=== PATIENT | female | born 1990 | race Caucasian/White ===

== ENCOUNTER 2016-07-02 21:53 | Outpatient (CLI) | payer MEDICAID ==
[2016-07-02 22:36] LABS: APPEARANCE,URINE SLIGHTLY-CLOUDY; BILIRUBIN,URINE NEGATIVE (NEGATIVE); GLUCOSE, URINE NEGATIVE (NEGATIVE); KETONES,URINE NEGATIVE (NEGATIVE); LEUKOCYTE ESTERASE,URINE LARGE (NEGATIVE); NITRITE,URINE NEGATIVE (NEGATIVE); PROTEIN,URINE NEGATIVE (NEGATIVE); URINE SPECIFIC GRAVITY 1.011; UROBILINOGEN,URINE NEGATIVE mg/dL (<2.0)
[2016-07-02 22:56] LABS: URINE BARBITURATES SCREEN NEGATIVE; URINE METHADONE SCREEN NEGATIVE; URINE PHENCYCLIDINE SCREEN NEGATIVE
--- NOTE | 2016-07-02 23:27 | Non Stress Test Report ---
Non Stress Test Datetime Report Generated by CPN: 07/02/2016 23:27 DEMOGRAPHIC Test Number: 1 EGA NST: 36.5 INDICATION Indication for Study: Ordered by Provider Indication for Study (NST) Other: LC MONITORING Monitor Explained: Monitor Explained; Test Explained; Patient Verbalized Understanding Time on Monitor: 07/02/2016 22:18 Time off Monitor: 07/02/2016 23:01 NST Duration: 43 NST INTERVENTIONS NST Interventions: PO Hydration; Reposition Patient Physician Notified NST: Dr Carroll BABY A: [id number] BABY A Movement : Present Contraction Frequency : None FHR Baseline : 150 Accelerations : 15X15 Decelerations : None Variability : Moderate 6-25bpm NST Review: Meets Criteria for Reactive NST NST Review and Verified By : Pascual Sands RN NST Results: Reactive NST COMMENTS NST Comments: see flowsheet for urine results and VS NST REPORT Report Trigger: Send Report
--- NOTE | 2016-07-03 04:48 | L&D Discharge Summary ---
OB Discharge Summary Datetime Report Generated by CPN: 07/03/2016 04:45 DISCHARGE DIAGNOSIS Diagnosis/Symptoms: Hypertension Evaluation; Chronic Hypertension Treatment/Procedures Other: BP monitoring Gestation: 36.5 Number of Babies in Womb: 1 Parity: 0 DIET/ACTIVITY/RESTRICTIONS Diet: Regular Diet Restrictions: BRAT DIET, ADVANCE TOLERATED Activity: Normal Activity TEACHING/INSTRUCTIONS/REFERRALS Instructions Given To: Pt, support persons Instructions Understood: Patient Verbalized Understanding; Support Person Verbalized Understanding Referrals: None Educational Materials- Other: pre-e care notes DISCHARGE INFORMATION Discharged AMA: No Discharge Date/Time: 07/02/2016 23:16 Discharged To: Home Discharge Provider Name: Dr Carroll Accompanied By: support persons Discharge Method: Ambulatory Condition: Stable FOLLOW UP INFORMATION Follow Up With: [facility] Follow Up On: Tomorrow Follow Up Phone Number: [facility] - Comments: see flowsheet for education.
--- NOTE | 2016-07-03 04:48 | L&D General Admission ---
General Admit Datetime Report Generated by CPN: 07/03/2016 04:45 INFORMATION Para: 0 (07/02/2016 23:16:Magda Victoriano, RN) Baby, Number in Womb: 1 (07/02/2016 23:16:Magda Victoriano, RN) CARE Height (in): 69 (07/02/2016 23:13:QS system process) Height (in): 69 (07/02/2016 22:36:QS system process) ALLERGIES Medication Allergies: amoxicillin (07/02/2016) (07/02/2016 22:35:QS system process) DEMOGRAPHICS Next of Kin (07/02/2016 21:54:QS system process)
--- NOTE | 2016-07-03 04:48 | Antepartum Discharge Summary ---
Antepartum DC Datetime Report Generated by CPN: 07/03/2016 04:45 DIET/ACTIVITY/RESTRICTIONS Diet: Regular (07/02/2016 23:16:Magda Victoriano, RN) Activity: Normal Activity (07/02/2016 23:16:Magda Victoriano, RN) TEACHING/INSTRUCTIONS/REFERRALS Instructions Given To: Pt, support persons (07/02/2016 23:16:Magda Victoriano, RN) Instructions Understood: Patient Verbalized Understanding; Support Person Verbalized Understanding (07/02/2016 23:16:Magda Pastrana RN) Educational Materials- Other: pre-e care notes (07/02/2016 23:16:Magda Pastrana RN) DISCHARGE INFORMATION Discharged AMA: No (07/02/2016 23:16:Magda Pastrana RN) Discharge Date/Time: 07/02/2016 23:16 (07/02/2016 23:16:Magda Pastrana RN) Discharged To: Home (07/02/2016 23:16:Magda Pastrana RN) Discharge Provider Name: Dr Carroll (07/02/2016 23:16:Magda Pastrana RN) Accompanied By: support persons (07/02/2016 23:16:Magda Pastrana RN) Discharge Method: Ambulatory (07/02/2016 23:16:Magda Pastrana RN) Condition: Stable (07/02/2016 23:16:Magda Pastrana RN) FOLLOW UP INFORMATION Follow Up With: [facility] (07/02/2016 23:16:Magda Pastrana RN) Follow Up On: Tomorrow (07/02/2016 23:16:Magda Pastrana RN) Follow Up Phone Number: [facility] - (07/02/2016 23:16:Magda Pastrana RN) Comments: see flowsheet for education. (07/02/2016 23:16:Magda Pastrana RN)
--- NOTE | 2016-07-03 04:48 | L&D Flow Sheet ---
LD Flowsheet Datetime Report Generated by CPN: 07/03/2016 04:45 Datetime: 07/02/2016 23:16 Teaching Comments: pre-e care notes given and explained, instructed to return for strong, regular ctx, heavy vaginal bleeding, decreased movement or suspected ROM as well. All pt and family member questions answered at this time. Pt and family agree to POC. Pt will f/u as scheduled at [facility] (Magda Pastrana RN) Additional Nursing Comments: Pt stable, ambulatory, leaving unit accompanied by family (Magda Pastrana RN) Datetime: 07/02/2016 23:01 Uterine Activity Monitor Mode: External (Magda Victoriano, RN) Frequency (min): None (Magda Victoriano, RN) Quality: Mild (Magda Victoriano, RN) Resting Tone (Palpate): Relaxed (Magda Victoirano, RN) Assessment A Monitor Mode: External US (Magda Victoriano, RN) FHR Baseline Rate : 145 (Magda Victoriano, RN) Variability: Moderate 6-25 bpm (Magda Victoriano, RN) Accelerations: 10X10 (Magda Victoriano, RN) Decelerations: None (Magda Victoriano, RN) Comments: Monitors discontined for d/c (Magda Victoriano, RN) Datetime: 07/02/2016 22:58 NBP Sys/Neelima/Mean (mmHg): 122 (QS system process) : 67 (QS system process) : 88 (QS system process) Pulse: 107 (QS system process) LaborFlag: Antepartum (QS system process) Datetime: 07/02/2016 22:55 Communication Communication: Call/Page Placed to Provider; Report Given to @ Dr Carroll (Magda Pastrana RN) Communication Comments: Call placed to Dr Carroll, report given to include pt presence, hx, medications, complaint of high BP at home, headache, BP readings and urine results. Orders received to d/c pt to home and f/u in office as scheduled tomorrow. (Magda Victoriano, RN) Datetime: 07/02/2016 22:48 NBP Sys/Neelima/Mean (mmHg): 134 (QS system process) : 78 (QS system process) : 101 (QS system process) Pulse: 107 (QS system process) LaborFlag: Antepartum (QS system process) Datetime: 07/02/2016 22:45 Uterine Activity Monitor Mode: External; Palpation (Magdaric Pastrana, RN) Frequency (min): None (Magdaric Pastrana, RN) Quality: Mild (Magda Victoriano, RN) Resting Tone (Palpate): Relaxed (Magda Victoriano, RN) Assessment A Monitor Mode: External US (Magda Victoriano, RN) FHR Baseline Rate : 150 (Magda Victoriano, RN) Variability: Moderate 6-25 bpm (Magda Victoriano, RN) Accelerations: 15X15 (Magda Victoriano, RN) Decelerations: None (Magda Victoriano, RN) Datetime: 07/02/2016 22:38 NBP Sys/Neelima/Mean (mmHg): 135 (QS system process) : 77 (QS system process) : 100 (QS system process) Pulse: 110 (QS system process) LaborFlag: Antepartum (QS system process) Datetime: 07/02/2016 22:25 Contraction Comments: pt denies ctx, abd soft to palpation (Magda Victoriano, RN) Pain Pain Scale: 1 (Annotations: "maybe a 1, I just feel gross") (Magda Victoriano, RN) Pain Presence: Constant (Magda Victoriano, RN) Pain Type: Ache (Magda Victoriano, RN) Pain Location: Abdomen; Head (Magda Victoriano, RN) Pain Goal: 0 (Magda Victoriano, RN) Vaginal Exam Membrane Status: Intact (Magda Victoriano, RN) Vaginal Bleeding: None (Magda Victoriano, RN) Maternal Assessment Level of Consciousness: Fully Conscious (Magda Victoriano, RN) DTR's/Clonus: DTRs 1+; No Clonus (Magda Victoriano, RN) Headache: Denies (Magda Victoriano, RN) Breath Sounds, Left: Clear and Equal (Magda Victoriano, RN) Breath Sounds, Right: Clear and Equal (Magda Victoriano, RN) Nausea/Vomiting: Denies (Magda Victoriano, RN) RUQ Epigastric Pain: Denies (Magda Victoriano, RN) Patient Care Patient Position/Activity: Right Lateral (Magda Victoriano, RN) Comfort Measures: Family Support (Magda Victoriano, RN) Teaching Instructional Method: Verbal; Patient Instructed; Family/Support Person Instructed; Verbalized Understanding (Magda Pastrana RN) Plan of Care: Plan of Care Discussed (Magda Pastrana RN) Unit Routine: [place] to Room; Call [place]; Bed (Magda Pastrana RN) LaborFlag: Antepartum (QS system process) Datetime: 07/02/2016 22:23 NBP Sys/Neelima/Mean (mmHg): 141 (QS system process) : 98 (QS system process) : 112 (QS system process) Pulse: 115 (QS system process) Respirations: 19 (Magda Victoriano, RN) SpO2 (%): 97 (Magda Victoriano, RN) Temperature (F): 97.9 (Magda Victoriano, RN) Temperature (C): 36.6 (QS system process) Temperature Route: Oral (Magda Victoriano, RN) Maternal Assessment Level of Consciousness: Fully Conscious (Magda Victoriano, RN) DTR's/Clonus: DTRs 1+; No Clonus (Magda Victoriano, RN) Headache: Frontal (Magda Victoriano, RN) Breath Sounds, Left: Clear and Equal (Magda Victoriano, RN) Breath Sounds, Right: Clear and Equal (Magda Victoriano, RN) Nausea/Vomiting: Denies (Magda Victoriano, RN) RUQ Epigastric Pain: Denies (Magda Victoriano, RN) LaborFlag: Antepartum (QS system process) Datetime: 07/02/2016 22:16 Vital Signs Stage of : Antepartum (Magda Victoriano, RN)
--- NOTE | 2016-07-03 04:48 | L&D Current Admission ---
Current Admit Datetime Report Generated by CPN: 07/03/2016 04:45 ADMISSION INFORMATION Chief Complaint: elevated BP at home 166/108 at 2115 (07/02/2016 22:25:Magda Pastrana RN)
--- NOTE | 2016-07-03 04:48 | L&D Admission Assessment ---
LD ADM ASMT Datetime Report Generated by CPN: 07/03/2016 04:45 PATIENT ASSESSMENT Assessment Type: Triage (07/02/2016 22:25:Magda Sandersl, RN) WEIGHT Weight (lb): 262 (07/02/2016 23:13:QS system process) Weight (lb): 262 (07/02/2016 22:36:QS system process) Weight (kg): 119.1 (07/02/2016 23:13:QS system process) Weight (kg): 119.1 (07/02/2016 22:36:QS system process) BMI: 38.7 (07/02/2016 23:13:QS system process) BMI: 38.7 (07/02/2016 22:36:QS system process) PAIN Pain Scale: 1 (Annotations: "maybe a 1, I just feel gross") (07/02/2016 22:25:Magda Pastrana RN) Pain Presence: Constant (07/02/2016 22:25:Magda Pastrana RN) Pain Type: Ache (07/02/2016 22:25:Magda Pastrana RN) Pain Location: Abdomen; Head (07/02/2016 22:25:Magda Pastrana RN) Pain Goal: 0 (07/02/2016 22:25:Magda Pastrana RN) Pain Related to Contraction: No (07/02/2016 22:25:Magda Pastrana RN) CONTRACTIONS Frequency (min): None (07/02/2016 23:01:Magda Pastrana RN) Frequency (min): None (07/02/2016 22:45:Magda Pastrana RN) Quality: Mild (07/02/2016 23:01:Magda Pastrana RN) Quality: Mild (07/02/2016 22:45:Magda Pastrana RN) Resting Tone [place]: Relaxed (07/02/2016 23:01:Magda Pastrana RN) Resting Tone [place]: Relaxed (07/02/2016 22:45:Magda Pastrana RN) Contraction Comments: pt denies ctx, abd soft to palpation (07/02/2016 22:25:Magda Pastrana RN) VAGINAL EXAM Membranes Status: Intact (07/02/2016 22:25:Magda Pastrana RN) NEURO Level of Consciousness: Fully Conscious (07/02/2016 22:25:Magda Pastrana RN) Level of Consciousness: Fully Conscious (07/02/2016 22:23:Magda Pastrana RN) DTR's/Clonus: DTRs 1+; No Clonus (07/02/2016 22:25:Magda Pastrana RN) DTR's/Clonus: DTRs 1+; No Clonus (07/02/2016 22:23:Magda Pastrana RN) Headache: Denies (07/02/2016 22:25:Magda Pastrana RN) Headache: Frontal (07/02/2016 22:23:Magda Pastrana RN) Dizziness: No (07/02/2016 22:25:Magda Pastrana RN) Blurred Vision: No (07/02/2016 22:25:Magda Pastrana RN) Extremity Numbness/Tingling : None (07/02/2016 22:25:Magda Pastrana RN) Extremity Movement: Full Range of Motion (07/02/2016 22:25:Magda Pastrana RN) CARDIOVASCULAR Heart Rhythm: Regular (07/02/2016 22:25:Magda Pastrana RN) Nailbeds: [place] (07/02/2016 22:25:Magda Pastrana RN) Capillary Refill: Less than 3 Seconds (07/02/2016 22:25:Magda Pastrana RN) Lower Extremities Edema: None (07/02/2016 22:25:Magda Pastrana RN) Lower Extremities Edema Degree: None (07/02/2016 22:25:Magda Pastrana RN) Upper Extremities Edema: None (07/02/2016 22:25:Magda Pastrana RN) Upper Extremities Edema Degree: None (07/02/2016 22:25:Magda Pastrana RN) Facial Edema: None (07/02/2016 22:25:Magda Pastrana RN) Delphine's Sign Left Leg: Negative (07/02/2016 22:25:Magda Pastrana RN) Delphine's Sign Right Leg: Negative (07/02/2016 22:25:Magda Pastrana RN) DVT RISK ASSESSMENT DVT Risk Age: Age less than 41 years (07/02/2016 22:25:Magda Pastrana RN) DVT Risk BMI: BMI 31 to 40 (07/02/2016 22:25:Magda Pastrana RN) DVT Risk Surgery: None Applicable (07/02/2016 22:25:Magda Pastrana RN) DVT Risk Other: Women Only- or (<1 month) (07/02/2016 22:25:Magda Pastrana RN) DVT Risk Total: 2 (07/02/2016 22:25:QS system process) DVT Risk Text: Moderate Risk (10-20%) - Consider stockings, compresssion device, pharmacological therapy per hospital policy (07/02/2016 22:25:QS system process) RESPIRATORY Respiratory Effort: Unlabored; Regular Rhythm; Equal Expansion (07/02/2016 22:25:Magda Pastrana, JASMINA) Breath Sounds, Left: Clear and Equal (07/02/2016 22:25:Magda Victoriano, RN) Breath Sounds, Left: Clear and Equal (07/02/2016 22:23:Magda Victoriano, RN) Breath Sounds, Right: Clear and Equal (07/02/2016 22:25:Magda Victoriano, RN) Breath Sounds, Right: Clear and Equal (07/02/2016 22:23:Magda Victoriano, RN) Cough Productivity: None (07/02/2016 22:25:Magda Pastrana RN) GASTROINTESTINAL Nausea/Vomiting: Denies (07/02/2016 22:25:Magda Pastrana RN) Nausea/Vomiting: Denies (07/02/2016 22:23:Magda Pastrana RN) Bowel Sounds: Normoactive; All Quadrants (07/02/2016 22:25:Magda Pastrana RN) RUQ Epigastric Pain: Denies (07/02/2016 22:25:Magda Pastrana RN) RUQ Epigastric Pain: Denies (07/02/2016 22:23:Magda Pastrana RN) Bowel Patterns: Loose Stool (07/02/2016 22:25:Magda Pastrana RN) Hemorrhoids: Present (07/02/2016 22:25:Magda Pastrana RN) Diet Type: Regular diet (07/02/2016 22:25:Magda Victoriano RN) GENITOURINARY Bladder: Nondistended (07/02/2016 22:25:Magda Pastrana RN) Frequency of Urination: No (07/02/2016 22:25:Magda Pastrana RN) Urination Burning: No (07/02/2016 22:25:Magda Pastrana RN) CVA Tenderness: No (07/02/2016 22:25:Magda Pastrana RN) Vaginal Bleeding: None (07/02/2016 22:25:Magda Pastrana RN) Vaginal Discharge Amount: Small (Annotations: increase in regular discharge per pt ) (07/02/2016 22:25:Magda Pastrana RN) Vaginal Discharge Color: N/A (07/02/2016 22:25:Magda Victoriano RN) INTEGUMENTARY Skin Color: Normal for Race (07/02/2016 22:25:Magda Pastrana RN) Skin Temperature: Warm (07/02/2016 22:25:Magda Pastrana RN) Skin Moisture: Dry (07/02/2016 22:25:Magda Pastrana RN) NATACHA SKIN ASSESSMENT Natacha Scale Sensory Perception: No Impairment- Responds to verbal commands. Has no sensory deficit which would limit ability to feel or voice pain or discomfort (07/02/2016 22:25:Magda Pastrana RN) Natacha Scale Moisture: Rarely Moist- Skin is usually dry. Linen only requires changing at routine intervals (07/02/2016 22:25:Magda Pastrana RN) Natacha Scale Activity: Walks Frequently- Walks outside the room at least twice a day and inside room at least every 2 hours during the day. (07/02/2016 22:25:Magda Pastrana RN) Natacha Scale Mobility: No Limitations- Makes major and frequent changes in position without assistance (07/02/2016 22:25:Magda Pastrana RN) Natacha Scale Nutrition: Excellent- Eats most of every meal. Never refuses a meal. Usually eats a total of 4 or more servings of meat and dairy products. Occasionally eats between meals. Does not require supplementation (07/02/2016 22:25:Magda Pastrana RN) Natacha Scale Friction and Shear: No Apparent Problem- Moves in bed and in chair independently and has sufficient muscle strength to lift up completely during move. Maintains good position in bed or chair at all times (07/02/2016 22:25:Magda Pastrana RN) Natacha Scale Total: 23 (07/02/2016 22:25:QS system process) Natacha Scale Risk: No Risk of Pressure Ulcer Noted at this Time (07/02/2016 22:25:QS system process) SUPPORT Family Support: Significant Other supportive, at bedside frequently; Family supportive (07/02/2016 22:25:Magda Victoriano, RN) Emotional State: Anxious (07/02/2016 22:25:Magda Victoriano, RN) SAFETY Call [place] Within Reach: Yes (07/02/2016 22:25:Magda Sandersl, RN) Side Rails Up: Yes (07/02/2016 22:25:Magda Victoriano, RN) Bed Wheels Locked: Yes (07/02/2016 22:25:Magda Victoriano, RN) Arm Bands Present: Yes (07/02/2016 22:25:Magda Victoriano, RN) FALL SCREEN Fall Risk History of Falling: (0) No (07/02/2016 22:25:Magda Pastrana RN) Fall Risk Secondary Diagnosis: (0) No (07/02/2016 22:25:Magda Pastrana RN) Fall Risk Ambulatory Aid: (0) None/Bedrest/Wheelchair/Nurse Assist (07/02/2016 22:25:Magda Pastrana RN) Fall Risk IV Therapy: (0) No (07/02/2016 22:25:Magda Pastrana RN) Fall Risk Gait: (0) Normal/Bedrest/Immobile (07/02/2016 22:25:Magda Pastrana RN) Fall Risk Mental Status: (0) Oriented to Own Ability (07/02/2016 22:25:Magda Pastrana RN) Fall Risk Score: 0 (07/02/2016 22:25:QS system process) Fall Risk Score Definition: No Risk: No action required (07/02/2016 22:25:QS system process) RECENT TRAVEL/INFECTIOUS DISEASE Recent Exp Communicable Disease: No (07/02/2016 22:25:Magda Pastrana RN) Cough or Fever: No (07/02/2016 22:25:Magda Pastrana RN) Foreign Travel Past 10 Days: No (07/02/2016 22:25:Magda Pastrana RN) Open Wounds or Sores: No (07/02/2016 22:25:Magda Pastrana RN) Prior Antibiotic Resistance Tx: No (07/02/2016 22:25:Magda Pastrana RN) Cultures Obtained: Not Applicable (07/02/2016 22:25:Magda Pastrana RN) Isolation Initiated: No (07/02/2016 22:25:Magda Pastrana RN) Pt/Family Education: Not Applicable (07/02/2016 22:25:Magda Pastrana RN) BABY A FHR Baseline Rate (bpm) Baby A: 145 (07/02/2016 23:01:Magda Pastrana RN) FHR Baseline Rate (bpm) Baby A: 150 (07/02/2016 22:45:Magda Pastrana RN) Variability Baby A: Moderate 6-25 bpm (07/02/2016 23:01:Magda Pastrana RN) Variability Baby A: Moderate 6-25 bpm (07/02/2016 22:45:Magda Pastrana RN) Accelerations Baby A: 10X10 (07/02/2016 23:01:Magda Pastrana RN) Accelerations Baby A: 15X15 (07/02/2016 22:45:Magda Pastrana RN) Decelerations Baby A: None (07/02/2016 23:01:Magda Pastrana RN) Decelerations Baby A: None (07/02/2016 22:45:Magda Pastrana RN)
== END 2016-07-02 23:16 | disposition home or self-care (01) ==
LOC: LC 21:53
PROVIDERS: ATTEND Specialist
PROC: 4A1HXCZ Monitoring of Products of Conception, Cardiac Rate, External Approach (ICD-10-PCS; principal; 2016-07-02)
DX: O10.913 Unspecified pre-existing hypertension complicating pregnancy, third trimester (principal); Z3A.36 36 weeks gestation of pregnancy
CPT/HCPCS: 59025; 81001; G0479; 80307

== ENCOUNTER 2016-07-07 17:33 | Inpatient (IN) | payer MEDICAID ==
[2016-07-07 18:40] LABS: ABSOLUTE EOSINOPHILS # (AUTO) 0.2 10^3/uL (0.0-0.6); ABSOLUTE LYMPHOCYTES (AUTO) 2.7 10^3/uL (0.5-4.7); ABSOLUTE MONOCYTES (AUTO) 0.7 10^3/uL (0.1-1.4); ABSOLUTE NEUT (AUTO) 9.6 10^3/uL (1.7-8.2); BASOPHILS % (AUTO) 0.3 % (0-2); EOSINOPHILS % (AUTO) 1.6 % (0-6); HEMATOCRIT 39.8 % (36.0-47.0); HGB HCT DIFFERENCE 2.2; LYMPHOCYTES % (AUTO) 20.4 % (13-45); MEAN CORPUSCULAR HEMOGLOBIN 28.7 pg (27.0-33.4); MEAN CORPUSCULAR HGB CONC 35.3 g/dL (32.0-36.0); MEAN CORPUSCULAR VOLUME 82 fl (80-97); MONOCYTES % (AUTO) 5.2 % (3-13); RED BLOOD COUNT 4.88 10^6/uL (3.72-5.28); RED CELL DISTRIBUTION WIDTH 14.3 % (11.5-14.0); SEGMENTED NEUTROPHILS % (AUTO) 72.5 % (42-78); WHITE BLOOD COUNT 13.3 10^3/uL (4.0-10.5)
[2016-07-07] MEDS ORDERED: MISOPROSTOL 0.1 MG TABLET ONE ×2 (18:54→22:55)
[2016-07-07] MEDS ORDERED: RINGERS SOLUTION,LACTATED 300 ML IV ONE (18:54)
[2016-07-07] MEDS ORDERED: OXYTOCIN/NORMAL SALINE 1,000 ML IV PRN (18:54)
[2016-07-07 18:57] LABS: ALANINE AMINOTRANSFERASE 19 U/L (9-52); ALBUMIN 3.8 g/dL (3.5-5.0); ALKALINE PHOSPHATASE 104 U/L (38-126); ANION GAP 14 (5-19); ASPARTATE AMINO TRANSFERASE 17 U/L (14-36); BILIRUBIN,TOTAL 0.9 mg/dL (0.2-1.3); BLOOD UREA NITROGEN 7 mg/dL (7-20); CALCIUM 9.8 mg/dL (8.4-10.2); CARBON DIOXIDE 20 mmol/L (22-30); CHLORIDE 105 mmol/L (98-107); GLUCOSE 72 mg/dL (75-110); LDH 317 U/L (313-618); POTASSIUM 4.2 mmol/L (3.6-5.0); SODIUM 139.1 mmol/L (137-145); TOTAL PROTEIN 6.5 g/dL (6.3-8.2); URIC ACID 4.6 mg/dL (2.5-6.2)
[2016-07-07] MEDS: RINGERS SOLUTION,LACTATED 1,000 ML IV PRN (18:57)
[2016-07-07] MEDS ORDERED: MISOPROSTOL 0.1 MG TABLET PV SCH (19:00)
[2016-07-07 19:18] LABS: APPEARANCE,URINE SLIGHTLY-CLOUDY; BILIRUBIN,URINE NEGATIVE (NEGATIVE); GLUCOSE, URINE NEGATIVE (NEGATIVE); KETONES,URINE NEGATIVE (NEGATIVE); LEUKOCYTE ESTERASE,URINE MODERATE (NEGATIVE); NITRITE,URINE NEGATIVE (NEGATIVE); PROTEIN,URINE NEGATIVE (NEGATIVE); URINE SPECIFIC GRAVITY 1.011; UROBILINOGEN,URINE NEGATIVE mg/dL (<2.0)
--- NOTE | 2016-07-07 20:00 | L&D Flow Sheet ---
LD Flowsheet Datetime Report Generated by CPN: 07/07/2016 20:00 Datetime: 07/07/2016 19:40 NBP Sys/Neelima/Mean (mmHg): 137 (QS system process) : 86 (QS system process) : 107 (QS system process) Pulse: 83 (QS system process) LaborFlag: Antepartum (QS system process) Datetime: 07/07/2016 19:30 Monitor Mode: External; Palpation (Maryse Field, RN) Frequency (min): x2 (Maryse Field, RN) Quality: Mild (Maryse Mittal RN) Duration (sec): 50-60 (Maryse Mittal RN) Resting Tone (Palpate): Relaxed (Maryse Mittal RN) Monitor Mode: External US (Maryse Mittal RN) FHR Baseline Rate : 140 (Maryse Mittal RN) Variability: Moderate 6-25 bpm (Maryse Mittal RN) Accelerations: 15X15 (Maryse Mittal RN) Decelerations: None (Maryse Mittal RN) Datetime: 07/07/2016 19:24 Pain Scale: 0 (Maryse Mittal RN) Pain Presence: None/Denies (Maryse Mittal RN) Pain Type: N/A (Maryse Mittal RN) Vaginal Bleeding: None (Maryse Mittal RN) Level of Consciousness: Fully Conscious (Maryse Mittal RN) DTR's/Clonus: DTRs 2+; No Clonus (Maryse Mittal RN) Headache: Denies (Maryse Mittal RN) Breath Sounds, Left: Clear and Equal (Maryse Mittal RN) Breath Sounds, Right: Clear and Equal (Maryse Mittal RN) Nausea/Vomiting: Denies (Maryse Mittal RN) RUQ Epigastric Pain: Denies (Maryse Mittal RN) Instructional Method: Verbal; Patient Instructed; Family/Support Person Instructed; Verbalized Understanding (Maryse Mittal RN) Plan of Care: Plan of Care Discussed (Maryse Mittal RN) Unit Routine: [place] to Room; Call [place]; Bed; Visiting Policy; Waiting Areas; Infant Security; Phone/Cell Phone Use; Photography; Unit Personnel; Consents Signed; Handwashing; Flu/Illness Precautions; Monitoring; IV Pumps; Safety/Fall Risk Prevention; Diet/Nutrition Services; Bathroom Privileges (Maryse Mittal RN) LaborFlag: Antepartum (QS system process) Datetime: 07/07/2016 19:13 Communication Comments: Report received from JASMINA Boyd (Maryse Mittal RN) Datetime: 07/07/2016 19:10 NBP Sys/Neelima/Mean (mmHg): 143 (QS system process) : 91 (QS system process) : 112 (QS system process) Pulse: 91 (QS system process) LaborFlag: Antepartum (QS system process) Datetime: 07/07/2016 19:00 Monitor Mode: External; Palpation (Margarita Jaramillo RN) Frequency (min): Irreg (Margarita Jaramillo RN) Quality: Mild (Margarita Jaramillo RN) Duration (sec): 40-50 (Margarita Jaramillo RN) Resting Tone (Palpate): Relaxed (Margarita Jaramillo RN) Monitor Mode: External US (Margarita Jaramillo RN) FHR Baseline Rate : 145 (Margarita Jaramillo RN) Variability: Moderate 6-25 bpm (Margarita Jaramillo RN) Accelerations: 15X15 (Margarita Jaramillo RN) Decelerations: None (Margarita Jaramillo RN) Dilatation (cm): 1.0 (Margarita Jaramillo RN) Effacement (%): 50 (Margarita Jaramillo RN) Station: -2 (Margarita Jaramillo RN) Exam by: Stuart Jaramillo RNC (Margarita Jaramillo RN) Vaginal Bleeding: None (Margarita Jaramillo RN) Cervix, Consistency: Soft (Margarita Jaramillo RN) Cervix, Position: Posterior (Margarita Jaramillo RN) Vaginal Exam Comments: Cervix difficult to reach (Margarita Jaramillo RN) Cervical Ripening Agents: Cytotec @ 25mcg Vaginally (Margarita Jaramillo RN) Datetime: 07/07/2016 18:57 IV/Blood Work: IV Started (Margarita Jaramillo RN) Datetime: 07/07/2016 18:39 NBP Sys/Neelima/Mean (mmHg): 134 (QS system process) : 95 (QS system process) : 109 (QS system process) Pulse: 106 (QS system process) Respirations: 16 (Margarita Jaramillo RN) Temperature (F): 98.3 (Margarita Jaramillo RN) Temperature (C): 36.8 (QS system process) Temperature Route: Oral (Margarita Jaramillo RN) LaborFlag: Antepartum (QS system process) Datetime: 07/07/2016 18:37 Stage of : Antepartum (Margarita Jaramillo RN)
[2016-07-08] MEDS: RINGERS SOLUTION,LACTATED 1,000 ML IV PRN (00:16)
[2016-07-08] MEDS ORDERED: ZOLPIDEM TARTRATE 5 MG TABLET ONE (01:18)
[2016-07-08] MEDS ORDERED: ZOLPIDEM TARTRATE 5 MG TABLET PO ONE (01:19)
[2016-07-08] MEDS ORDERED: MISOPROSTOL 0.1 MG TABLET ONE (03:06)
[2016-07-08] MEDS ORDERED: PROMETHAZINE HCL INJ 25 MG/1 ML VIAL IV ONE (04:30)
[2016-07-08] MEDS ORDERED: NALBUPHINE HCL INJ 10 MG/1 ML AMPULE INJ ONE (04:30)
[2016-07-08] MEDS ORDERED: PROMETHAZINE HCL INJ 25 MG/1 ML VIAL ONE (04:32)
[2016-07-08] MEDS ORDERED: NALBUPHINE HCL INJ 10 MG/1 ML AMPULE ONE ×2 (04:33→10:25)
--- NOTE | 2016-07-08 04:45 | L&D Flow Sheet ---
LD Flowsheet Datetime Report Generated by CPN: 07/08/2016 04:45 Datetime: 07/08/2016 04:42 NBP Sys/Neelima/Mean (mmHg): 113 (QS system process) : 59 (QS system process) : 80 (QS system process) Pulse: 64 (QS system process) LaborFlag: Antepartum (QS system process) Datetime: 07/08/2016 04:40 Analgesics/Sedatives: Nubain (mg) @ 10; Phenergan (mg) @ 12.5 (Maryse Field, RN) Datetime: 07/08/2016 04:27 Communication: RN Reviewed Strip; Provider Orders Received; Call/Page Placed to Provider (Maryse Mittal RN) Communication Comments: Informed Dr. Carroll of patient's complaint of pain, vag exam and contractions; orders received for Nubain and Phenergan IV now. (Maryse Mittal RN) Datetime: 07/08/2016 04:10 NBP Sys/Neelima/Mean (mmHg): 137 (QS system process) : 83 (QS system process) : 106 (QS system process) Pulse: 78 (QS system process) LaborFlag: Antepartum (QS system process) Datetime: 07/08/2016 03:40 NBP Sys/Neelima/Mean (mmHg): 142 (QS system process) : 89 (QS system process) : 110 (QS system process) Pulse: 89 (QS system process) LaborFlag: Antepartum (QS system process) Datetime: 07/08/2016 03:25 Cervical Ripening Agents: Cytotec @ 25 mcg PV (Maryse Mittal, JASMINA) Datetime: 07/08/2016 03:10 Dilatation (cm): 2.0 (Maryse Mittal RN) Effacement (%): 60 (Maryse Mittal RN) Station: -1 (Maryse Mittal RN) Exam by: JASMINA Hyde (Maryse Mittal RN) Datetime: 07/08/2016 03:01 I/O Interventions: Up to BR (Maryse Mittal RN) Datetime: 07/08/2016 02:40 NBP Sys/Neelima/Mean (mmHg): 142 (QS system process) : 87 (QS system process) : 106 (QS system process) Pulse: 78 (QS system process) LaborFlag: Antepartum (QS system process) Datetime: 07/08/2016 02:30 Monitor Mode: External; Palpation (Maryse Mittal, RN) Frequency (min): 2-4 (Maryse Mittal RN) Quality: Mild (Maryse Mittal RN) Duration (sec): 50-60 (Maryse Field, RN) Resting Tone (Palpate): Relaxed (Maryse Mittal, RN) Monitor Mode: External US (Maryse Mittal, RN) FHR Baseline Rate : 145 (Maryse Mittal, RN) Variability: Moderate 6-25 bpm (Maryse Mittal, RN) Accelerations: 10X10 (Maryse Mittal, RN) Decelerations: None (Maryse Mittal, RN) I/O Interventions: Up to BR (Maryse Mittal, RN) Datetime: 07/08/2016 02:10 NBP Sys/Neelima/Mean (mmHg): 141 (QS system process) : 81 (QS system process) : 105 (QS system process) Pulse: 93 (QS system process) LaborFlag: Antepartum (QS system process) Datetime: 07/08/2016 02:00 Monitor Mode: External; Palpation (Maryse Mittal, RN) Frequency (min): 3.5-5.5 (Maryse Mittal, RN) Quality: Mild (Maryse Mittal, RN) Duration (sec): 50-70 (Maryse Mittal, RN) Resting Tone (Palpate): Relaxed (Maryse Mittal, RN) Monitor Mode: External US (Maryse Mittal, RN) FHR Baseline Rate : 140 (Maryse Mittal, RN) Variability: Moderate 6-25 bpm (Maryse Field, RN) Accelerations: 10X10 (Maryse Field, RN) Decelerations: None (Maryse Field, RN) Datetime: 07/08/2016 01:40 NBP Sys/Neelima/Mean (mmHg): 134 (QS system process) : 83 (QS system process) : 101 (QS system process) Pulse: 82 (QS system process) LaborFlag: Antepartum (QS system process) Datetime: 07/08/2016 01:30 Monitor Mode: External; Palpation (Maryse Mittal, RN) Frequency (min): 3-3.5 (Maryse Mittal, RN) Quality: Mild (Maryse Mittal, RN) Duration (sec): 60-130 (Maryse Mittal, RN) Resting Tone (Palpate): Relaxed (Maryse Mittal, RN) Monitor Mode: External US (Maryse Field, RN) FHR Baseline Rate : 140 (Maryse Field, RN) Variability: Moderate 6-25 bpm (Maryse Field, RN) Accelerations: 10X10 (Maryse Field, RN) Decelerations: None (Maryse Field, RN) Datetime: 07/08/2016 01:19 Analgesics/Sedatives: Ambien (mg) @ 10 (Maryse Field, RN) Datetime: 07/08/2016 01:09 NBP Sys/Neelima/Mean (mmHg): 132 (QS system process) : 72 (QS system process) : 97 (QS system process) Pulse: 78 (QS system process) LaborFlag: Antepartum (QS system process) Datetime: 07/08/2016 01:00 Monitor Mode: External; Palpation (Maryse Field, RN) Frequency (min): 1.5-2.5 (Maryse Field, RN) Quality: Mild (Maryse Field, RN) Duration (sec): 50-80 (Maryse Field, RN) Resting Tone (Palpate): Relaxed (Maryse Field, RN) Monitor Mode: External US (Maryse Field, RN) FHR Baseline Rate : 135 (Maryse Field, RN) Variability: Moderate 6-25 bpm (Maryse Field, RN) Accelerations: 15X15 (Maryse Field, RN) Decelerations: None (Maryse Field, RN) Datetime: 07/08/2016 00:40 NBP Sys/Neelima/Mean (mmHg): 128 (QS system process) : 79 (QS system process) : 99 (QS system process) Pulse: 72 (QS system process) LaborFlag: Antepartum (QS system process) Datetime: 07/08/2016 00:30 Monitor Mode: External; Palpation (Maryse Field, RN) Frequency (min): 1.5-8 (Maryse Field, RN) Quality: Mild (Maryse Field, RN) Duration (sec): 60-80 (Maryse Field, RN) Resting Tone (Palpate): Relaxed (Maryse Field, RN) Monitor Mode: External US (Maryse Field, RN) FHR Baseline Rate : 135 (Maryse Field, RN) Variability: Moderate 6-25 bpm (Maryse Field, RN) Accelerations: 15X15 (Maryse Field, RN) Decelerations: None (Maryse Field, RN) Datetime: 07/08/2016 00:16 IV/Blood Work: New IV Bag Hung; IV Bag Number @ 2 (Maryse Field, RN) Datetime: 07/08/2016 00:06 I/O Interventions: Up to BR (Maryse Field, RN) Datetime: 07/08/2016 00:00 Monitor Mode: External; Palpation (Maryse Field, RN) Frequency (min): Irregular (Mrayse Field, RN) Quality: Mild (Maryse Field, RN) Resting Tone (Palpate): Relaxed (Maryse Field, RN) Monitor Mode: External US (Maryse Field, RN) FHR Baseline Rate : 135 (Maryse Field, RN) Variability: Moderate 6-25 bpm (Maryse Field, RN) Accelerations: 15X15 (Maryse Field, RN) Decelerations: None (Maryse Field, RN) Datetime: 07/07/2016 23:41 NBP Sys/Neelima/Mean (mmHg): 115 (QS system process) : 62 (QS system process) : 83 (QS system process) Pulse: 73 (QS system process) LaborFlag: Antepartum (QS system process) Datetime: 07/07/2016 23:30 Monitor Mode: External; Palpation (Maryse Field, RN) Frequency (min): Irregular (Maryse Field, RN) Quality: Mild (Maryse Field, RN) Resting Tone (Palpate): Relaxed (Maryse Field, RN) Monitor Mode: External US (Maryse Field, RN) FHR Baseline Rate : 135 (Maryse Field, RN) Variability: Moderate 6-25 bpm (Maryse Field, RN) Accelerations: 15X15 (Maryse Field, RN) Decelerations: None (Maryse Field, RN) Datetime: 07/07/2016 23:10 NBP Sys/Neelima/Mean (mmHg): 112 (QS system process) : 63 (QS system process) : 82 (QS system process) Pulse: 70 (QS system process) LaborFlag: Antepartum (QS system process) Datetime: 07/07/2016 23:01 Cervical Ripening Agents: Cytotec @ 25 mcg PV (Maryse Field, RN) Datetime: 07/07/2016 23:00 Monitor Mode: External; Palpation (Maryse Mittal, RN) Frequency (min): Irregular (Maryse Mittal, RN) Quality: Mild (Maryse Field, RN) Resting Tone (Palpate): Relaxed (Maryse Field, RN) Monitor Mode: External US (Maryse Field, RN) FHR Baseline Rate : 135 (Maryse Field, RN) Variability: Moderate 6-25 bpm (Maryse Field, RN) Accelerations: 15X15 (Maryse Field, RN) Decelerations: None (Maryse Field, RN) Dilatation (cm): 1.0 (Maryse Field, RN) Effacement (%): 60 (Maryse Field, RN) Station: -2 (Maryse Field, RN) Exam by: J.Field RN (Maryse Field, RN) Datetime: 07/07/2016 22:51 I/O Interventions: Up to BR (Maryse Field, RN) Datetime: 07/07/2016 22:40 NBP Sys/Neelima/Mean (mmHg): 135 (QS system process) : 85 (QS system process) : 105 (QS system process) Pulse: 74 (QS system process) LaborFlag: Antepartum (QS system process) Datetime: 07/07/2016 22:30 Monitor Mode: External; Palpation (Maryse Field, RN) Frequency (min): Irregular (Maryse Field, RN) Quality: Mild (Maryse Field, RN) Resting Tone (Palpate): Relaxed (Maryse Field, RN) Monitor Mode: External US (Maryse Field, RN) FHR Baseline Rate : 135 (Maryse Field, RN) Variability: Moderate 6-25 bpm (Maryse Field, RN) Accelerations: 15X15 (Maryse Field, RN) Decelerations: None (Maryse Field, RN) Datetime: 07/07/2016 22:10 NBP Sys/Neelima/Mean (mmHg): 133 (QS system process) : 81 (QS system process) : 102 (QS system process) Pulse: 75 (QS system process) LaborFlag: Antepartum (QS system process) Datetime: 07/07/2016 22:00 Monitor Mode: External; Palpation (Maryse Field, RN) Frequency (min): Irregular (Maryse Field, RN) Quality: Mild (Maryse Field, RN) Resting Tone (Palpate): Relaxed (Maryse Field, RN) Monitor Mode: External US (Maryse Field, RN) FHR Baseline Rate : 135 (Maryse Field, RN) Variability: Moderate 6-25 bpm (Maryse Field, RN) Accelerations: 15X15 (Maryse Field, RN) Decelerations: None (Maryse Field, RN) Datetime: 07/07/2016 21:40 NBP Sys/Neelima/Mean (mmHg): 131 (QS system process) : 80 (QS system process) : 100 (QS system process) Pulse: 79 (QS system process) LaborFlag: Antepartum (QS system process) Datetime: 07/07/2016 21:30 Monitor Mode: External; Palpation (Maryse Field, RN) Frequency (min): x1 (Maryse Field, RN) Quality: Mild (Maryse Field, RN) Duration (sec): 100 (Maryse Field, RN) Resting Tone (Palpate): Relaxed (Maryse Field, RN) Monitor Mode: External US (Maryse Field, RN) FHR Baseline Rate : 135 (Maryse Field, RN) Variability: Moderate 6-25 bpm (Maryse Field, RN) Accelerations: 15X15 (Maryse Field, RN) Decelerations: None (Maryse Field, RN) Datetime: 07/07/2016 21:00 Monitor Mode: External; Palpation (Maryse Field, RN) Frequency (min): Irregular (Maryse Field, RN) Quality: Mild (Maryse Field, RN) Resting Tone (Palpate): Relaxed (Maryse Field, RN) Monitor Mode: External US (Maryse Field, RN) FHR Baseline Rate : 135 (Maryse Field, RN) Variability: Moderate 6-25 bpm (Maryse Field, RN) Accelerations: 15X15 (Maryse Field, RN) Decelerations: None (Maryse Field, RN) Datetime: 07/07/2016 20:40 NBP Sys/Neelima/Mean (mmHg): 137 (QS system process) : 83 (QS system process) : 105 (QS system process) Pulse: 78 (QS system process) LaborFlag: Antepartum (QS system process) Datetime: 07/07/2016 20:31 I/O Interventions: Up to BR (Maryse Field, RN) Datetime: 07/07/2016 20:30 Monitor Mode: External; Palpation (Maryse Field, RN) Frequency (min): Irregular (Maryse Field, RN) Quality: Mild (Maryse Field, RN) Resting Tone (Palpate): Relaxed (Maryse Field, RN) Monitor Mode: External US (Maryse Field, RN) FHR Baseline Rate : 130 (Maryse Field, RN) Variability: Moderate 6-25 bpm (Maryse Field, RN) Accelerations: 15X15 (Maryse Field, RN) Decelerations: None (Maryse Field, RN) Datetime: 07/07/2016 20:10 NBP Sys/Neelima/Mean (mmHg): 136 (QS system process) : 84 (QS system process) : 105 (QS system process) Pulse: 82 (QS system process) LaborFlag: Antepartum (QS system process) Datetime: 07/07/2016 20:00 Monitor Mode: External; Palpation (Maryse Field, RN) Frequency (min): Irregular (Maryse Field, RN) Quality: Mild (Maryse Field, RN) Resting Tone (Palpate): Relaxed (Maryse Field, RN) Monitor Mode: External US (Maryse Field, RN) FHR Baseline Rate : 135 (Maryse Field, RN) Variability: Moderate 6-25 bpm (Maryse Field, RN) Accelerations: 15X15 (Maryse Field, RN) Decelerations: None (Maryse Field, RN) Datetime: 07/07/2016 19:40 NBP Sys/Neelima/Mean (mmHg): 137 (QS system process) : 86 (QS system process) : 107 (QS system process) Pulse: 83 (QS system process) LaborFlag: Antepartum (QS system process) Datetime: 07/07/2016 19:30 Monitor Mode: External; Palpation (Maryse Field, RN) Frequency (min): x2 (Maryse Field, RN) Quality: Mild (Maryse Field, RN) Duration (sec): 50-60 (Maryse Field, RN) Resting Tone (Palpate): Relaxed (Maryse Field, RN) Monitor Mode: External US (Maryse Field, RN) FHR Baseline Rate : 140 (Maryse Field, RN) Variability: Moderate 6-25 bpm (Maryse Field, RN) Accelerations: 15X15 (Maryse Field, RN) Decelerations: None (Maryse Field, RN) Datetime: 07/07/2016 19:24 Pain Scale: 0 (Maryse Field, RN) Pain Presence: None/Denies (Maryse Field, RN) Pain Type: N/A (Maryse Field, RN) Vaginal Bleeding: None (Maryse Field, RN) Level of Consciousness: Fully Conscious (Maryse Field, RN) DTR's/Clonus: DTRs 2+; No Clonus (Maryse Field, RN) Headache: Denies (Maryse Field, RN) Breath Sounds, Left: Clear and Equal (Maryse Field, RN) Breath Sounds, Right: Clear and Equal (Maryse Field, RN) Nausea/Vomiting: Denies (Maryse Mittal RN) RUQ Epigastric Pain: Denies (Maryse Mittal RN) Instructional Method: Verbal; Patient Instructed; Family/Support Person Instructed; Verbalized Understanding (Maryse Mittal RN) Plan of Care: Plan of Care Discussed (Maryse Mittal RN) Unit Routine: [place] to Room; Call [place]; Bed; Visiting Policy; Waiting Areas; Infant Security; Phone/Cell Phone Use; Photography; Unit Personnel; Consents Signed; Handwashing; Flu/Illness Precautions; Monitoring; IV Pumps; Safety/Fall Risk Prevention; Diet/Nutrition Services; Bathroom Privileges (Maryse Mittal RN) LaborFlag: Antepartum (QS system process) Datetime: 07/07/2016 19:13 Communication Comments: Report received from JASMINA Boyd (Maryse Mittal RN) Datetime: 07/07/2016 19:10 NBP Sys/Neelima/Mean (mmHg): 143 (QS system process) : 91 (QS system process) : 112 (QS system process) Pulse: 91 (QS system process) LaborFlag: Antepartum (QS system process) Datetime: 07/07/2016 19:00 Monitor Mode: External; Palpation (Margarita Jaramillo RN) Frequency (min): Irreg (Margarita Jaramillo RN) Quality: Mild (Margarita Jaramillo RN) Duration (sec): 40-50 (Margarita Jaramillo RN) Resting Tone (Palpate): Relaxed (Margarita Jaramillo RN) Monitor Mode: External US (Margarita Jaramillo RN) FHR Baseline Rate : 145 (Margarita Jaramillo RN) Variability: Moderate 6-25 bpm (Margarita Jaramillo RN) Accelerations: 15X15 (Margarita Jaramillo RN) Decelerations: None (Margarita Jaramillo RN) Dilatation (cm): 1.0 (Margarita Jaramillo RN) Effacement (%): 50 (Margarita Jaramillo RN) Station: -2 (Margarita Jaramillo RN) Exam by: Stuart Jaramillo RNC (Margarita Jaramillo RN) Vaginal Bleeding: None (Margarita Jaramillo RN) Cervix, Consistency: Soft (Margarita Jaramillo RN) Cervix, Position: Posterior (Margarita Jaramillo RN) Vaginal Exam Comments: Cervix difficult to reach (Margarita Jaramillo RN) Cervical Ripening Agents: Cytotec @ 25mcg Vaginally (Margarita Jaramillo RN) Datetime: 07/07/2016 18:57 IV/Blood Work: IV Started (Margarita Jaramillo, JASMINA) Datetime: 07/07/2016 18:39 NBP Sys/Neelima/Mean (mmHg): 134 (QS system process) : 95 (QS system process) : 109 (QS system process) Pulse: 106 (QS system process) Respirations: 16 (Margarita Jaramillo RN) Temperature (F): 98.3 (Margarita Jaramillo RN) Temperature (C): 36.8 (QS system process) Temperature Route: Oral (Margarita Jaramillo RN) LaborFlag: Antepartum (QS system process) Datetime: 07/07/2016 18:37 Stage of : Antepartum (Margarita Jaramillo RN)
--- NOTE | 2016-07-08 04:45 | L&D General Admission ---
General Admit Datetime Report Generated by CPN: 07/08/2016 04:45 Height (in): 69 (07/07/2016 18:14:QS system process) Medication Allergies: amoxicillin/rash (07/07/2016) (07/07/2016 18:13:QS system process) Next of Kin (07/07/2016 17:34:QS system process) Marital Status: (07/07/2016 17:34:QS system process) Hemoglobin: 14.0 (07/07/2016 18:18:QS system process) Hematocrit: 39.8 (07/07/2016 18:18:QS system process) MCV: 82 (07/07/2016 18:18:QS system process)
--- NOTE | 2016-07-08 04:45 | L&D Discharge Summary ---
OB Discharge Summary Datetime Report Generated by CPN: 07/08/2016 04:45 DISCHARGE DIAGNOSIS Diagnosis/Symptoms: Hypertension Evaluation; Chronic Hypertension Treatment/Procedures Other: BP monitoring Gestation: 37.3 Number of Babies in Womb: 1 Parity: 0 DIET/ACTIVITY/RESTRICTIONS Diet: Regular Diet Restrictions: BRAT DIET, ADVANCE TOLERATED Activity: Normal Activity TEACHING/INSTRUCTIONS/REFERRALS Instructions Given To: Pt, support persons Instructions Understood: Patient Verbalized Understanding; Support Person Verbalized Understanding Referrals: None Educational Materials- Other: pre-e care notes DISCHARGE INFORMATION Discharged AMA: No Discharge Date/Time: 07/02/2016 23:16 Discharged To: Home Discharge Provider Name: Dr Carroll Accompanied By: support persons Discharge Method: Ambulatory Condition: Stable FOLLOW UP INFORMATION Follow Up With: [facility] Follow Up On: Tomorrow Follow Up Phone Number: [facility] - Comments: see flowsheet for education.
--- NOTE | 2016-07-08 04:45 | L&D Current Admission ---
Current Admit Datetime Report Generated by CPN: 07/08/2016 04:45 Current Admit Date/Time: 07/07/2016 17:57 (07/07/2016 19:05:Margarita Jaramillo RN) Reason for Admission: Induction of Labor (07/07/2016 19:05:Margarita Jaramillo RN) Other Reason for Admission: Chronic HTN (07/07/2016 19:05:Margarita Jaramillo RN) Chief Complaint: Scheduled Induction of Labor (07/07/2016 19:24:Maryse Mittal RN) EGA per Dates: 37.3 (07/07/2016 19:05:QS system process) EGA per US: 88.6 (07/07/2016 19:05:QS system process) Method of Arrival: Ambulatory (07/07/2016 19:05:Margarita Jaramillo RN) Admitted From: Home (07/07/2016 19:05:Margarita Jaramillo RN) Reason for Induction: Chronic Hypertension (07/07/2016 19:05:Margarita Jaramillo RN) Records Available: Yes (07/07/2016 19:05:Margarita Jaramillo RN) General Admission Information: Reviewed; Updated; Confirmed (07/07/2016 19:05:Margarita Jaramillo RN) General Admission Reviewed By: Stuart Jaramillo RNToribio (07/07/2016 19:05:Margarita Jaramillo RN) Valuables/Personal Effects: None (07/07/2016 19:05:Margarita Jaramillo RN) Other Belongings: See belongings consent (07/07/2016 19:05:Margarita Jaramillo RN) Disposition of Belongings: Kept with Patient (07/07/2016 19:05:Margarita Jaramillo RN) Advance Direct for Healthcare: No, and Wants No Information (07/07/2016 19:05:Margarita Jaramillo RN) Durable Power of Undercutter Operator: No (07/07/2016 19:05:Margarita Jaramillo RN) Living Will: No (07/07/2016 19:05:Margarita Jaramillo RN) Organ Donor: No (07/07/2016 19:05:Margarita Jaramillo RN) Pt Rights Information Given: Yes (07/07/2016 19:05:Margarita Jaramillo RN) Pt Understands Pt Rights: Yes (07/07/2016 19:05:Margarita Jaramillo RN) Knowledge Level: Understands L_D Process; Understands Care Activities; Had Pre-Hospital Education; Understands Diagnosis (07/07/2016 19:05:Margarita Jaramillo RN) Barriers to Learning: None (07/07/2016 19:05:Margarita Jaramillo RN) Learning Readiness: Motivated (07/07/2016 19:05:Margarita Jaramillo RN) Learns Best By: 1 to 1 Instruction; Reading; Videos; Demonstration (07/07/2016 19:05:Margarita Jaramillo RN) Learning Needs: Labor and Delivery Process; Pain Management; Symptoms to Report; Treatment Plan; Medication; Diagnosis; Nutrition; Equipment; Infant Care; Community Resources (07/07/2016 19:05:Margarita Jaramillo RN) Dom Viol Threatened/Hurt: No (07/07/2016 19:05:Margarita Jaramillo RN) Hx of Abuse/Neglect past 2yrs: No (07/07/2016 19:05:Margarita Jaramillo RN) Feel Unsafe Going Home: No (07/07/2016 19:05:Margarita Jaramillo RN) Addt'l Observ Indicating Abuse: No (07/07/2016 19:05:Margarita Jaramillo RN) Reason Unable to Complete Screen: N/A, Screen Completed (07/07/2016 19:05:Margarita Jaramillo RN) Considered Personal Harm/Suicide: No (07/07/2016 19:05:Margarita Jaramillo RN) Problem with Appetite >5 Days: No (07/07/2016 19:05:Margarita Jaramillo RN) Chew/Swallow Difficulties: No (07/07/2016 19:05:Margarita Jaramillo RN) Inappropriate Wt Gain/Loss: No (07/07/2016 19:05:Margarita Jaramillo RN) Presence Skin Breakdown/Ulcer: No (07/07/2016 19:05:Margarita Jaramillo RN) Special Diet: No (07/07/2016 19:05:Margarita Jaramillo RN) Pt Requests Messenger Floorperson Visit: No (07/07/2016 19:05:Margarita Jaramillo RN) Hx of Any of the Following?: N/A (07/07/2016 19:05:Margarita Jaramillo RN) New Diagnosis of: N/A (07/07/2016 19:05:Margarita Jaramillo RN) Requires Assist w/Ambulation: No (07/07/2016 19:05:Margarita Jaramillo RN) Uses Assist Device to Ambulate: No (07/07/2016 19:05:Margarita Jaramillo RN) Pt Requires Help w/ADL's: No (07/07/2016 19:05:Margarita Jaramillo RN)
--- NOTE | 2016-07-08 04:45 | L&D Admission Assessment ---
LD ADM ASMT Datetime Report Generated by CPN: 07/08/2016 04:45 Assessment Type: Admission Assessment (07/07/2016 19:24:Maryse Mittal RN) Weight (lb): 262 (07/07/2016 18:14:QS system process) Weight (kg): 119.1 (07/07/2016 18:14:QS system process) Total Wt Gain (lb): 16 (07/07/2016 18:14:QS system process) Wt Gain (kg): 7.2 (07/07/2016 18:14:QS system process) BMI: 38.7 (07/07/2016 18:14:QS system process) Pain Scale: 0 (07/07/2016 19:24:Maryse Mittal RN) Pain Presence: None/Denies (07/07/2016 19:24:Maryse Mittal RN) Pain Type: N/A (07/07/2016 19:24:Maryse Mittal RN) Frequency (min): 2-4 (07/08/2016 02:30:Maryse Mittal RN) Frequency (min): 3.5-5.5 (07/08/2016 02:00:Maryse Mittal RN) Frequency (min): 3-3.5 (07/08/2016 01:30:Maryse Mittal RN) Frequency (min): 1.5-2.5 (07/08/2016 01:00:Maryse Mittal RN) Frequency (min): 1.5-8 (07/08/2016 00:30:Maryse Mittal RN) Frequency (min): Irregular (07/08/2016 00:00:Maryse Field, RN) Frequency (min): Irregular (07/07/2016 23:30:Maryse Field, RN) Frequency (min): Irregular (07/07/2016 23:00:Maryse Field, RN) Frequency (min): Irregular (07/07/2016 22:30:Maryse Field, RN) Frequency (min): Irregular (07/07/2016 22:00:Maryse Field, RN) Frequency (min): x1 (07/07/2016 21:30:Maryse Field, RN) Frequency (min): Irregular (07/07/2016 21:00:Maryse Field, RN) Frequency (min): Irregular (07/07/2016 20:30:Maryse Field, RN) Frequency (min): Irregular (07/07/2016 20:00:Maryse Field, RN) Frequency (min): x2 (07/07/2016 19:30:Maryse Field, RN) Frequency (min): Irreg (07/07/2016 19:00:Margarita Jaramillo RN) Duration (sec): 50-60 (07/08/2016 02:30:Maryse Mittal, RN) Duration (sec): 50-70 (07/08/2016 02:00:Maryse Mittal, RN) Duration (sec): 60-130 (07/08/2016 01:30:Maryse Mittal, RN) Duration (sec): 50-80 (07/08/2016 01:00:Maryse Mittal, RN) Duration (sec): 60-80 (07/08/2016 00:30:Maryse Mittal, RN) Duration (sec): 100 (07/07/2016 21:30:Maryse Mittal, RN) Duration (sec): 50-60 (07/07/2016 19:30:Maryse Mittal, RN) Duration (sec): 40-50 (07/07/2016 19:00:Margarita Jaramillo RN) Quality: Mild (07/08/2016 02:30:Maryse Mittal RN) Quality: Mild (07/08/2016 02:00:Maryse Mittal RN) Quality: Mild (07/08/2016 01:30:Maryse Mittal RN) Quality: Mild (07/08/2016 01:00:Maryse Mittal RN) Quality: Mild (07/08/2016 00:30:Maryse Mittal RN) Quality: Mild (07/08/2016 00:00:Maryse Mittal RN) Quality: Mild (07/07/2016 23:30:Maryse Mittal RN) Quality: Mild (07/07/2016 23:00:Maryse Mittal RN) Quality: Mild (07/07/2016 22:30:Maryse Mittal RN) Quality: Mild (07/07/2016 22:00:Maryse Mittal RN) Quality: Mild (07/07/2016 21:30:Maryse Mittal RN) Quality: Mild (07/07/2016 21:00:Maryse Mittal RN) Quality: Mild (07/07/2016 20:30:Mayrse Mittal RN) Quality: Mild (07/07/2016 20:00:Maryse Mittal RN) Quality: Mild (07/07/2016 19:30:Maryse Mittla RN) Quality: Mild (07/07/2016 19:00:Margarita Jaramillo RN) Resting Tone [place]: Relaxed (07/08/2016 02:30:Maryse Mittal RN) Resting Tone [place]: Relaxed (07/08/2016 02:00:Maryse Mittal RN) Resting Tone [place]: Relaxed (07/08/2016 01:30:Maryse Mittal RN) Resting Tone [place]: Relaxed (07/08/2016 01:00:Maryse Mittal RN) Resting Tone [place]: Relaxed (07/08/2016 00:30:Maryse Mittal RN) Resting Tone [place]: Relaxed (07/08/2016 00:00:Maryse Mittal RN) Resting Tone [place]: Relaxed (07/07/2016 23:30:Maryse Mittal RN) Resting Tone [place]: Relaxed (07/07/2016 23:00:Maryse Mittal RN) Resting Tone [place]: Relaxed (07/07/2016 22:30:Maryse Mittal RN) Resting Tone [place]: Relaxed (07/07/2016 22:00:Maryse Mittal RN) Resting Tone [place]: Relaxed (07/07/2016 21:30:Maryse Mittal RN) Resting Tone [place]: Relaxed (07/07/2016 21:00:Maryse Mittal RN) Resting Tone [place]: Relaxed (07/07/2016 20:30:Maryse Mittal RN) Resting Tone [place]: Relaxed (07/07/2016 20:00:Maryse Mittal RN) Resting Tone [place]: Relaxed (07/07/2016 19:30:Maryse Mittal RN) Resting Tone [place]: Relaxed (07/07/2016 19:00:Margarita Jaramillo RN) Dilatation (cm): 2.0 (07/08/2016 03:10:Maryse Mittal RN) Dilatation (cm): 1.0 (07/07/2016 23:00:Maryse Mittal RN) Dilatation (cm): 1.0 (07/07/2016 19:00:Margarita Jaramillo RN) Effacement (%): 60 (07/08/2016 03:10:Maryse Mittal RN) Effacement (%): 60 (07/07/2016 23:00:Maryse Mittal RN) Effacement (%): 50 (07/07/2016 19:00:Margarita Jaramillo RN) Station: -1 (07/08/2016 03:10:Maryse Mittal RN) Station: -2 (07/07/2016 23:00:Maryse Mittal RN) Station: -2 (07/07/2016 19:00:Margarita Jaramillo RN) Level of Consciousness: Fully Conscious (07/07/2016 19:24:Maryse Mittal RN) DTR's/Clonus: DTRs 2+; No Clonus (07/07/2016 19:24:Maryse Mittal RN) Headache: Denies (07/07/2016 19:24:Maryse Mittal RN) Dizziness: No (07/07/2016 19:24:Maryse Mittal RN) Blurred Vision: No (07/07/2016 19:24:Maryse Mittal RN) Extremity Numbness/Tingling : None (07/07/2016 19:24:Maryse Mittal RN) Extremity Movement: Full Range of Motion (07/07/2016 19:24:Maryse Mittal RN) Heart Rhythm: Regular (07/07/2016 19:24:Maryse Mittal RN) Nailbeds: [place] (07/07/2016 19:24:Maryse Mittal RN) Capillary Refill: Less than 3 Seconds (07/07/2016 19:24:Maryse Mittal RN) Lower Extremities Edema: None (07/07/2016 19:24:Maryse Mittal RN) Lower Extremities Edema Degree: None (07/07/2016 19:24:Maryse Mittal RN) Upper Extremities Edema: None (07/07/2016 19:24:Maryse Mittal RN) Upper Extremities Edema Degree: None (07/07/2016 19:24:Maryse Mittal RN) Facial Edema: None (07/07/2016 19:24:Maryse Mittal RN) Delphine's Sign Left Leg: Negative (07/07/2016 19:24:Maryse Mittal RN) Delphine's Sign Right Leg: Negative (07/07/2016 19:24:Maryse Mittal RN) DVT Risk Age: Age less than 41 years (07/07/2016 19:24:Maryse Mittal RN) DVT Risk BMI: BMI 31 to 40 (07/07/2016 19:24:Maryse Mittal RN) DVT Risk Surgery: None Applicable (07/07/2016 19:24:Maryse Mittal RN) DVT Risk Other: Women Only- or (<1 month) (07/07/2016 19:24:Maryse Mittal RN) DVT Risk Total: 2 (07/07/2016 19:24:QS system process) DVT Risk Text: Moderate Risk (10-20%) - Consider stockings, compresssion device, pharmacological therapy per hospital policy (07/07/2016 19:24:QS system process) Respiratory Effort: Unlabored; Regular Rhythm; Equal Expansion (07/07/2016 19:24:Maryse Mittal RN) Breath Sounds, Left: Clear and Equal (07/07/2016 19:24:Maryse Mittal RN) Breath Sounds, Right: Clear and Equal (07/07/2016 19:24:Maryse Mittal RN) Cough Productivity: None (07/07/2016 19:24:Maryse Mittal RN) Nausea/Vomiting: Denies (07/07/2016 19:24:Maryse Mittal RN) Bowel Sounds: Normoactive (07/07/2016 19:24:Maryse Mittal RN) RUQ Epigastric Pain: Denies (07/07/2016 19:24:Maryse Mittal RN) Bowel Patterns: Constipation (07/07/2016 19:24:Maryse Mittal RN) Hemorrhoids: None (07/07/2016 19:24:Maryse Mittal RN) Diet Type: Regular diet (07/07/2016 19:24:Maryse Mittal RN) Last Meal: 07/07/2016 16:30 (07/07/2016 19:24:Maryse Mittal RN) Bladder: Nondistended (07/07/2016 19:24:Maryse Mittal RN) Frequency of Urination: No (07/07/2016 19:24:Maryse Mittal RN) Urination Burning: No (07/07/2016 19:24:Maryse Mittal RN) CVA Tenderness: No (07/07/2016 19:24:Maryse Mittal RN) Skin Color: Normal for Race (07/07/2016 19:24:Maryes Mittal RN) Skin Temperature: Warm (07/07/2016 19:24:Maryse Mittal RN) Skin Moisture: Dry (07/07/2016 19:24:Maryse Mittal RN) Shin Scale Sensory Perception: No Impairment- Responds to verbal commands. Has no sensory deficit which would limit ability to feel or voice pain or discomfort (07/07/2016 19:24:Maryse Mittal RN) Shin Scale Moisture: Rarely Moist- Skin is usually dry. Linen only requires changing at routine intervals (07/07/2016 19:24:Maryse Mittal RN) Shin Scale Activity: Walks Frequently- Walks outside the room at least twice a day and inside room at least every 2 hours during the day. (07/07/2016 19:24:Maryse Mittal RN) Shin Scale Mobility: No Limitations- Makes major and frequent changes in position without assistance (07/07/2016 19:24:Maryse Mittal RN) Shin Scale Nutrition: Excellent- Eats most of every meal. Never refuses a meal. Usually eats a total of 4 or more servings of meat and dairy products. Occasionally eats between meals. Does not require supplementation (07/07/2016 19:24:Maryse Mittal RN) Shin Scale Friction and Shear: No Apparent Problem- Moves in bed and in chair independently and has sufficient muscle strength to lift up completely during move. Maintains good position in bed or chair at all times (07/07/2016 19:24:Maryse Mittal RN) Shin Scale Total: 23 (07/07/2016 19:24:QS system process) Shin Scale Risk: No Risk of Pressure Ulcer Noted at this Time (07/07/2016 19:24:QS system process) Family Support: Significant Other supportive, at bedside frequently; Family supportive (07/07/2016 19:24:Maryse Mittal RN) Emotional State: Calm/Relaxed (07/07/2016 19:24:Maryse Mittal RN) Call [place] Within Reach: Yes (07/07/2016 19:24:Maryse Mittal RN) Side Rails Up: Yes (07/07/2016 19:24:Maryse Mittal RN) Bed Wheels Locked: Yes (07/07/2016 19:24:Maryse Mittal RN) Arm Bands Present: Yes (07/07/2016 19:24:Maryse Mittal RN) Isolation: [place] (07/07/2016 19:24:Maryse Mittal RN) Fall Risk History of Falling: (0) No (07/07/2016 19:24:Maryse Mittal RN) Fall Risk Secondary Diagnosis: (0) No (07/07/2016 19:24:Maryse Mittal RN) Fall Risk Ambulatory Aid: (0) None/Bedrest/Wheelchair/Nurse Assist (07/07/2016 19:24:Maryse Mittal RN) Fall Risk IV Therapy: (20) Yes (07/07/2016 19:24:Maryse Mittal RN) Fall Risk Gait: (0) Normal/Bedrest/Immobile (07/07/2016 19:24:Maryse Mittal RN) Fall Risk Mental Status: (0) Oriented to Own Ability (07/07/2016 19:24:Maryse Mittal RN) Fall Risk Score: 20 (07/07/2016 19:24:QS system process) Fall Risk Score Definition: No Risk: No action required (07/07/2016 19:24:QS system process) Recent Exp Communicable Disease: No (07/07/2016 19:24:Maryse Mittal RN) Cough or Fever: No (07/07/2016 19:24:Maryse Mittal RN) Foreign Travel Past 10 Days: No (07/07/2016 19:24:Maryse Mittal RN) Open Wounds or Sores: No (07/07/2016 19:24:Maryse Mittal RN) Prior Antibiotic Resistance Tx: No (07/07/2016 19:24:Maryse Mittal RN) Cultures Obtained: Not Applicable (07/07/2016 19:24:Maryse Mittal RN) Isolation Initiated: No (07/07/2016 19:24:Maryse Mittal RN) Pt/Family Education: Not Applicable (07/07/2016 19:24:Maryse Mittal RN) FHR Baseline Rate (bpm) Baby A: 145 (07/08/2016 02:30:Maryse Mittal RN) FHR Baseline Rate (bpm) Baby A: 140 (07/08/2016 02:00:Maryse Mittal RN) FHR Baseline Rate (bpm) Baby A: 140 (07/08/2016 01:30:Maryse Mittal RN) FHR Baseline Rate (bpm) Baby A: 135 (07/08/2016 01:00:Maryse Mittal RN) FHR Baseline Rate (bpm) Baby A: 135 (07/08/2016 00:30:Maryse Mittal RN) FHR Baseline Rate (bpm) Baby A: 135 (07/08/2016 00:00:Maryse Mittal RN) FHR Baseline Rate (bpm) Baby A: 135 (07/07/2016 23:30:Maryse Mittal RN) FHR Baseline Rate (bpm) Baby A: 135 (07/07/2016 23:00:Maryse Mittal RN) FHR Baseline Rate (bpm) Baby A: 135 (07/07/2016 22:30:Maryse Mittal RN) FHR Baseline Rate (bpm) Baby A: 135 (07/07/2016 22:00:Maryse Mittal RN) FHR Baseline Rate (bpm) Baby A: 135 (07/07/2016 21:30:Maryse Mittal RN) FHR Baseline Rate (bpm) Baby A: 135 (07/07/2016 21:00:Maryse Mittal RN) FHR Baseline Rate (bpm) Baby A: 130 (07/07/2016 20:30:Maryse Mittal RN) FHR Baseline Rate (bpm) Baby A: 135 (07/07/2016 20:00:Maryse Mittal RN) FHR Baseline Rate (bpm) Baby A: 140 (07/07/2016 19:30:Maryse Mittal RN) FHR Baseline Rate (bpm) Baby A: 145 (07/07/2016 19:00:Margarita Jaramillo RN) Variability Baby A: Moderate 6-25 bpm (07/08/2016 02:30:Maryse Mittal RN) Variability Baby A: Moderate 6-25 bpm (07/08/2016 02:00:Maryse Mittal RN) Variability Baby A: Moderate 6-25 bpm (07/08/2016 01:30:Maryse Mittal RN) Variability Baby A: Moderate 6-25 bpm (07/08/2016 01:00:Maryse Mittal RN) Variability Baby A: Moderate 6-25 bpm (07/08/2016 00:30:Maryse Mittal RN) Variability Baby A: Moderate 6-25 bpm (07/08/2016 00:00:Maryse Mittal RN) Variability Baby A: Moderate 6-25 bpm (07/07/2016 23:30:Maryse Mittal RN) Variability Baby A: Moderate 6-25 bpm (07/07/2016 23:00:Maryse Mittal RN) Variability Baby A: Moderate 6-25 bpm (07/07/2016 22:30:Maryse Mittal RN) Variability Baby A: Moderate 6-25 bpm (07/07/2016 22:00:Maryse Mittal RN) Variability Baby A: Moderate 6-25 bpm (07/07/2016 21:30:Maryse Mittal RN) Variability Baby A: Moderate 6-25 bpm (07/07/2016 21:00:Maryse Mittal RN) Variability Baby A: Moderate 6-25 bpm (07/07/2016 20:30:Maryse Mittal RN) Variability Baby A: Moderate 6-25 bpm (07/07/2016 20:00:Maryse Mittal RN) Variability Baby A: Moderate 6-25 bpm (07/07/2016 19:30:Maryse Mittal RN) Variability Baby A: Moderate 6-25 bpm (07/07/2016 19:00:Margarita Jaramillo RN) Accelerations Baby A: 10X10 (07/08/2016 02:30:Maryse Mittal RN) Accelerations Baby A: 10X10 (07/08/2016 02:00:Maryse Mittal RN) Accelerations Baby A: 10X10 (07/08/2016 01:30:Maryse Mittal RN) Accelerations Baby A: 15X15 (07/08/2016 01:00:Maryse Mittal RN) Accelerations Baby A: 15X15 (07/08/2016 00:30:Maryse Mittal RN) Accelerations Baby A: 15X15 (07/08/2016 00:00:Maryse Mittal RN) Accelerations Baby A: 15X15 (07/07/2016 23:30:Maryse Mittal RN) Accelerations Baby A: 15X15 (07/07/2016 23:00:Maryse Mittal RN) Accelerations Baby A: 15X15 (07/07/2016 22:30:Maryse Mittal RN) Accelerations Baby A: 15X15 (07/07/2016 22:00:Maryse Mittal RN) Accelerations Baby A: 15X15 (07/07/2016 21:30:Maryse Mittal RN) Accelerations Baby A: 15X15 (07/07/2016 21:00:Maryse Mittal RN) Accelerations Baby A: 15X15 (07/07/2016 20:30:Maryse Mittal RN) Accelerations Baby A: 15X15 (07/07/2016 20:00:Maryse Mittal RN) Accelerations Baby A: 15X15 (07/07/2016 19:30:Maryse Mittal RN) Accelerations Baby A: 15X15 (07/07/2016 19:00:Margarita Jaramillo RN) Decelerations Baby A: None (07/08/2016 02:30:Maryse Mittal RN) Decelerations Baby A: None (07/08/2016 02:00:Maryse Mittal RN) Decelerations Baby A: None (07/08/2016 01:30:Maryse Mittal RN) Decelerations Baby A: None (07/08/2016 01:00:Maryse Mittal RN) Decelerations Baby A: None (07/08/2016 00:30:Maryse Mittal RN) Decelerations Baby A: None (07/08/2016 00:00:Maryse Mittal RN) Decelerations Baby A: None (07/07/2016 23:30:Maryse Mittal RN) Decelerations Baby A: None (07/07/2016 23:00:Maryse Mittal RN) Decelerations Baby A: None (07/07/2016 22:30:Maryse Mittal RN) Decelerations Baby A: None (07/07/2016 22:00:Maryse Mittal RN) Decelerations Baby A: None (07/07/2016 21:30:Maryse Mittal RN) Decelerations Baby A: None (07/07/2016 21:00:Maryse Mittal RN) Decelerations Baby A: None (07/07/2016 20:30:Maryse Mittal RN) Decelerations Baby A: None (07/07/2016 20:00:Maryse Mittal RN) Decelerations Baby A: None (07/07/2016 19:30:Maryse Mittal RN) Decelerations Baby A: None (07/07/2016 19:00:Margarita Jaramillo RN) Assessment Flag: Admission Assessment (07/07/2016 19:24:QS system process)
--- NOTE | 2016-07-08 06:23 | L&D Current Admission ---
Current Admit Datetime Report Generated by CPN: 07/08/2016 06:00 ADMISSION INFORMATION Current Admit Date/Time: 07/07/2016 17:57 (07/07/2016 19:05:Margarita Jaramillo RN) Reason for Admission: Induction of Labor (07/07/2016 19:05:Margarita Jaramillo RN) Other Reason for Admission: Chronic HTN (07/07/2016 19:05:Margarita Jaramillo RN) Chief Complaint: Scheduled Induction of Labor (07/07/2016 19:24:Maryse Mittal RN) EGA per Dates: 37.3 (07/07/2016 19:05:QS system process) EGA per US: 88.6 (07/07/2016 19:05:QS system process) Method of Arrival: Ambulatory (07/07/2016 19:05:Margarita Jaramillo RN) Admitted From: Home (07/07/2016 19:05:Margarita Jaramillo RN) Reason for Induction: Chronic Hypertension (07/07/2016 19:05:Margarita Jaramillo RN) Records Available: Yes (07/07/2016 19:05:Margarita Jaramillo RN) General Admission Information: Reviewed; Updated; Confirmed (07/07/2016 19:05:Margarita Jaramillo RN) General Admission Reviewed By: Stuart Jaramillo [facility] (07/07/2016 19:05:Margarita Jaramillo RN) BELONGINGS/ADVANCED DIRECTIVES Valuables/Personal Effects: None (07/07/2016 19:05:Margarita Jaramillo RN) Other Belongings: See belongings consent (07/07/2016 19:05:Margarita Jaramillo RN) Disposition of Belongings: Kept with Patient (07/07/2016 19:05:Margarita Jaramillo RN) Advance Direct for Healthcare: No, and Wants No Information (07/07/2016 19:05:Margarita Jaramillo RN) Durable Power of Asphalt Mixer: No (07/07/2016 19:05:Margarita Jaramillo RN) Living Will: No (07/07/2016 19:05:Margarita Jaramillo RN) Organ Donor: No (07/07/2016 19:05:Margarita Jaramillo RN) Pt Rights Information Given: Yes (07/07/2016 19:05:Margarita Jaramillo RN) Pt Understands Pt Rights: Yes (07/07/2016 19:05:Margarita Jaramillo RN) LEARNING ASSESSMENT Knowledge Level: Understands L_D Process; Understands Care Activities; Had Pre-Hospital Education; Understands Diagnosis (07/07/2016 19:05:Margarita Jaramillo RN) Barriers to Learning: None (07/07/2016 19:05:Margarita Jaramillo RN) Learning Readiness: Motivated (07/07/2016 19:05:Margarita Jaramillo RN) Learns Best By: 1 to 1 Instruction; Reading; Videos; Demonstration (07/07/2016 19:05:Margarita Jaramillo RN) Learning Needs: Labor and Delivery Process; Pain Management; Symptoms to Report; Treatment Plan; Medication; Diagnosis; Nutrition; Equipment; Care; Community Resources (07/07/2016 19:05:Margarita Jaramillo RN) DOMESTIC VIOLANCE SCREENING Dom Viol Threatened/Hurt: No (07/07/2016 19:05:Margarita Jaramillo RN) Hx of Abuse/Neglect past 2yrs: No (07/07/2016 19:05:Margarita Jaramillo RN) Feel Unsafe Going Home: No (07/07/2016 19:05:Margarita Jaramillo RN) Addt'l Observ Indicating Abuse: No (07/07/2016 19:05:Margarita Jaramillo RN) Reason Unable to Complete Screen: N/A, Screen Completed (07/07/2016 19:05:Margarita Jaramillo RN) Considered Personal Harm/Suicide: No (07/07/2016 19:05:Margarita Jaramillo RN) NUTRITIONAL/FUNCTIONAL SCREENING Problem with Appetite >5 Days: No (07/07/2016 19:05:Margarita Jaramillo RN) Chew/Swallow Difficulties: No (07/07/2016 19:05:Margarita Jaramillo RN) Inappropriate Wt Gain/Loss: No (07/07/2016 19:05:Margarita Jaramillo RN) Presence Skin Breakdown/Ulcer: No (07/07/2016 19:05:Margarita Jaramillo RN) Special Diet: No (07/07/2016 19:05:Margarita Jaramillo RN) Pt Requests Staff Attorney Visit: No (07/07/2016 19:05:Margarita Jaramillo RN) Hx of Any of the Following?: N/A (07/07/2016 19:05:Margarita Jaramillo RN) New Diagnosis of: N/A (07/07/2016 19:05:Margarita Jaramillo RN) Requires Assist w/Ambulation: No (07/07/2016 19:05:Margarita Jaramillo RN) Uses Assist Device to Ambulate: No (07/07/2016 19:05:Margarita Jaramillo RN) Pt Requires Help w/ADL's: No (07/07/2016 19:05:Margarita Jaramillo RN)
--- NOTE | 2016-07-08 06:23 | L&D General Admission ---
General Admit Datetime Report Generated by CPN: 07/08/2016 06:00 INFORMATION Patient Age: 26 (04/16/2016 13:54:QS system process) EDC: 07/25/2016 00:00 (04/16/2016 14:00:Ama Caballero RN) EDC per Ultrasound: 07/31/2015 00:00 (04/16/2016 14:00:Margarita Jaramillo RN) LMP: 10/19/2015 00:00 (04/16/2016 14:00:Margarita Jaramillo RN) : 1 (04/16/2016 14:00:Ama Caballero RN) Para: 0 (07/02/2016 23:16:Magda Pastrana RN) Term: 0 (04/16/2016 14:00:Ama Caballero RN) : 0 (04/16/2016 14:00:Ama Caballero RN) Spontaneous Abortions: 0 (04/16/2016 14:00:Ama Caballero RN) Induced Abortions: 0 (04/16/2016 14:00:Ama Caballero RN) Livin (04/16/2016 14:00:Ama Caballero RN) Cesareans: 0 (04/16/2016 14:00:Ama Caballero RN) VBACs: 0 (04/16/2016 14:00:Ama Caballero RN) Ectopic: 0 (04/16/2016 14:00:Ama Caballero RN) Multiple Births: 0 (04/16/2016 14:00:Ama Caballero RN) Baby, Number in Womb: 1 (07/02/2016 23:16:Magda Pastrana RN) CARE Primary Automatic Log Cut Off Sawyer: [facility] (Annotations: Data stored by Radha on behalf of user) (04/16/2016 14:00:Ama Caballero RN) Month of 1st Visit: 11/2015 (04/16/2016 14:00:Margarita Jaramillo RN) Adequate Care: Yes (04/16/2016 14:00:Ama Caballero RN) Prepregnancy Weight (lb): 246 (04/16/2016 14:00:Margarita Jaramillo RN) Prepregnancy Weight (kg): 111.8 (04/16/2016 14:00:QS system process) Height (in): 69 (07/07/2016 18:14:QS system process) ALLERGIES Medication Allergy: Yes (04/16/2016 14:00:Magda Pastrana RN) Medication Allergies: amoxicillin/rash (07/07/2016) (07/07/2016 18:13:QS system process) Latex Allergy: No Latex Allergies (04/16/2016 14:00:Magda Pastrana RN) Food Allergies: None (04/16/2016 14:00:Margarita Jaramillo RN) Environmental Allergies: None (04/16/2016 14:00:Margarita Jaramillo RN) COMMUNICATION Primary Language: Amharic (04/16/2016 14:00:Ama Caballero RN) Medical Tx Preferred Language: Amharic (04/16/2016 14:00:Ama Caballero RN) Communication Barrier(s): None (04/16/2016 14:00:Ama Caballero RN) DEMOGRAPHICS Address: [place] [address] (04/16/2016 13:54:QS system process) Zipcode: [address] (04/16/2016 13:54:QS system process) Home (04/16/2016 13:54:QS system process) SSN: [id number] (04/16/2016 13:54:QS system process) Next of Kin Name: TODD ARGUETA (04/16/2016 13:54:QS system process) Next of Kin (07/07/2016 17:34:QS system process) Next of Kin Relationship: SPO (04/16/2016 13:54:QS system process) Date of : 1990 (04/16/2016 13:54:QS system process) Marital Status: (07/07/2016 17:34:QS system process) Sex: Female (04/16/2016 13:54:QS system process) Occupation: None (04/16/2016 14:00:Ama Caballero RN) Race: (04/16/2016 13:54:QS system process) Ethnicity: Non- or (04/16/2016 13:54:QS system process) Quaker: None (04/16/2016 17:56:Margarita Jaramillo RN) Education: 14 (04/16/2016 14:00:Ama Caballero RN) FOB Involved: Yes (04/16/2016 14:00:Ama Caballero RN) Father of Baby Name: Todd Argueta (04/16/2016 14:00:Ama Caballero RN) DRUG AND ALCOHOL USE Alcohol: No (04/16/2016 14:00:Magda Victoriano, RN) Cigarettes: Never Smoker. [id number] (04/16/2016 14:00:Magda Pastrana, RN) Marijuana: No (04/16/2016 14:00:Magda Victoriano, RN) Cocaine: No (04/16/2016 14:00:Magdaric Pastrana, RN) Other Illicit Drugs: No (04/16/2016 14:00:Magda Victoriano, RN) VACCINE HISTORY Influenza Vaccine: Yes (04/16/2016 14:00:Magda Pastrana, RN) Pneumococcal Vaccine: No (04/16/2016 14:00:Magda Pastrana RN) Tetanus Vaccine: Yes (04/16/2016 14:00:Magdaric Pastrana, RN) Tdap Vaccine: Yes (04/16/2016 14:00:Magda Pastrana, RN) Hepatitis B Vaccine: Yes (04/16/2016 14:00:Magdaric Pastrana, RN) Sleep Medicine Physician: [facility] (04/16/2016 14:00:Margarita Jaramillo RN) Feeding Preference: Breast (04/16/2016 14:00:Margarita Jaramillo RN) Benefit of Breast Feed Discussed: Yes (04/16/2016 14:00:Margarita Jaramillo RN) Circumcision: No (04/16/2016 14:00:Margarita Jaramillo RN) Classes Attended: Yes (04/16/2016 14:00:Margarita Jaramillo RN) Tubal Ligation: No (04/16/2016 14:00:Margarita Jaramillo RN) Tubal Authorization Signed: N/A (04/16/2016 14:00:Margarita Jaramillo RN) Consent: N/A (04/16/2016 14:00:Margarita Jaramillo RN) Consent Signed: N/A (04/16/2016 14:00:Margarita Jaramillo RN) Pain Management Plans: None (04/16/2016 14:00:Margarita Jaramillo RN) Other Pain Management Plans: Open to options (04/16/2016 14:00:Margarita Jaramillo RN) Plans for Labor and Delivery: None (04/16/2016 14:00:Margarita Jaramillo RN) Support Person: Todd Argueta (04/16/2016 14:00:Margarita Jaramillo RN) Support Person Relationship: (04/16/2016 14:00:Margarita Jaramillo RN) Cultural/Spritual Practice: No (04/16/2016 14:00:Margarita Jaramillo RN) Spir/Cult Dietary Needs: No (04/16/2016 14:00:Margarita Jaramillo RN) LIVING SITUATION/DISCHARGE PLAN Living Arrangements: House (04/16/2016 14:00:Margarita Jaramillo RN) Adequate Access to:: Electric; Heat; Refrigeration; Plumbing/Running water; Phone; Transportation (04/16/2016 14:00:Margarita Jaramillo RN) WIC Program: Yes (04/16/2016 14:00:Margarita Jaramillo RN) Discharge Foam Gun Operator Person: Todd Argueta (04/16/2016 14:00:Margarita Jaramillo RN) Person to Help after Discharge: Todd Argueta (04/16/2016 14:00:Margarita Jaramillo RN) Currently Using Commun Resources: No (04/16/2016 14:00:Margarita Jaramillo RN) Outside Agency/[employer]: No (04/16/2016 14:00:Margarita Jaramillo RN) Car Seat for Discharge: Yes (04/16/2016 14:00:Margarita Jaramillo RN) Adoption Requested: No (04/16/2016 14:00:Margarita Jaramillo RN) Pt Contact w/infant Post : N/A (04/16/2016 14:00:Margarita Jaramillo RN) LABS Blood Type: O Positive (04/16/2016 14:00:Leticia Sands RN) Antibody Screen: Negative (04/16/2016 14:00:Leticia Sands RN) Rho(G) this : Not Applicable (04/16/2016 14:00:Leticia Sands RN) Hemoglobin: 14.0 (07/07/2016 18:18:QS system process) Hematocrit: 39.8 (07/07/2016 18:18:QS system process) MCV: 82 (07/07/2016 18:18:QS system process) Group Beta Strep: Negative (04/16/2016 14:00:Leticia Sands RN) Gonorrhea: Negative (04/16/2016 14:00:Leticia Sands RN) Chlamydia: Negative (04/16/2016 14:00:Leticia Sands RN) RPR/VDRL: Nonreactive (04/16/2016 14:00:Leticia Sands RN) HIV Results: Negative (04/16/2016 14:00:Leticia Sands RN) Hepatitis B: Negative (04/16/2016 14:00:Leticia Sands RN) Rubella: Immune (04/16/2016 14:00:Leticia Sands RN) OB/PREVIOUS HISTORY Age of Menses Onset: 9 (04/16/2016 14:00:Ama Caballero RN) Menses Amount: Moderate (04/16/2016 14:00:Ama Caballero RN) LMP Regular: Yes (04/16/2016 14:00:Ama Caballero RN) Date Pos Preg Test: 11/28/2015 00:00 (04/16/2016 14:00:Ama Caballero RN) LMP: 10/19/2015 00:00 (04/16/2016 14:00:Margarita Jaramillo RN) Current Procedures: Ultrasound (04/16/2016 14:00:Ama Caballero RN) History of Previous : No (04/16/2016 14:00:Ama Caballero RN) History of Gestational Diabetes: No (04/16/2016 14:00:Ama Caballero RN) History of PIH: No (04/16/2016 14:00:Ama Caballero RN) History of Incompetent Cervix: No (04/16/2016 14:00:Ama Caballero RN) History of Placenta Previa/Abrup: No (04/16/2016 14:00:Ama Caballero RN) History of Macrosomia: No (04/16/2016 14:00:Ama Caballero RN) History of IUGR: No (04/16/2016 14:00:Ama Caballero RN) History of Hemorrhage: No (04/16/2016 14:00:Ama Caballero RN) History of Loss/Stillborn: No (04/16/2016 14:00:Ama Caballero RN) History of : No (04/16/2016 14:00:Ama Caballero RN) History of D (Rh) Sensitization: No (04/16/2016 14:00:Ama Caballero RN) History Recurrent Loss/Stillborn: No (04/16/2016 14:00:Ama Caballero RN) History Depression/PP Depression: No (04/16/2016 14:00:Ama Caballero RN) History of Uterine Anomaly/MARISSA: No (04/16/2016 14:00:Ama Caballero RN) History of Infertility: No (04/16/2016 14:00:Ama Caballero RN) History of ART Treatment: No (04/16/2016 14:00:Ama Caballero RN) History of MARISSA: No (04/16/2016 14:00:Ama Caballero RN) Comments Obstetrical History: G1 - Current - Chronic HTN (04/16/2016 14:00:Margarita Jaramillo RN) MEDICAL HISTORY Med Hx Diabetes: No (04/16/2016 14:00:Ama Caballero RN) Med Hx Hypertension: Yes (04/16/2016 14:00:Margarita Jaramillo RN) Med Hx Heart Disease: No (04/16/2016 14:00:Ama Caballero RN) Med Hx Autoimmune Disorder: No (04/16/2016 14:00:Ama Caballero RN) Med Hx Kidney Disease/UTI: No (04/16/2016 14:00:Ama Caballero RN) Med Hx Neurologic/Epilepsy: No (04/16/2016 14:00:Ama Caballero RN) Med Hx Psychiatric Disorders: No (04/16/2016 14:00:Ama Caballero RN) Med Hx Hepatitis/Liver Disease: No (04/16/2016 14:00:Ama Caballero RN) Med Hx Varicosities/Phlebitis: No (04/16/2016 14:00:Ama Caballero RN) Med Hx Thyroid Dysfunction: No (04/16/2016 14:00:Ama Caballero RN) Med Hx Trauma/Violence: No (04/16/2016 14:00:Ama Caballero RN) Med Hx Blood Transfusion: No (04/16/2016 14:00:Ama Caballero RN) Med Hx Pulmonary (Asthma,TB): No (04/16/2016 14:00:Ama Caballero RN) Med Hx Breast: No (04/16/2016 14:00:Ama Caballero RN) Med Hx MATERIAL CONTROLLER Surgery: No (04/16/2016 14:00:Ama Caballero RN) Med Hx Hospitalization/Surgery: No (04/16/2016 14:00:Ama Caballero RN) Med Hx Anesthetic Complications: No (04/16/2016 14:00:Ama Caballero RN) Med Hx Abnormal Pap Smear: Yes (04/16/2016 14:00:Ama Caballero RN) Other Medical Diseases: No (04/16/2016 14:00:Ama Caballero RN) Med Hx Significant Family Hx: Yes (04/16/2016 14:00:Ama Caballero RN) Details of Med/Surg Hx: Abnormal Pap in 2010, colpo Father has history of strokes and mother has hypertension (04/16/2016 14:00:Ama Caballero RN) INFECTIOUS HISTORY Inf Hx Gonorrhea: No (04/16/2016 14:00:Ama Caballero RN) Inf Hx Chlamydia: Yes (04/16/2016 14:00:Ama Caballero RN) Inf Hx Syphilis: No (04/16/2016 14:00:Ama Caballero RN) Inf Hx HIV/AIDS: No (04/16/2016 14:00:Ama Caballero RN) Inf Hx Human Papilloma Virus: Yes (04/16/2016 14:00:Ama Caballero RN) Inf Hx Pt/Partner Genital Herpes: No (04/16/2016 14:00:Ama Caballero RN) Inf Hx Tuberculosis/Exposure: No (04/16/2016 14:00:Ama Caballero RN) Inf Hx Hepatitis B,C: No (04/16/2016 14:00:Ama Caballero RN) Inf Hx Rash or Viral Illness: No (04/16/2016 14:00:Ama Caballero RN) Details of Infectious Hx: Chlamydia in 2008, underwent treatment HPV (04/16/2016 14:00:Ama Caballero RN) GENETIC HISTORY Gen Hx Age >=35 at GISELLE: No (04/16/2016 14:00:Ama Caballero RN) Gen Hx Thalassemia: No (04/16/2016 14:00:Ama Caballero RN) Gen Hx Congenital Heart Defect: No (04/16/2016 14:00:Ama Caballero RN) Gen Hx Neural Tube Defect: No (04/16/2016 14:00:Ama Caballero RN) Gen Hx Down's Syndrome: No (04/16/2016 14:00:Ama Caballero RN) Gen Hx Evans-Sachs: No (04/16/2016 14:00:Ama Caballero RN) Gen Hx Christian: No (04/16/2016 14:00:Ama Caballero RN) Gen Hx Familial Dysautonomia: No (04/16/2016 14:00:Ama Caballero RN) Gen Hx Sickle Cell Disease/Trait: No (04/16/2016 14:00:Ama Caballero RN) Gen Hx Hemophilia/Blood Disorder: No (04/16/2016 14:00:Ama Caballero RN) Gen Hx Muscular Dystrophy: No (04/16/2016 14:00:Ama Caballero RN) Gen Hx Cystic Fibrosis: No (04/16/2016 14:00:Ama Caballero RN) Gen Hx Huntingtons Chorea: No (04/16/2016 14:00:Ama Caballero RN) Gen Hx Mental Retardation/Autism: No (04/16/2016 14:00:Ama Caballero RN) Gen Hx Tested for Fragile X: No (04/16/2016 14:00:Ama Caballero RN) Gen Hx Other Inher/Chromosomal: No (04/16/2016 14:00:Ama Caballero RN) Gen Hx Maternal Metabolic DO: No (04/16/2016 14:00:Ama Caballero RN) Gen Hx Pt Father or FOB Defect: No (04/16/2016 14:00:Ama Caballero RN) Gen Hx Other Genetic History: No (04/16/2016 14:00:Ama Caballero RN) Gen Hx Drugs/Meds since LMP: Yes (04/16/2016 14:00:Margarita Jaramillo RN) Gen Hx Medications: PNV, Procardia, Zantac (04/16/2016 14:00:Margarita Jaramillo RN)
--- NOTE | 2016-07-08 08:00 | L&D Flow Sheet ---
LD Flowsheet Datetime Report Generated by CPN: 07/08/2016 08:00 Datetime: 07/08/2016 07:23 Stage of : Labor (Ama Caballero RN) Respirations: 18 (Ama Caballero RN) Monitor Mode: External (Ama Caballero RN) Monitor Interventions for UA: [place] Adjusted (Ama Caballero RN) Frequency (min): IRREG (Ama Caballero RN) Quality: Mild/Moderate (Ama Caballero RN) Duration (sec): 55-70 (Ama Caballero RN) Resting Tone (Palpate): Relaxed (Ama Caballero RN) Monitor Mode: External US (Ama Caballero RN) Monitor Interventions for FHR: Ultrasound Adjusted (Ama Caballero RN) FHR Baseline Rate : 135 (Ama Caballero RN) FHR Baseline Changes: No Baseline Change (Ama Caballero RN) Variability: Minimal - Undetectable to <=5 bpm (Ama Caballero RN) Accelerations: None (Ama Caballero, JASMINA) Decelerations: None (Ama Caballero RN) Pain Scale: 2 (Ama Caballero RN) Pain Presence: Intermittent (Ama Caballero RN) Pain Type: Contraction (Ama Caballero, JASMINA) Pain Location: Abdomen; Back (Ama Caballero, JASMINA) Pain Relief Measures: Comfort Measures (Ama Caballero RN) Pain Coping: Talking Through Contractions (Ama Caballero, JASMINA) IV/Blood Work: IV Saline Locked (Ama Caballero, RN) Patient Position/Activity: Right Lateral (Ama Caballero, JASMINA) Comfort Measures: Family Support (Ama Caballero, JASMINA) Instructional Method: Verbal; Patient Instructed; Family/Support Person Instructed; Verbalized Understanding (Ama Caballero, JASMINA) Plan of Care: Plan of Care Discussed; Induction (Ama Caballero RN) Labor/Induction: Induction (Ama Caballero RN) Pain Management: Comfort Measures (Ama Caballero, JASMINA) Medications: Cervical Ripening; Pitocin (mAa Caballero, JASMINA) Communication: RN at Bedside; RN Reviewed Strip (Ama Caballero RN) LaborFlag: Labor (QS system process) Datetime: 07/08/2016 07:15 Communication: Report Given to Yoel Andersen RN; care relinquished at this time. (Maryse Mittal RN) Datetime: 07/08/2016 07:11 NBP Sys/Neelima/Mean (mmHg): 154 (QS system process) : 95 (QS system process) : 119 (QS system process) Pulse: 73 (QS system process) LaborFlag: Antepartum (QS system process) Datetime: 07/08/2016 07:00 Monitor Mode: External; Palpation (Maryse Field, RN) Frequency (min): 1-2 (Maryse , RN) Quality: Mild/Moderate (Maryse Field, RN) Duration (sec): 50-110 (Maryse Field, RN) Resting Tone (Palpate): Relaxed (Maryse Field, RN) Monitor Mode: External US (Maryse Field, RN) FHR Baseline Rate : 130 (Maryse Field, RN) Variability: Moderate 6-25 bpm (Maryse Field, RN) Accelerations: None (Maryse Field, RN) Decelerations: None (Maryse Field, RN) Datetime: 07/08/2016 06:40 NBP Sys/Neelima/Mean (mmHg): 134 (QS system process) : 78 (QS system process) : 101 (QS system process) Pulse: 61 (QS system process) LaborFlag: Antepartum (QS system process) Datetime: 07/08/2016 06:30 Monitor Mode: External; Palpation (Amryse Field, RN) Frequency (min): 1-4 (Maryse Field, RN) Quality: Mild/Moderate (Maryse Field, RN) Duration (sec): 50-80 (Maryse Field, RN) Resting Tone (Palpate): Relaxed (Maryse Field, RN) Monitor Mode: External US (Maryse Field, RN) FHR Baseline Rate : 130 (Maryse Field, RN) Variability: Moderate 6-25 bpm (Maryse Field, RN) Accelerations: None (Maryse Field, RN) Decelerations: None (Maryse Field, RN) Datetime: 07/08/2016 06:10 NBP Sys/Neelima/Mean (mmHg): 136 (QS system process) : 85 (QS system process) : 106 (QS system process) Pulse: 84 (QS system process) LaborFlag: Antepartum (QS system process) Datetime: 07/08/2016 06:01 I/O Interventions: Up to BR (Maryse Mittal RN) Datetime: 07/08/2016 06:00 Monitor Mode: External; Palpation (Maryse Mittal RN) Frequency (min): 1.5-4.5 (Maryse Mittal RN) Quality: Mild/Moderate (Maryse Mittal RN) Duration (sec): 50-80 (Maryse Mittal RN) Resting Tone (Palpate): Relaxed (Maryse Mittal, RN) Monitor Mode: External US (Maryse Mittal, RN) FHR Baseline Rate : 135 (Maryse Mittal, RN) Variability: Moderate 6-25 bpm (Maryse Mittal, RN) Accelerations: None (Maryse Mittal, RN) Datetime: 07/08/2016 05:41 NBP Sys/Neelima/Mean (mmHg): 121 (QS system process) : 66 (QS system process) : 87 (QS system process) Pulse: 67 (QS system process) LaborFlag: Antepartum (QS system process) Datetime: 07/08/2016 05:29 Monitor Mode: External; Palpation (Maryse Mittal, RN) Frequency (min): 1.5-5 (Maryse Mittal, RN) Quality: Mild/Moderate (Maryse Mittal, RN) Duration (sec): 50-70 (Maryse Mittal, RN) Resting Tone (Palpate): Relaxed (Maryse Mittal, RN) Monitor Mode: External US (Maryse Mittal, RN) FHR Baseline Rate : 135 (Maryse Mittal, RN) Variability: Moderate 6-25 bpm (Maryse , RN) Accelerations: None (Maryse , RN) Decelerations: None (Maryse , RN) Datetime: 07/08/2016 05:10 NBP Sys/Neelima/Mean (mmHg): 110 (QS system process) : 57 (QS system process) : 77 (QS system process) Pulse: 63 (QS system process) LaborFlag: Antepartum (QS system process) Datetime: 07/08/2016 05:00 Monitor Mode: External; Palpation (Maryse Mittal, RN) Frequency (min): 1-2 (Maryse Mittal, RN) Quality: Mild/Moderate (Maryse Mittal, RN) Duration (sec): 50-70 (Maryse Mittal, RN) Resting Tone (Palpate): Relaxed (Maryse Mittal, RN) Monitor Mode: External US (Maryse Mittal, RN) FHR Baseline Rate : 145 (Maryse , RN) Variability: Moderate 6-25 bpm (Maryse Field, RN) Accelerations: None (Maryse Field, RN) Decelerations: None (Maryse Field, RN) Datetime: 07/08/2016 04:42 NBP Sys/Neelima/Mean (mmHg): 113 (QS system process) : 59 (QS system process) : 80 (QS system process) Pulse: 64 (QS system process) LaborFlag: Antepartum (QS system process) Datetime: 07/08/2016 04:40 Analgesics/Sedatives: Nubain (mg) @ 10; Phenergan (mg) @ 12.5 (Maryse Field, RN) Datetime: 07/08/2016 04:31 I/O Interventions: Up to BR (Maryse Mittal, RN) Datetime: 07/08/2016 04:30 Monitor Mode: External; Palpation (Maryse Mittal, RN) Frequency (min): 2-7 (Maryse Mittal, RN) Quality: Mild/Moderate (Maryse Mittal, RN) Duration (sec): 50-80 (Maryse Mittal RN) Resting Tone (Palpate): Relaxed (Maryse Mittal, RN) Monitor Mode: External US (Maryse Mittal, RN) FHR Baseline Rate : 145 (Maryse Mittal, RN) Variability: Moderate 6-25 bpm (Maryse Mittal, RN) Accelerations: 15X15 (Maryse Mittal, RN) Decelerations: Variable (Maryse Mittal, RN) Datetime: 07/08/2016 04:27 Communication: RN Reviewed Strip; Provider Orders Received; Call/Page Placed to Provider (Maryse Mittal RN) Communication Comments: Informed Dr. Carroll of patient's complaint of pain, vag exam and contractions; orders received for Nubain and Phenergan IV now. (Maryse Mittal RN) Datetime: 07/08/2016 04:10 NBP Sys/Neelima/Mean (mmHg): 137 (QS system process) : 83 (QS system process) : 106 (QS system process) Pulse: 78 (QS system process) LaborFlag: Antepartum (QS system process) Datetime: 07/08/2016 04:00 Monitor Mode: External; Palpation (Maryse Mittal RN) Frequency (min): 2-4 (Maryse Mittal RN) Quality: Mild (Maryse Mittal RN) Duration (sec): 50-70 (Maryse Mittal RN) Resting Tone (Palpate): Relaxed (Maryse Mittal RN) Monitor Mode: External US (Maryse Mittal RN) FHR Baseline Rate : 145 (Maryse Mittal RN) Variability: Moderate 6-25 bpm (Maryse Mittal RN) Accelerations: 15X15 (Maryse Mittal RN) Decelerations: Variable (Maryse Field, RN) Datetime: 07/08/2016 03:40 NBP Sys/Neelima/Mean (mmHg): 142 (QS system process) : 89 (QS system process) : 110 (QS system process) Pulse: 89 (QS system process) LaborFlag: Antepartum (QS system process) Datetime: 07/08/2016 03:30 Monitor Mode: External; Palpation (Maryse Mittal, RN) Frequency (min): 2-4 (Maryse Mittal, RN) Quality: Mild (Maryse Mittal, RN) Duration (sec): 50-70 (Maryse Mittal, RN) Resting Tone (Palpate): Relaxed (Maryse Mittal, RN) Monitor Mode: External US (Maryse Mittal, RN) FHR Baseline Rate : 150 (Maryse , RN) Variability: Moderate 6-25 bpm (Maryse Field, RN) Accelerations: 10X10 (Maryse Field, RN) Decelerations: None (Maryse Field, RN) Datetime: 07/08/2016 03:25 Cervical Ripening Agents: Cytotec @ 25 mcg [facility] Datetime: 07/08/2016 03:10 Dilatation (cm): 2.0 [facility] Effacement (%): 60 ([facility] Station: -1 [facility] Exam by: J.Field RN ([facility], ) Datetime: 07/08/2016 03:01 I/O Interventions: Up to BR [facility] Datetime: 07/08/2016 03:00 Monitor Mode: External; Palpation (Maryse Field, RN) Frequency (min): 4-5.5 (Maryse Field, RN) Quality: Mild (Maryse Field, RN) Duration (sec): 60-90 (Maryse Field, RN) Resting Tone (Palpate): Relaxed (Maryse Field, RN) Monitor Mode: External US (Maryse Field, RN) FHR Baseline Rate : 145 (Maryse Field, RN) Variability: Moderate 6-25 bpm (Maryse Field, RN) Accelerations: 15X15 (Maryse Field, RN) Decelerations: None (Maryse Field, RN) Datetime: 07/08/2016 02:40 NBP Sys/Neelima/Mean (mmHg): 142 (QS system process) : 87 (QS system process) : 106 (QS system process) Pulse: 78 (QS system process) LaborFlag: Antepartum (QS system process) Datetime: 07/08/2016 02:30 Monitor Mode: External; Palpation (Maryse Field, RN) Frequency (min): 2-4 (Maryse Field, RN) Quality: Mild (Maryse Field, RN) Duration (sec): 50-60 (Maryse Field, RN) Resting Tone (Palpate): Relaxed (Maryse Field, RN) Monitor Mode: External US (Maryse Field, RN) FHR Baseline Rate : 145 (Maryse Field, RN) Variability: Moderate 6-25 bpm (Maryse Field, RN) Accelerations: 10X10 (Maryse Field, RN) Decelerations: None (Maryse Field, RN) I/O Interventions: Up to BR (Maryse Field, RN) Datetime: 07/08/2016 02:10 NBP Sys/Neelima/Mean (mmHg): 141 (QS system process) : 81 (QS system process) : 105 (QS system process) Pulse: 93 (QS system process) LaborFlag: Antepartum (QS system process) Datetime: 07/08/2016 02:00 Monitor Mode: External; Palpation (Maryse Field, RN) Frequency (min): 3.5-5.5 (Maryse Field, RN) Quality: Mild (Maryse Field, RN) Duration (sec): 50-70 (Maryse Field, RN) Resting Tone (Palpate): Relaxed (Maryse Field, RN) Monitor Mode: External US (Maryse Field, RN) FHR Baseline Rate : 140 (Maryse Field, RN) Variability: Moderate 6-25 bpm (Maryse Field, RN) Accelerations: 10X10 (Maryse Field, RN) Decelerations: None (Maryse Field, RN) Datetime: 07/08/2016 01:40 NBP Sys/Neelima/Mean (mmHg): 134 (QS system process) : 83 (QS system process) : 101 (QS system process) Pulse: 82 (QS system process) LaborFlag: Antepartum (QS system process) Datetime: 07/08/2016 01:30 Monitor Mode: External; Palpation (Maryse Field, RN) Frequency (min): 3-3.5 (Maryse Field, RN) Quality: Mild (Maryse Field, RN) Duration (sec): 60-130 (Maryse Field, RN) Resting Tone (Palpate): Relaxed (Maryse Field, RN) Monitor Mode: External US (Maryse Field, RN) FHR Baseline Rate : 140 (Maryse Field, RN) Variability: Moderate 6-25 bpm (Maryse Field, RN) Accelerations: 10X10 (Maryse Field, RN) Decelerations: None (Maryse Field, RN) Datetime: 07/08/2016 01:19 Analgesics/Sedatives: Ambien (mg) @ 10 (Maryse Field, RN) Datetime: 07/08/2016 01:09 NBP Sys/Neelima/Mean (mmHg): 132 (QS system process) : 72 (QS system process) : 97 (QS system process) Pulse: 78 (QS system process) LaborFlag: Antepartum (QS system process) Datetime: 07/08/2016 01:00 Monitor Mode: External; Palpation (Maryse Field, RN) Frequency (min): 1.5-2.5 (Maryse Field, RN) Quality: Mild (Maryse Field, RN) Duration (sec): 50-80 (Maryse Field, RN) Resting Tone (Palpate): Relaxed (Maryse Field, RN) Monitor Mode: External US (Maryse Field, RN) FHR Baseline Rate : 135 (Maryse Field, RN) Variability: Moderate 6-25 bpm (Maryse Field, RN) Accelerations: 15X15 (Maryse Field, RN) Decelerations: None (Maryse Field, RN) Datetime: 07/08/2016 00:40 NBP Sys/Neelima/Mean (mmHg): 128 (QS system process) : 79 (QS system process) : 99 (QS system process) Pulse: 72 (QS system process) LaborFlag: Antepartum (QS system process) Datetime: 07/08/2016 00:30 Monitor Mode: External; Palpation (Maryse Field, RN) Frequency (min): 1.5-8 (Maryse Field, RN) Quality: Mild (Maryse Field, RN) Duration (sec): 60-80 (Maryse Field, RN) Resting Tone (Palpate): Relaxed (Maryse Field, RN) Monitor Mode: External US (Maryse Field, RN) FHR Baseline Rate : 135 (Maryse Field, RN) Variability: Moderate 6-25 bpm (Maryse Field, RN) Accelerations: 15X15 (Maryse Field, RN) Decelerations: None (Maryse Field, RN) Datetime: 07/08/2016 00:16 IV/Blood Work: New IV Bag Hung; IV Bag Number @ 2 (Maryse Field, RN) Datetime: 07/08/2016 00:06 I/O Interventions: Up to BR (Maryse Field, RN) Datetime: 07/08/2016 00:00 Monitor Mode: External; Palpation (Maryse Field, RN) Frequency (min): Irregular (Maryse Field, RN) Quality: Mild (Maryse Field, RN) Resting Tone (Palpate): Relaxed (Maryse Field, RN) Monitor Mode: External US [facility] FHR Baseline Rate : 135 [facility] Variability: Moderate 6-25 bpm (Maryse Field, RN) Accelerations: 15X15 (Maryse Field, RN) Decelerations: None (Maryse Field, RN) Datetime: 07/07/2016 23:41 NBP Sys/Neelima/Mean (mmHg): 115 (QS system process) : 62 (QS system process) : 83 (QS system process) Pulse: 73 (QS system process) LaborFlag: Antepartum (QS system process) Datetime: 07/07/2016 23:30 Monitor Mode: External; Palpation (Maryse Field, RN) Frequency (min): Irregular (Maryse Field, RN) Quality: Mild (Maryse Field, RN) Resting Tone (Palpate): Relaxed (Maryse Field, RN) Monitor Mode: External US (Maryse Field, RN) FHR Baseline Rate : 135 (Maryse Field, RN) Variability: Moderate 6-25 bpm (Maryse Field, RN) Accelerations: 15X15 (Maryse Field, RN) Decelerations: None (Maryse Field, RN) Datetime: 07/07/2016 23:10 NBP Sys/Neelima/Mean (mmHg): 112 (QS system process) : 63 (QS system process) : 82 (QS system process) Pulse: 70 (QS system process) LaborFlag: Antepartum (QS system process) Datetime: 07/07/2016 23:01 Cervical Ripening Agents: Cytotec @ 25 mcg PV (Maryse Mittal RN) Datetime: 07/07/2016 23:00 Monitor Mode: External; Palpation (Maryse Mittal, RN) Frequency (min): Irregular (Maryse Mittal, RN) Quality: Mild (Maryse Mittal, RN) Resting Tone (Palpate): Relaxed (Maryse Mittal RN) Monitor Mode: External US (Maryse Mittal RN) FHR Baseline Rate : 135 (Maryse Mittal, RN) Variability: Moderate 6-25 bpm (Maryse Mittal, RN) Accelerations: 15X15 (Maryse Mittal RN) Decelerations: None (Maryse Mittal RN) Dilatation (cm): 1.0 (Maryse Field, RN) Effacement (%): 60 (Maryse Mittal, RN) Station: -2 (Maryse , RN) Exam by: JASMINA Hyde (Maryse Mittal, RN) Datetime: 07/07/2016 22:51 I/O Interventions: Up to BR (Maryse Mittal, RN) Datetime: 07/07/2016 22:40 NBP Sys/Neelima/Mean (mmHg): 135 (QS system process) : 85 (QS system process) : 105 (QS system process) Pulse: 74 (QS system process) LaborFlag: Antepartum (QS system process) Datetime: 07/07/2016 22:30 Monitor Mode: External; Palpation (Maryse Field, RN) Frequency (min): Irregular (Maryse Field, RN) Quality: Mild (Maryse Field, RN) Resting Tone (Palpate): Relaxed (Maryse Field, RN) Monitor Mode: External US (Maryse Field, RN) FHR Baseline Rate : 135 (Maryse Field, RN) Variability: Moderate 6-25 bpm (Maryse Field, RN) Accelerations: 15X15 (Maryse Field, RN) Decelerations: None (Maryse Field, RN) Datetime: 07/07/2016 22:10 NBP Sys/Neelima/Mean (mmHg): 133 (QS system process) : 81 (QS system process) : 102 (QS system process) Pulse: 75 (QS system process) LaborFlag: Antepartum (QS system process) Datetime: 07/07/2016 22:00 Monitor Mode: External; Palpation (Maryse Field, RN) Frequency (min): Irregular (Maryse Field, RN) Quality: Mild (Maryse Field, RN) Resting Tone (Palpate): Relaxed (Maryse Field, RN) Monitor Mode: External US (Maryse Field, RN) FHR Baseline Rate : 135 (Maryse Field, RN) Variability: Moderate 6-25 bpm (Maryse Field, RN) Accelerations: 15X15 (Maryse Field, RN) Decelerations: None (Maryse Field, RN) Datetime: 07/07/2016 21:40 NBP Sys/Neelima/Mean (mmHg): 131 (QS system process) : 80 (QS system process) : 100 (QS system process) Pulse: 79 (QS system process) LaborFlag: Antepartum (QS system process) Datetime: 07/07/2016 21:30 Monitor Mode: External; Palpation (Maryse Field, RN) Frequency (min): x1 (Maryse Field, RN) Quality: Mild (Maryse Field, RN) Duration (sec): 100 (Maryse Field, RN) Resting Tone (Palpate): Relaxed (Maryse Field, RN) Monitor Mode: External US (Maryse Field, RN) FHR Baseline Rate : 135 (Maryse Field, RN) Variability: Moderate 6-25 bpm (Maryse Field, RN) Accelerations: 15X15 (Maryse Field, RN) Decelerations: None (Maryse Field, RN) Datetime: 07/07/2016 21:00 Monitor Mode: External; Palpation (Maryse Field, RN) Frequency (min): Irregular (Maryse Field, RN) Quality: Mild (Maryse Field, RN) Resting Tone (Palpate): Relaxed (Maryse Field, RN) Monitor Mode: External US (Maryse Field, RN) FHR Baseline Rate : 135 (Maryse Field, RN) Variability: Moderate 6-25 bpm (Maryse Field, RN) Accelerations: 15X15 (Maryse Field, RN) Decelerations: None (Maryse Field, RN) Datetime: 07/07/2016 20:40 NBP Sys/Neelima/Mean (mmHg): 137 (QS system process) : 83 (QS system process) : 105 (QS system process) Pulse: 78 (QS system process) LaborFlag: Antepartum (QS system process) Datetime: 07/07/2016 20:31 I/O Interventions: Up to BR (Maryse Field, RN) Datetime: 07/07/2016 20:30 Monitor Mode: External; Palpation (Maryse Mittal, RN) Frequency (min): Irregular (Maryse Mittal, RN) Quality: Mild (Maryse Mittal, RN) Resting Tone (Palpate): Relaxed (Maryse Mittal, RN) Monitor Mode: External US (Maryse Mittal, RN) FHR Baseline Rate : 130 (Maryse Mittal, RN) Variability: Moderate 6-25 bpm (Maryse Field, RN) Accelerations: 15X15 (Maryse Field, RN) Decelerations: None (Maryse Field, RN) Datetime: 07/07/2016 20:10 NBP Sys/Neelima/Mean (mmHg): 136 (QS system process) : 84 (QS system process) : 105 (QS system process) Pulse: 82 (QS system process) LaborFlag: Antepartum (QS system process) Datetime: 07/07/2016 20:00 Monitor Mode: External; Palpation (Maryse Mittal RN) Frequency (min): Irregular (Maryse Mittal RN) Quality: Mild (Maryse Mittal RN) Resting Tone (Palpate): Relaxed (Maryse Mittal RN) Monitor Mode: External US (Maryse Mittal RN) FHR Baseline Rate : 135 (Maryse Mittal RN) Variability: Moderate 6-25 bpm (Maryse Mittal RN) Accelerations: 15X15 (Maryse Mittal RN) Decelerations: None (Maryse Mittal RN)
[2016-07-08] MEDS ORDERED: OXYTOCIN/NORMAL SALINE 20 UNIT/1,000 ML RTUINJ ONE (08:35)
--- NOTE | 2016-07-08 09:00 | L&D Progress Notes ---
PROGRESS NOTES Datetime Report Generated by CPN: 07/08/2016 09:00 PROGRESS NOTE Impression: Reassuring Heart Rate; Gest. HTN/PreEclampsia/Eclampsia Procedures: Artificial ROM; Scalp Electrode Plan: Continue Present Management; Induction; Anticipate Vaginal Delivery Vital Signs : Reviewed; Within Normal Limits Comment: Resting in bed, family at , Strip minimal variability secondary to Nubain osmelg uc's, [id number] to -1 light mec desires epidural MEMBRANES Membranes: Ruptured Membranes: Intact Amniotic Fluid Color: Meconium, Light FETUS A FHR - Baseline: 150 Monitoring: Internal Scalp Electrode Variability: Minimal - Undetectable to <=5bpm Decelerations: None SIGNATURE SIGNATURE: [id number] SIGNATURE: [id number] Assignment: Char Velazquez MD Signature: with User ID: Nichole : with User ID: Nichole
--- NOTE | 2016-07-08 09:35 | L&D Progress Notes ---
PROGRESS NOTES Datetime Report Generated by CPN: 07/08/2016 09:35 PROGRESS NOTE Comment: Unable to grape picker UC's on monitor VE 490/vtx/0 IUPC placed without difficulty FETUS C SIGNATURE: [id number] Assignment: Char Velazquez MD Signature: with User ID: [email or web address] : with User ID: [email or web address]
[2016-07-08] MEDS ORDERED: FENTANYL CITRATE INJ/PF 100 MCG/2 ML AMPUL ONE (09:42)
[2016-07-08] MEDS ORDERED: EPHEDRINE SULFATE INJ 50 MG/1 ML AMPULE ONE (09:42)
[2016-07-08] MEDS ORDERED: MISOPROSTOL 0.2 MG TABLET ONE ×2 (09:42→14:38)
[2016-07-08] MEDS ORDERED: PHENYLEPHRINE HCL INJ/PF 10 MG/1 ML SDV ONE (09:43)
[2016-07-08] MEDS ORDERED: LIDOCAINE 1% INJ-PF (10 MG/ML) 30 ML SDV ONE ×2 (09:43→11:38)
[2016-07-08] MEDS ORDERED: BUPIVACAINE HCL 0.25 % INJ/PF (2.5 MG/1 ML) 30 ML VIAL ONE (09:43)
[2016-07-08] MEDS ORDERED: FENTANYL/BUPIVACAINE/NS/PF 0 MCG/0 ML RTUINJ EPI ONE (09:43)
[2016-07-08] MEDS ORDERED: NALBUPHINE HCL INJ 10 MG/1 ML AMPULE IV ONE (10:23)
[2016-07-08] MEDS ORDERED: PROMETHAZINE HCL 25 MG SUPP.RECT PR PRN (12:00)
[2016-07-08] MEDS ORDERED: NA PHOS,M-B/NA PHOS,DI-BA (ADULT) 133 ML ENEMA PR PRN (12:00)
[2016-07-08] MEDS ORDERED: PROMETHAZINE HCL INJ 25 MG/1 ML VIAL IV PRN (12:00)
[2016-07-08] MEDS ORDERED: DIPH/PERTUSS(ACELL)/TETANUS VAC/PF 0.5 ML SYR (>=10YO) IM PRN (12:00)
[2016-07-08] MEDS ORDERED: DIBUCAINE 1% OINTMENT 28 GM TP PRN (12:00)
[2016-07-08] MEDS ORDERED: MAGNESIUM HYDROXIDE SUSP 30 ML UDCUP PO PRN (12:00)
[2016-07-08] MEDS ORDERED: PSEUDOEPHEDRINE HCL 30 MG TABLET PO PRN (12:00)
[2016-07-08] MEDS ORDERED: GLYCERIN/WITCH HAZEL LEAF 1 EACH MED..PAD TP PRN (12:00)
[2016-07-08] MEDS ORDERED: MISOPROSTOL 0.2 MG TABLET PR ONE (12:00)
[2016-07-08] MEDS ORDERED: PROMETHAZINE HCL 25 MG TABLET PO PRN (12:00)
[2016-07-08] MEDS ORDERED: DIPHENHYDRAMINE HCL 25 MG CAPSULE PO PRN (12:00)
[2016-07-08] MEDS ORDERED: MEASLES,MUMPS&RUBELLA VACC/PF 0.5 ML VIAL SUBCUT PRN (12:00)
[2016-07-08] MEDS ORDERED: ACETAMINOPHEN 650 MG SUPP.RECT PR PRN (12:00)
[2016-07-08] MEDS ORDERED: ACETAMINOPHEN WITH CODEINE #3 TABLET PO PRN ×2 (12:00)
[2016-07-08] MEDS ORDERED: OXYTOCIN/NORMAL SALINE 1,000 ML IV PRN (12:00)
[2016-07-08] MEDS ORDERED: BENZOCAINE/MENTHOL AEROSOL SPRAY 56 ML TOP PRN (12:00)
[2016-07-08] MEDS ORDERED: ZOLPIDEM TARTRATE 5 MG TABLET PO PRN (12:00)
--- NOTE | 2016-07-08 12:00 | L&D Flow Sheet ---
LD Flowsheet Datetime Report Generated by CPN: 07/08/2016 12:00 Datetime: 07/08/2016 11:53 NBP Sys/Neelima/Mean (mmHg): 174 (QS system process) : 73 (QS system process) : 105 (QS system process) Pulse: 94 (QS system process) Datetime: 07/08/2016 11:37 Stage of : Recovery (Ama Caballero, RN) NBP Sys/Neelima/Mean (mmHg): 110 (QS system process) : 67 (QS system process) : 82 (QS system process) Pulse: 81 (QS system process) Respirations: 18 (Ama Caballero RN) Pain Scale: 0 (Ama Caballero RN) Pain Presence: None/Denies (Ama Caballero RN) Pain Type: N/A (Ama Caballero RN) Pain Goal: 1 (Ama Caballero RN) Pain Relief Measures: Comfort Measures (Ama Caballero RN) Pain Assessment Comments: (Ama Caballero RN) Datetime: 07/08/2016 11:18 Stage of : Recovery (Ama Caballero RN) Provider Reviewed Strip: Yes (Ama Caballero RN) Pushing: Urge to Push (Ama Caballero RN) Pushing Position: Pushing with Contractions; Pushing Lithotomy (Ama Caballero RN) Pushing Progress: Descent with Pushing; Pushing Effectively with Contractions (Ama Caballero RN) Communication: RN at Bedside; RN Reviewed Strip; Provider at Bedside (Ama Cabalelro RN) Communication Comments: cnm remains @ bs (Ama Caballero RN) Datetime: 07/08/2016 11:10 Stage of : Labor (Ama Caballero RN) Effacement (%): 100 (Ama Caballero RN) Station: 1 (Ama Caballero RN) Exam by: JESSICA CABALLERO RN (Ama Caballero RN) Vaginal Bleeding: Normal Show (Ama Caballero RN) Vaginal Exam Comments: ANT LIP (Ama Caballero, JASMINA) Procedures: Sterile Vag Exam (Ama Caballero RN) Provider Reviewed Strip: Yes (Ama Caballero RN) Communication: RN at Bedside; RN Reviewed Strip (Ama Caballero RN) Datetime: 07/08/2016 11:03 NBP Sys/Neelima/Mean (mmHg): 152 (QS system process) : 76 (QS system process) : 109 (QS system process) Pulse: 55 (QS system process) LaborFlag: Labor (QS system process) Datetime: 07/08/2016 10:45 Stage of : Labor (Ama Caballero RN) Respirations: 18 (Ama Caballero RN) Monitor Mode: Internal (Ama Caballero RN) Frequency (min): 1.5-3 (Ama Caballero RN) Quality: Moderate (Ama Caballero RN) Duration (sec): 60-120 (Ama Caballero RN) Resting Tone (Palpate): Relaxed (Ama Caballero RN) Resting Tone IUP (mmHg): 22-27 (Ama Caballero RN) Intensity IUP (mmHg): 25-55 (Ama Caballero RN) Monitor Mode: Internal Scalp Electrode (Ama Caballero RN) FHR Baseline Rate : 130 (Ama Caballero RN) FHR Baseline Changes: No Baseline Change (Ama Caballero RN) Variability: Moderate 6-25 bpm (Ama Caballero RN) Accelerations: None (Ama Caballero RN) Decelerations: None (Ama Caballero RN) Pain Relief Measures: Comfort Measures (Ama Caballero RN) Pain Coping: Breathing Through Contractions (Ama Caballero RN) IV/Blood Work: IV Infusing per Order (Ama Caballero RN) Patient Position/Activity: Left Lateral; Low Fowlers (Ama Caballero RN) Comfort Measures: Breathing/Relaxation; Coaching; Family Support (Ama Caballero RN) Communication: RN at Bedside; RN Reviewed Strip (Ama Caballero RN) LaborFlag: Labor (QS system process) Datetime: 07/08/2016 10:41 Anesthesia Comments: DR ARENAS @ FOR CONSULT FOR EPIDURAL (Ama Caballero RN) Datetime: 07/08/2016 10:32 NBP Sys/Neelima/Mean (mmHg): 154 (QS system process) : 72 (QS system process) : 104 (QS system process) Pulse: 53 (QS system process) LaborFlag: Labor (QS system process) Datetime: 07/08/2016 10:30 Stage of : Labor (Ama Caballero RN) Respirations: 22 (Ama Caballero RN) Monitor Mode: Internal (Ama Caballero RN) Frequency (min): 1.5-2 (Ama Caballero RN) Quality: Moderate (Ama Caballero RN) Duration (sec): 60-70 (Ama Caballero RN) Pattern: Tachysystole: > 5 Contractions in 10 Minutes (Ama Caballero RN) Resting Tone (Palpate): Relaxed (Ama Caballero RN) Resting Tone IUP (mmHg): 32-40 (Ama Caballero RN) Intensity IUP (mmHg): 40-50 (Ama Caballero RN) Monitor Mode: Internal Scalp Electrode (Ama Caballero RN) FHR Baseline Rate : 135 (Ama Caballero RN) FHR Baseline Changes: No Baseline Change (Ama Caballero RN) Variability: Moderate 6-25 bpm (Ama Caballero RN) Accelerations: 15X15 (Aam Caballero RN) Decelerations: None (Ama Caballero RN) Pain Scale: 5 (Ama Caballero RN) Pain Presence: Intermittent (Ama Caballero RN) Pain Type: Contraction (Ama Caballero RN) Pain Location: Abdomen; Back (Ama Caballero RN) Pain Relief Measures: Pain Medication Given; Comfort Measures (Ama Caballero RN) Pain Coping: Breathing Through Contractions (Ama Caballero RN) Patient Position/Activity: Left Lateral; Low Fowlers (Ama Caballero, JASMINA) Comfort Measures: Breathing/Relaxation; Coaching; Family Support (Ama Caballero RN) Instructional Method: Verbal; Patient Instructed; Family/Support Person Instructed; Verbalized Understanding (Ama Caballero RN) Plan of Care: Plan of Care Discussed (Ama Caballero RN) Pain Management: IV Narcotics; Pain Scale/Goals; Comfort Measures (Ama Caballero RN) Medications: IV Narcotics (Ama Caballero, JASMINA) Communication: RN at Bedside; RN Reviewed Strip (Ama Caballero RN) LaborFlag: Labor (QS system process) Datetime: 07/08/2016 10:15 Stage of : Labor (Ama Caballero RN) Respirations: 20 (Ama Caballero RN) Monitor Mode: Internal (Ama Caballero RN) Frequency (min): 1.5-2 (Ama Caballero RN) Quality: Moderate (Ama Caballero RN) Duration (sec): 60-70 (Ama Caballero RN) Pattern: Tachysystole: > 5 Contractions in 10 Minutes (Ama Caballero RN) Resting Tone (Palpate): Relaxed (Ama Caballero RN) Resting Tone IUP (mmHg): 35-40 (Ama Caballero RN) Intensity IUP (mmHg): 35-70 (Ama Caballero RN) Monitor Mode: Internal Scalp Electrode (Ama Caballero RN) FHR Baseline Rate : 145 (Ama Caballero RN) FHR Baseline Changes: No Baseline Change (Ama Caballero RN) Variability: Moderate 6-25 bpm (Ama Caballero, JASMINA) Accelerations: 15X15 (Ama Caballero RN) Decelerations: None (Ama Caballero RN) Pain Scale: 5 (Ama Caballero RN) Pain Presence: Intermittent (Ama Caballero RN) Pain Type: Contraction (Ama Caballero RN) Pain Location: Abdomen; Back (Ama Caballero RN) Pain Relief Measures: Comfort Measures (Ama Caballero RN) Pain Coping: Breathing Through Contractions; Requesting Pain Medication or Epidural (Ama Caballero RN) IV/Blood Work: IV Infusing per Order (Ama Caballero RN) Patient Position/Activity: Left Lateral; Low Fowlers (Ama Caballero RN) Comfort Measures: Breathing/Relaxation; Coaching; Family Support (Ama Caballero RN) LaborFlag: Labor (QS system process) Datetime: 07/08/2016 10:02 Stage of : Labor (Ama Caballero RN) NBP Sys/Neelima/Mean (mmHg): 155 (QS system process) : 74 (QS system process) : 106 (QS system process) Pulse: 75 (QS system process) Respirations: 18 (Ama Caballero RN) Monitor Mode: Internal (Ama Caballero RN) Frequency (min): 1.5-2 (Ama Caballero RN) Quality: Moderate (Ama Caballero RN) Duration (sec): 60-70 (Ama Caballero RN) Resting Tone (Palpate): Relaxed (Ama Caballero RN) Resting Tone IUP (mmHg): 32-40 (Ama Caballero RN) Intensity IUP (mmHg): 45-60 (Ama Caballero RN) Monitor Mode: Internal Scalp Electrode (Ama Caballero RN) FHR Baseline Rate : 145 (Ama Caballero RN) Variability: Moderate 6-25 bpm (Ama Caballero RN) Accelerations: 15X15 (Ama Caballero RN) Decelerations: None (Ama Caballero RN) Pain Scale: 4 (Ama Caballero RN) Pain Presence: Intermittent (Ama Caballero RN) Pain Type: Contraction (Ama Caballero RN) Pain Location: Abdomen; Back (Ama Caballero RN) Pain Relief Measures: Comfort Measures (Ama Caballero RN) Pain Coping: Talking Through Contractions (Ama Caballero RN) Patient Position/Activity: Right Tilt; Semi-Fowlers (Ama Caballero RN) Comfort Measures: Breathing/Relaxation; Coaching; Family Support (Ama Caballero RN) Communication: RN at Bedside; RN Reviewed Strip (Ama Caballero RN) LaborFlag: Labor (QS system process) Datetime: 07/08/2016 09:51 Stage of : Labor (Ama Caballero RN) Pitocin (milliunit): Pitocin Discontinued (Ama Caballero RN) Communication: RN at Bedside; RN Reviewed Strip (Ama Caballero RN) Datetime: 07/08/2016 09:45 Stage of : Labor (Ama Caballero RN) Respirations: 20 (Ama Caballero RN) Monitor Mode: Internal (Ama Caballero RN) Frequency (min): 1.5 (Ama Caballero RN) Quality: Moderate (Ama Caballero RN) Duration (sec): 60-70 (Ama Caballero RN) Pattern: Tachysystole: > 5 Contractions in 10 Minutes (Ama Caballero RN) Resting Tone (Palpate): Relaxed (Ama Caballero RN) Resting Tone IUP (mmHg): 32-35 (Ama Caballero RN) Intensity IUP (mmHg): 40-50 (Ama Caballero RN) Monitor Mode: Internal Scalp Electrode (Ama Caballero RN) FHR Baseline Rate : 145 (Ama Caballero RN) FHR Baseline Changes: No Baseline Change (Ama Caballero RN) Variability: Minimal - Undetectable to <=5 bpm (Ama Caballero RN) Accelerations: 10X10 (Ama Caballero RN) Decelerations: None (Ama Caballero RN) Pain Relief Measures: Comfort Measures (Ama Caballero RN) Pain Coping: Talking Through Contractions (Ama Caballero RN) Pitocin (milliunit): Pitocin Remains (milliunits) @ 4 (Ama Caballero, JASMINA) Patient Position/Activity: Left Tilt; Semi-Fowlers (Ama Caballero, JASMINA) Comfort Measures: Breathing/Relaxation; Coaching; Family Support (Ama Caballero RN) Communication: RN at Bedside; RN Reviewed Strip (Ama Caballero RN) LaborFlag: Labor (QS system process) Datetime: 07/08/2016 09:30 Stage of : Labor (Ama Caballero RN) Respirations: 20 (Ama Caballero RN) Monitor Mode: External (Ama Caballero RN) Monitor Interventions for UA: IUPC Inserted (Ama Caballero RN) Quality: Moderate (Ama Caballero RN) Resting Tone (Palpate): Relaxed (Ama Caballero RN) Contraction Comments: UTD PATTERN- IUPC INSERTED (Ama Caballero RN) Monitor Mode: Internal Scalp Electrode (Ama Caballero RN) FHR Baseline Rate : 140 (Ama Caballero RN) FHR Baseline Changes: No Baseline Change (Ama Caballero RN) Variability: Minimal - Undetectable to <=5 bpm (Ama Caballero RN) Accelerations: None (Ama Caballero RN) Decelerations: None (Ama Caballero RN) Pain Scale: 3 (Ama Caballero RN) Pain Presence: Intermittent (Ama Caballero RN) Pain Type: Contraction (Ama Caballero RN) Pain Location: Abdomen; Back (Ama Caballero RN) Pain Relief Measures: Comfort Measures (Ama Caballero RN) Pain Coping: Breathing Through Contractions (Ama Caballero RN) Pitocin (milliunit): Pitocin Increased to (milliunits) @ 4 (Ama Caballero RN) Procedures: Sterile Vag Exam (Ama Caballero RN) Patient Position/Activity: Left Lateral; Low Fowlers (Ama Caballero RN) Comfort Measures: Breathing/Relaxation; Coaching; Family Support (Ama Caballero RN) Hygiene: Underpad Changed (Ama Caballero RN) I/O Interventions: Up to BR (Ama Caballero RN) Communication: RN at Bedside; RN Reviewed Strip; Provider at Bedside (Ama Caballero RN) LaborFlag: Labor (QS system process) Datetime: 07/08/2016 09:15 Stage of : Labor (Ama Caballero RN) Respirations: 18 (Ama Caballero RN) Monitor Mode: External (Ama Caballero RN) Monitor Interventions for UA: [place] Adjusted (Ama Caballero RN) Frequency (min): 2-3 (Ama Caballero RN) Quality: Mild/Moderate (Ama Caballero RN) Duration (sec): 50-60 (Ama Caballero, JASMINA) Resting Tone (Palpate): Relaxed (Ama Caballero RN) Monitor Mode: Internal Scalp Electrode (Ama Caballero RN) FHR Baseline Rate : 140 (Ama Caballero RN) FHR Baseline Changes: No Baseline Change (Ama Caballero RN) Variability: Minimal - Undetectable to <=5 bpm (Ama Caballero RN) Accelerations: 10X10 (Ama Caballero RN) Decelerations: None (Ama Caballero RN) Pain Relief Measures: Comfort Measures (Ama Caballero RN) Pain Coping: Breathing Through Contractions (Ama Caballero RN) Pitocin (milliunit): Pitocin Started (milliunits) @ 2 (Ama Caballero, JASMINA) IV/Blood Work: New IV Bag Hung (Ama Caballero, JASMINA) Patient Position/Activity: Left Tilt; Semi-Fowlers (Ama Caballero, RN) Comfort Measures: Breathing/Relaxation; Coaching; Family Support (Ama Caballero, JASMINA) Communication: RN at Bedside; RN Reviewed Strip (Ama Caballero RN) LaborFlag: Labor (QS system process) Datetime: 07/08/2016 09:03 NBP Sys/Neelima/Mean (mmHg): 157 (QS system process) : 85 (QS system process) : 111 (QS system process) Pulse: 89 (QS system process) LaborFlag: Labor (QS system process) Datetime: 07/08/2016 08:49 Stage of : Labor (Ama Caballero RN) Respirations: 18 (Ama Caballero RN) Monitor Mode: External (Ama Caballero RN) Monitor Interventions for UA: [place] Adjusted (Ama Cbaallero RN) Resting Tone (Palpate): Relaxed (Ama Caballero RN) Monitor Mode: External US (Ama Caballero RN) Monitor Interventions for FHR: Ultrasound Adjusted (Ama Caballero RN) FHR Baseline Rate : 145 (Ama Caballero RN) Pain Scale: 2 (Ama Caballero RN) Pain Presence: Intermittent (Ama Caballero RN) Pain Type: Contraction (Ama Caballero RN) Pain Location: Abdomen; Back (Ama Caballero RN) Pain Relief Measures: Comfort Measures (Ama Caballero RN) Pain Coping: Breathing Through Contractions (Ama Caballero RN) Dilatation (cm): 2.5 (Ama Caballero RN) Effacement (%): 80 (Ama Caballero RN) Station: -1 (Ama Caballero RN) Exam by: JESSICA CABALLERO RN (Ama Caballero RN) Membrane Status: Ruptured (Ama Caballero RN) Membranes Rupture Method: Artificial (Ama Caballero RN) Amniotic Fluid Color: Light Meconium (Ama Caballero RN) Amniotic Fluid Amount: Small (Ama Caballero RN) Amniotic Fluid Odor: None (Ama Caballero RN) Vaginal Bleeding: Normal Show (Ama Caballero RN) Cervix, Consistency: Soft (Ama Caballero RN) Cervix, Position: Anterior (Ama Caballero, JASMINA) Procedures: Sterile Vag Exam (Ama Caballeor, JASMINA) Patient Position/Activity: Low Fowlers (Ama Caballero, JASMINA) Comfort Measures: Breathing/Relaxation; Coaching; Family Support (Ama Caballero RN) Hygiene: Underpad Changed (Ama Caballero RN) I/O Interventions: Up to BR (Ama Caballero RN) Instructional Method: Verbal; Patient Instructed; Family/Support Person Instructed; Verbalized Understanding (Ama Caballero, JASMINA) Plan of Care: Plan of Care Discussed; Induction (Ama Caballero, JASMINA) Pain Management: Epidural; Comfort Measures (Ama Caballero, JASMINA) Medications: Pitocin (Ama Caballero, JASMINA) Communication: RN at Bedside; RN Reviewed Strip; Provider at Bedside (Ama Caballero, JASMINA) Communication Comments: Abdirahman BAY CNM @ BS (Ama Caballero, JASMINA) LaborFlag: Labor (QS system process)
--- NOTE | 2016-07-08 12:18 | Delivery Summary ---
Del Sum A-C Datetime Report Generated by CPN: 07/08/2016 12:18 ADMISSION DATA Chief Complaint: Signs/Symptoms Gestational HTN; Scheduled Induction of Labor Indication for Induction: Gest. HTN/PreEclampsia/Eclampsia Admission Impression: Term, Intrauterine ; No Active Labor; Induction of Labor Admit Provider Comments: Term w cHTN and superimposed mild preeclampsia. cytotec induction tonight and pitocin in am. GBS neg DELIVERY PERSONNEL Delivery Doctor:: Cristina Reyes CNM Labor and Delivery Nurse:: Ama Pauline Roulund, shipping assistant Nurse:: EVA Chowdhury Corporate Real Estate Manager/UMBRELLA FRAME MAKER: Kellee Iraheta CNA II Corporate Real Estate Manager/UMBRELLA FRAME MAKER: Kailee Edouard, STONEWORKER MATERNAL INFORMATION Delivery Anesthesia: Local Medications After Delivery: Pitocin Bolus-Please Comment; Pitocin Drip 20 Units/1000ml NSS; Cytotec 600mcg Per Rectum/Vagina Estimated Blood Loss (ml): 300 Maternal Complications: None Provider Comments: Went to complete quickly, started pushing, viable male over intact perineum, right periurethral tear, nuchal cord x 1, loose, reduced after delivery Baby placed on mothers abdomen and cord clamped and cut by father after 2 minutes, spont delivery of grossly normal intact placenta, 3 VC, EBL 300cc, cytotec 600 mcg in rectum and IV Pitocin, Laceration repaired withour difficulty, good hemostasis Baby and mom remain in recovery in stable condition LABOR SUMMARY EDC: 07/25/2016 00:00 No. Babies in Womb: 1 Attempted: No Labor Anesthesia: IV Sedation LABOR INFORMATION Reason for Induction: Chronic Hypertension Onset of Labor: 07/08/2016 08:49 Complete Dilatation: 07/08/2016 11:10 Cervical Ripening Agents: Cytotec @ Oxytocin: Augmentation Group B Beta Strep: Negative Antibiotics # of Doses: 0 Steroids Given: None Reason Steroids Not Administered: Not Applicable MEMBRANES Membranes Rupture Method: Artificial Rupture of Membranes: 07/08/2016 08:49 Length of Rupture (hr): 2.65 Amniotic Fluid Color: Light Meconium Amniotic Fluid Amount: Small Amniotic Fluid Odor: None STAGES OF LABOR Stage 1 hr: 2 Stage 1 min: 21 Stage 2 hr: 0 Stage 2 min: 18 Stage 3 hr: 0 Stage 3 min: 6 Total Time in Labor hr: 2 Total Time in Labor min: 45 VAGINAL DELIVERY Episiotomy: None Laceration Extension: First Degree Laceration Type: Periurethral Other Laceration: RT LABIAL Laceration Repair: Yes Laceration Repair Note: 2-0 vicryl, using 1% Xylocaine, without difficulty Sponge Count Correct: N/A Sharps Count Correct: N/A BABY A INFORMATION Infant Delivery Date/Time: 07/08/2016 11:28 Method of Delivery: Vaginal Born in Route : No : N/A Forceps: N/A Vacuum Extraction: N/A Shoulder Dystocia : No PRESENTATION/POSITION BABY A Presentation: Cephalic Cephalic Presentation: Vertex Vertex Position: Right Occipital Transverse Breech Presentation: N/A PLACENTA INFORMATION BABY A Placenta Delivery Time : 07/08/2016 11:34 Placenta Method of Delivery: Spontaneous Placenta Status: Delivered SCORES BABY A Heart Rate 1 min: >100 bpm Resp Effort 1 min: Good Cry Reflex Irritability 1 min: Cough or Sneeze or Pulls Away Muscle Tone 1 min: Active Motion Color 1 min: Body [place], Extremities Blue Resuscitation Effort 1 min: Tactile Stimulation SCORE 1 MIN: 9 Heart Rate 5 min: >100 bpm Resp Effort 5 min: Good Cry Reflex Irritability 5 min: Cough or Sneeze or Pulls Away Muscle Tone 5 min: Active Motion Color 5 min: Body [place], Extremities Blue Resuscitation Effort 5 min: Tactile Stimulation SCORE 5 MIN: 9 INFORMATION BABY A Gestational Age at Delivery: 37.4 Gestational Status: Early Term- 37- 38.6 Weeks Outcome : Liveborn Condition : Stable Sex: Male IDENTIFICATION BABY A Verification Date/Time: 07/08/2016 12:05 ID Band Number: [id number] Mother's Name Verified: Yes RN Verifying : D Bellavance RNC Additional Verifying Personnel: [facility] RN WEIGHT/LENGTH BABY A Birthweight (gm): 3210 Weight (lb): 7 Infant Weight (oz): 1 Infant Length (in): 21.25 Length (cm): 53.98 CORD INFORMATION BABY A No. Cord Vessels: 3 Nuchal Cord : Around Neck x1, Loose Cord Blood Taken: Yes-For Eval (Mom's Blood Type - or O+) Infant Suction: None ASSESSMENT BABY A Complications: Other Infant Complications- Other: NUIN [facility] Physical Findings at Delivery: Within Normal Limits Infant Respirations: Appears Normal; Intercostal Retractions; Nasal Flaring; Sternal Retractions; Tachypnea Skin to Skin: Yes Skin to Skin Time (min): 10 Cement Conveyor Operator/ALS Called : Yes Infant Care By: [place] RNC Transferred To: NICU BABY B INFORMATION : N/A
[2016-07-08 12:20] LABS: ARTERIAL BLOOD O2 SATURATION 52.1 % (94-98)
--- NOTE | 2016-07-08 14:22 | Admission Physical ---
Datetime Report Generated by CPN: 07/08/2016 14:22 CURRENT ADMISSION Hx Assessment: The History has been Reviewed and is Current Chief Complaint: Signs/Symptoms Gestational HTN; Scheduled Induction of Labor Indication for Induction: Gest. HTN/PreEclampsia/Eclampsia Admit Plan: Admit to Unit; Initiate Labor Induction Protocol Admit Plan- Other: cHTN w superimposed preeclampsia ALLERGIES Medication Allergies: Yes Medication Allergies: amoxicillin/rash (07/07/2016) Latex: No Latex Allergies Food Allergies: None Environmental Allergies: None OBSTETRICAL HISTORY EDC: 07/25/2016 00:00 : 1 Para: 0 Term: 0 : 0 SAB: 0 IAB: 0 Ectopic: 0 Livin Cesareans: 0 VBACs: 0 Multiple Births: 0 Gestational Diabetes: No Rh Sensitization: No Incompetent Cervix: No MARISSA: No Infertility: No ART Treatment: No Uterine Anomaly: No IUGR: No Hx Previous C/S: No Macrosomia: No Hx Loss/Stillborn: No PIH: No Hx : No Placenta Previa/Abruption: No Depression/PP Depression: No PTL/PROM: No Post Hemorrhage: No Current Procedures: Ultrasound Obstetrical History Comments: G1 - Current - Chronic HTN SEE RECORDS Alcohol: No Marijuana : No Cocaine: No Other Illicit Drugs: No Cigarettes: Never Smoker. 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 Surgery: No Heart Disease: No Hosp/Surgery: No Autoimmune Disorder: No Anesthetic Complications: No Kidney Disease: No Abnormal Pap Smear: Yes Neuro/Epilepsy: No Psychiatric Disorders: No Other Medical Diseases: No Hepatitis/Liver Disease: No Significant Family History: Yes Varicosities/Phlebitis: No Trauma/Violence : No Thyroid Dysfunction: No Medical History Comments: Abnormal Pap in 2010, colpo Father has history of strokes and mother has hypertension INFECTIOUS HISTORY Gonorrhea: No Genital Herpes: No Chlamydia: Yes Tuberculosis: No Syphilis: No Hepatitis: No HIV/AIDS Exposure: No Rash or Viral Illness: No HPV: Yes Infectious History Comments: Chlamydia in 2008, underwent treatment HPV PHYSICAL EXAM General: Normal HEENT: Deferred Neurologic: Deferred Thyroid: Deferred Heart: Normal Lungs: Normal Breast: Deferred Back: Deferred Abdomen: Normal Genitourinary Exam: Normal Extremities: Normal DTRs: Normal Pelvic Type: Adequate Vital Signs: Reviewed; Within Normal Limits MEMBRANES Membranes: Ruptured Amniotic Fluid Color: Meconium, Light FETUS A EGA: 37.3 FHR- Baseline: 140 Variability: Moderate 6-25bpm Accelerations: 15X15 Decelerations: None FHR Category: Category I Admit Comment: Term w cHTN and superimposed mild preeclampsia. cytotec induction tonight and pitocin in am. GBS neg PLANS FOR LABOR AND DELIVERY Labor and Delivery: None Pain Management: None Other Pain Management Plans: Open to options Feeding Preference: Breast Benefit of Breast Feed Discussed: Yes Circumcision: No INFORMED CONSENT Signature: with User ID: [email or web address]
[2016-07-08] MEDS: IBUPROFEN 800 MG TABLET PO SCH ×2 (14:38→21:16)
[2016-07-08] MEDS: DOCUSATE SODIUM 100 MG CAPSULE PO SCH (18:38)
[2016-07-08] MEDS: FERROUS SULFATE 325 MG TABLET PO SCH (18:38)
--- NOTE | 2016-07-08 19:00 | L&D Flow Sheet ---
LD Flowsheet Datetime Report Generated by CPN: 07/08/2016 19:00 Datetime: 07/08/2016 13:50 Stage of : Recovery (Ama Caballero RN) NBP Sys/Neelima/Mean (mmHg): 136 (QS system process) : 70 (QS system process) : 95 (QS system process) Pulse: 86 (QS system process) Respirations: 16 (Ama Caballero RN) Pain Scale: 0 (Ama Caballero RN) Pain Presence: None/Denies (Ama Caballero RN) Pain Type: N/A (Ama Caballero RN) Pain Relief Measures: Comfort Measures (Ama Caballero RN) Datetime: 07/08/2016 13:35 NBP Sys/Neelima/Mean (mmHg): 146 (QS system process) : 77 (QS system process) : 106 (QS system process) Pulse: 88 (QS system process) Datetime: 07/08/2016 13:20 NBP Sys/Neelima/Mean (mmHg): 147 (QS system process) : 80 (QS system process) : 107 (QS system process) Pulse: 94 (QS system process) Datetime: 07/08/2016 13:05 Stage of : Recovery (Ama Caballero RN) NBP Sys/Neelima/Mean (mmHg): 140 (QS system process) : 74 (QS system process) : 100 (QS system process) Pulse: 85 (QS system process) Respirations: 16 (Ama Caballero RN) Pain Scale: 0 (Ama Caballero RN) Pain Presence: None/Denies (Ama Caballero RN) Pain Type: N/A (Ama Caballero RN) Pain Relief Measures: Comfort Measures (Ama Caballero RN) Datetime: 07/08/2016 12:50 NBP Sys/Neelima/Mean (mmHg): 132 (QS system process) : 71 (QS system process) : 94 (QS system process) Pulse: 93 (QS system process) Datetime: 07/08/2016 12:35 Stage of : Recovery (Ama Caballero RN) NBP Sys/Neelima/Mean (mmHg): 139 (QS system process) : 71 (QS system process) : 99 (QS system process) Pulse: 66 (QS system process) Respirations: 18 (Ama Caballero RN) Pain Scale: 0 (Ama Caballero RN) Pain Presence: None/Denies (Ama Caballero RN) Pain Type: N/A (Ama Caballero RN) Pain Relief Measures: Comfort Measures (Ama Caballero RN) Datetime: 07/08/2016 12:20 Stage of : Recovery (Ama Caballero RN) NBP Sys/Neelima/Mean (mmHg): 145 (QS system process) : 83 (QS system process) : 107 (QS system process) Pulse: 88 (QS system process) Respirations: 18 (Ama Caballero RN) Pain Scale: 0 (Ama Caballero RN) Pain Presence: None/Denies (Ama Caballero RN) Pain Type: N/A (Ama Caballero RN) Pain Relief Measures: Comfort Measures (Ama Caballero RN) Datetime: 07/08/2016 12:05 Stage of : Recovery (Ama Caballero RN) NBP Sys/Neelima/Mean (mmHg): 138 (QS system process) : 61 (QS system process) : 88 (QS system process) Pulse: 80 (QS system process) Respirations: 18 (Ama Caballero RN) Pain Scale: 0 (Ama Caballero RN) Pain Presence: None/Denies (Ama Caballero RN) Pain Type: N/A (Ama Caballero RN) Pain Relief Measures: Comfort Measures (Ama Caballero RN) Datetime: 07/08/2016 11:53 Stage of : Recovery (Ama Caballero RN) NBP Sys/Neelima/Mean (mmHg): 174 (QS system process) : 73 (QS system process) : 105 (QS system process) Pulse: 94 (QS system process) Respirations: 18 (Ama Caballero RN) Pain Scale: 0 (Ama Caballero RN) Pain Presence: None/Denies (Ama Caballero RN) Pain Type: N/A (Ama Caballero RN) Pain Assessment Comments: 3 (mAa Caballero RN) Datetime: 07/08/2016 11:37 Stage of : Recovery (Ama Caballero RN) NBP Sys/Neelima/Mean (mmHg): 110 (QS system process) : 67 (QS system process) : 82 (QS system process) Pulse: 81 (QS system process) Respirations: 18 (Ama Caballero RN) Pain Scale: 0 (Ama Caballero RN) Pain Presence: None/Denies (Ama Caballero RN) Pain Type: N/A (Ama Caballero RN) Pain Goal: 1 (Ama Caballero RN) Pain Relief Measures: Comfort Measures (Ama Caballero RN) Pain Assessment Comments: (Ama Caballero RN) Datetime: 07/08/2016 11:28 Stage of : Labor (Ama Caballero RN) Respirations: 22 (Ama Caballero RN) Monitor Mode: Internal (Ama Caballero RN) Frequency (min): 2-2.5 (Ama Caballero RN) Quality: Moderate to Strong (Ama Caballero RN) Resting Tone (Palpate): Relaxed (Ama Caballero RN) Monitor Mode: Internal Scalp Electrode (Ama Caballero RN) FHR Baseline Rate : 135 (Ama Caballero RN) FHR Baseline Changes: No Baseline Change (Ama Caballero RN) Variability: Moderate 6-25 bpm (Ama Caballero RN) Accelerations: None (Ama Caballero RN) Decelerations: Variable (Ama Caballero RN) Pain Presence: Intermittent (Ama Caballero RN) Pain Type: Pressure (Ama Caballero RN) Pain Location: Abdomen; Perineum (Ama Caballero, RN) IV/Blood Work: IV Infusing per Order (Ama Caballero, JASMINA) Comfort Measures: Coaching; Family Support (Ama Caballero, RN) Provider Reviewed Strip: Yes (Ama Caballero RN) Pushing: Urge to Push (Ama Caballero, JASMINA) Pushing Position: Pushing with Contractions; Pushing Lithotomy (Ama Caballero, JASMINA) Pushing Progress: Descent with Pushing; Perineal Bulging; Rectal Bulging; with Pushing; Pushing Effectively with Contractions (Ama Caballero, JASMINA) Stage 2 Comments: OF VIABLE MALE @ 1128, APGARS-9/9. SEE DELIVERY SUMMARY. (Ama Caballero, JASMINA) Communication: RN at Bedside; RN Reviewed Strip; Provider at Bedside (Ama Caballero RN) Communication Comments: CNM REMAINS @ BS (Ama Caballero, JASMINA) LaborFlag: Labor (QS system process) Datetime: 07/08/2016 11:18 Stage of : Recovery (Ama Caballero RN) Provider Reviewed Strip: Yes (Ama Caballero RN) Instructional Method: Verbal; Patient Instructed; Family/Support Person Instructed; Verbalized Understanding (Ama Caballero RN) Labor/Induction: Pushing Methods (Ama Caballero RN) Pushing: Urge to Push (Ama Caballero RN) Pushing Position: Pushing with Contractions; Pushing Lithotomy (Ama Caballero RN) Pushing Progress: Descent with Pushing; Pushing Effectively with Contractions (Ama Caballero RN) Communication: RN at Bedside; RN Reviewed Strip; Provider at Bedside (Ama Caballero RN) Communication Comments: cnm remains @ bs (Ama Caballero RN) Datetime: 07/08/2016 11:15 Stage of : Labor (Ama Caballero RN) Respirations: 22 (Ama Caballero RN) Monitor Mode: External (Ama Caballero RN) Frequency (min): 1.5-3 (Ama Caballero RN) Quality: Moderate (Ama Caballero RN) Duration (sec): 60 (Ama Caballero RN) Resting Tone (Palpate): Relaxed (Ama Caballero RN) Monitor Mode: External US (Ama Caballero RN) Monitor Interventions for FHR: FSE Applied (Ama Caballero RN) FHR Baseline Rate : 135 (Ama Caballero RN) FHR Baseline Changes: No Baseline Change (Ama Caballero RN) Variability: Minimal - Undetectable to <=5 bpm (Ama Caballero RN) Accelerations: None (Ama Caballero RN) Decelerations: Variable (Ama Caballero RN) Pain Scale: 5 (Ama Caballero, JASMINA) Pain Presence: Intermittent (Ama Caballero, RN) Pain Type: Pressure (Ama Caballero RN) Pain Location: Perineum (Ama Caballero, RN) Pain Relief Measures: Comfort Measures (Ama Caballero, JASMINA) Pain Coping: Breathing Through Contractions (Ama Caballero, RN) Pain Assessment Comments: REPORTS URGE TO PUSH (Ama Caballero, RN) IV/Blood Work: IV Infusing per Order (Ama Caballero, RN) Patient Position/Activity: Low Fowlers (Ama Caballero, RN) Comfort Measures: Breathing/Relaxation; Coaching; Family Support (Ama Caballero, JASMINA) Communication: RN at Bedside; RN Reviewed Strip; Report Given to @ Abdirahman BAY CNM (Ama Caballero RN) Notification Reason: Status Update (Ama Caballero RN) LaborFlag: Labor (QS system process) Datetime: 07/08/2016 11:10 Stage of : Labor (Ama Caballero RN) Effacement (%): 100 (Ama Caballero, JASMINA) Station: 1 (Ama Caballero, JASMINA) Exam by: JESSICA CABALLERO RN (Ama Caballero, RN) Vaginal Bleeding: Normal Show (Ama Caballero, JASMINA) Vaginal Exam Comments: ANT LIP (Ama Caballero, JASMINA) Procedures: Sterile Vag Exam (Ama Caballero, RN) Provider Reviewed Strip: Yes (Ama Caballero RN) Communication: RN at Bedside; RN Reviewed Strip (Ama Caballero RN) Datetime: 07/08/2016 11:03 NBP Sys/Neelima/Mean (mmHg): 152 (QS system process) : 76 (QS system process) : 109 (QS system process) Pulse: 55 (QS system process) LaborFlag: Labor (QS system process) Datetime: 07/08/2016 11:00 Stage of : Labor (Ama Caballero RN) Respirations: 20 (Ama Caballero RN) Monitor Mode: Internal (Ama Caballero RN) Frequency (min): 2-4 (Ama Caballero RN) Quality: Moderate (Ama Caballero RN) Duration (sec): 60-70 (Ama Caballero RN) Resting Tone (Palpate): Relaxed (Ama Caballero RN) Monitor Mode: External US (Ama Caballero RN) FHR Baseline Rate : 135 (Ama Caballero RN) FHR Baseline Changes: No Baseline Change (Ama Caballero RN) Variability: Moderate 6-25 bpm (Ama Caballero RN) Accelerations: None (Ama Caballero RN) Decelerations: None (Ama Caballero RN) Pain Scale: 4 (Ama Caballero RN) Pain Presence: Intermittent (Ama Caballero RN) Pain Type: Contraction (Ama Caballero RN) Pain Location: Abdomen; Back (Ama Caballero RN) Pain Relief Measures: Comfort Measures (Ama Caballero RN) Pain Coping: Breathing Through Contractions (Ama Caballero RN) Patient Position/Activity: Left Lateral; Low Fowlers (Ama Caballero RN) Comfort Measures: Breathing/Relaxation; Coaching; Family Support (Ama Caballero RN) Communication: RN at Bedside; RN Reviewed Strip (Ama Caballero RN) LaborFlag: Labor (QS system process) Datetime: 07/08/2016 10:45 Stage of : Labor (Ama Caballero RN) Respirations: 18 (Ama Caballero RN) Monitor Mode: Internal (Ama Caballero RN) Frequency (min): 1.5-3 (Ama Caballero RN) Quality: Moderate (Ama Caballero RN) Duration (sec): 60-120 (Ama Caballero RN) Resting Tone (Palpate): Relaxed (Ama Caballero RN) Resting Tone IUP (mmHg): 22-27 (Ama Caballero RN) Intensity IUP (mmHg): 25-55 (Ama Caballero, JASMINA) Monitor Mode: Internal Scalp Electrode (Ama Caballero RN) FHR Baseline Rate : 130 (Ama Caballero RN) FHR Baseline Changes: No Baseline Change (Ama Caballero RN) Variability: Moderate 6-25 bpm (Ama Caballero RN) Accelerations: None (Ama Caballero RN) Decelerations: None (Ama Caballero, JASMINA) Pain Relief Measures: Comfort Measures (Ama Caballero RN) Pain Coping: Breathing Through Contractions (Ama Caballero RN) IV/Blood Work: IV Infusing per Order (Ama Caballero, JASMINA) Patient Position/Activity: Left Lateral; Low Fowlers (Ama Caballero, JASMINA) Comfort Measures: Breathing/Relaxation; Coaching; Family Support (Ama Caballero, JASMINA) Communication: RN at Bedside; RN Reviewed Strip (Ama Caballero, JASMINA) LaborFlag: Labor (QS system process) Datetime: 07/08/2016 10:41 Anesthesia Comments: DR ARENAS @ FOR CONSULT FOR EPIDURAL (Ama Caballero, JASMINA) Datetime: 07/08/2016 10:32 NBP Sys/Neelima/Mean (mmHg): 154 (QS system process) : 72 (QS system process) : 104 (QS system process) Pulse: 53 (QS system process) LaborFlag: Labor (QS system process) Datetime: 07/08/2016 10:30 Stage of : Labor (Ama Caballero RN) Respirations: 22 (Ama Caballero RN) Monitor Mode: Internal (Ama Caballero RN) Frequency (min): 1.5-2 (Ama Caballero RN) Quality: Moderate (Ama Caballero RN) Duration (sec): 60-70 (Ama Caballero RN) Pattern: Tachysystole: > 5 Contractions in 10 Minutes (Ama Caballero RN) Resting Tone (Palpate): Relaxed (Ama Caballero RN) Resting Tone IUP (mmHg): 32-40 (Ama Caballero RN) Intensity IUP (mmHg): 40-50 (Ama Caballero RN) Monitor Mode: Internal Scalp Electrode (Ama Caballero RN) FHR Baseline Rate : 135 (Ama Caballero RN) FHR Baseline Changes: No Baseline Change (Ama Caballero RN) Variability: Moderate 6-25 bpm (Ama Caballero RN) Accelerations: 15X15 (Ama Caballero RN) Decelerations: None (Ama Caballero RN) Pain Scale: 5 (Ama Caballero RN) Pain Presence: Intermittent (Ama Caballero RN) Pain Type: Contraction (Ama Caballero RN) Pain Location: Abdomen; Back (Ama Caballero RN) Pain Relief Measures: Pain Medication Given; Comfort Measures (Ama Caballero RN) Pain Coping: Breathing Through Contractions (Ama Caballero RN) Patient Position/Activity: Left Lateral; Low Fowlers (Ama Caballero, JASMINA) Comfort Measures: Breathing/Relaxation; Coaching; Family Support (Ama Caballero RN) Instructional Method: Verbal; Patient Instructed; Family/Support Person Instructed; Verbalized Understanding (Ama Caballero RN) Plan of Care: Plan of Care Discussed (Ama Caballero RN) Pain Management: IV Narcotics; Pain Scale/Goals; Comfort Measures (Ama Caballero, JASMINA) Medications: IV Narcotics (Ama Caballero, JASMINA) Communication: RN at Bedside; RN Reviewed Strip (Ama Caballero RN) LaborFlag: Labor (QS system process) Datetime: 07/08/2016 10:15 Stage of : Labor (Ama Caballero RN) Respirations: 20 (Ama Caballero RN) Monitor Mode: Internal (Ama Caballero RN) Frequency (min): 1.5-2 (Ama Caballero RN) Quality: Moderate (Ama Caballero RN) Duration (sec): 60-70 (Ama Caballero RN) Pattern: Tachysystole: > 5 Contractions in 10 Minutes (Ama Caballero RN) Resting Tone (Palpate): Relaxed (Ama Caballero RN) Resting Tone IUP (mmHg): 35-40 (Ama Caballero RN) Intensity IUP (mmHg): 35-70 (Ama Caballero RN) Monitor Mode: Internal Scalp Electrode (Ama Caballero RN) FHR Baseline Rate : 145 (Ama Caballero RN) FHR Baseline Changes: No Baseline Change (Ama Caballero RN) Variability: Moderate 6-25 bpm (Ama Caballero RN) Accelerations: 15X15 (Ama Caballero RN) Decelerations: None (Ama Caballero RN) Pain Scale: 5 (Ama Caballero RN) Pain Presence: Intermittent (Ama Caballero RN) Pain Type: Contraction (Ama Caballeor RN) Pain Location: Abdomen; Back (Ama Caballero RN) Pain Relief Measures: Comfort Measures (Ama Caballero RN) Pain Coping: Breathing Through Contractions; Requesting Pain Medication or Epidural (Ama Caballero RN) IV/Blood Work: IV Infusing per Order (Ama Caballero RN) Patient Position/Activity: Left Lateral; Low Fowlers (Ama Caballero RN) Comfort Measures: Breathing/Relaxation; Coaching; Family Support (Ama Caballero RN) LaborFlag: Labor (QS system process) Datetime: 07/08/2016 10:02 Stage of : Labor (Ama Caballero RN) NBP Sys/Neelima/Mean (mmHg): 155 (QS system process) : 74 (QS system process) : 106 (QS system process) Pulse: 75 (QS system process) Respirations: 18 (Ama Caballero RN) Monitor Mode: Internal (Ama Caballero RN) Frequency (min): 1.5-2 (Ama Caballero RN) Quality: Moderate (Ama Caballero RN) Duration (sec): 60-70 (Ama Caballero RN) Resting Tone (Palpate): Relaxed (Ama Caballero RN) Resting Tone IUP (mmHg): 32-40 (Ama Caballero RN) Intensity IUP (mmHg): 45-60 (Ama Caballero RN) Monitor Mode: Internal Scalp Electrode (Ama Caballero RN) FHR Baseline Rate : 145 (Ama Caballero RN) Variability: Moderate 6-25 bpm (Ama Caballero RN) Accelerations: 15X15 (Ama Caballero RN) Decelerations: None (Ama Caballero RN) Pain Scale: 4 (Ama Caballero RN) Pain Presence: Intermittent (Ama Caballero RN) Pain Type: Contraction (Ama Caballero RN) Pain Location: Abdomen; Back (Ama Caballero RN) Pain Relief Measures: Comfort Measures (Ama Caballero RN) Pain Coping: Talking Through Contractions (Ama Caballero RN) Patient Position/Activity: Right Tilt; Semi-Fowlers (Ama Caballero RN) Comfort Measures: Breathing/Relaxation; Coaching; Family Support (Aam Caballero RN) Communication: RN at Bedside; RN Reviewed Strip (Ama Caballero RN) LaborFlag: Labor (QS system process) Datetime: 07/08/2016 09:51 Stage of : Labor (Ama Caballero RN) Pitocin (milliunit): Pitocin Discontinued (Ama Caballero RN) Communication: RN at Bedside; RN Reviewed Strip (Ama Caballero RN) Datetime: 07/08/2016 09:45 Stage of : Labor (Ama Caballero RN) Respirations: 20 (Ama Caballero RN) Monitor Mode: Internal (Ama Caballero RN) Frequency (min): 1.5 (Ama Caballero RN) Quality: Moderate (Ama Caballero RN) Duration (sec): 60-70 (Ama Caballero RN) Pattern: Tachysystole: > 5 Contractions in 10 Minutes (Aam Caballero RN) Resting Tone (Palpate): Relaxed (Ama Caballero RN) Resting Tone IUP (mmHg): 32-35 (Ama Caballero RN) Intensity IUP (mmHg): 40-50 (Ama Caballero RN) Monitor Mode: Internal Scalp Electrode (Ama Caballero RN) FHR Baseline Rate : 145 (Ama Caballero RN) FHR Baseline Changes: No Baseline Change (Ama Caballero RN) Variability: Minimal - Undetectable to <=5 bpm (Ama Caballero RN) Accelerations: 10X10 (Ama Caballero, JASMINA) Decelerations: None (Ama Caballero RN) Pain Relief Measures: Comfort Measures (Ama Caballero RN) Pain Coping: Talking Through Contractions (Ama Caballero RN) Pitocin (milliunit): Pitocin Remains (milliunits) @ 4 (Ama Caballero, JASMINA) Patient Position/Activity: Left Tilt; Semi-Fowlers (Ama Caballero, JASMINA) Comfort Measures: Breathing/Relaxation; Coaching; Family Support (Ama Caballero, JASMINA) Communication: RN at Bedside; RN Reviewed Strip (Ama Caballero RN) LaborFlag: Labor (QS system process) Datetime: 07/08/2016 09:30 Stage of : Labor (Ama Caballero RN) Respirations: 20 (Ama Caballero RN) Monitor Mode: External (Ama Caballero RN) Monitor Interventions for UA: IUPC Inserted (Ama Caballero, JASMINA) Quality: Moderate (Ama Caballero, RN) Resting Tone (Palpate): Relaxed (Ama Caballero, RN) Contraction Comments: UTD PATTERN- IUPC INSERTED (Ama Caballero, JASMINA) Monitor Mode: Internal Scalp Electrode (Ama Caballero RN) FHR Baseline Rate : 140 (Ama Caballero RN) FHR Baseline Changes: No Baseline Change (Ama Caballero, JASMINA) Variability: Minimal - Undetectable to <=5 bpm (Ama Caballero, RN) Accelerations: None (Ama Caballero, RN) Decelerations: None (Ama Caballero, JASMINA) Pain Scale: 3 (Ama Caballero, JASMINA) Pain Presence: Intermittent (Ama Caballero, JASMINA) Pain Type: Contraction (Ama Caballero, RN) Pain Location: Abdomen; Back (Ama Caballero, RN) Pain Relief Measures: Comfort Measures (Ama Caballero, JASMINA) Pain Coping: Breathing Through Contractions (Ama Caballero, RN) Pitocin (milliunit): Pitocin Increased to (milliunits) @ 4 (Ama Caballero, RN) Procedures: Sterile Vag Exam (Ama Caballero, RN) Patient Position/Activity: Left Lateral; Low Fowlers (Ama Caballero, RN) Comfort Measures: Breathing/Relaxation; Coaching; Family Support (Ama Caballero, RN) Hygiene: Underpad Changed (Ama Caballero, RN) I/O Interventions: Up to BR (Ama Caballero, RN) Communication: RN at Bedside; RN Reviewed Strip; Provider at Bedside (Ama Caballero, JASMINA) LaborFlag: Labor (QS system process) Datetime: 07/08/2016 09:15 Stage of : Labor (Ama Caballero RN) Respirations: 18 (Ama Caballero RN) Monitor Mode: External (Ama Caballero RN) Monitor Interventions for UA: [place] Adjusted (Ama Caballero RN) Frequency (min): 2-3 (Ama Caballero RN) Quality: Mild/Moderate (Ama Caballero RN) Duration (sec): 50-60 (Ama Caballero, JASMINA) Resting Tone (Palpate): Relaxed (Ama Caballero RN) Monitor Mode: Internal Scalp Electrode (Ama Caballero RN) FHR Baseline Rate : 140 (Ama Caballero RN) FHR Baseline Changes: No Baseline Change (Ama Caballero RN) Variability: Minimal - Undetectable to <=5 bpm (Ama Caballero, JASMINA) Accelerations: 10X10 (Ama Caballero RN) Decelerations: None (Ama Caballero, JASMINA) Pain Relief Measures: Comfort Measures (Ama Caballero RN) Pain Coping: Breathing Through Contractions (Ama Caballero RN) Pitocin (milliunit): Pitocin Started (milliunits) @ 2 (Ama Caballero, JASMINA) IV/Blood Work: New IV Bag Hung (Ama Caballero, RN) Patient Position/Activity: Left Tilt; Semi-Fowlers (Ama Caballero, JASMINA) Comfort Measures: Breathing/Relaxation; Coaching; Family Support (Ama Caballero, JASMINA) Communication: RN at Bedside; RN Reviewed Strip (Ama Caballero RN) LaborFlag: Labor (QS system process) Datetime: 07/08/2016 09:03 NBP Sys/Neelima/Mean (mmHg): 157 (QS system process) : 85 (QS system process) : 111 (QS system process) Pulse: 89 (QS system process) LaborFlag: Labor (QS system process) Datetime: 07/08/2016 08:49 Stage of : Labor (Ama Caballero RN) Respirations: 18 (Ama Caballero RN) Monitor Mode: External (Ama Caballero RN) Monitor Interventions for UA: [place] Adjusted (Ama Caballero RN) Resting Tone (Palpate): Relaxed (Ama Caballero RN) Monitor Mode: External US (Ama Caballero RN) Monitor Interventions for FHR: Ultrasound Adjusted (Ama Caballero RN) FHR Baseline Rate : 145 (Ama Caballero RN) Pain Scale: 2 (Ama Caballero RN) Pain Presence: Intermittent (Ama Caballero RN) Pain Type: Contraction (Ama Caballero RN) Pain Location: Abdomen; Back (Ama Caballero RN) Pain Relief Measures: Comfort Measures (Ama Caballero RN) Pain Coping: Breathing Through Contractions (Ama Caballero, JASMINA) Dilatation (cm): 2.5 (Ama Caballero RN) Effacement (%): 80 (Ama Caballero RN) Station: -1 (Ama Caballero RN) Exam by: JESSICA CABALLERO RN (Ama Caballero, JASMINA) Membrane Status: Ruptured (Ama Caballero RN) Membranes Rupture Method: Artificial (Ama Caballero RN) Amniotic Fluid Color: Light Meconium (Ama Caballero, JASMINA) Amniotic Fluid Amount: Small (Ama Caballero RN) Amniotic Fluid Odor: None (Ama Caballero RN) Vaginal Bleeding: Normal Show (Ama Caballero RN) Cervix, Consistency: Soft (Ama Caballero RN) Cervix, Position: Anterior (Ama Caballero RN) Procedures: Sterile Vag Exam (Ama Caballero RN) Patient Position/Activity: Low Fowlers (Ama Caballero, JASMINA) Comfort Measures: Breathing/Relaxation; Coaching; Family Support (Ama Caballero, JASMINA) Hygiene: Oral Care; [place] Care; Shower; Underpad Changed; Gown Changed (Ama Caballero, JASMINA) I/O Interventions: Up to BR (Ama Caballero, JASMINA) Instructional Method: Verbal; Patient Instructed; Family/Support Person Instructed; Verbalized Understanding (Ama Caballero, JASMINA) Plan of Care: Plan of Care Discussed; Induction (Ama Caballero, JASMINA) Pain Management: Epidural; Comfort Measures (Ama Caballero, JASMINA) Medications: Pitocin (Ama Caballero, JASMINA) Communication: RN at Bedside; RN Reviewed Strip; Provider at Bedside (Ama Caballero, JASMINA) Communication Comments: Abdirahman BAY CNM @ BS (Ama Caballero, JASMINA) LaborFlag: Labor (QS system process) Datetime: 07/08/2016 07:23 Stage of : Labor (Ama Caballero RN) Respirations: 18 (Ama Caballero, RN) Monitor Mode: External (Ama Caballero RN) Monitor Interventions for UA: [place] Adjusted (Ama Caballero RN) Frequency (min): IRREG (Ama Caballero, JASMINA) Quality: Mild/Moderate (Ama Caballero, JASMINA) Duration (sec): 55-70 (Ama Caballero, JASMINA) Resting Tone (Palpate): Relaxed (Ama Caballero, JASMINA) Monitor Mode: External US (Ama Caballero, JASMINA) Monitor Interventions for FHR: Ultrasound Adjusted (Ama Caballero RN) FHR Baseline Rate : 135 (Ama Caballero RN) FHR Baseline Changes: No Baseline Change (Ama Caballero RN) Variability: Minimal - Undetectable to <=5 bpm (Ama Caballero, JASMINA) Accelerations: None (Ama Caballero RN) Decelerations: None (Ama Caballero, JASMINA) Pain Scale: 2 (Ama Caballero RN) Pain Presence: Intermittent (Ama Caballero RN) Pain Type: Contraction (Ama Caballero RN) Pain Location: Abdomen; Back (Ama Caballero, JASMINA) Pain Relief Measures: Comfort Measures (Ama Caballero RN) Pain Coping: Talking Through Contractions (Ama Caballero RN) IV/Blood Work: IV Saline Locked (Ama Caballero RN) Patient Position/Activity: Right Lateral (Ama Caballero, JASMINA) Comfort Measures: Family Support (Ama Caballero, RN) Instructional Method: Verbal; Patient Instructed; Family/Support Person Instructed; Verbalized Understanding (Ama Caballero, JASMINA) Plan of Care: Plan of Care Discussed; Induction (Ama Caballero, RN) Labor/Induction: Induction (Ama Caballero, RN) Pain Management: Comfort Measures (Ama Caballero, JASMINA) Medications: Cervical Ripening; Pitocin (Ama Caballero, RN) Communication: RN at Bedside; RN Reviewed Strip (Ama Caballero, RN) Communication Comments: PT UP TO SHOWER. (Ama Caballero, JASMINA) LaborFlag: Labor (QS system process) Datetime: 07/08/2016 07:15 Communication: Report Given to @ JASMINA Andersen; care relinquished at this time. (Maryse Mittal RN) Datetime: 07/08/2016 07:11 NBP Sys/Neelima/Mean (mmHg): 154 (QS system process) : 95 (QS system process) : 119 (QS system process) Pulse: 73 (QS system process) LaborFlag: Antepartum (QS system process) Datetime: 07/08/2016 07:00 Monitor Mode: External; Palpation (Maryse Mittal RN) Frequency (min): 1-2 (Maryse Mittal RN) Quality: Mild/Moderate (Maryse Mittal RN) Duration (sec): 50-110 (Maryse Mittal RN) Resting Tone (Palpate): Relaxed (Maryse Mittal RN) Monitor Mode: External US (Maryse Mittal RN) FHR Baseline Rate : 130 (Maryse Mittal RN) Variability: Moderate 6-25 bpm (Maryse Mittal RN) Accelerations: None (Maryse Mittal RN) Decelerations: None (Maryse Mittal RN)
[2016-07-08] MEDS: FAMOTIDINE 20 MG TABLET PO SCH (21:17)
[2016-07-09] MEDS: IBUPROFEN 800 MG TABLET PO SCH ×3 (05:55→21:19)
--- NOTE | 2016-07-09 06:05 | L&D Current Admission ---
Current Admit Datetime Report Generated by CPN: 07/09/2016 06:00 ADMISSION INFORMATION Current Admit Date/Time: 07/07/2016 17:57 (07/07/2016 19:05:Margarita Jaramillo RN) Reason for Admission: Induction of Labor (07/07/2016 19:05:Margarita Jaramillo RN) Other Reason for Admission: Chronic HTN (07/07/2016 19:05:Margarita Jaramillo RN) Chief Complaint: Scheduled Induction of Labor (07/07/2016 19:24:Maryse Mittal RN) EGA per Dates: 37.3 (07/07/2016 19:05:QS system process) EGA per US: 88.6 (07/07/2016 19:05:QS system process) Method of Arrival: Ambulatory (07/07/2016 19:05:Margarita Jaramillo RN) Admitted From: Home (07/07/2016 19:05:Margarita Jaramillo RN) Reason for Induction: Chronic Hypertension (07/07/2016 19:05:Margarita Jaramillo RN) Records Available: Yes (07/07/2016 19:05:Margarita Jaramillo RN) General Admission Information: Reviewed; Updated; Confirmed (07/07/2016 19:05:Margarita Jaramillo RN) General Admission Reviewed By: Stuart Jaramillo [facility] (07/07/2016 19:05:Margarita Jaramillo RN) BELONGINGS/ADVANCED DIRECTIVES Valuables/Personal Effects: None (07/07/2016 19:05:Margarita Jaramillo RN) Other Belongings: See belongings consent (07/07/2016 19:05:Margarita Jaramillo RN) Disposition of Belongings: Kept with Patient (07/07/2016 19:05:Margarita Jaramillo RN) Advance Direct for Healthcare: No, and Wants No Information (07/07/2016 19:05:Margarita Jaramillo RN) Durable Power of Hydrate Thickener Operator: No (07/07/2016 19:05:Margarita Jaramillo RN) Living Will: No (07/07/2016 19:05:Margarita Jaramillo RN) Organ Donor: No (07/07/2016 19:05:Margarita Jaramillo RN) Pt Rights Information Given: Yes (07/07/2016 19:05:Margarita Jaramillo RN) Pt Understands Pt Rights: Yes (07/07/2016 19:05:Margarita Jaramillo RN) LEARNING ASSESSMENT Knowledge Level: Understands L_D Process; Understands Care Activities; Had Pre-Hospital Education; Understands Diagnosis (07/07/2016 19:05:Margarita Jaramillo RN) Barriers to Learning: None (07/07/2016 19:05:Margarita Jaramillo RN) Learning Readiness: Motivated (07/07/2016 19:05:Margarita Jaramillo RN) Learns Best By: 1 to 1 Instruction; Reading; Videos; Demonstration (07/07/2016 19:05:Margarita Jaramillo RN) Learning Needs: Labor and Delivery Process; Pain Management; Symptoms to Report; Treatment Plan; Medication; Diagnosis; Nutrition; Equipment; Care; Community Resources (07/07/2016 19:05:Margarita Jaramillo RN) DOMESTIC VIOLANCE SCREENING Dom Viol Threatened/Hurt: No (07/07/2016 19:05:Margarita Jaramillo RN) Hx of Abuse/Neglect past 2yrs: No (07/07/2016 19:05:Margarita Jaramillo RN) Feel Unsafe Going Home: No (07/07/2016 19:05:Margarita Jaramillo RN) Addt'l Observ Indicating Abuse: No (07/07/2016 19:05:Margarita Jaramillo RN) Reason Unable to Complete Screen: N/A, Screen Completed (07/07/2016 19:05:Margarita Jaramillo RN) Considered Personal Harm/Suicide: No (07/07/2016 19:05:Margarita Jaramillo RN) NUTRITIONAL/FUNCTIONAL SCREENING Problem with Appetite >5 Days: No (07/07/2016 19:05:Margarita Jaramillo RN) Chew/Swallow Difficulties: No (07/07/2016 19:05:Margarita Jaramillo RN) Inappropriate Wt Gain/Loss: No (07/07/2016 19:05:Margarita Jaramillo RN) Presence Skin Breakdown/Ulcer: No (07/07/2016 19:05:Margarita Jaramillo RN) Special Diet: No (07/07/2016 19:05:Margarita Jaramillo RN) Pt Requests Weaver Apprentice Visit: No (07/07/2016 19:05:Margarita Jaramillo RN) Hx of Any of the Following?: N/A (07/07/2016 19:05:Margarita Jaramillo RN) New Diagnosis of: N/A (07/07/2016 19:05:Margarita Jaramillo RN) Requires Assist w/Ambulation: No (07/07/2016 19:05:Margarita Jaramillo RN) Uses Assist Device to Ambulate: No (07/07/2016 19:05:Margarita Jaramillo RN) Pt Requires Help w/ADL's: No (07/07/2016 19:05:Margarita Jaramillo RN)
--- NOTE | 2016-07-09 06:05 | L&D General Admission ---
General Admit Datetime Report Generated by CPN: 07/09/2016 06:00 INFORMATION Patient Age: 26 (04/16/2016 13:54:QS system process) EDC: 07/25/2016 00:00 (04/16/2016 14:00:Ama Caballero RN) EDC per Ultrasound: 07/31/2015 00:00 (04/16/2016 14:00:Margarita Jaramillo RN) LMP: 10/19/2015 00:00 (04/16/2016 14:00:Margarita Jaramillo RN) : 1 (04/16/2016 14:00:Ama Caballero RN) Para: 0 (07/02/2016 23:16:Magda Pastrana RN) Term: 0 (04/16/2016 14:00:Ama Caballero RN) : 0 (04/16/2016 14:00:Ama Caballero RN) Spontaneous Abortions: 0 (04/16/2016 14:00:Ama Caballero RN) Induced Abortions: 0 (04/16/2016 14:00:Ama Caballero RN) Livin (04/16/2016 14:00:Ama Caballero RN) Cesareans: 0 (04/16/2016 14:00:Ama Caballero RN) VBACs: 0 (04/16/2016 14:00:Ama Caballero RN) Ectopic: 0 (04/16/2016 14:00:Ama Caballero RN) Multiple Births: 0 (04/16/2016 14:00:Ama Caballero RN) Baby, Number in Womb: 1 (07/02/2016 23:16:Magda Pastrana RN) CARE Primary Production Supervisor: [facility] (Annotations: Data stored by Radha on behalf of user) (04/16/2016 14:00:Ama Caballero RN) Month of 1st Visit: 11/2015 (04/16/2016 14:00:Margarita Jaramillo RN) Adequate Care: Yes (04/16/2016 14:00:Ama Caballero RN) Prepregnancy Weight (lb): 246 (04/16/2016 14:00:Margarita Jaramillo RN) Prepregnancy Weight (kg): 111.8 (04/16/2016 14:00:QS system process) Height (in): 69 (07/08/2016 14:21:QS system process) ALLERGIES Medication Allergy: Yes (04/16/2016 14:00:Magda Pastrana RN) Medication Allergies: amoxicillin/rash (07/07/2016) (07/07/2016 18:13:QS system process) Latex Allergy: No Latex Allergies (04/16/2016 14:00:Magda Pastrana RN) Food Allergies: None (04/16/2016 14:00:Margarita Jaramillo RN) Environmental Allergies: None (04/16/2016 14:00:Margarita Jaramillo RN) COMMUNICATION Primary Language: Khmer (04/16/2016 14:00:Ama Caballero RN) Medical Tx Preferred Language: Khmer (04/16/2016 14:00:Ama Caballero RN) Communication Barrier(s): None (04/16/2016 14:00:Ama Caballero RN) DEMOGRAPHICS Address: [place] [address] (04/16/2016 13:54:QS system process) Zipcode: [address] (04/16/2016 13:54:QS system process) Home (04/16/2016 13:54:QS system process) SSN: [id number] (04/16/2016 13:54:QS system process) Next of Kin Name: TODD ARGUETA (04/16/2016 13:54:QS system process) Next of Kin (07/07/2016 17:34:QS system process) Next of Kin Relationship: SPO (04/16/2016 13:54:QS system process) Date of : 1990 (04/16/2016 13:54:QS system process) Marital Status: (07/07/2016 17:34:QS system process) Sex: Female (04/16/2016 13:54:QS system process) Occupation: None (04/16/2016 14:00:Ama Caballero RN) Race: (04/16/2016 13:54:QS system process) Ethnicity: Non- or (04/16/2016 13:54:QS system process) Jew: Other (07/08/2016 14:08:QS system process) Education: 14 (04/16/2016 14:00:Ama Caballero RN) FOB Involved: Yes (04/16/2016 14:00:Ama Caballero RN) Father of Baby Name: Todd Argueta (04/16/2016 14:00:Ama Caballero RN) DRUG AND ALCOHOL USE Alcohol: No (04/16/2016 14:00:Magda Victoriano, RN) Cigarettes: Never Smoker. [id number] (04/16/2016 14:00:Magda Victoriano, RN) Marijuana: No (04/16/2016 14:00:Magda Victoriano, RN) Cocaine: No (04/16/2016 14:00:Magda Victoriano, RN) Other Illicit Drugs: No (04/16/2016 14:00:Magda Victoriano, RN) VACCINE HISTORY Influenza Vaccine: Yes (04/16/2016 14:00:Magda Pastrana, RN) Pneumococcal Vaccine: No (04/16/2016 14:00:Magda Pastrana, RN) Tetanus Vaccine: Yes (04/16/2016 14:00:Magdaric Pastrana, RN) Tdap Vaccine: Yes (04/16/2016 14:00:Magdaric Pastrana, RN) Hepatitis B Vaccine: Yes (04/16/2016 14:00:Magda Victoriano, RN) Visual Education Teacher: [facility] [employer] (04/16/2016 14:00:Margarita Jaramillo RN) Feeding Preference: Breast (04/16/2016 14:00:Margarita Jaramillo RN) Benefit of Breast Feed Discussed: Yes (04/16/2016 14:00:Margarita Jaramillo RN) Circumcision: No (04/16/2016 14:00:Margarita Jaramillo RN) Classes Attended: Yes (04/16/2016 14:00:Margarita Jaramillo RN) Tubal Ligation: No (04/16/2016 14:00:Margarita Jaramillo RN) Tubal Authorization Signed: N/A (04/16/2016 14:00:Margarita Jaramillo RN) Consent: N/A (04/16/2016 14:00:Margarita Jaramillo RN) Consent Signed: N/A (04/16/2016 14:00:Margarita Jaramillo RN) Pain Management Plans: None (04/16/2016 14:00:Margarita Jaramillo RN) Other Pain Management Plans: Open to options (04/16/2016 14:00:Margarita Jaramillo RN) Plans for Labor and Delivery: None (04/16/2016 14:00:Margarita Jaramillo RN) Support Person: Todd Argueta (04/16/2016 14:00:Margarita Jaramillo RN) Support Person Relationship: (04/16/2016 14:00:Margarita Jaramillo RN) Cultural/Spritual Practice: No (04/16/2016 14:00:Margarita Jaramillo RN) Spir/Cult Dietary Needs: No (04/16/2016 14:00:Margarita Jaramillo RN) LIVING SITUATION/DISCHARGE PLAN Living Arrangements: House (04/16/2016 14:00:Margarita Jaramillo RN) Adequate Access to:: Electric; Heat; Refrigeration; Plumbing/Running water; Phone; Transportation (04/16/2016 14:00:Margarita Jaramillo RN) WIC Program: Yes (04/16/2016 14:00:Margarita Jaramillo RN) Discharge Airplane Charter Clerk Person: Todd Argueta (04/16/2016 14:00:Margarita Jaramillo RN) Person to Help after Discharge: Todd Argueta (04/16/2016 14:00:Margarita Jaramillo RN) Currently Using Commun Resources: No (04/16/2016 14:00:Margarita Jaramillo RN) Outside Agency/Bonus Clerk: No (04/16/2016 14:00:Margarita Jaramillo RN) Car Seat for Discharge: Yes (04/16/2016 14:00:Margarita Jaramillo RN) Adoption Requested: No (04/16/2016 14:00:Margarita Jaramillo RN) Pt Contact w/infant Post : N/A (04/16/2016 14:00:Margarita Jaramillo RN) LABS Blood Type: O Positive (04/16/2016 14:00:Leticia Sands RN) Antibody Screen: Negative (04/16/2016 14:00:Leticia Sands RN) Rho(G) this : Not Applicable (04/16/2016 14:00:Leticia Sands RN) Hemoglobin: 14.0 (07/07/2016 18:18:QS system process) Hematocrit: 39.8 (07/07/2016 18:18:QS system process) MCV: 82 (07/07/2016 18:18:QS system process) Group Beta Strep: Negative (04/16/2016 14:00:Leticia Sands RN) Gonorrhea: Negative (04/16/2016 14:00:Leticia Sands RN) Chlamydia: Negative (04/16/2016 14:00:Leticia Sands RN) RPR/VDRL: Nonreactive (04/16/2016 14:00:Leticia Sands RN) HIV Results: Negative (04/16/2016 14:00:Leticia Sands RN) Hepatitis B: Negative (04/16/2016 14:00:Leticia Sands RN) Rubella: Immune (04/16/2016 14:00:Leticia Sands RN) OB/PREVIOUS HISTORY Age of Menses Onset: 9 (04/16/2016 14:00:Ama Caballero RN) Menses Amount: Moderate (04/16/2016 14:00:Ama Caballero RN) LMP Regular: Yes (04/16/2016 14:00:Ama Caballero RN) Date Pos Preg Test: 11/28/2015 00:00 (04/16/2016 14:00:Ama Caballero RN) LMP: 10/19/2015 00:00 (04/16/2016 14:00:Margarita Jaramillo RN) Current Procedures: Ultrasound (04/16/2016 14:00:Ama Caballero RN) History of Previous : No (04/16/2016 14:00:Ama Caballero RN) History of Gestational Diabetes: No (04/16/2016 14:00:Ama Caballero RN) History of PIH: No (04/16/2016 14:00:Ama Caballero RN) History of Incompetent Cervix: No (04/16/2016 14:00:Ama Caballero RN) History of Placenta Previa/Abrup: No (04/16/2016 14:00:Ama Caballero RN) History of Macrosomia: No (04/16/2016 14:00:Ama Caballero RN) History of IUGR: No (04/16/2016 14:00:Ama Caballero RN) History of Hemorrhage: No (04/16/2016 14:00:Ama Caballero RN) History of Loss/Stillborn: No (04/16/2016 14:00:Ama Caballero RN) History of : No (04/16/2016 14:00:Ama Caballero RN) History of D (Rh) Sensitization: No (04/16/2016 14:00:Ama Caballero RN) History Recurrent Loss/Stillborn: No (04/16/2016 14:00:Ama Caballero RN) History Depression/PP Depression: No (04/16/2016 14:00:Ama Caballero RN) History of Uterine Anomaly/MARISSA: No (04/16/2016 14:00:Ama Caballero RN) History of Infertility: No (04/16/2016 14:00:Ama Caballero RN) History of ART Treatment: No (04/16/2016 14:00:Ama Caballero RN) History of MARISSA: No (04/16/2016 14:00:Ama Caballero RN) Comments Obstetrical History: G1 - Current - Chronic HTN (04/16/2016 14:00:Margarita Jaramillo RN) MEDICAL HISTORY Med Hx Diabetes: No (04/16/2016 14:00:Ama Caballero RN) Med Hx Hypertension: Yes (04/16/2016 14:00:Margarita Jaramillo RN) Med Hx Heart Disease: No (04/16/2016 14:00:Ama Caballero RN) Med Hx Autoimmune Disorder: No (04/16/2016 14:00:Ama Caballero RN) Med Hx Kidney Disease/UTI: No (04/16/2016 14:00:Ama Caballeor RN) Med Hx Neurologic/Epilepsy: No (04/16/2016 14:00:Ama Caballero RN) Med Hx Psychiatric Disorders: No (04/16/2016 14:00:Ama Caballero RN) Med Hx Hepatitis/Liver Disease: No (04/16/2016 14:00:Ama Caballero RN) Med Hx Varicosities/Phlebitis: No (04/16/2016 14:00:Ama Caballero RN) Med Hx Thyroid Dysfunction: No (04/16/2016 14:00:Ama Caballero RN) Med Hx Trauma/Violence: No (04/16/2016 14:00:Ama Caballero RN) Med Hx Blood Transfusion: No (04/16/2016 14:00:Ama Caballero RN) Med Hx Pulmonary (Asthma,TB): No (04/16/2016 14:00:Ama Caballero RN) Med Hx Breast: No (04/16/2016 14:00:Ama Caballero RN) Med Hx RIBBON HANKING 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 Surgery: No (04/16/2016 14:00:Ama Caballero RN) Med Hx Hospitalization/Surgery: No (04/16/2016 14:00:Ama Caballero RN) Med Hx Anesthetic Complications: No (04/16/2016 14:00:Ama Caballero RN) Med Hx Abnormal Pap Smear: Yes (04/16/2016 14:00:Ama Caballero RN) Other Medical Diseases: No (04/16/2016 14:00:Ama Caballero RN) Med Hx Significant Family Hx: Yes (04/16/2016 14:00:Ama Caballero RN) Details of Med/Surg Hx: Abnormal Pap in 2010, colpo Father has history of strokes and mother has hypertension (04/16/2016 14:00:Ama Caballero RN) INFECTIOUS HISTORY Inf Hx Gonorrhea: No (04/16/2016 14:00:Ama Caballero RN) Inf Hx Chlamydia: Yes (04/16/2016 14:00:Ama Caballero RN) Inf Hx Syphilis: No (04/16/2016 14:00:Ama Caballero RN) Inf Hx HIV/AIDS: No (04/16/2016 14:00:Ama Caballero RN) Inf Hx Human Papilloma Virus: Yes (04/16/2016 14:00:Ama Caballero RN) Inf Hx Pt/Partner Genital Herpes: No (04/16/2016 14:00:Ama Caballero RN) Inf Hx Tuberculosis/Exposure: No (04/16/2016 14:00:Ama Caballero RN) Inf Hx Hepatitis B,C: No (04/16/2016 14:00:Ama Caballero RN) Inf Hx Rash or Viral Illness: No (04/16/2016 14:00:Ama Caballero RN) Details of Infectious Hx: Chlamydia in 2008, underwent treatment HPV (04/16/2016 14:00:Ama Caballero RN) GENETIC HISTORY Gen Hx Age >=35 at GISELLE: No (04/16/2016 14:00:Ama Caballero RN) Gen Hx Thalassemia: No (04/16/2016 14:00:Ama Caballero RN) Gen Hx Congenital Heart Defect: No (04/16/2016 14:00:Ama Caballero RN) Gen Hx Neural Tube Defect: No (04/16/2016 14:00:Ama Caballero RN) Gen Hx Down's Syndrome: No (04/16/2016 14:00:Ama Caballero RN) Gen Hx Evans-Sachs: No (04/16/2016 14:00:Ama Caballero RN) Gen Hx Christian: No (04/16/2016 14:00:Ama Caballero RN) Gen Hx Familial Dysautonomia: No (04/16/2016 14:00:Ama Caballero RN) Gen Hx Sickle Cell Disease/Trait: No (04/16/2016 14:00:Ama Caballero RN) Gen Hx Hemophilia/Blood Disorder: No (04/16/2016 14:00:Ama Caballero RN) Gen Hx Muscular Dystrophy: No (04/16/2016 14:00:Ama Caballero RN) Gen Hx Cystic Fibrosis: No (04/16/2016 14:00:Ama Caballero RN) Gen Hx Huntingtons Chorea: No (04/16/2016 14:00:Ama Caballero RN) Gen Hx Mental Retardation/Autism: No (04/16/2016 14:00:Ama Caballero RN) Gen Hx Tested for Fragile X: No (04/16/2016 14:00:Ama Caballero RN) Gen Hx Other Inher/Chromosomal: No (04/16/2016 14:00:Ama Caballero RN) Gen Hx Maternal Metabolic DO: No (04/16/2016 14:00:Ama Caballero RN) Gen Hx Pt Father or FOB Defect: No (04/16/2016 14:00:Ama Caballero RN) Gen Hx Other Genetic History: No (04/16/2016 14:00:Ama Caballero RN) Gen Hx Drugs/Meds since LMP: Yes (04/16/2016 14:00:Margarita Jaramillo RN) Gen Hx Medications: PNV, Procardia, Zantac (04/16/2016 14:00:Margarita Jaramillo RN)
--- NOTE | 2016-07-09 06:24 | L&D Care Plan ---
LD CARE PLANS Datetime Report Generated by CPN: 07/09/2016 06:15 Datetime: 07/07/2016 16:35 State: Risk For (Margarita Jaramillo RN) Related To: Labor and Delivery Process; Treatment and Procedures (Margarita Jaramillo RN) Goal(s): Patients Pain will be Assessed and Managed; Patient will Verbalize Adequate Relief of Pain or the Ability to [place] with Current Pain (Margarita Jaramillo RN) Interventions: Assess Pain Severity on Scale of 0 (None) to 5 (Severe); Assess Type, Location and Intensity of Pain Each Time Client Reports Discomfort and Notify Provider if Unusal Pain Develops; Encourage Proper Breathing and Relaxation Techniques; Offer Alternatives Such as Repositioning, Calm Environment, Massages, Diversional Activities, Ice Pack, Splinting, and Ambulation; Administer Analgesics as Ordered; Assist with Epidural Placement as Appropriate; Evaluate Therapeutic Effectiveness of Medication and Treatments (Margarita Jaramillo RN) Outcome: Patient will Report Absence or Relief of Pain Consistent with Established Pain Goal (Margarita Jaramillo RN) Status: Ongoing (Margarita Jaramillo RN) Outcome: Patient will have a Decrease in Signs and Symptoms of Discomfort (Margarita Jaramillo RN) Status: Ongoing (Margarita Jaramillo RN) Outcome: Pain will be Controlled During Procedures (Margarita Jaramillo RN) Status: Ongoing (Margarita Jaramillo RN) State: Actual (Margarita Jaramillo RN) Related To: Labor and Delivery Process; Medical Interventions (Margarita Jaramillo RN) Goal(s): Patient will have Decreased Anxiety and be able to Function at Acceptable Levels (Margarita Jaramillo RN) Interventions: Assess Verbal and Nonverbal Behavioral Indicators of Anxiety; Assist Patient to Identify and Verbalize Symptoms of Anxiety; Identify and Demonstrate Techniques to Control Anxiety; Assist Patient with Coping Mechanisms to Manage Anxiety; Provide Theraputic Touch for the Patient; Explain to Patient, Using a Calm Reassuring Approach and Nonmedical Terms, All Activities, Procedures, and Concerns; Instruct Patient and Family about Post Discharge Care, Limitations, Symptoms to Report and Resources Available (Margarita Jaramillo RN) Outcome: Patient will Identify, Verbalize and Demonstrate Techniques to Control Anxiety (Margarita Jaramillo RN) Status: Ongoing (Margarita Jaramillo RN) Outcome: Patient's Posture, Facial Expressions, Gestures and Activity Level will Reflect Decreased Anxiety (Margarita Jaramillo RN) Status: Ongoing (Margarita Jaramillo RN) Outcome: Patient will Verbalize a Sense of Control and/or Acceptance of the Situation (Margarita Jaramillo RN) Status: Ongoing (Margarita Jaramillo RN) Outcome: Patient will Identify and Utilize Support Person (Margarita Jaramillo RN) Status: Ongoing (Margarita Jaramillo RN) State: Actual (Margarita Jaramillo RN) Related To: Labor and Delivery Process; Treatment and Procedures (Margarita Jaramillo RN) Goal(s): Patient will Accurately Verbalize Understanding of Plan of Care and Treatment; Patient and Family will Accurately Verbalize Understanding of the Disease Process (Margarita Jaramillo RN) Interventions: Assess Motivation and Willingness of Patient/Family to Learn; Assess Preferred Learning Mode: One to One Instruction, Reading, Videos, Group Discussion or Demonstration; Assess Barriers to Learning: Pain, Emotional State, Language Barrier, Cognitive Impairment, Visual or Hearing Deficits; Assess Patient and Family Knowledge of Disease Process, Medications and Treatment; Discuss Therapy and/or Treatment Options, Describe Rationale Behind Management, Therapy and Treatment Recommendations; Instruct Patient and Family on Signs and Symptoms to Report; Instruct Patient and Family on Medication Effects and Side Effects; Provide Appropriate and Timely Education Using Multiple Techniques; Provide Patient and Family with Support Group Information and Resources; Give Clear and Thorough Explanations and Demonstrations (Margarita Jaramillo RN) Outcome: Patient and Family will Verbalize Understanding of Condition, Treatment and Signs and Symptoms to Report (Margarita Jaramillo RN) Status: Ongoing (Margarita Jaramillo RN) Outcome: Patient will Identify Perceived Learning Needs and Express Motivation to Learn (Margarita Jaramillo RN) Status: Ongoing (Margarita Jaramillo RN) Outcome: Patient will Verbalize Understanding of Desired Content, and/or Performs Desired Skill Prior to Discharge (Margarita Jaramillo RN) Status: Ongoing (Margarita Jaramillo RN) State: Risk For (Margarita Jaramillo RN) Related To: Prolonged Labor or Induction (Margarita Jaramillo RN) Goal(s): The Patient will be Free of Infection, Vital Signs Stable and Lab Work within Normal Parameters (Margarita Jaramillo RN) Interventions: Instruct and Reinforce Proper Handwashing, Hygiene, and Care Techniques to Patient and Family; Monitor Vital Signs; Monitor Patient for the Following Signs of Infection: Fever, Abdominal Tenderness, Unusual Discharge; Monitor Aminiotic Fluid, Urine and Lochia for Color and Odor; Observe Wounds, Incisions and Invasive Line Sites for Redness, Drainage and Edema; Assess IV Sites per Hospital Policy; Monitor Lab and Test Results and Notify Provider of Abnormal Findings; Assess Nutritional Status and Promote Good Nutrition (Margarita Jaramillo RN) Outcome: Patient will Remain Free of Infection (Margarita Jaramillo RN) Status: Ongoing (Margarita Jaramillo RN) Outcome: Infection will be Recognized Early to Allow for Prompt Treatment (Margarita Jaramillo RN) Status: Ongoing (Margarita Jaramillo RN) Outcome: Patient will have Vital Signs Within Expected Range (Margarita Jaramillo RN) Status: Ongoing (Margarita Jaramillo RN) State: Risk For (Margarita Jaramillo RN) Related To: Gestational Hypertension; Prolonged Labor or Induction (Margarita Jaramillo RN) Goal(s): Patient will Achieve and Maintain a Balanced Fluid Volume Status; Hemodynamically Stable (Margarita Jaramillo RN) Interventions: Monitor Vital Signs; Auscultate Breath Sounds; Monitor Patient for Skin Turgor, Mucous Membranes, Dry Skin, Weakness, Headaches and Confusion; Provide Oral Fluids as Ordered; Initiate and Maintain Intravenous Fluids as Ordered; Monitor Intake and Output as Indicated Per Patient Status; Accurately Measure Blood Loss; Monitor Lab and Test Results as Obtained and Notify Provider of Abnormal Findings; Monitor Patient's Weight (Margarita Jaramillo RN) Outcome: Patient will have Clear Lung Sounds (Margarita Jaramillo RN) Status: Ongoing (Margarita Jaramillo RN) Outcome: Patient will have Vital Signs within Expected Range (Margarita Jaramillo RN) Status: Ongoing (Margarita Jaramillo RN) Outcome: Urine Output will be within Expected Range (Margarita Jaramillo RN) Status: Ongoing (Margarita Jaramillo RN) Outcome: Patient will have Minimal Generalized or Upper Extremity Edema (Margarita Jaramillo RN) Status: Ongoing (Margarita Jaramillo RN) State: Risk For (Margarita Jaramillo RN) Related To: Labor and Delivery Process; Gestational Hypertension or Eclampsia (Margarita Jaramillo RN) Goal(s): Patient will Remain Free from Injury (Margarita Jaramillo RN) Interventions: Monitoring as per Hospital Protocol; Assess Neurological Status; Perform Risk Assessment of Patients with Induction and ; Perform Fall Risk Assessment and Prevention per Hospital Protocol; Perform DVT Risk Assessment and Prophylaxis per Hospital Protocol; Ensure that Oxygen, Suction, and Resuscitation Medications and Equipment are Readily Available; Confirm Patient ID Prior to Procedure(s) and Medication Administration per Hospital Policy (Margarita Jaramillo RN) Outcome: Successful Fall Risk Prevention (Margarita Jaramillo RN) Status: Ongoing (Margarita Jaramillo RN) Outcome: Patient will Deliver Infant without Adverse [place] (Margarita Jaramillo RN) Status: Ongoing (Margarita Jaramillo RN) Outcome: Patient's Neurological Status will Remain Stable (Margarita Jaramillo RN) Status: Ongoing (Margarita Jaramillo RN) State: Not Applicable (Margarita Jaramillo RN) State: Not Applicable (Margarita Jaramillo RN) State: Not Applicable (Margarita Jaramillo RN) State: Not Applicable (Margarita Jaramillo RN) State: Not Applicable (Margarita Jaramillo RN)
[2016-07-09 07:13] LABS: HEMATOCRIT 38.1 % (36.0-47.0); HEMOGLOBIN 13.2 g/dL (12.0-15.5); HGB HCT DIFFERENCE 1.5; MEAN CORPUSCULAR HEMOGLOBIN 28.7 pg (27.0-33.4); MEAN CORPUSCULAR HGB CONC 34.7 g/dL (32.0-36.0); MEAN CORPUSCULAR VOLUME 83 fl (80-97); RED CELL DISTRIBUTION WIDTH 14.7 % (11.5-14.0); WHITE BLOOD COUNT 17.8 10^3/uL (4.0-10.5)
[2016-07-09] MEDS: DOCUSATE SODIUM 100 MG CAPSULE PO SCH ×2 (09:51→17:15)
[2016-07-09] MEDS: FERROUS SULFATE 325 MG TABLET PO SCH ×2 (09:51→17:15)
[2016-07-09] MEDS: FAMOTIDINE 20 MG TABLET PO SCH ×2 (09:51→21:19)
[2016-07-09] MEDS: SENNOSIDES/DOCUSATE 8.6-50 MG 1 EACH TABLET PO SCH (09:52)
[2016-07-09] MEDS: PRENATAL VITAMIN W-O CA NO5/FE FUMARATE/FA CAPSULE PO SCH (09:52)
--- NOTE | 2016-07-09 10:20 | PDOC PROGRESS REPORT ---
Addendum entered and electronically signed by CARLO MARSH CNM 07/09/16 10:20: Provider Note Provider Note: ok for pt to take procardia with nurse at bedside reviewed with pt and Rn Original Note: Subjective-OB Subjective: Post Delivery Day: 26 year old. Denies any needs at this time pt ambulating without difficulty offers no complaints no visual disturbances continue procardia vss Physical Exam (OB) Vital Signs: Temp Pulse Resp BP Pulse Ox 97.9 F 78 18 140/72 H 100 07/09/16 08:00 07/09/16 08:00 07/09/16 08:00 07/09/16 08:00 07/09/16 08:00 Intake & Output 07/08/16 07/09/16 07/10/16 06:59 06:59 06:59 Weight 118.95 kg - PIH/Pre-Eclampsia DTR's: 1 + Clonus: Negative Headache: Absent Epigastric Pain: No Visual Changes: No - Lochia Lochia Amount: Scant < 10 ml Lochia Color: Rubra/Red - Abdomen Description: Soft, Round Hernia Present: No Fundal Description: Firm, Midline Fundal Height: u/u - u/2 Objective-Diagnostic Laboratory: 07/09/16 06:54 07/07/16 18:18 07/08/16 07/09/16 11:28 06:54 WBC 17.8 H RBC 4.60 Hgb 13.2 Hct 38.1 MCV 83 MCH 28.7 MCHC 34.7 RDW 14.7 H Plt Count 273 Carbonic Acid 1.16 HCO3/H2CO3 Ratio 18:1 ABG pH 7.35 ABG pCO2 38.6 ABG pO2 28.9 L* ABG HCO3 21.0 ABG O2 Saturation 52.1 L ABG Base Excess -4.0 FiO2 CORD BLOOD
[2016-07-09] MEDS ORDERED: NIFEDIPINE 30 MG TAB.ER.24 PO ONE (13:00)
[2016-07-09] MEDS ORDERED: NIFEDIPINE 10 MG CAPSULE PO ONE (13:00)
[2016-07-09 16:30] LABS: URINE BARBITURATES SCREEN NEGATIVE; URINE METHADONE SCREEN NEGATIVE
[2016-07-09 16:42] LABS: URINE PHENCYCLIDINE SCREEN NEGATIVE
[2016-07-10] MEDS: IBUPROFEN 800 MG TABLET PO SCH ×2 (05:48→13:45)
--- NOTE | 2016-07-10 06:09 | L&D Current Admission ---
Current Admit Datetime Report Generated by CPN: 07/10/2016 06:00 ADMISSION INFORMATION Current Admit Date/Time: 07/07/2016 17:57 (07/07/2016 19:05:Margarita Jaramillo RN) Reason for Admission: Induction of Labor (07/07/2016 19:05:Margarita Jaramillo RN) Other Reason for Admission: Chronic HTN (07/07/2016 19:05:Margarita Jaramillo RN) Chief Complaint: Scheduled Induction of Labor (07/07/2016 19:24:Maryse Mittal RN) EGA per Dates: 37.3 (07/07/2016 19:05:QS system process) EGA per US: 88.6 (07/07/2016 19:05:QS system process) Method of Arrival: Ambulatory (07/07/2016 19:05:Margarita Jaramillo RN) Admitted From: Home (07/07/2016 19:05:Margarita Jaramillo RN) Reason for Induction: Chronic Hypertension (07/07/2016 19:05:Margarita Jaramillo RN) Records Available: Yes (07/07/2016 19:05:Margarita Jaramillo RN) General Admission Information: Reviewed; Updated; Confirmed (07/07/2016 19:05:Margarita Jaramillo RN) General Admission Reviewed By: Stuart Jaramillo [facility] (07/07/2016 19:05:Margarita Jaramillo RN) BELONGINGS/ADVANCED DIRECTIVES Valuables/Personal Effects: None (07/07/2016 19:05:Margarita Jaramillo RN) Other Belongings: See belongings consent (07/07/2016 19:05:Margarita Jaramillo RN) Disposition of Belongings: Kept with Patient (07/07/2016 19:05:Margarita Jaramillo RN) Advance Direct for Healthcare: No, and Wants No Information (07/07/2016 19:05:Margarita Jaramillo RN) Durable Power of Glass Blowing Lathe Operator: No (07/07/2016 19:05:Margarita Jaramillo RN) Living Will: No (07/07/2016 19:05:Margarita Jaramillo RN) Organ Donor: No (07/07/2016 19:05:Margarita Jaramillo RN) Pt Rights Information Given: Yes (07/07/2016 19:05:Margarita Jaramillo RN) Pt Understands Pt Rights: Yes (07/07/2016 19:05:Margarita Jaramillo RN) LEARNING ASSESSMENT Knowledge Level: Understands L_D Process; Understands Care Activities; Had Pre-Hospital Education; Understands Diagnosis (07/07/2016 19:05:Margarita Jaramillo RN) Barriers to Learning: None (07/07/2016 19:05:Margarita Jaramillo RN) Learning Readiness: Motivated (07/07/2016 19:05:Margarita Jaramillo RN) Learns Best By: 1 to 1 Instruction; Reading; Videos; Demonstration (07/07/2016 19:05:Margarita Jaramillo RN) Learning Needs: Labor and Delivery Process; Pain Management; Symptoms to Report; Treatment Plan; Medication; Diagnosis; Nutrition; Equipment; Care; Community Resources (07/07/2016 19:05:Margarita Jaramillo RN) DOMESTIC VIOLANCE SCREENING Dom Viol Threatened/Hurt: No (07/07/2016 19:05:Margarita Jaramillo RN) Hx of Abuse/Neglect past 2yrs: No (07/07/2016 19:05:Margarita Jaramillo RN) Feel Unsafe Going Home: No (07/07/2016 19:05:Margarita Jaramillo RN) Addt'l Observ Indicating Abuse: No (07/07/2016 19:05:Margarita Jaramillo RN) Reason Unable to Complete Screen: N/A, Screen Completed (07/07/2016 19:05:Margarita Jaramillo RN) Considered Personal Harm/Suicide: No (07/07/2016 19:05:Margarita Jaramillo RN) NUTRITIONAL/FUNCTIONAL SCREENING Problem with Appetite >5 Days: No (07/07/2016 19:05:Margarita Jaramillo RN) Chew/Swallow Difficulties: No (07/07/2016 19:05:Margarita Jaramillo RN) Inappropriate Wt Gain/Loss: No (07/07/2016 19:05:Margarita Jaramillo RN) Presence Skin Breakdown/Ulcer: No (07/07/2016 19:05:Margarita Jaramillo RN) Special Diet: No (07/07/2016 19:05:Margarita Jaramillo RN) Pt Requests Train Control Electronic Technician Visit: No (07/07/2016 19:05:Margarita Jaramillo RN) Hx of Any of the Following?: N/A (07/07/2016 19:05:Margarita Jaramillo RN) New Diagnosis of: N/A (07/07/2016 19:05:Margarita Jaramillo RN) Requires Assist w/Ambulation: No (07/07/2016 19:05:Margarita Jaramillo RN) Uses Assist Device to Ambulate: No (07/07/2016 19:05:Margarita Jaramillo RN) Pt Requires Help w/ADL's: No (07/07/2016 19:05:Margarita Jaramillo RN)
--- NOTE | 2016-07-10 06:09 | L&D General Admission ---
General Admit Datetime Report Generated by CPN: 07/10/2016 06:00 INFORMATION Patient Age: 26 (04/16/2016 13:54:QS system process) EDC: 07/25/2016 00:00 (04/16/2016 14:00:Ama Caballero RN) EDC per Ultrasound: 07/31/2015 00:00 (04/16/2016 14:00:Margarita Jaramillo RN) LMP: 10/19/2015 00:00 (04/16/2016 14:00:Margarita Jaramillo RN) : 1 (04/16/2016 14:00:Ama Caballero RN) Para: 0 (07/02/2016 23:16:Magda Pastrana RN) Term: 0 (04/16/2016 14:00:Ama Caballero RN) : 0 (04/16/2016 14:00:Ama Caballero RN) Spontaneous Abortions: 0 (04/16/2016 14:00:Ama Caballero RN) Induced Abortions: 0 (04/16/2016 14:00:Ama Caballero RN) Livin (04/16/2016 14:00:Ama Caballero RN) Cesareans: 0 (04/16/2016 14:00:Ama Caballero RN) VBACs: 0 (04/16/2016 14:00:Ama Caballero RN) Ectopic: 0 (04/16/2016 14:00:Ama Caballero RN) Multiple Births: 0 (04/16/2016 14:00:Ama Caballero RN) Baby, Number in Womb: 1 (07/02/2016 23:16:Magda Pastrana RN) CARE Primary Design Verification Engineer: [facility] (Annotations: Data stored by Radha on behalf of user) (04/16/2016 14:00:Ama Caballero RN) Month of 1st Visit: 11/2015 (04/16/2016 14:00:Margarita Jaramillo RN) Adequate Care: Yes (04/16/2016 14:00:Ama Caballero RN) Prepregnancy Weight (lb): 246 (04/16/2016 14:00:Margarita Jaramillo RN) Prepregnancy Weight (kg): 111.8 (04/16/2016 14:00:QS system process) Height (in): 69 (07/08/2016 14:21:QS system process) ALLERGIES Medication Allergy: Yes (04/16/2016 14:00:Magda Pastrana RN) Medication Allergies: amoxicillin/rash (07/07/2016) (07/07/2016 18:13:QS system process) Latex Allergy: No Latex Allergies (04/16/2016 14:00:Magda Pastrana RN) Food Allergies: None (04/16/2016 14:00:Margarita Jaramillo RN) Environmental Allergies: None (04/16/2016 14:00:Margarita Jaramillo RN) COMMUNICATION Primary Language: Albanian (04/16/2016 14:00:Ama Caballero RN) Medical Tx Preferred Language: Albanian (04/16/2016 14:00:Ama Caballero RN) Communication Barrier(s): None (04/16/2016 14:00:Ama Caballero RN) DEMOGRAPHICS Address: [place] [address] (04/16/2016 13:54:QS system process) Zipcode: [address] (04/16/2016 13:54:QS system process) Home (04/16/2016 13:54:QS system process) SSN: [id number] (04/16/2016 13:54:QS system process) Next of Kin Name: TODD ARGUETA (04/16/2016 13:54:QS system process) Next of Kin (07/07/2016 17:34:QS system process) Next of Kin Relationship: SPO (04/16/2016 13:54:QS system process) Date of : 1990 (04/16/2016 13:54:QS system process) Marital Status: (07/07/2016 17:34:QS system process) Sex: Female (04/16/2016 13:54:QS system process) Occupation: None (04/16/2016 14:00:Ama Caballero RN) Race: (04/16/2016 13:54:QS system process) Ethnicity: Non- or (04/16/2016 13:54:QS system process) Jain: Other (07/08/2016 14:08:QS system process) Education: 14 (04/16/2016 14:00:Ama Caballero RN) FOB Involved: Yes (04/16/2016 14:00:Ama Caballero RN) Father of Baby Name: Todd Argueta (04/16/2016 14:00:Ama Caballero RN) DRUG AND ALCOHOL USE Alcohol: No (04/16/2016 14:00:Magda Victoriano, RN) Cigarettes: Never Smoker. [id number] (04/16/2016 14:00:Magda Victoriano, RN) Marijuana: No (04/16/2016 14:00:Magda Victoriano, RN) Cocaine: No (04/16/2016 14:00:Magda Victoriano, RN) Other Illicit Drugs: No (04/16/2016 14:00:Magda Victoriano, RN) VACCINE HISTORY Influenza Vaccine: Yes (04/16/2016 14:00:Magda Pastrana, RN) Pneumococcal Vaccine: No (04/16/2016 14:00:Magda Pastrana, RN) Tetanus Vaccine: Yes (04/16/2016 14:00:Magdaric Pastrana, RN) Tdap Vaccine: Yes (04/16/2016 14:00:Magdaric Pastrana, RN) Hepatitis B Vaccine: Yes (04/16/2016 14:00:Magda Victoriano, RN) Apprentice Lineman Third Step: [facility] (04/16/2016 14:00:Margarita Jaramillo RN) Feeding Preference: Breast (04/16/2016 14:00:Margarita Jaramillo RN) Benefit of Breast Feed Discussed: Yes (04/16/2016 14:00:Margarita Jaramillo RN) Circumcision: No (04/16/2016 14:00:Margarita Jaramillo RN) Classes Attended: Yes (04/16/2016 14:00:Margarita Jaramillo RN) Tubal Ligation: No (04/16/2016 14:00:Margarita Jaramillo RN) Tubal Authorization Signed: N/A (04/16/2016 14:00:Margarita Jaramillo RN) Consent: N/A (04/16/2016 14:00:Margarita Jaramillo RN) Consent Signed: N/A (04/16/2016 14:00:Margarita Jaramillo RN) Pain Management Plans: None (04/16/2016 14:00:Margarita Jaramillo RN) Other Pain Management Plans: Open to options (04/16/2016 14:00:Margarita Jaramillo RN) Plans for Labor and Delivery: None (04/16/2016 14:00:Margarita Jaramillo RN) Support Person: Todd Argueta (04/16/2016 14:00:Margarita Jaramillo RN) Support Person Relationship: (04/16/2016 14:00:Margarita Jaramillo RN) Cultural/Spritual Practice: No (04/16/2016 14:00:Margarita Jaramillo RN) Spir/Cult Dietary Needs: No (04/16/2016 14:00:Margarita Jaramillo RN) LIVING SITUATION/DISCHARGE PLAN Living Arrangements: House (04/16/2016 14:00:Margarita Jaramillo RN) Adequate Access to:: Electric; Heat; Refrigeration; Plumbing/Running water; Phone; Transportation (04/16/2016 14:00:Margarita Jaramillo RN) WIC Program: Yes (04/16/2016 14:00:Margarita Jaramillo RN) Discharge Retirement Village Manager Person: Todd Argueta (04/16/2016 14:00:Margarita Jaramillo RN) Person to Help after Discharge: Todd Argueta (04/16/2016 14:00:Margarita Jaramillo RN) Currently Using Commun Resources: No (04/16/2016 14:00:Margarita Jaramillo RN) Outside Agency/Plant Physiology Teacher: No (04/16/2016 14:00:Margarita Jaramillo RN) Car Seat for Discharge: Yes (04/16/2016 14:00:Margarita Jaramillo RN) Adoption Requested: No (04/16/2016 14:00:Margarita Jaramillo RN) Pt Contact w/infant Post : N/A (04/16/2016 14:00:Margarita Jaramillo RN) LABS Blood Type: O Positive (04/16/2016 14:00:Lteicia Sands RN) Antibody Screen: Negative (04/16/2016 14:00:Leticia Sands RN) Rho(G) this : Not Applicable (04/16/2016 14:00:Leticia Sands RN) Hemoglobin: 13.2 (07/09/2016 06:54:QS system process) Hematocrit: 38.1 (07/09/2016 06:54:QS system process) MCV: 83 (07/09/2016 06:54:JACOB system process) Group Beta Strep: Negative (04/16/2016 14:00:Leticia Sands RN) Gonorrhea: Negative (04/16/2016 14:00:Leticia Sands RN) Chlamydia: Negative (04/16/2016 14:00:Leticia Sands RN) RPR/VDRL: Nonreactive (04/16/2016 14:00:Leticia Sands RN) HIV Results: Negative (04/16/2016 14:00:Leticia Sands RN) Hepatitis B: Negative (04/16/2016 14:00:Leticia Sands RN) Rubella: Immune (04/16/2016 14:00:Leticia Sands RN) OB/PREVIOUS HISTORY Age of Menses Onset: 9 (04/16/2016 14:00:Ama Caballero RN) Menses Amount: Moderate (04/16/2016 14:00:Ama Caballero RN) LMP Regular: Yes (04/16/2016 14:00:Ama Caballero RN) Date Pos Preg Test: 11/28/2015 00:00 (04/16/2016 14:00:Ama Caballero RN) LMP: 10/19/2015 00:00 (04/16/2016 14:00:Margarita Jaramillo RN) Current Procedures: Ultrasound (04/16/2016 14:00:Ama Caballero RN) History of Previous : No (04/16/2016 14:00:Ama Caballero RN) History of Gestational Diabetes: No (04/16/2016 14:00:Ama Caballero RN) History of PIH: No (04/16/2016 14:00:Ama Caballero RN) History of Incompetent Cervix: No (04/16/2016 14:00:Ama Caballero RN) History of Placenta Previa/Abrup: No (04/16/2016 14:00:Ama Caballero RN) History of Macrosomia: No (04/16/2016 14:00:Ama Caballero RN) History of IUGR: No (04/16/2016 14:00:Ama Caballero RN) History of Hemorrhage: No (04/16/2016 14:00:Ama Caballero RN) History of Loss/Stillborn: No (04/16/2016 14:00:Ama Caballero RN) History of : No (04/16/2016 14:00:Ama Caballero RN) History of D (Rh) Sensitization: No (04/16/2016 14:00:Ama Caballero RN) History Recurrent Loss/Stillborn: No (04/16/2016 14:00:Ama Caballero RN) History Depression/PP Depression: No (04/16/2016 14:00:Ama Caballero RN) History of Uterine Anomaly/MARISSA: No (04/16/2016 14:00:Ama Caballero RN) History of Infertility: No (04/16/2016 14:00:Ama Caballero RN) History of ART Treatment: No (04/16/2016 14:00:Ama Caballero RN) History of MARISSA: No (04/16/2016 14:00:Ama Caballero RN) Comments Obstetrical History: G1 - Current - Chronic HTN (04/16/2016 14:00:Margarita Jaramillo RN) MEDICAL HISTORY Med Hx Diabetes: No (04/16/2016 14:00:Ama Caballero RN) Med Hx Hypertension: Yes (04/16/2016 14:00:Margarita Jaramillo RN) Med Hx Heart Disease: No (04/16/2016 14:00:Ama Caballero RN) Med Hx Autoimmune Disorder: No (04/16/2016 14:00:Ama Caballero RN) Med Hx Kidney Disease/UTI: No (04/16/2016 14:00:Ama Caballero RN) Med Hx Neurologic/Epilepsy: No (04/16/2016 14:00:Ama Caballero RN) Med Hx Psychiatric Disorders: No (04/16/2016 14:00:Ama Caballero RN) Med Hx Hepatitis/Liver Disease: No (04/16/2016 14:00:Ama Caballero RN) Med Hx Varicosities/Phlebitis: No (04/16/2016 14:00:Ama Caballero RN) Med Hx Thyroid Dysfunction: No (04/16/2016 14:00:Ama Caballero RN) Med Hx Trauma/Violence: No (04/16/2016 14:00:Ama Caballero RN) Med Hx Blood Transfusion: No (04/16/2016 14:00:Ama Caballero RN) Med Hx Pulmonary (Asthma,TB): No (04/16/2016 14:00:Ama Caballero RN) Med Hx Breast: No (04/16/2016 14:00:Ama Caballero RN) Med Hx ACUTE CARE NURSE Surgery: No (04/16/2016 14:00:Ama Caballero RN) Med Hx Hospitalization/Surgery: No (04/16/2016 14:00:Ama Caballero RN) Med Hx Anesthetic Complications: No (04/16/2016 14:00:Ama Caballero RN) Med Hx Abnormal Pap Smear: Yes (04/16/2016 14:00:Ama Caballero RN) Other Medical Diseases: No (04/16/2016 14:00:Ama Caballero RN) Med Hx Significant Family Hx: Yes (04/16/2016 14:00:Ama Caballero RN) Details of Med/Surg Hx: Abnormal Pap in 2010, colpo Father has history of strokes and mother has hypertension (04/16/2016 14:00:Ama Caballero RN) INFECTIOUS HISTORY Inf Hx Gonorrhea: No (04/16/2016 14:00:Ama Caballero RN) Inf Hx Chlamydia: Yes (04/16/2016 14:00:Ama Caballero RN) Inf Hx Syphilis: No (04/16/2016 14:00:Ama Caballero RN) Inf Hx HIV/AIDS: No (04/16/2016 14:00:Ama Caballero RN) Inf Hx Human Papilloma Virus: Yes (04/16/2016 14:00:Ama Caballero RN) Inf Hx Pt/Partner Genital Herpes: No (04/16/2016 14:00:Ama Caballero RN) Inf Hx Tuberculosis/Exposure: No (04/16/2016 14:00:Ama Caballero RN) Inf Hx Hepatitis B,C: No (04/16/2016 14:00:Ama Caballero RN) Inf Hx Rash or Viral Illness: No (04/16/2016 14:00:Ama Caballero RN) Details of Infectious Hx: Chlamydia in 2008, underwent treatment HPV (04/16/2016 14:00:Ama Caballero RN) GENETIC HISTORY Gen Hx Age >=35 at GISELLE: No (04/16/2016 14:00:Ama Caballero RN) Gen Hx Thalassemia: No (04/16/2016 14:00:Ama Caballero RN) Gen Hx Congenital Heart Defect: No (04/16/2016 14:00:Ama Caballero RN) Gen Hx Neural Tube Defect: No (04/16/2016 14:00:Ama Caballero RN) Gen Hx Down's Syndrome: No (04/16/2016 14:00:Ama Caballero RN) Gen Hx Evans-Sachs: No (04/16/2016 14:00:Ama Caballero RN) Gen Hx Christian: No (04/16/2016 14:00:Ama Caballero RN) Gen Hx Familial Dysautonomia: No (04/16/2016 14:00:Ama Caballero RN) Gen Hx Sickle Cell Disease/Trait: No (04/16/2016 14:00:Ama Caballero RN) Gen Hx Hemophilia/Blood Disorder: No (04/16/2016 14:00:Ama Caballero RN) Gen Hx Muscular Dystrophy: No (04/16/2016 14:00:Ama Caballero RN) Gen Hx Cystic Fibrosis: No (04/16/2016 14:00:Ama Caballero RN) Gen Hx Huntingtons Chorea: No (04/16/2016 14:00:Ama Caballero RN) Gen Hx Mental Retardation/Autism: No (04/16/2016 14:00:Ama Caballero RN) Gen Hx Tested for Fragile X: No (04/16/2016 14:00:Ama Caballero RN) Gen Hx Other Inher/Chromosomal: No (04/16/2016 14:00:Ama Caballero RN) Gen Hx Maternal Metabolic DO: No (04/16/2016 14:00:Ama Caballero RN) Gen Hx Pt Father or FOB Defect: No (04/16/2016 14:00:Ama Caballero RN) Gen Hx Other Genetic History: No (04/16/2016 14:00:Ama Caballero RN) Gen Hx Drugs/Meds since LMP: Yes (04/16/2016 14:00:Margarita Jaramillo RN) Gen Hx Medications: PNV, Procardia, Zantac (04/16/2016 14:00:Margarita Jaramillo RN)
[2016-07-10 08:38] VITALS: BP 131/83
[2016-07-10] MEDS: FAMOTIDINE 20 MG TABLET PO SCH (09:46)
[2016-07-10] MEDS: DOCUSATE SODIUM 100 MG CAPSULE PO SCH ×2 (09:46→17:27)
[2016-07-10] MEDS: FERROUS SULFATE 325 MG TABLET PO SCH ×2 (09:46→17:27)
[2016-07-10] MEDS: SENNOSIDES/DOCUSATE 8.6-50 MG 1 EACH TABLET PO SCH (09:48)
[2016-07-10] MEDS: PRENATAL VITAMIN W-O CA NO5/FE FUMARATE/FA CAPSULE PO SCH (09:48)
[2016-07-10] MEDS ORDERED: NIFEDIPINE 30 MG TAB.ER.24 PO SCH (10:00)
[2016-07-10] MEDS ORDERED: NIFEDIPINE 10 MG CAPSULE PO SCH (10:00)
--- NOTE | 2016-07-10 10:29 | PDOC DISCHARGE SUMMARY ---
Discharge Summary-OB Discharge Date: 07/10/16 - Final Diagnosis (1) Pre-eclampsia superimposed on chronic hypertension Is this a current diagnosis for this admission?: Yes (2) Chronic hypertension Is this a current diagnosis for this admission?: Yes (3) Obesity complicating Is this a current diagnosis for this admission?: Yes (4) Vaginal delivery Is this a current diagnosis for this admission?: Yes - Discharge Medication Home Medications: Vit/Iron Fumarate/FA [ Tablet] 1 each PO DAILY 12/06/15 Calcium Carbonate [Tums] 1 tab.chew PO DAILY 04/16/16 Nifedipine [Procardia XL 30 mg Tablet] 30 mg PO DAILY 07/02/16 Ranitidine HCl [Zantac 150 mg Tablet] 150 mg PO DAILY 07/02/16 Reason(s) for Admission: Induction of Labor Procedures: NST Intrapartum Procedure(s): Spontaneous Vaginal Delivery Complication(s): Laceration-Periurethral Laceration-Degree: 1st - Diagnosis Test Laboratory: Temp Pulse Resp BP Pulse Ox 97.9 F 93 17 131/83 H 98 07/10/16 08:19 07/10/16 08:19 07/10/16 08:19 07/10/16 08:19 07/10/16 08:19 07/07/16 07/07/16 07/09/16 18:18 18:49 06:54 RBC 4.88 4.60 Hgb 14.0 13.2 Hct 39.8 38.1 Urine Opiates Screen NEGATIVE - Discharge information/Instructions Discharge Activity: Activity As Tolerated, Balance Activity w/Rest, No Lifting Over 10 Pounds, No Lifting/Push/Pulling, Pelvic Rest, Slowly Increase Activity, No tub bath, Walk Frequently, Weigh Daily Discharge Diet: Regular Disposition: HOME, SELF-CARE Follow up with: [facility] in: 1, Weeks
--- NOTE | 2016-07-11 06:06 | L&D Current Admission ---
Current Admit Datetime Report Generated by CPN: 07/11/2016 06:00 ADMISSION INFORMATION Current Admit Date/Time: 07/07/2016 17:57 (07/07/2016 19:05:Margarita Jaramillo RN) Reason for Admission: Induction of Labor (07/07/2016 19:05:Margarita Jaramillo RN) Other Reason for Admission: Chronic HTN (07/07/2016 19:05:Margarita Jaramillo RN) Chief Complaint: Scheduled Induction of Labor (07/07/2016 19:24:Maryse Mittal RN) EGA per Dates: 37.3 (07/07/2016 19:05:QS system process) EGA per US: 88.6 (07/07/2016 19:05:QS system process) Method of Arrival: Ambulatory (07/07/2016 19:05:Margarita Jaramillo RN) Admitted From: Home (07/07/2016 19:05:Margarita Jaramillo RN) Reason for Induction: Chronic Hypertension (07/07/2016 19:05:Margarita Jaramillo RN) Records Available: Yes (07/07/2016 19:05:Margarita Jaramillo RN) General Admission Information: Reviewed; Updated; Confirmed (07/07/2016 19:05:Margarita Jaramillo RN) General Admission Reviewed By: Stuart Jaramillo [facility] [address] (07/07/2016 19:05:Margarita Jaramillo RN) BELONGINGS/ADVANCED DIRECTIVES Valuables/Personal Effects: None (07/07/2016 19:05:Margarita Jaramillo RN) Other Belongings: See belongings consent (07/07/2016 19:05:Margarita Jaramillo RN) Disposition of Belongings: Kept with Patient (07/07/2016 19:05:Margarita Jaramillo RN) Advance Direct for Healthcare: No, and Wants No Information (07/07/2016 19:05:Margarita Jaramillo RN) Durable Power of Property Analyst: No (07/07/2016 19:05:Margarita Jaramillo RN) Living Will: No (07/07/2016 19:05:Margarita Jaramillo RN) Organ Donor: No (07/07/2016 19:05:Margarita Jaramillo RN) Pt Rights Information Given: Yes (07/07/2016 19:05:Margarita Jaramillo RN) Pt Understands Pt Rights: Yes (07/07/2016 19:05:Margarita Jaramillo RN) LEARNING ASSESSMENT Knowledge Level: Understands L_D Process; Understands Care Activities; Had Pre-Hospital Education; Understands Diagnosis (07/07/2016 19:05:Margarita Jaramillo RN) Barriers to Learning: None (07/07/2016 19:05:Margarita Jaramillo RN) Learning Readiness: Motivated (07/07/2016 19:05:Margarita Jaramillo RN) Learns Best By: 1 to 1 Instruction; Reading; Videos; Demonstration (07/07/2016 19:05:Margarita Jaramillo RN) Learning Needs: Labor and Delivery Process; Pain Management; Symptoms to Report; Treatment Plan; Medication; Diagnosis; Nutrition; Equipment; Care; Community Resources (07/07/2016 19:05:Margarita Jaramillo RN) DOMESTIC VIOLANCE SCREENING Dom Viol Threatened/Hurt: No (07/07/2016 19:05:Margarita Jaramillo RN) Hx of Abuse/Neglect past 2yrs: No (07/07/2016 19:05:Margarita Jaramillo RN) Feel Unsafe Going Home: No (07/07/2016 19:05:Margarita Jaramillo RN) Addt'l Observ Indicating Abuse: No (07/07/2016 19:05:Margarita Jaramillo RN) Reason Unable to Complete Screen: N/A, Screen Completed (07/07/2016 19:05:Margarita Jaramillo RN) Considered Personal Harm/Suicide: No (07/07/2016 19:05:Margarita Jaramillo RN) NUTRITIONAL/FUNCTIONAL SCREENING Problem with Appetite >5 Days: No (07/07/2016 19:05:Margarita Jaramillo RN) Chew/Swallow Difficulties: No (07/07/2016 19:05:Margarita Jaramillo RN) Inappropriate Wt Gain/Loss: No (07/07/2016 19:05:Margarita Jaramillo RN) Presence Skin Breakdown/Ulcer: No (07/07/2016 19:05:Margarita Jaramillo RN) Special Diet: No (07/07/2016 19:05:Margarita Jaramillo RN) Pt Requests Oracle Engineer Visit: No (07/07/2016 19:05:Margarita Jaramillo RN) Hx of Any of the Following?: N/A (07/07/2016 19:05:Margarita Jaramillo RN) New Diagnosis of: N/A (07/07/2016 19:05:Margarita Jaramillo RN) Requires Assist w/Ambulation: No (07/07/2016 19:05:Margarita Jaramillo RN) Uses Assist Device to Ambulate: No (07/07/2016 19:05:Margarita Jaramillo RN) Pt Requires Help w/ADL's: No (07/07/2016 19:05:Margarita Jaramillo RN)
--- NOTE | 2016-07-11 06:06 | L&D General Admission ---
General Admit Datetime Report Generated by CPN: 07/11/2016 06:00 INFORMATION Patient Age: 26 (04/16/2016 13:54:QS system process) EDC: 07/25/2016 00:00 (04/16/2016 14:00:Ama Caballero RN) EDC per Ultrasound: 07/31/2015 00:00 (04/16/2016 14:00:Margarita aJramillo RN) LMP: 10/19/2015 00:00 (04/16/2016 14:00:Margarita Jaramillo RN) : 1 (04/16/2016 14:00:Ama Caballero RN) Para: 0 (07/02/2016 23:16:Magda Pastrana RN) Term: 0 (04/16/2016 14:00:Ama Caballero RN) : 0 (04/16/2016 14:00:Ama Caballero RN) Spontaneous Abortions: 0 (04/16/2016 14:00:Ama Caballero RN) Induced Abortions: 0 (04/16/2016 14:00:Ama Caballero RN) Livin (04/16/2016 14:00:Ama Caballero RN) Cesareans: 0 (04/16/2016 14:00:Ama Caballero RN) VBACs: 0 (04/16/2016 14:00:Ama Caballero RN) Ectopic: 0 (04/16/2016 14:00:Ama Caballero RN) Multiple Births: 0 (04/16/2016 14:00:Ama Caballero RN) Baby, Number in Womb: 1 (07/02/2016 23:16:Magda Pastrana RN) CARE Primary Tax Representative: [facility] (Annotations: Data stored by Radha on behalf of user) (04/16/2016 14:00:Ama Caballero RN) Month of 1st Visit: 11/2015 (04/16/2016 14:00:Margarita Jaramillo RN) Adequate Care: Yes (04/16/2016 14:00:Ama Caballero RN) Prepregnancy Weight (lb): 246 (04/16/2016 14:00:Margarita Jaramillo RN) Prepregnancy Weight (kg): 111.8 (04/16/2016 14:00:QS system process) Height (in): 69 (07/10/2016 10:29:QS system process) ALLERGIES Medication Allergy: Yes (04/16/2016 14:00:Magda Pastrana RN) Medication Allergies: amoxicillin/rash (07/07/2016) (07/07/2016 18:13:QS system process) Latex Allergy: No Latex Allergies (04/16/2016 14:00:Magda Pastrana RN) Food Allergies: None (04/16/2016 14:00:Margarita Jaramillo RN) Environmental Allergies: None (04/16/2016 14:00:Margarita Jaramillo RN) COMMUNICATION Primary Language: Belarusian (04/16/2016 14:00:Ama Caballero RN) Medical Tx Preferred Language: Belarusian (04/16/2016 14:00:Ama Caballero RN) Communication Barrier(s): None (04/16/2016 14:00:Ama Caballero RN) DEMOGRAPHICS Address: [place] [address] (04/16/2016 13:54:QS system process) Zipcode: [address] (04/16/2016 13:54:QS system process) Home (04/16/2016 13:54:QS system process) SSN: [id number] (04/16/2016 13:54:QS system process) Next of Kin Name: TODD ARGUETA (04/16/2016 13:54:QS system process) Next of Kin (07/07/2016 17:34:QS system process) Next of Kin Relationship: SPO (04/16/2016 13:54:QS system process) Date of : 1990 (04/16/2016 13:54:QS system process) Marital Status: (07/07/2016 17:34:QS system process) Sex: Female (04/16/2016 13:54:QS system process) Occupation: None (04/16/2016 14:00:Ama Caballero RN) Race: (04/16/2016 13:54:QS system process) Ethnicity: Non- or (04/16/2016 13:54:QS system process) Presybeterian: Other (07/08/2016 14:08:QS system process) Education: 14 (04/16/2016 14:00:Ama Caballero RN) FOB Involved: Yes (04/16/2016 14:00:Ama Caballero RN) Father of Baby Name: Todd Argueta (04/16/2016 14:00:Ama Caballero RN) DRUG AND ALCOHOL USE Alcohol: No (04/16/2016 14:00:Magda Victoriano, RN) Cigarettes: Never Smoker. [id number] (04/16/2016 14:00:Magda Victoriano, RN) Marijuana: No (04/16/2016 14:00:Magda Victoriano, RN) Cocaine: No (04/16/2016 14:00:Magda Victoriano, RN) Other Illicit Drugs: No (04/16/2016 14:00:Magda Victoriano, RN) VACCINE HISTORY Influenza Vaccine: Yes (04/16/2016 14:00:Magda Pastrana, RN) Pneumococcal Vaccine: No (04/16/2016 14:00:Magda Pastrana, RN) Tetanus Vaccine: Yes (04/16/2016 14:00:Magdaric Pastrana, RN) Tdap Vaccine: Yes (04/16/2016 14:00:Magdaric Pastrana, RN) Hepatitis B Vaccine: Yes (04/16/2016 14:00:Magda Victoriano, RN) Human Capital Manager: [facility] (04/16/2016 14:00:Margarita Jaramillo RN) Feeding Preference: Breast (04/16/2016 14:00:Margarita Jaramillo RN) Benefit of Breast Feed Discussed: Yes (04/16/2016 14:00:Margarita Jaramillo RN) Circumcision: No (04/16/2016 14:00:Margarita Jaramillo RN) Classes Attended: Yes (04/16/2016 14:00:Margarita Jaramillo RN) Tubal Ligation: No (04/16/2016 14:00:Margarita Jaramillo RN) Tubal Authorization Signed: N/A (04/16/2016 14:00:Margarita Jaramillo RN) Consent: N/A (04/16/2016 14:00:Margarita Jaramillo RN) Consent Signed: N/A (04/16/2016 14:00:Margarita Jaramillo RN) Pain Management Plans: None (04/16/2016 14:00:Margarita Jaramillo RN) Other Pain Management Plans: Open to options (04/16/2016 14:00:Margarita Jaramillo RN) Plans for Labor and Delivery: None (04/16/2016 14:00:Margarita Jaramillo RN) Support Person: Todd Argueta (04/16/2016 14:00:Margarita Jaramillo RN) Support Person Relationship: (04/16/2016 14:00:Margarita Jaramillo RN) Cultural/Spritual Practice: No (04/16/2016 14:00:Margarita Jaramillo RN) Spir/Cult Dietary Needs: No (04/16/2016 14:00:Margarita Jaramillo RN) LIVING SITUATION/DISCHARGE PLAN Living Arrangements: House (04/16/2016 14:00:Margarita Jaramillo RN) Adequate Access to:: Electric; Heat; Refrigeration; Plumbing/Running water; Phone; Transportation (04/16/2016 14:00:Margarita Jaramillo RN) WIC Program: Yes (04/16/2016 14:00:Margarita Jaramillo RN) Discharge Corporate Vp Advertising & Online Person: Todd Argueta (04/16/2016 14:00:Margarita Jaramillo RN) Person to Help after Discharge: Todd Argueta (04/16/2016 14:00:Margarita Jaramillo RN) Currently Using Commun Resources: No (04/16/2016 14:00:Margarita Jaramillo RN) Outside Agency/Dedicated Truck Driver: No (04/16/2016 14:00:Margarita Jaramillo RN) Car Seat for Discharge: Yes (04/16/2016 14:00:Margarita Jaramillo RN) Adoption Requested: No (04/16/2016 14:00:Margarita Jaramillo RN) Pt Contact w/infant Post : N/A (04/16/2016 14:00:Margarita Jaramillo RN) LABS Blood Type: O Positive (04/16/2016 14:00:Leticia Sands RN) Antibody Screen: Negative (04/16/2016 14:00:Leticia Sands RN) Rho(G) this : Not Applicable (04/16/2016 14:00:Leticia Sands RN) Hemoglobin: 13.2 (07/09/2016 06:54:QS system process) Hematocrit: 38.1 (07/09/2016 06:54:QS system process) MCV: 83 (07/09/2016 06:54:JACOB system process) Group Beta Strep: Negative (04/16/2016 14:00:Leticia Sands RN) Gonorrhea: Negative (04/16/2016 14:00:Leticia Sands RN) Chlamydia: Negative (04/16/2016 14:00:Leticia Sands RN) RPR/VDRL: Nonreactive (04/16/2016 14:00:Leticia Sands RN) HIV Results: Negative (04/16/2016 14:00:Leticia Sands RN) Hepatitis B: Negative (04/16/2016 14:00:Leticia Sands RN) Rubella: Immune (04/16/2016 14:00:Leticia Sands RN) OB/PREVIOUS HISTORY Age of Menses Onset: 9 (04/16/2016 14:00:Ama Caballero RN) Menses Amount: Moderate (04/16/2016 14:00:Ama Caballero RN) LMP Regular: Yes (04/16/2016 14:00:Ama Caballero RN) Date Pos Preg Test: 11/28/2015 00:00 (04/16/2016 14:00:Ama Caballero RN) LMP: 10/19/2015 00:00 (04/16/2016 14:00:Margarita Jaramillo RN) Current Procedures: Ultrasound (04/16/2016 14:00:Ama Caballero RN) History of Previous : No (04/16/2016 14:00:Ama Caballero RN) History of Gestational Diabetes: No (04/16/2016 14:00:Ama Caballero RN) History of PIH: No (04/16/2016 14:00:Ama Caballero RN) History of Incompetent Cervix: No (04/16/2016 14:00:Ama Caballero RN) History of Placenta Previa/Abrup: No (04/16/2016 14:00:Ama Caballero RN) History of Macrosomia: No (04/16/2016 14:00:Ama Caballero RN) History of IUGR: No (04/16/2016 14:00:Ama Caballero RN) History of Hemorrhage: No (04/16/2016 14:00:Ama Caballero RN) History of Loss/Stillborn: No (04/16/2016 14:00:Ama Caballero RN) History of : No (04/16/2016 14:00:Ama Caballero RN) History of D (Rh) Sensitization: No (04/16/2016 14:00:Ama Caballero RN) History Recurrent Loss/Stillborn: No (04/16/2016 14:00:Ama Caballero RN) History Depression/PP Depression: No (04/16/2016 14:00:Ama Caballero RN) History of Uterine Anomaly/MARISSA: No (04/16/2016 14:00:Ama Caballero RN) History of Infertility: No (04/16/2016 14:00:Ama Caballero RN) History of ART Treatment: No (04/16/2016 14:00:Ama Caballero RN) History of MARISSA: No (04/16/2016 14:00:Ama Caballero RN) Comments Obstetrical History: G1 - Current - Chronic HTN (04/16/2016 14:00:Margarita Jaramillo RN) MEDICAL HISTORY Med Hx Diabetes: No (04/16/2016 14:00:Ama Caballero RN) Med Hx Hypertension: Yes (04/16/2016 14:00:Margarita Jaramillo RN) Med Hx Heart Disease: No (04/16/2016 14:00:Ama Caballero RN) Med Hx Autoimmune Disorder: No (04/16/2016 14:00:Ama Caballero RN) Med Hx Kidney Disease/UTI: No (04/16/2016 14:00:Ama Caballero RN) Med Hx Neurologic/Epilepsy: No (04/16/2016 14:00:Ama Caballero RN) Med Hx Psychiatric Disorders: No (04/16/2016 14:00:Ama Caballero RN) Med Hx Hepatitis/Liver Disease: No (04/16/2016 14:00:Ama Caballero RN) Med Hx Varicosities/Phlebitis: No (04/16/2016 14:00:Ama Caballero RN) Med Hx Thyroid Dysfunction: No (04/16/2016 14:00:Ama Caballero RN) Med Hx Trauma/Violence: No (04/16/2016 14:00:Ama Caballero RN) Med Hx Blood Transfusion: No (04/16/2016 14:00:Ama Caballero RN) Med Hx Pulmonary (Asthma,TB): No (04/16/2016 14:00:Ama Caballero RN) Med Hx Breast: No (04/16/2016 14:00:Ama Caballero RN) Med Hx SENIOR ADVOCATE Surgery: No (04/16/2016 14:00:Ama Caballero RN) Med Hx Hospitalization/Surgery: No (04/16/2016 14:00:Ama Caballero RN) Med Hx Anesthetic Complications: No (04/16/2016 14:00:Ama Caballero RN) Med Hx Abnormal Pap Smear: Yes (04/16/2016 14:00:Ama Caballero RN) Other Medical Diseases: No (04/16/2016 14:00:Ama Caballero RN) Med Hx Significant Family Hx: Yes (04/16/2016 14:00:Ama Caballero RN) Details of Med/Surg Hx: Abnormal Pap in 2010, colpo Father has history of strokes and mother has hypertension (04/16/2016 14:00:Ama Caballero RN) INFECTIOUS HISTORY Inf Hx Gonorrhea: No (04/16/2016 14:00:Ama Caballero RN) Inf Hx Chlamydia: Yes (04/16/2016 14:00:Ama Caballero RN) Inf Hx Syphilis: No (04/16/2016 14:00:Ama Caballero RN) Inf Hx HIV/AIDS: No (04/16/2016 14:00:Ama Caballero RN) Inf Hx Human Papilloma Virus: Yes (04/16/2016 14:00:Ama Caballero RN) Inf Hx Pt/Partner Genital Herpes: No (04/16/2016 14:00:Ama Caballero RN) Inf Hx Tuberculosis/Exposure: No (04/16/2016 14:00:Ama Caballero RN) Inf Hx Hepatitis B,C: No (04/16/2016 14:00:Ama Caballero RN) Inf Hx Rash or Viral Illness: No (04/16/2016 14:00:Ama Caballero RN) Details of Infectious Hx: Chlamydia in 2008, underwent treatment HPV (04/16/2016 14:00:Ama Caballero RN) GENETIC HISTORY Gen Hx Age >=35 at GISELLE: No (04/16/2016 14:00:Ama Caballero RN) Gen Hx Thalassemia: No (04/16/2016 14:00:Ama Caballero RN) Gen Hx Congenital Heart Defect: No (04/16/2016 14:00:Ama Caballero RN) Gen Hx Neural Tube Defect: No (04/16/2016 14:00:Ama Caballero RN) Gen Hx Down's Syndrome: No (04/16/2016 14:00:Ama Caballero RN) Gen Hx Evans-Sachs: No (04/16/2016 14:00:Ama Caballero RN) Gen Hx Christian: No (04/16/2016 14:00:Ama Caballero RN) Gen Hx Familial Dysautonomia: No (04/16/2016 14:00:Ama Caballero RN) Gen Hx Sickle Cell Disease/Trait: No (04/16/2016 14:00:Ama Cablalero RN) Gen Hx Hemophilia/Blood Disorder: No (04/16/2016 14:00:Ama Caballero RN) Gen Hx Muscular Dystrophy: No (04/16/2016 14:00:Ama Caballero RN) Gen Hx Cystic Fibrosis: No (04/16/2016 14:00:Ama Caballero RN) Gen Hx Huntingtons Chorea: No (04/16/2016 14:00:Ama Caballero RN) Gen Hx Mental Retardation/Autism: No (04/16/2016 14:00:Ama Caballero RN) Gen Hx Tested for Fragile X: No (04/16/2016 14:00:Ama Caballero RN) Gen Hx Other Inher/Chromosomal: No (04/16/2016 14:00:Ama Caballero RN) Gen Hx Maternal Metabolic DO: No (04/16/2016 14:00:Ama Caballero RN) Gen Hx Pt Father or FOB Defect: No (04/16/2016 14:00:Ama Caballero RN) Gen Hx Other Genetic History: No (04/16/2016 14:00:Ama Caballero RN) Gen Hx Drugs/Meds since LMP: Yes (04/16/2016 14:00:Margarita Jaramillo RN) Gen Hx Medications: PNV, Procardia, Zantac (04/16/2016 14:00:Margarita Jaramillo RN)
--- NOTE | 2016-07-12 06:06 | L&D Current Admission ---
Current Admit Datetime Report Generated by CPN: 07/12/2016 06:00 ADMISSION INFORMATION Current Admit Date/Time: 07/07/2016 17:57 (07/07/2016 19:05:Margarita Jaramillo RN) Reason for Admission: Induction of Labor (07/07/2016 19:05:Margarita Jaramillo RN) Other Reason for Admission: Chronic HTN (07/07/2016 19:05:Margarita Jaramillo RN) Chief Complaint: Scheduled Induction of Labor (07/07/2016 19:24:Maryse Mittal RN) EGA per Dates: 37.3 (07/07/2016 19:05:QS system process) EGA per US: 88.6 (07/07/2016 19:05:QS system process) Method of Arrival: Ambulatory (07/07/2016 19:05:Margarita Jaramillo RN) Admitted From: Home (07/07/2016 19:05:Margarita Jaramillo RN) Reason for Induction: Chronic Hypertension (07/07/2016 19:05:Margarita Jaramillo RN) Records Available: Yes (07/07/2016 19:05:Margarita Jaramillo RN) General Admission Information: Reviewed; Updated; Confirmed (07/07/2016 19:05:Margarita Jaramillo RN) General Admission Reviewed By: Stuart Jaramillo [facility] (07/07/2016 19:05:Margarita Jaramillo RN) BELONGINGS/ADVANCED DIRECTIVES Valuables/Personal Effects: None (07/07/2016 19:05:Margarita Jaramillo RN) Other Belongings: See belongings consent (07/07/2016 19:05:Margarita Jaramillo RN) Disposition of Belongings: Kept with Patient (07/07/2016 19:05:Margarita Jaramillo RN) Advance Direct for Healthcare: No, and Wants No Information (07/07/2016 19:05:Margarita Jaramillo RN) Durable Power of Rail Specialist: No (07/07/2016 19:05:Margarita Jaramillo RN) Living Will: No (07/07/2016 19:05:Margarita Jaramillo RN) Organ Donor: No (07/07/2016 19:05:Margarita Jaramillo RN) Pt Rights Information Given: Yes (07/07/2016 19:05:Margarita Jaramillo RN) Pt Understands Pt Rights: Yes (07/07/2016 19:05:Margarita Jaramillo RN) LEARNING ASSESSMENT Knowledge Level: Understands L_D Process; Understands Care Activities; Had Pre-Hospital Education; Understands Diagnosis (07/07/2016 19:05:Margarita Jaramillo RN) Barriers to Learning: None (07/07/2016 19:05:Margarita Jaramillo RN) Learning Readiness: Motivated (07/07/2016 19:05:Margarita Jaramillo RN) Learns Best By: 1 to 1 Instruction; Reading; Videos; Demonstration (07/07/2016 19:05:Margarita Jaramillo RN) Learning Needs: Labor and Delivery Process; Pain Management; Symptoms to Report; Treatment Plan; Medication; Diagnosis; Nutrition; Equipment; Care; Community Resources (07/07/2016 19:05:Margarita Jaramillo RN) DOMESTIC VIOLANCE SCREENING Dom Viol Threatened/Hurt: No (07/07/2016 19:05:Margarita Jaramillo RN) Hx of Abuse/Neglect past 2yrs: No (07/07/2016 19:05:Margarita Jaramillo RN) Feel Unsafe Going Home: No (07/07/2016 19:05:Margarita Jaramillo RN) Addt'l Observ Indicating Abuse: No (07/07/2016 19:05:Margarita Jaramillo RN) Reason Unable to Complete Screen: N/A, Screen Completed (07/07/2016 19:05:Margarita Jaramillo RN) Considered Personal Harm/Suicide: No (07/07/2016 19:05:Margarita Jaramillo RN) NUTRITIONAL/FUNCTIONAL SCREENING Problem with Appetite >5 Days: No (07/07/2016 19:05:Margarita Jaramillo RN) Chew/Swallow Difficulties: No (07/07/2016 19:05:Margarita Jaramillo RN) Inappropriate Wt Gain/Loss: No (07/07/2016 19:05:Margarita Jaramillo RN) Presence Skin Breakdown/Ulcer: No (07/07/2016 19:05:Margarita Jaramillo RN) Special Diet: No (07/07/2016 19:05:Margarita Jaramillo RN) Pt Requests Special Inspector Visit: No (07/07/2016 19:05:Margarita Jaramillo RN) Hx of Any of the Following?: N/A (07/07/2016 19:05:Margarita Jaramillo RN) New Diagnosis of: N/A (07/07/2016 19:05:Margarita Jaramillo RN) Requires Assist w/Ambulation: No (07/07/2016 19:05:Margarita Jaramillo RN) Uses Assist Device to Ambulate: No (07/07/2016 19:05:Margarita Jaramillo RN) Pt Requires Help w/ADL's: No (07/07/2016 19:05:Margarita Jaramillo RN)
--- NOTE | 2016-07-12 06:06 | L&D General Admission ---
General Admit Datetime Report Generated by CPN: 07/12/2016 06:00 INFORMATION Patient Age: 26 (04/16/2016 13:54:QS system process) EDC: 07/25/2016 00:00 (04/16/2016 14:00:Ama Caballero RN) EDC per Ultrasound: 07/31/2015 00:00 (04/16/2016 14:00:Margarita Jaramillo RN) LMP: 10/19/2015 00:00 (04/16/2016 14:00:Margarita Jaramillo RN) : 1 (04/16/2016 14:00:Ama Caballero RN) Para: 0 (07/02/2016 23:16:Magda Pastrana RN) Term: 0 (04/16/2016 14:00:Ama Caballero RN) : 0 (04/16/2016 14:00:Ama Caballero RN) Spontaneous Abortions: 0 (04/16/2016 14:00:Ama Caballero RN) Induced Abortions: 0 (04/16/2016 14:00:Ama Caballero RN) Livin (04/16/2016 14:00:Ama Caballero RN) Cesareans: 0 (04/16/2016 14:00:Ama Caballero RN) VBACs: 0 (04/16/2016 14:00:Ama Caballero RN) Ectopic: 0 (04/16/2016 14:00:Ama Caballero RN) Multiple Births: 0 (04/16/2016 14:00:Ama Caballero RN) Baby, Number in Womb: 1 (07/02/2016 23:16:Magda Pasrtana RN) CARE Primary [employer] Team Member: [facility] (Annotations: Data stored by Radha on behalf of user) (04/16/2016 14:00:Ama Caballero RN) Month of 1st Visit: 11/2015 (04/16/2016 14:00:Margarita Jaramillo RN) Adequate Care: Yes (04/16/2016 14:00:Ama Caballero RN) Prepregnancy Weight (lb): 246 (04/16/2016 14:00:Margarita Jaramillo RN) Prepregnancy Weight (kg): 111.8 (04/16/2016 14:00:QS system process) Height (in): 69 (07/10/2016 10:29:QS system process) ALLERGIES Medication Allergy: Yes (04/16/2016 14:00:Mgada Pastrana RN) Medication Allergies: amoxicillin/rash (07/07/2016) (07/07/2016 18:13:QS system process) Latex Allergy: No Latex Allergies (04/16/2016 14:00:Magda Pastrana RN) Food Allergies: None (04/16/2016 14:00:Margarita Jaramillo RN) Environmental Allergies: None (04/16/2016 14:00:Margarita Jaramillo RN) COMMUNICATION Primary Language: Luxembourgish (04/16/2016 14:00:Ama Caballero RN) Medical Tx Preferred Language: Luxembourgish (04/16/2016 14:00:Ama Caballero RN) Communication Barrier(s): None (04/16/2016 14:00:Ama Caballero RN) DEMOGRAPHICS Address: [place] [address] (04/16/2016 13:54:QS system process) Zipcode: [address] (04/16/2016 13:54:QS system process) Home (04/16/2016 13:54:QS system process) SSN: [id number] (04/16/2016 13:54:QS system process) Next of Kin Name: TODD ARGUETA (04/16/2016 13:54:QS system process) Next of Kin (07/07/2016 17:34:QS system process) Next of Kin Relationship: SPO (04/16/2016 13:54:QS system process) Date of : 1990 (04/16/2016 13:54:QS system process) Marital Status: (07/07/2016 17:34:QS system process) Sex: Female (04/16/2016 13:54:QS system process) Occupation: None (04/16/2016 14:00:Ama Caballero RN) Race: (04/16/2016 13:54:QS system process) Ethnicity: Non- or (04/16/2016 13:54:QS system process) Yazdanism: Other (07/08/2016 14:08:QS system process) Education: 14 (04/16/2016 14:00:Ama Caballero RN) FOB Involved: Yes (04/16/2016 14:00:Ama Caballero RN) Father of Baby Name: Todd Argueta (04/16/2016 14:00:Ama aCballero RN) DRUG AND ALCOHOL USE Alcohol: No (04/16/2016 14:00:Magda Victoriano, RN) Cigarettes: Never Smoker. [id number] (04/16/2016 14:00:Magda Victoriano, RN) Marijuana: No (04/16/2016 14:00:Magda Victoriano, RN) Cocaine: No (04/16/2016 14:00:Magda Victoriano, RN) Other Illicit Drugs: No (04/16/2016 14:00:Magda Victoriano, RN) VACCINE HISTORY Influenza Vaccine: Yes (04/16/2016 14:00:Magda Pastrana, RN) Pneumococcal Vaccine: No (04/16/2016 14:00:Magda Pastrana, RN) Tetanus Vaccine: Yes (04/16/2016 14:00:Magdaric Pastrana, RN) Tdap Vaccine: Yes (04/16/2016 14:00:Magdaric Pastrana, RN) Hepatitis B Vaccine: Yes (04/16/2016 14:00:Magda Victoriano, RN) Group Exercise Class Instructor: [facility] (04/16/2016 14:00:Margarita Jaramillo RN) Feeding Preference: Breast (04/16/2016 14:00:Margarita Jaramillo RN) Benefit of Breast Feed Discussed: Yes (04/16/2016 14:00:Margarita Jaramillo RN) Circumcision: No (04/16/2016 14:00:Margarita Jaramillo RN) Classes Attended: Yes (04/16/2016 14:00:Margarita Jaramillo RN) Tubal Ligation: No (04/16/2016 14:00:Margarita Jaramillo RN) Tubal Authorization Signed: N/A (04/16/2016 14:00:Margarita Jaramillo RN) Consent: N/A (04/16/2016 14:00:Margarita Jaramillo RN) Consent Signed: N/A (04/16/2016 14:00:Margarita Jaramillo RN) Pain Management Plans: None (04/16/2016 14:00:Margarita Jaramillo RN) Other Pain Management Plans: Open to options (04/16/2016 14:00:Margarita Jaramillo RN) Plans for Labor and Delivery: None (04/16/2016 14:00:Margarita Jaramillo RN) Support Person: Todd Argueta (04/16/2016 14:00:Margarita Jaramillo RN) Support Person Relationship: (04/16/2016 14:00:Margarita Jaramillo RN) Cultural/Spritual Practice: No (04/16/2016 14:00:Margarita Jaramillo RN) Spir/Cult Dietary Needs: No (04/16/2016 14:00:Margarita Jaramillo RN) LIVING SITUATION/DISCHARGE PLAN Living Arrangements: House (04/16/2016 14:00:Margarita Jaramillo RN) Adequate Access to:: Electric; Heat; Refrigeration; Plumbing/Running water; Phone; Transportation (04/16/2016 14:00:Margarita Jaramillo RN) WIC Program: Yes (04/16/2016 14:00:Margarita Jaramillo RN) Discharge Twister Frame Tender Person: Todd Argueta (04/16/2016 14:00:Margarita Jaramillo RN) Person to Help after Discharge: Todd Argueta (04/16/2016 14:00:Margarita Jaramillo RN) Currently Using Commun Resources: No (04/16/2016 14:00:Margarita Jaramillo RN) Outside Agency/Senior Staff Psychologist: No (04/16/2016 14:00:Margarita Jaramillo RN) Car Seat for Discharge: Yes (04/16/2016 14:00:Margarita Jaramillo RN) Adoption Requested: No (04/16/2016 14:00:Margarita Jaramillo RN) Pt Contact w/infant Post : N/A (04/16/2016 14:00:Margarita Jaramillo RN) LABS Blood Type: O Positive (04/16/2016 14:00:Leticia Sands RN) Antibody Screen: Negative (04/16/2016 14:00:Leticia Sands RN) Rho(G) this : Not Applicable (04/16/2016 14:00:Leticia Sands RN) Hemoglobin: 13.2 (07/09/2016 06:54:QS system process) Hematocrit: 38.1 (07/09/2016 06:54:QS system process) MCV: 83 (07/09/2016 06:54:JACOB system process) Group Beta Strep: Negative (04/16/2016 14:00:Leticia Sands RN) Gonorrhea: Negative (04/16/2016 14:00:Leticia Sands RN) Chlamydia: Negative (04/16/2016 14:00:Leticia Sands RN) RPR/VDRL: Nonreactive (04/16/2016 14:00:Leticia Sands RN) HIV Results: Negative (04/16/2016 14:00:Leticia Sands RN) Hepatitis B: Negative (04/16/2016 14:00:Leticia Sands RN) Rubella: Immune (04/16/2016 14:00:Leticia Sands RN) OB/PREVIOUS HISTORY Age of Menses Onset: 9 (04/16/2016 14:00:Ama Caballero RN) Menses Amount: Moderate (04/16/2016 14:00:Ama Caballero RN) LMP Regular: Yes (04/16/2016 14:00:Ama Caballero RN) Date Pos Preg Test: 11/28/2015 00:00 (04/16/2016 14:00:Ama Caballero RN) LMP: 10/19/2015 00:00 (04/16/2016 14:00:Margarita Jaramillo RN) Current Procedures: Ultrasound (04/16/2016 14:00:Ama Caballero RN) History of Previous : No (04/16/2016 14:00:Ama Caballero RN) History of Gestational Diabetes: No (04/16/2016 14:00:Ama Cablalero RN) History of PIH: No (04/16/2016 14:00:Ama Caballero RN) History of Incompetent Cervix: No (04/16/2016 14:00:Ama Caballero RN) History of Placenta Previa/Abrup: No (04/16/2016 14:00:Ama Caballero RN) History of Macrosomia: No (04/16/2016 14:00:Ama Caballero RN) History of IUGR: No (04/16/2016 14:00:Ama Caballero RN) History of Hemorrhage: No (04/16/2016 14:00:Ama Caballero RN) History of Loss/Stillborn: No (04/16/2016 14:00:Ama Caballero RN) History of : No (04/16/2016 14:00:Ama Caballero RN) History of D (Rh) Sensitization: No (04/16/2016 14:00:Ama Caballero RN) History Recurrent Loss/Stillborn: No (04/16/2016 14:00:Ama Caballero RN) History Depression/PP Depression: No (04/16/2016 14:00:Ama Caballero RN) History of Uterine Anomaly/MARISSA: No (04/16/2016 14:00:Ama Caballero RN) History of Infertility: No (04/16/2016 14:00:Ama Caballero RN) History of ART Treatment: No (04/16/2016 14:00:Ama Caballero RN) History of MARISSA: No (04/16/2016 14:00:Ama Caballero RN) Comments Obstetrical History: G1 - Current - Chronic HTN (04/16/2016 14:00:Margarita Jaramillo RN) MEDICAL HISTORY Med Hx Diabetes: No (04/16/2016 14:00:Ama Caballero RN) Med Hx Hypertension: Yes (04/16/2016 14:00:Margarita Jaramillo RN) Med Hx Heart Disease: No (04/16/2016 14:00:Ama Caballero RN) Med Hx Autoimmune Disorder: No (04/16/2016 14:00:Ama Caballero RN) Med Hx Kidney Disease/UTI: No (04/16/2016 14:00:Ama Caballero RN) Med Hx Neurologic/Epilepsy: No (04/16/2016 14:00:Ama Caballero RN) Med Hx Psychiatric Disorders: No (04/16/2016 14:00:Ama Caballero RN) Med Hx Hepatitis/Liver Disease: No (04/16/2016 14:00:Ama Caballero RN) Med Hx Varicosities/Phlebitis: No (04/16/2016 14:00:Ama Caballero RN) Med Hx Thyroid Dysfunction: No (04/16/2016 14:00:mAa Caballero RN) Med Hx Trauma/Violence: No (04/16/2016 14:00:Ama Caballero RN) Med Hx Blood Transfusion: No (04/16/2016 14:00:Ama Caballero RN) Med Hx Pulmonary (Asthma,TB): No (04/16/2016 14:00:Ama Caballero RN) Med Hx Breast: No (04/16/2016 14:00:Ama Caballero RN) Med Hx MANDOLIN REPAIRER Surgery: No (04/16/2016 14:00:Ama Caballero RN) Med Hx Hospitalization/Surgery: No (04/16/2016 14:00:Ama Caballero RN) Med Hx Anesthetic Complications: No (04/16/2016 14:00:Ama Caballero RN) Med Hx Abnormal Pap Smear: Yes (04/16/2016 14:00:Ama Caballero RN) Other Medical Diseases: No (04/16/2016 14:00:Ama Caballero RN) Med Hx Significant Family Hx: Yes (04/16/2016 14:00:Ama Caballero RN) Details of Med/Surg Hx: Abnormal Pap in 2010, colpo Father has history of strokes and mother has hypertension (04/16/2016 14:00:Ama Caballero RN) INFECTIOUS HISTORY Inf Hx Gonorrhea: No (04/16/2016 14:00:Ama Caballero RN) Inf Hx Chlamydia: Yes (04/16/2016 14:00:Ama Caballero RN) Inf Hx Syphilis: No (04/16/2016 14:00:Ama Caballero RN) Inf Hx HIV/AIDS: No (04/16/2016 14:00:Ama Caballero RN) Inf Hx Human Papilloma Virus: Yes (04/16/2016 14:00:Ama Caballero RN) Inf Hx Pt/Partner Genital Herpes: No (04/16/2016 14:00:Ama Caballero RN) Inf Hx Tuberculosis/Exposure: No (04/16/2016 14:00:Ama Caballero RN) Inf Hx Hepatitis B,C: No (04/16/2016 14:00:Ama Caballero RN) Inf Hx Rash or Viral Illness: No (04/16/2016 14:00:Ama Caballero RN) Details of Infectious Hx: Chlamydia in 2008, underwent treatment HPV (04/16/2016 14:00:Ama Caballero RN) GENETIC HISTORY Gen Hx Age >=35 at GISELLE: No (04/16/2016 14:00:Ama Caballero RN) Gen Hx Thalassemia: No (04/16/2016 14:00:Ama Caballero RN) Gen Hx Congenital Heart Defect: No (04/16/2016 14:00:Ama Caballero RN) Gen Hx Neural Tube Defect: No (04/16/2016 14:00:Ama Caballero RN) Gen Hx Down's Syndrome: No (04/16/2016 14:00:Ama Caballero RN) Gen Hx Evans-Sachs: No (04/16/2016 14:00:Ama Caballero RN) Gen Hx Christian: No (04/16/2016 14:00:Ama Caballero RN) Gen Hx Familial Dysautonomia: No (04/16/2016 14:00:Ama Caballero RN) Gen Hx Sickle Cell Disease/Trait: No (04/16/2016 14:00:Ama Caballero RN) Gen Hx Hemophilia/Blood Disorder: No (04/16/2016 14:00:Ama Caballero RN) Gen Hx Muscular Dystrophy: No (04/16/2016 14:00:Ama Caballero RN) Gen Hx Cystic Fibrosis: No (04/16/2016 14:00:Ama Caballero RN) Gen Hx Huntingtons Chorea: No (04/16/2016 14:00:Ama Caballero RN) Gen Hx Mental Retardation/Autism: No (04/16/2016 14:00:Ama Caballero RN) Gen Hx Tested for Fragile X: No (04/16/2016 14:00:Ama Caballero RN) Gen Hx Other Inher/Chromosomal: No (04/16/2016 14:00:Ama Caballero RN) Gen Hx Maternal Metabolic DO: No (04/16/2016 14:00:Ama Caballero RN) Gen Hx Pt Father or FOB Defect: No (04/16/2016 14:00:Ama Caballero RN) Gen Hx Other Genetic History: No (04/16/2016 14:00:Ama Caballero RN) Gen Hx Drugs/Meds since LMP: Yes (04/16/2016 14:00:Margarita Jaramillo RN) Gen Hx Medications: PNV, Procardia, Zantac (04/16/2016 14:00:Margarita Jaramillo RN)
--- NOTE | 2016-07-13 06:08 | L&D General Admission ---
General Admit Datetime Report Generated by CPN: 07/13/2016 06:00 INFORMATION Patient Age: 26 (04/16/2016 13:54:QS system process) EDC: 07/25/2016 00:00 (04/16/2016 14:00:Ama Caballero RN) EDC per Ultrasound: 07/31/2015 00:00 (04/16/2016 14:00:Margarita Jaramillo RN) LMP: 10/19/2015 00:00 (04/16/2016 14:00:Margarita Jaramillo RN) : 1 (04/16/2016 14:00:Ama Caballero RN) Para: 0 (07/02/2016 23:16:Magda Pastrana RN) Term: 0 (04/16/2016 14:00:Ama Caballero RN) : 0 (04/16/2016 14:00:Ama Caballero RN) Spontaneous Abortions: 0 (04/16/2016 14:00:Ama Caballero RN) Induced Abortions: 0 (04/16/2016 14:00:Ama Caballero RN) Livin (04/16/2016 14:00:Ama Caballero RN) Cesareans: 0 (04/16/2016 14:00:Ama Caballero RN) VBACs: 0 (04/16/2016 14:00:Ama Caballero RN) Ectopic: 0 (04/16/2016 14:00:Ama Caballero RN) Multiple Births: 0 (04/16/2016 14:00:Ama Caballero RN) Baby, Number in Womb: 1 (07/02/2016 23:16:Magda Pastrana RN) CARE Primary [employer] Commander: [facility] (Annotations: Data stored by Radha on behalf of user) (04/16/2016 14:00:Ama Caballero RN) Month of 1st Visit: 11/2015 (04/16/2016 14:00:Margarita Jaramillo RN) Adequate Care: Yes (04/16/2016 14:00:Ama Caballero RN) Prepregnancy Weight (lb): 246 (04/16/2016 14:00:Margarita Jaramillo RN) Prepregnancy Weight (kg): 111.8 (04/16/2016 14:00:QS system process) Height (in): 69 (07/10/2016 10:29:QS system process) ALLERGIES Medication Allergy: Yes (04/16/2016 14:00:Magda Pastrana RN) Medication Allergies: amoxicillin/rash (07/07/2016) (07/07/2016 18:13:QS system process) Latex Allergy: No Latex Allergies (04/16/2016 14:00:Magda Pastrana RN) Food Allergies: None (04/16/2016 14:00:Margarita Jaramillo RN) Environmental Allergies: None (04/16/2016 14:00:Margarita Jaramillo RN) COMMUNICATION Primary Language: Tamazight (04/16/2016 14:00:Ama Caballero RN) Medical Tx Preferred Language: Tamazight (04/16/2016 14:00:Ama Caballero RN) Communication Barrier(s): None (04/16/2016 14:00:Ama Caballero RN) DEMOGRAPHICS Address: [place] [address] (04/16/2016 13:54:QS system process) Zipcode: [address] (04/16/2016 13:54:QS system process) Home (04/16/2016 13:54:QS system process) SSN: [id number] (04/16/2016 13:54:QS system process) Next of Kin Name: TODD ARGUETA (04/16/2016 13:54:QS system process) Next of Kin (07/07/2016 17:34:QS system process) Next of Kin Relationship: SPO (04/16/2016 13:54:QS system process) Date of : 1990 (04/16/2016 13:54:QS system process) Marital Status: (07/07/2016 17:34:QS system process) Sex: Female (04/16/2016 13:54:QS system process) Occupation: None (04/16/2016 14:00:Ama Caballero RN) Race: (04/16/2016 13:54:QS system process) Ethnicity: Non- or (04/16/2016 13:54:QS system process) Faith: Other (07/08/2016 14:08:QS system process) Education: 14 (04/16/2016 14:00:Ama Caballero RN) FOB Involved: Yes (04/16/2016 14:00:Ama Caballero RN) Father of Baby Name: Todd Argueta (04/16/2016 14:00:Ama Caballero RN) DRUG AND ALCOHOL USE Alcohol: No (04/16/2016 14:00:Magda Victoriano, RN) Cigarettes: Never Smoker. [id number] (04/16/2016 14:00:Magda Victoriano, RN) Marijuana: No (04/16/2016 14:00:Magda Victoriano, RN) Cocaine: No (04/16/2016 14:00:Magda Victoriano, RN) Other Illicit Drugs: No (04/16/2016 14:00:Magda Victoriano, RN) VACCINE HISTORY Influenza Vaccine: Yes (04/16/2016 14:00:Magda Pastrana, RN) Pneumococcal Vaccine: No (04/16/2016 14:00:Magda Pastrana, RN) Tetanus Vaccine: Yes (04/16/2016 14:00:Magdaric Pastrana, RN) Tdap Vaccine: Yes (04/16/2016 14:00:Magdaric Pastrana, RN) Hepatitis B Vaccine: Yes (04/16/2016 14:00:Magda Victoriano, RN) Manager Digital: [facility] (04/16/2016 14:00:Margarita Jaramillo RN) Feeding Preference: Breast (04/16/2016 14:00:Margarita Jaramillo RN) Benefit of Breast Feed Discussed: Yes (04/16/2016 14:00:Margarita Jaramillo RN) Circumcision: No (04/16/2016 14:00:Margarita Jaramillo RN) Classes Attended: Yes (04/16/2016 14:00:Margarita Jaramillo RN) Tubal Ligation: No (04/16/2016 14:00:Margarita Jaramillo RN) Tubal Authorization Signed: N/A (04/16/2016 14:00:Margarita Jaramillo RN) Consent: N/A (04/16/2016 14:00:Margarita Jaramillo RN) Consent Signed: N/A (04/16/2016 14:00:Margarita Jaramillo RN) Pain Management Plans: None (04/16/2016 14:00:Margarita Jaramillo RN) Other Pain Management Plans: Open to options (04/16/2016 14:00:Margarita Jaramillo RN) Plans for Labor and Delivery: None (04/16/2016 14:00:Margarita Jaramillo RN) Support Person: Todd Argueta (04/16/2016 14:00:Margarita Jaramillo RN) Support Person Relationship: (04/16/2016 14:00:Margarita Jaramillo RN) Cultural/Spritual Practice: No (04/16/2016 14:00:Margarita Jaramillo RN) Spir/Cult Dietary Needs: No (04/16/2016 14:00:Margarita Jaramillo RN) LIVING SITUATION/DISCHARGE PLAN Living Arrangements: House (04/16/2016 14:00:Margarita Jaramillo RN) Adequate Access to:: Electric; Heat; Refrigeration; Plumbing/Running water; Phone; Transportation (04/16/2016 14:00:Margarita Jaramillo RN) WIC Program: Yes (04/16/2016 14:00:Margarita Jaramillo RN) Discharge Director Of Academic Person: Todd Argueta (04/16/2016 14:00:Margarita Jaramillo RN) Person to Help after Discharge: Todd Argueta (04/16/2016 14:00:Margarita Jaramillo RN) Currently Using Commun Resources: No (04/16/2016 14:00:Margarita Jaramillo RN) Outside Agency/Manager Talent: No (04/16/2016 14:00:Margarita Jaramillo RN) Car Seat for Discharge: Yes (04/16/2016 14:00:Margarita Jaramillo RN) Adoption Requested: No (04/16/2016 14:00:Margarita Jaramillo RN) Pt Contact w/infant Post : N/A (04/16/2016 14:00:Margarita Jaramillo RN) LABS Blood Type: O Positive (04/16/2016 14:00:Leticia Sands RN) Antibody Screen: Negative (04/16/2016 14:00:Leticia Sands RN) Rho(G) this : Not Applicable (04/16/2016 14:00:Leticia Sands RN) Hemoglobin: 13.2 (07/09/2016 06:54:QS system process) Hematocrit: 38.1 (07/09/2016 06:54:QS system process) MCV: 83 (07/09/2016 06:54:JACOB system process) Group Beta Strep: Negative (04/16/2016 14:00:Leticia Sands RN) Gonorrhea: Negative (04/16/2016 14:00:Leticia Sands RN) Chlamydia: Negative (04/16/2016 14:00:Leticia Sands RN) RPR/VDRL: Nonreactive (04/16/2016 14:00:Leticia Sands RN) HIV Results: Negative (04/16/2016 14:00:Leticia Sands RN) Hepatitis B: Negative (04/16/2016 14:00:Leticia Sands RN) Rubella: Immune (04/16/2016 14:00:Leticia Sands RN) OB/PREVIOUS HISTORY Age of Menses Onset: 9 (04/16/2016 14:00:Ama Caballero RN) Menses Amount: Moderate (04/16/2016 14:00:Ama Caballero RN) LMP Regular: Yes (04/16/2016 14:00:Ama Caballero RN) Date Pos Preg Test: 11/28/2015 00:00 (04/16/2016 14:00:Ama Caballero RN) LMP: 10/19/2015 00:00 (04/16/2016 14:00:Margarita Jaramillo RN) Current Procedures: Ultrasound (04/16/2016 14:00:Ama Caballero RN) History of Previous : No (04/16/2016 14:00:Ama Caballero RN) History of Gestational Diabetes: No (04/16/2016 14:00:Ama Caballero RN) History of PIH: No (04/16/2016 14:00:Ama Caballero RN) History of Incompetent Cervix: No (04/16/2016 14:00:Ama Caballero RN) History of Placenta Previa/Abrup: No (04/16/2016 14:00:Ama Caballero RN) History of Macrosomia: No (04/16/2016 14:00:Ama Caballero RN) History of IUGR: No (04/16/2016 14:00:Ama Caballero RN) History of Hemorrhage: No (04/16/2016 14:00:Ama Cbaallero RN) History of Loss/Stillborn: No (04/16/2016 14:00:Ama Caballero RN) History of : No (04/16/2016 14:00:Ama Caballero RN) History of D (Rh) Sensitization: No (04/16/2016 14:00:Ama Caballero RN) History Recurrent Loss/Stillborn: No (04/16/2016 14:00:Ama Caballero RN) History Depression/PP Depression: No (04/16/2016 14:00:Ama Caballero RN) History of Uterine Anomaly/MARISSA: No (04/16/2016 14:00:Ama Caballero RN) History of Infertility: No (04/16/2016 14:00:Ama Caballero RN) History of ART Treatment: No (04/16/2016 14:00:Ama Caballero RN) History of MARISSA: No (04/16/2016 14:00:Ama Caballero RN) Comments Obstetrical History: G1 - Current - Chronic HTN (04/16/2016 14:00:Margarita Jaramillo RN) MEDICAL HISTORY Med Hx Diabetes: No (04/16/2016 14:00:Ama Caballero RN) Med Hx Hypertension: Yes (04/16/2016 14:00:Margarita Jaramillo RN) Med Hx Heart Disease: No (04/16/2016 14:00:Ama Caballero RN) Med Hx Autoimmune Disorder: No (04/16/2016 14:00:Aam Caballero RN) Med Hx Kidney Disease/UTI: No (04/16/2016 14:00:Ama Caballero RN) Med Hx Neurologic/Epilepsy: No (04/16/2016 14:00:Ama Caballero RN) Med Hx Psychiatric Disorders: No (04/16/2016 14:00:Ama Caballero RN) Med Hx Hepatitis/Liver Disease: No (04/16/2016 14:00:Ama Caballero RN) Med Hx Varicosities/Phlebitis: No (04/16/2016 14:00:Ama Caballero RN) Med Hx Thyroid Dysfunction: No (04/16/2016 14:00:Ama Caballero RN) Med Hx Trauma/Violence: No (04/16/2016 14:00:Ama Caballero RN) Med Hx Blood Transfusion: No (04/16/2016 14:00:Ama Caballero RN) Med Hx Pulmonary (Asthma,TB): No (04/16/2016 14:00:Ama Caballero RN) Med Hx Breast: No (04/16/2016 14:00:Ama Caballero RN) Med Hx NEON SIGN SERVICER Surgery: No (04/16/2016 14:00:Ama Caballero RN) Med Hx Hospitalization/Surgery: No (04/16/2016 14:00:Ama Caballero RN) Med Hx Anesthetic Complications: No (04/16/2016 14:00:Ama Caballero RN) Med Hx Abnormal Pap Smear: Yes (04/16/2016 14:00:Ama Caballero RN) Other Medical Diseases: No (04/16/2016 14:00:Ama Caballero RN) Med Hx Significant Family Hx: Yes (04/16/2016 14:00:Ama Caballero RN) Details of Med/Surg Hx: Abnormal Pap in 2010, colpo Father has history of strokes and mother has hypertension (04/16/2016 14:00:Ama Caballero RN) INFECTIOUS HISTORY Inf Hx Gonorrhea: No (04/16/2016 14:00:Ama Caballero RN) Inf Hx Chlamydia: Yes (04/16/2016 14:00:Ama Caballero RN) Inf Hx Syphilis: No (04/16/2016 14:00:Ama Caballero RN) Inf Hx HIV/AIDS: No (04/16/2016 14:00:Ama Caballero RN) Inf Hx Human Papilloma Virus: Yes (04/16/2016 14:00:Ama Caballero RN) Inf Hx Pt/Partner Genital Herpes: No (04/16/2016 14:00:Ama Caballero RN) Inf Hx Tuberculosis/Exposure: No (04/16/2016 14:00:Ama Caballero RN) Inf Hx Hepatitis B,C: No (04/16/2016 14:00:Ama Caballero RN) Inf Hx Rash or Viral Illness: No (04/16/2016 14:00:Ama Caballero RN) Details of Infectious Hx: Chlamydia in 2008, underwent treatment HPV (04/16/2016 14:00:Ama Caballero RN) GENETIC HISTORY Gen Hx Age >=35 at [facility]: No (04/16/2016 14:00:Ama Caballero RN) Gen Hx Thalassemia: No (04/16/2016 14:00:Ama Caballero RN) Gen Hx Congenital Heart Defect: No (04/16/2016 14:00:Ama Caballero RN) Gen Hx Neural Tube Defect: No (04/16/2016 14:00:Ama Caballero RN) Gen Hx Down's Syndrome: No (04/16/2016 14:00:Ama Caballero RN) Gen Hx Evans-Sachs: No (04/16/2016 14:00:Ama Caballero RN) Gen Hx Christian: No (04/16/2016 14:00:Ama Caballero RN) Gen Hx Familial Dysautonomia: No (04/16/2016 14:00:Ama Caballero RN) Gen Hx Sickle Cell Disease/Trait: No (04/16/2016 14:00:Ama Caballero RN) Gen Hx Hemophilia/Blood Disorder: No (04/16/2016 14:00:Ama Caballero RN) Gen Hx Muscular Dystrophy: No (04/16/2016 14:00:Ama Caballero RN) Gen Hx Cystic Fibrosis: No (04/16/2016 14:00:Ama Caballero RN) Gen Hx Huntingtons Chorea: No (04/16/2016 14:00:Ama Caballero RN) Gen Hx Mental Retardation/Autism: No (04/16/2016 14:00:Ama Caballero RN) Gen Hx Tested for Fragile X: No (04/16/2016 14:00:Ama Caballero RN) Gen Hx Other Inher/Chromosomal: No (04/16/2016 14:00:Ama Caballero RN) Gen Hx Maternal Metabolic DO: No (04/16/2016 14:00:Ama Caballero RN) Gen Hx Pt Father or FOB Defect: No (04/16/2016 14:00:Ama Caballero RN) Gen Hx Other Genetic History: No (04/16/2016 14:00:Ama Caballero RN) Gen Hx Drugs/Meds since LMP: Yes (04/16/2016 14:00:Margarita Jaramillo RN) Gen Hx Medications: PNV, Procardia, Zantac (04/16/2016 14:00:Margarita Jaramillo RN)
--- NOTE | 2016-07-13 06:08 | L&D Current Admission ---
Current Admit Datetime Report Generated by CPN: 07/13/2016 06:00 ADMISSION INFORMATION Current Admit Date/Time: 07/07/2016 17:57 (07/07/2016 19:05:Margarita Jaramillo RN) Reason for Admission: Induction of Labor (07/07/2016 19:05:Margarita Jaramillo RN) Other Reason for Admission: Chronic HTN (07/07/2016 19:05:Margarita Jaramillo RN) Chief Complaint: Scheduled Induction of Labor (07/07/2016 19:24:Maryse Mittal RN) EGA per Dates: 37.3 (07/07/2016 19:05:QS system process) EGA per US: 88.6 (07/07/2016 19:05:QS system process) Method of Arrival: Ambulatory (07/07/2016 19:05:Margarita Jaramillo RN) Admitted From: Home (07/07/2016 19:05:Margarita Jaramillo RN) Reason for Induction: Chronic Hypertension (07/07/2016 19:05:Margarita Jaramillo RN) Records Available: Yes (07/07/2016 19:05:Margarita Jaramillo RN) General Admission Information: Reviewed; Updated; Confirmed (07/07/2016 19:05:Margarita Jaramillo RN) General Admission Reviewed By: Stuart Jaramillo [facility] (07/07/2016 19:05:Margarita Jaramillo RN) BELONGINGS/ADVANCED DIRECTIVES Valuables/Personal Effects: None (07/07/2016 19:05:Margarita Jaramillo RN) Other Belongings: See belongings consent (07/07/2016 19:05:Margarita Jaramillo RN) Disposition of Belongings: Kept with Patient (07/07/2016 19:05:Margarita Jaramillo RN) Advance Direct for Healthcare: No, and Wants No Information (07/07/2016 19:05:Margarita Jaramillo RN) Durable Power of Fitting Room Attendant: No (07/07/2016 19:05:Margarita Jaramillo RN) Living Will: No (07/07/2016 19:05:Margarita Jaramillo RN) Organ Donor: No (07/07/2016 19:05:Margarita Jaramillo RN) Pt Rights Information Given: Yes (07/07/2016 19:05:Margarita Jaramillo RN) Pt Understands Pt Rights: Yes (07/07/2016 19:05:Margarita Jaramillo RN) LEARNING ASSESSMENT Knowledge Level: Understands L_D Process; Understands Care Activities; Had Pre-Hospital Education; Understands Diagnosis (07/07/2016 19:05:Margarita Jaramillo RN) Barriers to Learning: None (07/07/2016 19:05:Margarita Jaramillo RN) Learning Readiness: Motivated (07/07/2016 19:05:Margarita Jaramillo RN) Learns Best By: 1 to 1 Instruction; Reading; Videos; Demonstration (07/07/2016 19:05:Margarita Jaramillo RN) Learning Needs: Labor and Delivery Process; Pain Management; Symptoms to Report; Treatment Plan; Medication; Diagnosis; Nutrition; Equipment; Care; Community Resources (07/07/2016 19:05:Margarita Jaramillo RN) DOMESTIC VIOLANCE SCREENING Dom Viol Threatened/Hurt: No (07/07/2016 19:05:Margarita Jaramillo RN) Hx of Abuse/Neglect past 2yrs: No (07/07/2016 19:05:Margarita Jaramillo RN) Feel Unsafe Going Home: No (07/07/2016 19:05:Margarita Jaramillo RN) Addt'l Observ Indicating Abuse: No (07/07/2016 19:05:Margarita Jaramillo RN) Reason Unable to Complete Screen: N/A, Screen Completed (07/07/2016 19:05:Margarita Jaramillo RN) Considered Personal Harm/Suicide: No (07/07/2016 19:05:Margarita Jaramillo RN) NUTRITIONAL/FUNCTIONAL SCREENING Problem with Appetite >5 Days: No (07/07/2016 19:05:Margarita Jaramillo RN) Chew/Swallow Difficulties: No (07/07/2016 19:05:Margarita Jaramillo RN) Inappropriate Wt Gain/Loss: No (07/07/2016 19:05:Margarita Jaramillo RN) Presence Skin Breakdown/Ulcer: No (07/07/2016 19:05:Margarita Jaramillo RN) Special Diet: No (07/07/2016 19:05:Margarita Jaramillo RN) Pt Requests Clinical Research Tech Visit: No (07/07/2016 19:05:Margarita Jaramillo RN) Hx of Any of the Following?: N/A (07/07/2016 19:05:Margarita Jaramillo RN) New Diagnosis of: N/A (07/07/2016 19:05:Margarita Jaramillo RN) Requires Assist w/Ambulation: No (07/07/2016 19:05:Margarita Jaramillo RN) Uses Assist Device to Ambulate: No (07/07/2016 19:05:Margarita Jaramillo RN) Pt Requires Help w/ADL's: No (07/07/2016 19:05:Margarita Jaramillo RN)
--- NOTE | 2016-07-14 06:05 | L&D General Admission ---
General Admit Datetime Report Generated by CPN: 07/14/2016 06:00 INFORMATION Patient Age: 26 (04/16/2016 13:54:QS system process) EDC: 07/25/2016 00:00 (04/16/2016 14:00:Ama Caballero RN) EDC per Ultrasound: 07/31/2015 00:00 (04/16/2016 14:00:Margarita Jaramillo RN) LMP: 10/19/2015 00:00 (04/16/2016 14:00:Margarita Jaramillo RN) : 1 (04/16/2016 14:00:Ama Caballero RN) Para: 0 (07/02/2016 23:16:Magda Pastrana RN) Term: 0 (04/16/2016 14:00:Ama Caballero RN) : 0 (04/16/2016 14:00:Ama Caballero RN) Spontaneous Abortions: 0 (04/16/2016 14:00:Ama Caballero RN) Induced Abortions: 0 (04/16/2016 14:00:Ama Caballero RN) Livin (04/16/2016 14:00:Ama Caballero RN) Cesareans: 0 (04/16/2016 14:00:Ama Caballero RN) VBACs: 0 (04/16/2016 14:00:Ama Caballero RN) Ectopic: 0 (04/16/2016 14:00:Ama Caballero RN) Multiple Births: 0 (04/16/2016 14:00:Ama Caballero RN) Baby, Number in Womb: 1 (07/02/2016 23:16:Magda Pastrana RN) CARE Primary Parts Counterperson: [facility] (Annotations: Data stored by Radha on behalf of user) (04/16/2016 14:00:Ama Caballero RN) Month of 1st Visit: 11/2015 (04/16/2016 14:00:Margarita Jaramillo RN) Adequate Care: Yes (04/16/2016 14:00:Ama Caballero RN) Prepregnancy Weight (lb): 246 (04/16/2016 14:00:Margarita Jaramillo RN) Prepregnancy Weight (kg): 111.8 (04/16/2016 14:00:QS system process) Height (in): 69 (07/10/2016 10:29:QS system process) ALLERGIES Medication Allergy: Yes (04/16/2016 14:00:Magda Pastrana RN) Medication Allergies: amoxicillin/rash (07/07/2016) (07/07/2016 18:13:QS system process) Latex Allergy: No Latex Allergies (04/16/2016 14:00:Magda Pastrana RN) Food Allergies: None (04/16/2016 14:00:Margarita Jaramillo RN) Environmental Allergies: None (04/16/2016 14:00:Margarita Jaramillo RN) COMMUNICATION Primary Language: Persian (04/16/2016 14:00:Ama Caballero RN) Medical Tx Preferred Language: Persian (04/16/2016 14:00:Ama Caballero RN) Communication Barrier(s): None (04/16/2016 14:00:Ama Caballero RN) DEMOGRAPHICS Address: [place] [address] (04/16/2016 13:54:QS system process) Zipcode: [address] (04/16/2016 13:54:QS system process) Home (04/16/2016 13:54:QS system process) SSN: [id number] (04/16/2016 13:54:QS system process) Next of Kin Name: TODD ARGUETA (04/16/2016 13:54:QS system process) Next of Kin (07/07/2016 17:34:QS system process) Next of Kin Relationship: SPO (04/16/2016 13:54:QS system process) Date of : 1990 (04/16/2016 13:54:QS system process) Marital Status: (07/07/2016 17:34:QS system process) Sex: Female (04/16/2016 13:54:QS system process) Occupation: None (04/16/2016 14:00:Ama Caballero RN) Race: (04/16/2016 13:54:QS system process) Ethnicity: Non- or (04/16/2016 13:54:QS system process) Oriental Orthodox: Other (07/08/2016 14:08:QS system process) Education: 14 (04/16/2016 14:00:Ama Caballero RN) FOB Involved: Yes (04/16/2016 14:00:Ama Caballero RN) Father of Baby Name: Todd Argueta (04/16/2016 14:00:Ama Caballero RN) DRUG AND ALCOHOL USE Alcohol: No (04/16/2016 14:00:Magda Victoriano, RN) Cigarettes: Never Smoker. [id number] (04/16/2016 14:00:Magda Victoriano, RN) Marijuana: No (04/16/2016 14:00:Magda Victoriano, RN) Cocaine: No (04/16/2016 14:00:Magda Victoriano, RN) Other Illicit Drugs: No (04/16/2016 14:00:Magda Victoriano, RN) VACCINE HISTORY Influenza Vaccine: Yes (04/16/2016 14:00:Magda Pastrana, RN) Pneumococcal Vaccine: No (04/16/2016 14:00:Magda Pastrana, RN) Tetanus Vaccine: Yes (04/16/2016 14:00:Magdaric Pastrana, RN) Tdap Vaccine: Yes (04/16/2016 14:00:Magdaric Pastrana, RN) Hepatitis B Vaccine: Yes (04/16/2016 14:00:Magda Victoriano, RN) Accredited Legal Secretary: [facility] (04/16/2016 14:00:Margarita Jaramillo RN) Feeding Preference: Breast (04/16/2016 14:00:Margarita Jaramillo RN) Benefit of Breast Feed Discussed: Yes (04/16/2016 14:00:Margarita Jaramillo RN) Circumcision: No (04/16/2016 14:00:Margarita Jaramillo RN) Classes Attended: Yes (04/16/2016 14:00:Margarita Jaramillo RN) Tubal Ligation: No (04/16/2016 14:00:Margarita Jaramillo RN) Tubal Authorization Signed: N/A (04/16/2016 14:00:Margarita Jaramillo RN) Consent: N/A (04/16/2016 14:00:Margarita Jaramillo RN) Consent Signed: N/A (04/16/2016 14:00:Margarita Jaramillo RN) Pain Management Plans: None (04/16/2016 14:00:Margarita Jaramillo RN) Other Pain Management Plans: Open to options (04/16/2016 14:00:Margarita Jaramillo RN) Plans for Labor and Delivery: None (04/16/2016 14:00:Margarita Jaramillo RN) Support Person: Todd Argueta (04/16/2016 14:00:Margarita Jaramillo RN) Support Person Relationship: (04/16/2016 14:00:Margarita Jaramillo RN) Cultural/Spritual Practice: No (04/16/2016 14:00:Margarita Jaramillo RN) Spir/Cult Dietary Needs: No (04/16/2016 14:00:Margarita Jaramillo RN) LIVING SITUATION/DISCHARGE PLAN Living Arrangements: House (04/16/2016 14:00:Margarita Jaramillo RN) Adequate Access to:: Electric; Heat; Refrigeration; Plumbing/Running water; Phone; Transportation (04/16/2016 14:00:Margarita Jaramillo RN) WIC Program: Yes (04/16/2016 14:00:Margarita Jaramillo RN) Discharge Fiber Technician Person: Todd Argueta (04/16/2016 14:00:Margarita Jaramillo RN) Person to Help after Discharge: Todd Argueta (04/16/2016 14:00:Margarita Jaramillo RN) Currently Using Commun Resources: No (04/16/2016 14:00:Margarita Jaramillo RN) Outside Agency/Prep Person: No (04/16/2016 14:00:Margarita Jaramillo RN) Car Seat for Discharge: Yes (04/16/2016 14:00:Margarita Jaramillo RN) Adoption Requested: No (04/16/2016 14:00:Margarita Jaramillo RN) Pt Contact w/infant Post : N/A (04/16/2016 14:00:Margarita Jaramillo RN) LABS Blood Type: O Positive (04/16/2016 14:00:Leticia Sands RN) Antibody Screen: Negative (04/16/2016 14:00:Leticia Sands RN) Rho(G) this : Not Applicable (04/16/2016 14:00:Leticia Sands RN) Hemoglobin: 13.2 (07/09/2016 06:54:QS system process) Hematocrit: 38.1 (07/09/2016 06:54:QS system process) MCV: 83 (07/09/2016 06:54:JACOB system process) Group Beta Strep: Negative (04/16/2016 14:00:Leticia Sands RN) Gonorrhea: Negative (04/16/2016 14:00:Leticia Sands RN) Chlamydia: Negative (04/16/2016 14:00:Leticia Sands RN) RPR/VDRL: Nonreactive (04/16/2016 14:00:Leticia Sands RN) HIV Results: Negative (04/16/2016 14:00:Leticia Sands RN) Hepatitis B: Negative (04/16/2016 14:00:Leticia Sands RN) Rubella: Immune (04/16/2016 14:00:Leticia Sands RN) OB/PREVIOUS HISTORY Age of Menses Onset: 9 (04/16/2016 14:00:Ama Caballero RN) Menses Amount: Moderate (04/16/2016 14:00:Ama Caballero RN) LMP Regular: Yes (04/16/2016 14:00:Ama Caballero RN) Date Pos Preg Test: 11/28/2015 00:00 (04/16/2016 14:00:Ama Caballero RN) LMP: 10/19/2015 00:00 (04/16/2016 14:00:Margarita Jaramillo RN) Current Procedures: Ultrasound (04/16/2016 14:00:Ama Caballero RN) History of Previous : No (04/16/2016 14:00:Ama Caballero RN) History of Gestational Diabetes: No (04/16/2016 14:00:Ama Caballero RN) History of PIH: No (04/16/2016 14:00:Ama Caballero RN) History of Incompetent Cervix: No (04/16/2016 14:00:Ama Caballero RN) History of Placenta Previa/Abrup: No (04/16/2016 14:00:Ama Caballero RN) History of Macrosomia: No (04/16/2016 14:00:Ama Caballero RN) History of IUGR: No (04/16/2016 14:00:Ama Caballero RN) History of Hemorrhage: No (04/16/2016 14:00:Ama Caballero RN) History of Loss/Stillborn: No (04/16/2016 14:00:Ama Caballero RN) History of : No (04/16/2016 14:00:Ama Caballero RN) History of D (Rh) Sensitization: No (04/16/2016 14:00:Ama Caballero RN) History Recurrent Loss/Stillborn: No (04/16/2016 14:00:Ama Caballero RN) History Depression/PP Depression: No (04/16/2016 14:00:Ama Caballero RN) History of Uterine Anomaly/MARISSA: No (04/16/2016 14:00:Ama Caballero RN) History of Infertility: No (04/16/2016 14:00:Ama Caballero RN) History of ART Treatment: No (04/16/2016 14:00:Ama Caballero RN) History of MARISSA: No (04/16/2016 14:00:Ama Caballero RN) Comments Obstetrical History: G1 - Current - Chronic HTN (04/16/2016 14:00:Margarita Jaramillo RN) MEDICAL HISTORY Med Hx Diabetes: No (04/16/2016 14:00:Ama Caballero RN) Med Hx Hypertension: Yes (04/16/2016 14:00:Margarita Jaramillo RN) Med Hx Heart Disease: No (04/16/2016 14:00:Ama Caballero RN) Med Hx Autoimmune Disorder: No (04/16/2016 14:00:Ama Caballero RN) Med Hx Kidney Disease/UTI: No (04/16/2016 14:00:Ama Caballero RN) Med Hx Neurologic/Epilepsy: No (04/16/2016 14:00:Ama Caballero RN) Med Hx Psychiatric Disorders: No (04/16/2016 14:00:Ama Caballero RN) Med Hx Hepatitis/Liver Disease: No (04/16/2016 14:00:Ama Caballero RN) Med Hx Varicosities/Phlebitis: No (04/16/2016 14:00:Ama Caballero RN) Med Hx Thyroid Dysfunction: No (04/16/2016 14:00:Ama Caballero RN) Med Hx Trauma/Violence: No (04/16/2016 14:00:Ama Caballero RN) Med Hx Blood Transfusion: No (04/16/2016 14:00:Ama Caballero RN) Med Hx Pulmonary (Asthma,TB): No (04/16/2016 14:00:Ama Caballero RN) Med Hx Breast: No (04/16/2016 14:00:Ama Caballero RN) Med Hx [employer] Surgery: No (04/16/2016 14:00:Ama Caballero RN) Med Hx Hospitalization/Surgery: No (04/16/2016 14:00:Ama Caballero RN) Med Hx Anesthetic Complications: No (04/16/2016 14:00:Ama Caballero RN) Med Hx Abnormal Pap Smear: Yes (04/16/2016 14:00:Ama Caballero RN) Other Medical Diseases: No (04/16/2016 14:00:Ama Caballero RN) Med Hx Significant Family Hx: Yes (04/16/2016 14:00:Ama Caballero RN) Details of Med/Surg Hx: Abnormal Pap in 2010, colpo Father has history of strokes and mother has hypertension (04/16/2016 14:00:Ama Caballero RN) INFECTIOUS HISTORY Inf Hx Gonorrhea: No (04/16/2016 14:00:Ama Caballero RN) Inf Hx Chlamydia: Yes (04/16/2016 14:00:Ama Caballero RN) Inf Hx Syphilis: No (04/16/2016 14:00:Ama Caballero RN) Inf Hx HIV/AIDS: No (04/16/2016 14:00:Ama Caballero RN) Inf Hx Human Papilloma Virus: Yes (04/16/2016 14:00:Ama Caballero RN) Inf Hx Pt/Partner Genital Herpes: No (04/16/2016 14:00:Ama Caballero RN) Inf Hx Tuberculosis/Exposure: No (04/16/2016 14:00:Ama Caballero RN) Inf Hx Hepatitis B,C: No (04/16/2016 14:00:Ama Caballero RN) Inf Hx Rash or Viral Illness: No (04/16/2016 14:00:Ama Caballero RN) Details of Infectious Hx: Chlamydia in 2008, underwent treatment HPV (04/16/2016 14:00:Ama Caballero RN) GENETIC HISTORY Gen Hx Age >=35 at GISELLE: No (04/16/2016 14:00:Ama Caballero RN) Gen Hx Thalassemia: No (04/16/2016 14:00:Ama Caballero RN) Gen Hx Congenital Heart Defect: No (04/16/2016 14:00:Ama Caballero RN) Gen Hx Neural Tube Defect: No (04/16/2016 14:00:Ama Caballero RN) Gen Hx Down's Syndrome: No (04/16/2016 14:00:Ama Caballero RN) Gen Hx Evans-Sachs: No (04/16/2016 14:00:Ama Caballero RN) Gen Hx Christian: No (04/16/2016 14:00:Ama Caballero RN) Gen Hx Familial Dysautonomia: No (04/16/2016 14:00:Ama Caballero RN) Gen Hx Sickle Cell Disease/Trait: No (04/16/2016 14:00:Ama Caballero RN) Gen Hx Hemophilia/Blood Disorder: No (04/16/2016 14:00:Ama Caballero RN) Gen Hx Muscular Dystrophy: No (04/16/2016 14:00:Ama Caballero RN) Gen Hx Cystic Fibrosis: No (04/16/2016 14:00:Ama Caballero RN) Gen Hx Huntingtons Chorea: No (04/16/2016 14:00:Ama Caballero RN) Gen Hx Mental Retardation/Autism: No (04/16/2016 14:00:Ama Caballero RN) Gen Hx Tested for Fragile X: No (04/16/2016 14:00:Ama Caballero RN) Gen Hx Other Inher/Chromosomal: No (04/16/2016 14:00:Ama Caballero RN) Gen Hx Maternal Metabolic DO: No (04/16/2016 14:00:Ama Caballero RN) Gen Hx Pt Father or FOB Defect: No (04/16/2016 14:00:Ama Caballero RN) Gen Hx Other Genetic History: No (04/16/2016 14:00:Ama Caballero RN) Gen Hx Drugs/Meds since LMP: Yes (04/16/2016 14:00:Margarita Jarmaillo RN) Gen Hx Medications: PNV, Procardia, Zantac (04/16/2016 14:00:Margarita Jaramillo RN)
--- NOTE | 2016-07-14 06:05 | L&D Current Admission ---
Current Admit Datetime Report Generated by CPN: 07/14/2016 06:00 ADMISSION INFORMATION Current Admit Date/Time: 07/07/2016 17:57 (07/07/2016 19:05:Margarita Jaramillo RN) Reason for Admission: Induction of Labor (07/07/2016 19:05:Margarita Jaramillo RN) Other Reason for Admission: Chronic HTN (07/07/2016 19:05:Margarita Jaramillo RN) Chief Complaint: Scheduled Induction of Labor (07/07/2016 19:24:Maryse Mittal RN) EGA per Dates: 37.3 (07/07/2016 19:05:QS system process) EGA per US: 88.6 (07/07/2016 19:05:QS system process) Method of Arrival: Ambulatory (07/07/2016 19:05:Margarita Jaramillo RN) Admitted From: Home (07/07/2016 19:05:Margarita Jaramillo RN) Reason for Induction: Chronic Hypertension (07/07/2016 19:05:Margarita Jaramillo RN) Records Available: Yes (07/07/2016 19:05:Margarita Jaramillo RN) General Admission Information: Reviewed; Updated; Confirmed (07/07/2016 19:05:Margarita Jaramillo RN) General Admission Reviewed By: Stuart Jaramillo [facility] (07/07/2016 19:05:Margarita Jaramillo RN) BELONGINGS/ADVANCED DIRECTIVES Valuables/Personal Effects: None (07/07/2016 19:05:Margarita Jaramillo RN) Other Belongings: See belongings consent (07/07/2016 19:05:Margarita Jaramillo RN) Disposition of Belongings: Kept with Patient (07/07/2016 19:05:Margarita Jaramillo RN) Advance Direct for Healthcare: No, and Wants No Information (07/07/2016 19:05:Margarita Jaramillo RN) Durable Power of Street Railway Line Installer: No (07/07/2016 19:05:Margarita Jaramillo RN) Living Will: No (07/07/2016 19:05:Margarita Jaramillo RN) Organ Donor: No (07/07/2016 19:05:Margarita Jaramillo RN) Pt Rights Information Given: Yes (07/07/2016 19:05:Margarita Jaramillo RN) Pt Understands Pt Rights: Yes (07/07/2016 19:05:Margarita Jaramillo RN) LEARNING ASSESSMENT Knowledge Level: Understands L_D Process; Understands Care Activities; Had Pre-Hospital Education; Understands Diagnosis (07/07/2016 19:05:Margarita Jaramillo RN) Barriers to Learning: None (07/07/2016 19:05:Margarita Jaramillo RN) Learning Readiness: Motivated (07/07/2016 19:05:Margarita Jaramillo RN) Learns Best By: 1 to 1 Instruction; Reading; Videos; Demonstration (07/07/2016 19:05:Margarita Jaramillo RN) Learning Needs: Labor and Delivery Process; Pain Management; Symptoms to Report; Treatment Plan; Medication; Diagnosis; Nutrition; Equipment; Care; Community Resources (07/07/2016 19:05:Margarita Jaramillo RN) DOMESTIC VIOLANCE SCREENING Dom Viol Threatened/Hurt: No (07/07/2016 19:05:Margarita Jaramillo RN) Hx of Abuse/Neglect past 2yrs: No (07/07/2016 19:05:Margarita Jaramillo RN) Feel Unsafe Going Home: No (07/07/2016 19:05:Margarita Jaramillo RN) Addt'l Observ Indicating Abuse: No (07/07/2016 19:05:Margarita Jaramillo RN) Reason Unable to Complete Screen: N/A, Screen Completed (07/07/2016 19:05:Margarita Jaramillo RN) Considered Personal Harm/Suicide: No (07/07/2016 19:05:Margarita Jaramillo RN) NUTRITIONAL/FUNCTIONAL SCREENING Problem with Appetite >5 Days: No (07/07/2016 19:05:Margarita Jaramillo RN) Chew/Swallow Difficulties: No (07/07/2016 19:05:Margarita Jaramillo RN) Inappropriate Wt Gain/Loss: No (07/07/2016 19:05:Margarita Jaramillo RN) Presence Skin Breakdown/Ulcer: No (07/07/2016 19:05:Margarita Jaramillo RN) Special Diet: No (07/07/2016 19:05:Margarita Jaramillo RN) Pt Requests [employer] Visit: No (07/07/2016 19:05:Margarita Jaramillo RN) Hx of Any of the Following?: N/A (07/07/2016 19:05:Margarita Jaramillo RN) New Diagnosis of: N/A (07/07/2016 19:05:Margarita Jaramillo RN) Requires Assist w/Ambulation: No (07/07/2016 19:05:Margarita Jaramillo RN) Uses Assist Device to Ambulate: No (07/07/2016 19:05:Margarita Jaramillo RN) Pt Requires Help w/ADL's: No (07/07/2016 19:05:Margarita Jaramillo RN)
--- NOTE | 2016-07-15 06:05 | L&D General Admission ---
General Admit Datetime Report Generated by CPN: 07/15/2016 06:00 INFORMATION Patient Age: 26 (04/16/2016 13:54:QS system process) EDC: 07/25/2016 00:00 (04/16/2016 14:00:Ama Caballero RN) EDC per Ultrasound: 07/31/2015 00:00 (04/16/2016 14:00:Margarita Jaramillo RN) LMP: 10/19/2015 00:00 (04/16/2016 14:00:Margarita Jaramillo RN) : 1 (04/16/2016 14:00:Ama Caballero RN) Para: 0 (07/02/2016 23:16:Magda Pastrana RN) Term: 0 (04/16/2016 14:00:Ama Caballero RN) : 0 (04/16/2016 14:00:Ama Caballero RN) Spontaneous Abortions: 0 (04/16/2016 14:00:Ama Caballero RN) Induced Abortions: 0 (04/16/2016 14:00:Ama Caballero RN) Livin (04/16/2016 14:00:Ama Caballero RN) Cesareans: 0 (04/16/2016 14:00:Aam Caballero RN) VBACs: 0 (04/16/2016 14:00:Ama Caballero RN) Ectopic: 0 (04/16/2016 14:00:Ama Caballero RN) Multiple Births: 0 (04/16/2016 14:00:Ama Caballero RN) Baby, Number in Womb: 1 (07/02/2016 23:16:Magda Pastrana RN) CARE Primary Street Contractor: [facility] (Annotations: Data stored by Radha on behalf of user) (04/16/2016 14:00:Ama Caballero RN) Month of 1st Visit: 11/2015 (04/16/2016 14:00:Margarita Jaramillo RN) Adequate Care: Yes (04/16/2016 14:00:Ama Caballero RN) Prepregnancy Weight (lb): 246 (04/16/2016 14:00:Margarita Jaramillo RN) Prepregnancy Weight (kg): 111.8 (04/16/2016 14:00:QS system process) Height (in): 69 (07/10/2016 10:29:QS system process) ALLERGIES Medication Allergy: Yes (04/16/2016 14:00:Magda Pastrana RN) Medication Allergies: amoxicillin/rash (07/07/2016) (07/07/2016 18:13:QS system process) Latex Allergy: No Latex Allergies (04/16/2016 14:00:Magda Pastrana RN) Food Allergies: None (04/16/2016 14:00:Margarita Jaramillo RN) Environmental Allergies: None (04/16/2016 14:00:Margarita Jaramillo RN) COMMUNICATION Primary Language: Irish (04/16/2016 14:00:Ama Caballero RN) Medical Tx Preferred Language: Irish (04/16/2016 14:00:Ama Caballero RN) Communication Barrier(s): None (04/16/2016 14:00:Ama Caballero RN) DEMOGRAPHICS Address: [place] [address] (04/16/2016 13:54:QS system process) Zipcode: [address] (04/16/2016 13:54:QS system process) Home (04/16/2016 13:54:QS system process) SSN: [id number] (04/16/2016 13:54:QS system process) Next of Kin Name: TODD ARGUETA (04/16/2016 13:54:QS system process) Next of Kin (07/07/2016 17:34:QS system process) Next of Kin Relationship: SPO (04/16/2016 13:54:QS system process) Date of : 1990 (04/16/2016 13:54:QS system process) Marital Status: (07/07/2016 17:34:QS system process) Sex: Female (04/16/2016 13:54:QS system process) Occupation: None (04/16/2016 14:00:Ama Caballero RN) Race: (04/16/2016 13:54:QS system process) Ethnicity: Non- or (04/16/2016 13:54:QS system process) Yarsanism: Other (07/08/2016 14:08:QS system process) Education: 14 (04/16/2016 14:00:Ama Caballero RN) FOB Involved: Yes (04/16/2016 14:00:Ama Caballero RN) Father of Baby Name: Todd Argueta (04/16/2016 14:00:Ama Caballero RN) DRUG AND ALCOHOL USE Alcohol: No (04/16/2016 14:00:Magda Victoriano, RN) Cigarettes: Never Smoker. 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: [employer] (04/16/2016 14:00:Margarita Jaramillo RN) Feeding Preference: Breast (04/16/2016 14:00:Margarita Jaramillo RN) Benefit of Breast Feed Discussed: Yes (04/16/2016 14:00:Margarita Jaramillo RN) Circumcision: No (04/16/2016 14:00:Margarita Jaramillo RN) Classes Attended: Yes (04/16/2016 14:00:Margarita Jaramillo RN) Tubal Ligation: No (04/16/2016 14:00:Margarita Jaramillo RN) Tubal Authorization Signed: N/A (04/16/2016 14:00:Margarita Jaramillo RN) Consent: N/A (04/16/2016 14:00:Margarita Jaramillo RN) Consent Signed: N/A (04/16/2016 14:00:Margarita Jaramillo RN) Pain Management Plans: None (04/16/2016 14:00:Margarita Jaramillo RN) Other Pain Management Plans: Open to options (04/16/2016 14:00:Margarita Jaramillo RN) Plans for Labor and Delivery: None (04/16/2016 14:00:Margarita Jaramillo RN) Support Person: Todd Argueta (04/16/2016 14:00:Margarita Jaramillo RN) Support Person Relationship: (04/16/2016 14:00:Margarita Jaramillo RN) Cultural/Spritual Practice: No (04/16/2016 14:00:Margarita Jaramillo RN) Spir/Cult Dietary Needs: No (04/16/2016 14:00:Margarita Jaramillo RN) LIVING SITUATION/DISCHARGE PLAN Living Arrangements: House (04/16/2016 14:00:Margarita Jaramillo RN) Adequate Access to:: Electric; Heat; Refrigeration; Plumbing/Running water; Phone; Transportation (04/16/2016 14:00:Margarita Jaramillo RN) WIC Program: Yes (04/16/2016 14:00:Margarita Jaramillo RN) Discharge Head Insulation Board Saw Operator Person: Todd Argueta (04/16/2016 14:00:Margarita Jaramillo RN) Person to Help after Discharge: Todd Argueta (04/16/2016 14:00:Margarita Jaramillo RN) Currently Using Commun Resources: No (04/16/2016 14:00:Margarita Jaramillo RN) Outside Agency/[employer]: No (04/16/2016 14:00:Margarita Jaramillo RN) Car Seat for Discharge: Yes (04/16/2016 14:00:Margarita Jaramillo RN) Adoption Requested: No (04/16/2016 14:00:Margarita Jaramillo RN) Pt Contact w/infant Post : N/A (04/16/2016 14:00:Margarita Jaramillo RN) LABS Blood Type: O Positive (04/16/2016 14:00:Leticia Sands RN) Antibody Screen: Negative (04/16/2016 14:00:Leticia Sands RN) Rho(G) this : Not Applicable (04/16/2016 14:00:Leticia Sands RN) Hemoglobin: 13.2 (07/09/2016 06:54:QS system process) Hematocrit: 38.1 (07/09/2016 06:54:QS system process) MCV: 83 (07/09/2016 06:54:JACOB system process) Group Beta Strep: Negative (04/16/2016 14:00:Leticia Sands RN) Gonorrhea: Negative (04/16/2016 14:00:Leticia Sands RN) Chlamydia: Negative (04/16/2016 14:00:Leticia Sands RN) RPR/VDRL: Nonreactive (04/16/2016 14:00:Leticia Sands RN) HIV Results: Negative (04/16/2016 14:00:Leticia Sands RN) Hepatitis B: Negative (04/16/2016 14:00:Leticia Sands RN) Rubella: Immune (04/16/2016 14:00:Leticia Sands RN) OB/PREVIOUS HISTORY Age of Menses Onset: 9 (04/16/2016 14:00:Ama Caballero RN) Menses Amount: Moderate (04/16/2016 14:00:Ama Caballero RN) LMP Regular: Yes (04/16/2016 14:00:Ama Caballero RN) Date Pos Preg Test: 11/28/2015 00:00 (04/16/2016 14:00:Ama Caballero RN) LMP: 10/19/2015 00:00 (04/16/2016 14:00:Margarita Jaramillo RN) Current Procedures: Ultrasound (04/16/2016 14:00:Ama Caballero RN) History of Previous : No (04/16/2016 14:00:Ama Caballero RN) History of Gestational Diabetes: No (04/16/2016 14:00:Ama Caballero RN) History of PIH: No (04/16/2016 14:00:Ama Caballero RN) History of Incompetent Cervix: No (04/16/2016 14:00:Ama Caballero RN) History of Placenta Previa/Abrup: No (04/16/2016 14:00:Ama Caballero RN) History of Macrosomia: No (04/16/2016 14:00:Ama Caballero RN) History of IUGR: No (04/16/2016 14:00:Ama Caballero RN) History of Hemorrhage: No (04/16/2016 14:00:Ama Caballero RN) History of Loss/Stillborn: No (04/16/2016 14:00:Ama Caballero RN) History of : No (04/16/2016 14:00:Ama Caballero RN) History of D (Rh) Sensitization: No (04/16/2016 14:00:Ama Caballero RN) History Recurrent Loss/Stillborn: No (04/16/2016 14:00:Ama Caballero RN) History Depression/PP Depression: No (04/16/2016 14:00:Ama Caballero RN) History of Uterine Anomaly/MARISSA: No (04/16/2016 14:00:Ama Caballero RN) History of Infertility: No (04/16/2016 14:00:Ama Caballero RN) History of ART Treatment: No (04/16/2016 14:00:Ama Caballero RN) History of MARISSA: No (04/16/2016 14:00:Ama Caballero RN) Comments Obstetrical History: G1 - Current - Chronic HTN (04/16/2016 14:00:Margarita Jaramillo RN) MEDICAL HISTORY Med Hx Diabetes: No (04/16/2016 14:00:Ama Caballero RN) Med Hx Hypertension: Yes (04/16/2016 14:00:Margarita Jaramillo RN) Med Hx Heart Disease: No (04/16/2016 14:00:Ama Caballero RN) Med Hx Autoimmune Disorder: No (04/16/2016 14:00:Ama Caballero RN) Med Hx Kidney Disease/UTI: No (04/16/2016 14:00:Ama Caballero RN) Med Hx Neurologic/Epilepsy: No (04/16/2016 14:00:Ama Caballero RN) Med Hx Psychiatric Disorders: No (04/16/2016 14:00:Ama Caballero RN) Med Hx Hepatitis/Liver Disease: No (04/16/2016 14:00:Ama Caballero RN) Med Hx Varicosities/Phlebitis: No (04/16/2016 14:00:Ama Caballero RN) Med Hx Thyroid Dysfunction: No (04/16/2016 14:00:Ama Caballero RN) Med Hx Trauma/Violence: No (04/16/2016 14:00:Ama Caballero RN) Med Hx Blood Transfusion: No (04/16/2016 14:00:Ama Caballero RN) Med Hx Pulmonary (Asthma,TB): No (04/16/2016 14:00:Ama Caballero RN) Med Hx Breast: No (04/16/2016 14:00:Ama Caballero RN) Med Hx PET CARE ASSISTANT Surgery: No (04/16/2016 14:00:Ama Caballero RN) Med Hx Hospitalization/Surgery: No (04/16/2016 14:00:Ama Caballero RN) Med Hx Anesthetic Complications: No (04/16/2016 14:00:Ama Caballero RN) Med Hx Abnormal Pap Smear: Yes (04/16/2016 14:00:Ama Caballero RN) Other Medical Diseases: No (04/16/2016 14:00:Ama Caballero RN) Med Hx Significant Family Hx: Yes (04/16/2016 14:00:Ama Caballero RN) Details of Med/Surg Hx: Abnormal Pap in 2010, colpo Father has history of strokes and mother has hypertension (04/16/2016 14:00:Ama Caballero RN) INFECTIOUS HISTORY Inf Hx Gonorrhea: No (04/16/2016 14:00:Ama Caballero RN) Inf Hx Chlamydia: Yes (04/16/2016 14:00:Ama Caballero RN) Inf Hx Syphilis: No (04/16/2016 14:00:Ama Caballero RN) Inf Hx HIV/AIDS: No (04/16/2016 14:00:Ama Caballero RN) Inf Hx Human Papilloma Virus: Yes (04/16/2016 14:00:Ama Caballero RN) Inf Hx Pt/Partner Genital Herpes: No (04/16/2016 14:00:Ama Caballero RN) Inf Hx Tuberculosis/Exposure: No (04/16/2016 14:00:Ama Caballero RN) Inf Hx Hepatitis B,C: No (04/16/2016 14:00:Ama Caballero RN) Inf Hx Rash or Viral Illness: No (04/16/2016 14:00:Ama Caballero RN) Details of Infectious Hx: Chlamydia in 2008, underwent treatment HPV (04/16/2016 14:00:Ama Caballero RN) GENETIC HISTORY Gen Hx Age >=35 at GISELLE: No (04/16/2016 14:00:Ama Caballero RN) Gen Hx Thalassemia: No (04/16/2016 14:00:Ama Caballero RN) Gen Hx Congenital Heart Defect: No (04/16/2016 14:00:Ama Caballero RN) Gen Hx Neural Tube Defect: No (04/16/2016 14:00:Ama Caballero RN) Gen Hx Down's Syndrome: No (04/16/2016 14:00:Ama Caballero RN) Gen Hx Evans-Sachs: No (04/16/2016 14:00:Ama Caballero RN) Gen Hx Christian: No (04/16/2016 14:00:Ama Caballero RN) Gen Hx Familial Dysautonomia: No (04/16/2016 14:00:Ama Caballero RN) Gen Hx Sickle Cell Disease/Trait: No (04/16/2016 14:00:Ama Caballero RN) Gen Hx Hemophilia/Blood Disorder: No (04/16/2016 14:00:Ama Caballero RN) Gen Hx Muscular Dystrophy: No (04/16/2016 14:00:Aam Caballero RN) Gen Hx Cystic Fibrosis: No (04/16/2016 14:00:Ama Caballero RN) Gen Hx Huntingtons Chorea: No (04/16/2016 14:00:Ama Caballero RN) Gen Hx Mental Retardation/Autism: No (04/16/2016 14:00:Ama Caballero RN) Gen Hx Tested for Fragile X: No (04/16/2016 14:00:Ama Caballero RN) Gen Hx Other Inher/Chromosomal: No (04/16/2016 14:00:Ama Caballero RN) Gen Hx Maternal Metabolic DO: No (04/16/2016 14:00:Ama Caballero RN) Gen Hx Pt Father or FOB Defect: No (04/16/2016 14:00:Ama Caballero RN) Gen Hx Other Genetic History: No (04/16/2016 14:00:Ama Caballero RN) Gen Hx Drugs/Meds since LMP: Yes (04/16/2016 14:00:Margarita Jaramillo RN) Gen Hx Medications: PNV, Procardia, Zantac (04/16/2016 14:00:Margarita Jaramillo RN)
--- NOTE | 2016-07-15 06:05 | L&D Current Admission ---
Current Admit Datetime Report Generated by CPN: 07/15/2016 06:00 ADMISSION INFORMATION Current Admit Date/Time: 07/07/2016 17:57 (07/07/2016 19:05:Margarita Jaramillo RN) Reason for Admission: Induction of Labor (07/07/2016 19:05:Margarita Jaramillo RN) Other Reason for Admission: Chronic HTN (07/07/2016 19:05:Margarita Jaramillo RN) Chief Complaint: Scheduled Induction of Labor (07/07/2016 19:24:Maryse Mittal RN) EGA per Dates: 37.3 (07/07/2016 19:05:QS system process) EGA per US: 88.6 (07/07/2016 19:05:QS system process) Method of Arrival: Ambulatory (07/07/2016 19:05:Margarita Jaramillo RN) Admitted From: Home (07/07/2016 19:05:Margarita Jaramillo RN) Reason for Induction: Chronic Hypertension (07/07/2016 19:05:Margarita Jaramillo RN) Records Available: Yes (07/07/2016 19:05:Margarita Jaramillo RN) General Admission Information: Reviewed; Updated; Confirmed (07/07/2016 19:05:Margarita Jaramillo RN) General Admission Reviewed By: Stuart Jaramillo [facility] (07/07/2016 19:05:Margarita Jaramillo RN) BELONGINGS/ADVANCED DIRECTIVES Valuables/Personal Effects: None (07/07/2016 19:05:Margarita Jaramillo RN) Other Belongings: See belongings consent (07/07/2016 19:05:Margarita Jaramillo RN) Disposition of Belongings: Kept with Patient (07/07/2016 19:05:Margarita Jaramillo RN) Advance Direct for Healthcare: No, and Wants No Information (07/07/2016 19:05:Margarita Jaramillo RN) Durable Power of Stock Preparer: No (07/07/2016 19:05:Margarita Jaramillo RN) Living Will: No (07/07/2016 19:05:Margarita Jaramillo RN) Organ Donor: No (07/07/2016 19:05:Margarita Jaramillo RN) Pt Rights Information Given: Yes (07/07/2016 19:05:Margarita Jaramillo RN) Pt Understands Pt Rights: Yes (07/07/2016 19:05:Margarita Jaramillo RN) LEARNING ASSESSMENT Knowledge Level: Understands L_D Process; Understands Care Activities; Had Pre-Hospital Education; Understands Diagnosis (07/07/2016 19:05:Margarita Jaramillo RN) Barriers to Learning: None (07/07/2016 19:05:Margarita Jaramillo RN) Learning Readiness: Motivated (07/07/2016 19:05:Margarita Jaramillo RN) Learns Best By: 1 to 1 Instruction; Reading; Videos; Demonstration (07/07/2016 19:05:Margarita Jaramillo RN) Learning Needs: Labor and Delivery Process; Pain Management; Symptoms to Report; Treatment Plan; Medication; Diagnosis; Nutrition; Equipment; Care; Community Resources (07/07/2016 19:05:Margarita Jaramillo RN) DOMESTIC VIOLANCE SCREENING Dom Viol Threatened/Hurt: No (07/07/2016 19:05:Margartia Jaramillo RN) Hx of Abuse/Neglect past 2yrs: No (07/07/2016 19:05:Margarita Jaramillo RN) Feel Unsafe Going Home: No (07/07/2016 19:05:Margarita Jaramillo RN) Addt'l Observ Indicating Abuse: No (07/07/2016 19:05:Margarita Jaramillo RN) Reason Unable to Complete Screen: N/A, Screen Completed (07/07/2016 19:05:Margarita Jaramillo RN) Considered Personal Harm/Suicide: No (07/07/2016 19:05:Margarita Jaramillo RN) NUTRITIONAL/FUNCTIONAL SCREENING Problem with Appetite >5 Days: No (07/07/2016 19:05:Margarita Jaramillo RN) Chew/Swallow Difficulties: No (07/07/2016 19:05:Margarita Jaramillo RN) Inappropriate Wt Gain/Loss: No (07/07/2016 19:05:Margarita Jaramillo RN) Presence Skin Breakdown/Ulcer: No (07/07/2016 19:05:Margarita Jaramillo RN) Special Diet: No (07/07/2016 19:05:Margarita Jaramillo RN) Pt Requests Time Study Technologist Visit: No (07/07/2016 19:05:Margarita Jaramillo RN) Hx of Any of the Following?: N/A (07/07/2016 19:05:Margarita Jaramillo RN) New Diagnosis of: N/A (07/07/2016 19:05:Margarita Jaramillo RN) Requires Assist w/Ambulation: No (07/07/2016 19:05:Margarita Jaramillo RN) Uses Assist Device to Ambulate: No (07/07/2016 19:05:Margarita Jaramillo RN) Pt Requires Help w/ADL's: No (07/07/2016 19:05:Margariat Jaramillo RN)
== END 2016-07-10 18:40 | disposition home or self-care (01) | DRG 775 ==
LOC: LR 17:33 → 2S 07-08 14:21
PROVIDERS: ADMIT Obstetrics & Gynecology; ATTEND Obstetrics & Gynecology
PROC: 10E0XZZ Delivery of Products of Conception, External Approach (ICD-10-PCS; principal; 2016-07-08)
PROC: 10907ZC Drainage of Amniotic Fluid, Therapeutic from Products of Conception, Via Natural or Artificial Opening (ICD-10-PCS; 2016-07-08)
PROC: 0HQ9XZZ Repair Perineum Skin, External Approach (ICD-10-PCS; 2016-07-08)
DX: O13.4 Gestational [pregnancy-induced] hypertension without significant proteinuria, complicating childbirth (principal); O14.94 Unspecified pre-eclampsia, complicating childbirth; O69.81X0 Labor and delivery complicated by cord around neck, without compression, not applicable or unspecified; O71.82 Other specified trauma to perineum and vulva; O99.214 Obesity complicating childbirth; Z3A.37 37 weeks gestation of pregnancy; Z37.0 Single live birth
CPT/HCPCS: 36415; 80053; 80307; 81001; 82803; 83615; 84550; 85025; 85027; 86592; 86850; 86900; 86901; 88307; J2300; J2370; J2550; J2590; J3010; J3490

== ENCOUNTER 2016-10-13 00:34 | Emergency (ER) | payer MEDICAID ==
[2016-10-13] MEDS ORDERED: ONDANSETRON HCL INJ/PF 4 MG/2 ML SDV IV ONE (00:41)
[2016-10-13] MEDS ORDERED: KETOROLAC TROMETHAMINE INJ/PF 30 MG/1 ML SDV IV ONE (00:41)
[2016-10-13 01:07] LABS: ABSOLUTE BASOPHILS # (AUTO) 0.1 10^3/uL (0.0-0.2); ABSOLUTE EOSINOPHILS # (AUTO) 0.5 10^3/uL (0.0-0.6); ABSOLUTE LYMPHOCYTES (AUTO) 4.2 10^3/uL (0.5-4.7); ABSOLUTE MONOCYTES (AUTO) 0.5 10^3/uL (0.1-1.4); ABSOLUTE NEUT (AUTO) 5.5 10^3/uL (1.7-8.2); BASOPHILS % (AUTO) 0.6 % (0-2); EOSINOPHILS % (AUTO) 4.3 % (0-6); HEMATOCRIT 41.7 % (36.0-47.0); HEMOGLOBIN 14.7 g/dL (12.0-15.5); HGB HCT DIFFERENCE 2.4; LYMPHOCYTES % (AUTO) 39.1 % (13-45); MEAN CORPUSCULAR HEMOGLOBIN 28.4 pg (27.0-33.4); MEAN CORPUSCULAR HGB CONC 35.2 g/dL (32.0-36.0); MEAN CORPUSCULAR VOLUME 81 fl (80-97); MONOCYTES % (AUTO) 4.7 % (3-13); RED BLOOD COUNT 5.18 10^6/uL (3.72-5.28); RED CELL DISTRIBUTION WIDTH 14.3 % (11.5-14.0); SEGMENTED NEUTROPHILS % (AUTO) 51.3 % (42-78); WHITE BLOOD COUNT 10.8 10^3/uL (4.0-10.5)
[2016-10-13 01:13] LABS: APPEARANCE,URINE SLIGHTLY-CLOUDY; BILIRUBIN,URINE NEGATIVE (NEGATIVE); GLUCOSE, URINE NEGATIVE (NEGATIVE); KETONES,URINE NEGATIVE (NEGATIVE); LEUKOCYTE ESTERASE,URINE MODERATE (NEGATIVE); NITRITE,URINE NEGATIVE (NEGATIVE); PROTEIN,URINE NEGATIVE (NEGATIVE); URINE SPECIFIC GRAVITY 1.024; UROBILINOGEN,URINE NEGATIVE mg/dL (<2.0)
[2016-10-13 01:34] LABS: ALANINE AMINOTRANSFERASE 27 U/L (9-52); ALBUMIN 4.6 g/dL (3.5-5.0); ALKALINE PHOSPHATASE 97 U/L (38-126); ANION GAP 16 (5-19); ASPARTATE AMINO TRANSFERASE 22 U/L (14-36); BILIRUBIN,DIRECT 0.1 mg/dL (0.0-0.4); BLOOD UREA NITROGEN 14 mg/dL (7-20); CALCIUM 9.7 mg/dL (8.4-10.2); CARBON DIOXIDE 24 mmol/L (22-30); CHLORIDE 105 mmol/L (98-107); CREATININE RESULT 0.67 mg/dL (0.52-1.25); GLUCOSE 121 mg/dL (75-110); LIPASE 107.8 U/L (23-300); POTASSIUM 3.6 mmol/L (3.6-5.0); SODIUM 144.9 mmol/L (137-145); TOTAL PROTEIN 7.6 g/dL (6.3-8.2)
--- NOTE | 2016-10-13 02:29 | ER Document Report ---
ED GI/ - General Chief Complaint: Abdominal Pain Stated Complaint: ABDOMINAL PAIN Mode of Arrival: Ambulatory Information source: Patient TRAVEL OUTSIDE OF THE [place] IN LAST 30 DAYS: No - HPI Patient complains to provider of: Abdominal pain, Diarrhea Notes: 10/13/16 02:25 Patient denies complaints of abdominal pain. She states that around 10:30 she felt she needed help bowel movement and then had a sudden sharp crampy pain in her middle abdomen. States that she sat down and had a bowel movement which was solid. And then felt nauseous. She had no vomiting. Since that time she has had progressively worsening watery stools. She states that she has intermittent crampy abdominal pain. This pain is migratory. Nothing seems to make it better or worse. She denies any severe abdominal pain currently. She denies any prior abdominal surgeries. She denies any fever. She denies any dysuria or hematuria. No vaginal bleeding or discharge. No rash. She denies any chest pain or shortness of breath. She denies any recent travel outside the [place], bad food, antibiotics. She denies any history of bowel disease. She did other complaints at this moment. - Related Data Allergies/Adverse Reactions: amoxicillin Allergy (Verified 10/13/16 01:24) rash Past Medical History - Social History Smoking Status: Unknown if Ever Smoked Family History: None Patient has suicidal ideation: No Patient has homicidal ideation: No Renal/ Medical History: Denies: Hx Peritoneal Dialysis - Immunizations Immunizations up to date: Yes Review of Systems - Review of Systems -: Yes All other systems reviewed and negative Physical Exam - Vital signs Vitals: Temp Pulse Resp BP Pulse Ox 97.5 F 77 18 150/103 H 100 10/13/16 00:36 10/13/16 00:36 10/13/16 00:36 10/13/16 00:36 10/13/16 00:36 - Notes Notes: GENERAL: alert, cooperative, nontoxic, no distress. HEAD: normocephalic, atraumatic EYES: conjunctiva pink without discharge, no external redness or swelling. EARS: no external swelling, no external redness NOSE: atraumatic, no external swelling MOUTH/THROAT: mucous membranes moist and pink, posterior pharynx without erythema, swelling, exudate. No trismus or drooling. NECK: soft, supple, full range of motion, no meningismus. CHEST: no distress, lungs clear and equal throughout. No wheezing, rales, rhonchi. CARDIAC: regular rate and rhythm, no murmur, normal capillary refill, normal pulses. No peripheral edema noted. ABDOMEN: Soft, nontender. No rebound tenderness or guarding. BACK: full range of motion, no CVA tenderness. EXTREMITIES: full range of motion of all extremities. No redness, no swelling. NEURO: alert and oriented 3, no focal deficits, full range of motion of all extremities. PYSCH: appropriate mood, affect. Patient is cooperative. SKIN: pink, warm, dry, no rash. Course - Re-evaluation Re-evalutation: 10/13/16 02:27 Patient is nontoxic-appearing with stable vitals. The patient has no significant tenderness on her abdominal exam at this time. She has waves of crampy abdominal pain that is migratory in nature. She is now having diarrhea. She denies any known sick contacts. Her lab work is all unremarkable and reassuring. Urine shows potential infection but more likely to be contamination. She has no urinary symptoms at this time, therefore urine culture has been ordered. Discussed CT scanning in this patient. She declined a CT scan at this time, I'm in agreement with this as she has a benign abdominal exam is more likely to have gastroenteritis based on her symptoms and her exam at this time. I did instruct her to return to the emergency department for any worsening constant abdominal pain specifically in the right lower quadrant. The patient is noted to have elevated blood pressure during today's emergency department visit. The patient was informed of this finding. The patient was instructed that this may be related to pre-hypertension and requires further evaluation with a primary care provider. The patient has no hypertensive symptoms at this time. The patient's evaluation of abdominal pain showed no obvious reason for pain during this emergency department visit today. I explained that there is the possibility that there could be a serious reason for the abdominal pain that was not discovered with today's workup. I stressed the importance of close observation as well as close follow-up for re-evaluation of the abdominal pain. The patient and/or family verbalized understanding of these instructions. He will be instructed to return immediately to the emergency department for increased abdominal pain, persistent vomiting, blood in vomit or stool, or any other change in symptoms or concerns. The patient's emergency department workup and current diagnosis were explained to the patient and or family. Follow-up instructions were provided. Medications if prescribed were discussed. Instructions for when to return to the emergency department including specific worrisome symptoms were discussed with the patient and/or family. - Vital Signs Vital signs: Temp Pulse Resp BP Pulse Ox 97.5 F 77 18 150/103 H 100 10/13/16 00:36 10/13/16 00:36 10/13/16 00:36 10/13/16 00:36 10/13/16 00:36 - Laboratory Result Diagrams: 10/13/16 00:50 10/13/16 00:50 Laboratory results interpreted by me: 10/13/16 10/13/16 10/13/16 00:50 00:50 00:50 WBC 10.8 H RDW 14.3 H Glucose 121 H Ur Leukocyte Esterase MODERATE H Discharge - Discharge Clinical Impression: Abdominal pain Qualifiers: Abdominal location: generalized Qualified Code(s): R10.84 - Generalized abdominal pain Diarrhea Qualifiers: Diarrhea type: unspecified type Qualified Code(s): R19.7 - Diarrhea, unspecified Condition: Stable Disposition: HOME, SELF-CARE Instructions: Abdominal Pain ([facility]), Diarrhea, Nonspecific ([facility]) Additional Instructions: Drink lots of fluids. Tylenol and Motrin as needed for pain. Follow-up with your doctor if not better in 1-2 days. Follow-up sooner or return to emergency department for severe constant abdominal pain. Specifically abdominal pain in the right lower quadrant. Follow-up sooner for blood in her stool, high fevers , or for any further concerns. Your blood pressure was elevated during today's visit. Have this rechecked with your doctor.
[2016-10-13 02:48] VITALS: BP 110/64
== END 2016-10-13 02:47 | disposition home or self-care (01) ==
LOC: ER 00:34
DX: R10.84 Generalized abdominal pain (principal); R19.7 Diarrhea, unspecified; R11.0 Nausea; R03.0 Elevated blood-pressure reading, without diagnosis of hypertension; Z88.0 Allergy status to penicillin
CPT/HCPCS: 36415; 80053; 81001; 83690; 85025; 87086; 87088; 99284

== ENCOUNTER 2017-02-17 07:15 | Day surgery (SDC) | payer MEDICAID ==
[2017-02-17] MEDS ORDERED: PROPOFOL INJ 200 MG/20 ML VIAL IV ONE (07:17)
[2017-02-17 10:57] VITALS: BP 124/70
--- NOTE | 2017-02-17 14:28 | Operative Report ---
Operative Report DATE OF SURGERY: 02/17/17 Operative Report: The risks, benefits and alternatives of the procedure including risks of bleeding, perforation requiring surgery are explained to the patient detail and informed consent is obtained. The patient is brought back to the endoscopy suite and placed in a left, lateral decubital position. Timeout was called. Propofol medications administered. A rectal examination was done which did not reveal any masses, tears or fissures. An Olympus videoscope was inserted into the patient's rectum. The scope was then carefully guided all the way to the cecum. The cecum was identified by the usual anatomical landmarks including the ileocecal valve as well as appendiceal office. Photodocumentation is obtained. The scope was then sequentially pulled back via the various segments of the colon including the ascending colon, hepatic flexure, transverse colon, splenic flexure, descending colon finally to the rectosigmoid portions of the colon. Retroflexion maneuver was performed. PREOPERATIVE DIAGNOSIS: Change in bowel habits POSTOPERATIVE DIAGNOSIS: Mild terminal ileitis status post biopsy. Internal hemorrhoids. Random right side colon biopsies to rule out collagenous, lymphocytic, microscopic colitis. OPERATION: Colonoscopy with biopsy SURGEON: RACHEL OLSON ANESTHESIA: LMAC TISSUE REMOVED OR ALTERED: As described above. COMPLICATIONS: None. ESTIMATED BLOOD LOSS: None. INTRAOPERATIVE FINDINGS: As described above. PROCEDURE: Patient tolerated procedure well. No immediate postprocedure complications are noted. Patient discharged in good condition. Discharge date 02/17/2017. Discharge diet: Regular. Discharge activity: Regular. 2-3 week follow-up to discuss findings. Patient is instructed to call the office or proceed to the emergency room should there be any further problems or questions. We will wait on pathology.
== END 2017-02-17 10:20 | disposition home or self-care (01) ==
LOC: END 07:15
PROVIDERS: ATTEND Internal Medicine Gastroenterology
PROC: 0DBF8ZX Excision of Right Large Intestine, Via Natural or Artificial Opening Endoscopic, Diagnostic (ICD-10-PCS; 2017-02-17)
PROC: 0DBB8ZX Excision of Ileum, Via Natural or Artificial Opening Endoscopic, Diagnostic (ICD-10-PCS; principal; 2017-02-17 08:30)
DX: K64.8 Other hemorrhoids (principal); K52.9 Noninfective gastroenteritis and colitis, unspecified
CPT/HCPCS: 45380; 81025; 88305 ×2; J2704; 810

== ENCOUNTER 2017-03-31 10:37 | Day surgery (SDC) | payer MEDICAID ==
[~2017-03-31 10:37] MED LIST: PROPOFOL INJ 200 MG/20 ML VIAL IV ONE
[2017-03-31 12:20] VITALS: BP 127/87
--- NOTE | 2017-03-31 12:23 | Operative Report ---
Operative Report DATE OF SURGERY: 03/31/17 Operative Report: The risks benefits and alternatives of the procedure explained to the patient in detail and informed consent is obtained.A GIF Olympus video scope was inserted into the patient's mouth and hypopharynx, the esophagus is identified intubated and insufflated ,the scope was then advanced through the esophagus stomach and duodenum, retroflexion maneuver is done, the esophagus stomach and first and second portions of the duodenum examined PREOPERATIVE DIAGNOSIS: Nausea vomiting left upper quadrant pain POSTOPERATIVE DIAGNOSIS: Distal esophagitis biopsies obtained to rule out Santiago's esophagus. Gastritis status post biopsy rule out Helicobacter pylori. Duodenitis status post biopsy rule out celiac sprue OPERATION: EGD with biopsy SURGEON: RACHEL OLSON ANESTHESIA: LMAC TISSUE REMOVED OR ALTERED: As noted above. COMPLICATIONS: None. ESTIMATED BLOOD LOSS: None. INTRAOPERATIVE FINDINGS: As described above. PROCEDURE: Patient tolerated procedure well. No immediate postprocedure complications are noted. Patient discharged in good condition. Discharge date March 31, 2017. Discharge diet: Regular. Discharge activity: Regular. 2-3 week follow-up to discuss findings. Patient is instructed to call the office or proceed to the emergency room should there be any further problems or questions. We will wait on pathology and treat as necessary.
== END 2017-03-31 12:20 | disposition home or self-care (01) ==
LOC: END 10:37
PROVIDERS: ATTEND Internal Medicine Gastroenterology
PROC: 0DB98ZX Excision of Duodenum, Via Natural or Artificial Opening Endoscopic, Diagnostic (ICD-10-PCS; 2017-03-31)
PROC: 0DB58ZX Excision of Esophagus, Via Natural or Artificial Opening Endoscopic, Diagnostic (ICD-10-PCS; 2017-03-31)
PROC: 0DB68ZX Excision of Stomach, Via Natural or Artificial Opening Endoscopic, Diagnostic (ICD-10-PCS; principal; 2017-03-31 14:00)
DX: K29.50 Unspecified chronic gastritis without bleeding (principal); K20.9 Esophagitis, unspecified; K29.80 Duodenitis without bleeding; I10 Essential (primary) hypertension; Z88.0 Allergy status to penicillin
CPT/HCPCS: 43239; 88305 ×2; J2704

== ENCOUNTER 2017-05-15 05:05 | Emergency (ER) | payer MEDICAID ==
[2017-05-15] MEDS ORDERED: KETOROLAC TROMETHAMINE INJ/PF 30 MG/1 ML SDV IV ONE (05:27)
[2017-05-15] MEDS ORDERED: ONDANSETRON HCL INJ/PF 4 MG/2 ML SDV IV ONE (05:27)
--- NOTE | 2017-05-15 05:31 | ER Document Report ---
ED GI/ - General Chief Complaint: Abdominal Pain Stated Complaint: STOMACH PAIN RADIATES TO BACK PAIN Time Seen by Provider: 05/15/17 05:19 Notes: Patient is a 27-year-old female comes emergency department for chief complaint of pain in her mid upper abdomen with nausea, she states that the pain started just over an hour ago, is sharp, she states she can also feel it in her back. She denies vomiting, fever, reports normal bowel movements. She states that she recently had an endoscopy and colonoscopy because of upper abdominal pains and was shown to have GERD and a hiatal hernia. She is on no daily medications. She denies any surgeries. TRAVEL OUTSIDE OF THE [place] IN LAST 30 DAYS: No - Related Data Allergies/Adverse Reactions: amoxicillin Allergy (Verified 05/15/17 05:12) rash Past Medical History - General Information source: Patient - Social History Smoking Status: Never Smoker Frequency of alcohol use: Occasional Drug Abuse: None Lives with: Family Family History: None Patient has suicidal ideation: No Patient has homicidal ideation: No - Past Medical History Cardiac Medical History: Reports: Hx Hypertension - WITH Denies: Hx Coronary Artery Disease, Hx Heart Attack Pulmonary Medical History: Denies: Hx Asthma, Hx Bronchitis, Hx COPD, Hx Pneumonia Neurological Medical History: Denies: Hx Seizures Renal/ Medical History: Denies: Hx Peritoneal Dialysis GI Medical History: Reports: Hx Gastroesophageal Reflux Disease, Hx Hiatal Hernia Musculoskeltal Medical History: Denies Hx Arthritis Surgical Hx: Negative - Immunizations Immunizations up to date: Yes Hx Diphtheria, Pertussis, Tetanus Vaccination: Yes Review of Systems - Review of Systems Constitutional: No symptoms reported EENT: No symptoms reported Cardiovascular: No symptoms reported Respiratory: No symptoms reported Gastrointestinal: See HPI Genitourinary: No symptoms reported Female Genitourinary: No symptoms reported Musculoskeletal: No symptoms reported Skin: No symptoms reported Hematologic/Lymphatic: No symptoms reported Neurological/Psychological: No symptoms reported Physical Exam - Vital signs Vitals: Temp Pulse Resp BP Pulse Ox 97.5 F 70 18 140/86 H 97 05/15/17 05:12 05/15/17 05:12 05/15/17 05:12 05/15/17 05:12 05/15/17 05:12 Interpretation: Normal - General General appearance: Appears well, Alert In distress: None - HEENT Head: Normocephalic, Atraumatic Eyes: Normal Pupils: PERRL - Respiratory Respiratory status: No respiratory distress Chest status: Nontender Breath sounds: Normal Chest palpation: Normal - Cardiovascular Rhythm: Regular Heart sounds: Normal auscultation Murmur: No - Abdominal Inspection: Normal Distension: No distension Bowel sounds: Normal Tenderness: Tender, Mcdonald's sign - Back Back: Normal, Nontender. No: Tender - Extremities General upper extremity: Normal inspection, Nontender, Normal color, Normal ROM , Normal temperature General lower extremity: Normal inspection, Nontender, Normal color, Normal ROM , Normal temperature, Normal weight bearing. No: Delphine's sign - Neurological Neuro grossly intact: Yes Cognition: Normal Orientation: AAOx4 Lexis Coma Scale Eye Opening: Spontaneous Bowlegs Coma Scale Verbal: Oriented Bowlegs Coma Scale Motor: Obeys Commands Bowlegs Coma Scale Total: 15 Speech: Normal Motor strength normal: LUE, RUE, LLE, RLE Sensory: Normal - Psychological Associated symptoms: Normal affect, Normal mood - Skin Skin Temperature: Warm Skin Moisture: Dry Skin Color: Normal Course - Re-evaluation Re-evalutation: On reexamination patient does not have any pain symptoms. No vomiting. CBC, chemistry, lipase, urinalysis unremarkable. HCG is negative. Ultrasound is negative for any concerning abnormalities, shows questionable stone, questionable sludge, no obstructive abnormality or infection. Discussed this with patient. She is requesting to leave. Provided with a copy of her report. Based on her reported symptoms, history, I do suspect this is more hiatal hernia/gastritis/esophagitis. Providing treatments for this, discussed recommendations, discussed return precautions in detail. Patient states understanding and agreement. - Vital Signs Vital signs: Temp Pulse Resp BP Pulse Ox 97.5 F 70 18 126/76 H 99 05/15/17 05:12 05/15/17 05:12 05/15/17 05:12 05/15/17 06:00 05/15/17 06:01 - Laboratory Result Diagrams: 05/15/17 05:30 05/15/17 05:30 Laboratory results interpreted by me: 05/15/17 05/15/17 05:30 06:37 Total Bilirubin 1.5 H Ur Leukocyte Esterase TRACE H Discharge - Discharge Clinical Impression: Upper abdominal pain Condition: Stable Disposition: HOME, SELF-CARE Additional Instructions: Your ultrasound does not show any specific abnormalities. Questionable sludge was seen, possible stone but not definite. My recommendation is to follow-up with gastroenterology, take the Carafate and Pepcid, avoid NSAIDs, caffeine, spicy foods, fatty foods, alcohol, smoking. Return to emergency department for any concerning or worsening symptoms including return or worsening pain, vomiting, vomiting blood, black stools, or any other concerning symptoms. Prescriptions: Famotidine [Pepcid 20 mg Tablet] 20 mg PO BID #20 tablet Sucralfate [Carafate 1 gm Tablet] 1 gm PO QID #20 tablet
[2017-05-15 05:54] LABS: ABSOLUTE BASOPHILS # (AUTO) 0.1 10^3/uL (0.0-0.2); ABSOLUTE EOSINOPHILS # (AUTO) 0.5 10^3/uL (0.0-0.6); ABSOLUTE LYMPHOCYTES (AUTO) 3.4 10^3/uL (0.5-4.7); ABSOLUTE MONOCYTES (AUTO) 0.5 10^3/uL (0.1-1.4); ABSOLUTE NEUT (AUTO) 4.2 10^3/uL (1.7-8.2); BASOPHILS % (AUTO) 0.9 % (0-2); EOSINOPHILS % (AUTO) 5.6 % (0-6); HEMATOCRIT 40.4 % (36.0-47.0); HEMOGLOBIN 14.2 g/dL (12.0-15.5); HGB HCT DIFFERENCE 2.2; LYMPHOCYTES % (AUTO) 39.4 % (13-45); MEAN CORPUSCULAR HEMOGLOBIN 28.8 pg (27.0-33.4); MEAN CORPUSCULAR HGB CONC 35.2 g/dL (32.0-36.0); MEAN CORPUSCULAR VOLUME 82 fl (80-97); MONOCYTES % (AUTO) 6.1 % (3-13); RED BLOOD COUNT 4.94 10^6/uL (3.72-5.28); RED CELL DISTRIBUTION WIDTH 13.7 % (11.5-14.0); WHITE BLOOD COUNT 8.7 10^3/uL (4.0-10.5)
[2017-05-15 06:11] LABS: ALANINE AMINOTRANSFERASE 26 U/L (9-52); ALBUMIN 4.4 g/dL (3.5-5.0); ALKALINE PHOSPHATASE 84 U/L (38-126); ASPARTATE AMINO TRANSFERASE 20 U/L (14-36); BILIRUBIN,DIRECT 0.4 mg/dL (0.0-0.4); BILIRUBIN,TOTAL 1.5 mg/dL (0.2-1.3); BLOOD UREA NITROGEN 14 mg/dL (7-20); CALCIUM 9.3 mg/dL (8.4-10.2); CARBON DIOXIDE 22 mmol/L (22-30); CHLORIDE 105 mmol/L (98-107); CREATININE RESULT 0.67 mg/dL (0.52-1.25); GLUCOSE 82 mg/dL (75-110); LIPASE 150.6 U/L (23-300); POTASSIUM 3.9 mmol/L (3.6-5.0); TOTAL PROTEIN 7.1 g/dL (6.3-8.2)
[2017-05-15 06:13] LABS: ANION GAP 16 (5-19); SODIUM 142.7 mmol/L (137-145)
--- NOTE | 2017-05-15 06:55 | RADIOLOGY REPORT (SQ) ---
EXAM DESCRIPTION: U/S ABDOMEN LIMITED W/O DOP CLINICAL HISTORY: RUQ and epigastric pain, nausea COMPARISON: None. TECHNIQUE: Real-time sonographic images of the right upper abdomen were obtained using a curved multihertz transducer. FINDINGS: The visualized portions of the pancreas are unremarkable. The visualized portions of the aorta and IVC are unremarkable. The liver has normal contour and echogenicity. The common bile duct measures 0.2 cm. Hepatopedal flow in the portal vein. Mobile echogenic structures in the gallbladder lumen without definite posterior acoustic shadowing. Negative reported sonographic Mcdonald sign. Normal wall thickness. No pericholecystic fluid. The right kidney measures 11.3 cm in length. No hydronephrosis, solid renal mass, or shadowing calculi. IMPRESSION: 1. Mobile echogenic structure in the gallbladder lumen without posterior shadowing may represent a sludge ball or nonechogenic gallstone. No other sonographic evidence of acute cholecystitis.
[2017-05-15 07:06] LABS: APPEARANCE,URINE SLIGHTLY-CLOUDY; BILIRUBIN,URINE NEGATIVE (NEGATIVE); GLUCOSE, URINE NEGATIVE (NEGATIVE); KETONES,URINE NEGATIVE (NEGATIVE); LEUKOCYTE ESTERASE,URINE TRACE (NEGATIVE); NITRITE,URINE NEGATIVE (NEGATIVE); PROTEIN,URINE NEGATIVE (NEGATIVE); URINE SPECIFIC GRAVITY 1.017; UROBILINOGEN,URINE NEGATIVE mg/dL (<2.0)
[2017-05-15] MEDS ORDERED: FAMOTIDINE 20 MG TABLET PO ONE (07:18)
[2017-05-15] MEDS ORDERED: SUCRALFATE 1 GM TABLET PO ONE (07:18)
[2017-05-15 07:41] VITALS: BP 136/81
== END 2017-05-15 07:41 | disposition home or self-care (01) ==
LOC: ER 05:05
DX: R10.10 Upper abdominal pain, unspecified (principal); R11.0 Nausea; Z88.0 Allergy status to penicillin
CPT/HCPCS: 99284; 96374; 96375; 36415; 83690; 85025; 81025; 80053; 81001; 76705; J3490 ×2; J1885; J2405

== ENCOUNTER 2017-07-28 14:18 | Emergency (ER) | payer MEDICAID ==
[2017-07-28] MEDS ORDERED: NORMAL SALINE 1000 ML 1,000 ML IV ONE (15:09)
[2017-07-28] MEDS ORDERED: KETOROLAC TROMETHAMINE INJ/PF 30 MG/1 ML SDV IV ONE (15:09)
--- NOTE | 2017-07-28 15:09 | ER Document Report ---
ED Medical Screen (RME) - General Chief Complaint: Abdominal Pain Stated Complaint: ABDOMINAL PAIN Time Seen by Provider: 07/28/17 15:07 Mode of Arrival: Wheelchair Information source: Patient TRAVEL OUTSIDE OF THE [place] IN LAST 30 DAYS: No - HPI Patient complains to provider of: abd pain Onset: Just prior to arrival - pt. with onset of severe generalized abdominal pain starting earlier this afternoon. Denies N/V - Related Data Allergies/Adverse Reactions: amoxicillin Allergy (Verified 07/28/17 14:22) rash Past Medical History - Social History Chew tobacco use (# tins/day): No Frequency of alcohol use: Occasional Drug Abuse: None - Past Medical History Cardiac Medical History: Reports: Hx Hypertension - WITH Denies: Hx Coronary Artery Disease, Hx Heart Attack Pulmonary Medical History: Denies: Hx Asthma, Hx Bronchitis, Hx COPD, Hx Pneumonia Neurological Medical History: Denies: Hx Seizures Renal/ Medical History: Denies: Hx Peritoneal Dialysis GI Medical History: Reports: Hx Gastroesophageal Reflux Disease, Hx Hiatal Hernia Musculoskeltal Medical History: Denies Hx Arthritis - Immunizations Immunizations up to date: Yes Hx Diphtheria, Pertussis, Tetanus Vaccination: Yes Physical Exam - Vital signs Vitals: Temp Pulse Resp BP Pulse Ox 97.6 F 68 20 138/115 H 100 07/28/17 14:33 07/28/17 14:33 07/28/17 14:33 07/28/17 14:33 07/28/17 14:33 Course - Vital Signs Vital signs: Temp Pulse Resp BP Pulse Ox 97.6 F 68 20 138/115 H 100 07/28/17 14:33 07/28/17 14:33 07/28/17 14:53 07/28/17 14:33 07/28/17 14:33
[2017-07-28 16:37] LABS: APPEARANCE,URINE SLIGHTLY-CLOUDY; BILIRUBIN,URINE NEGATIVE (NEGATIVE); COLOR,URINE YELLOW; GLUCOSE, URINE NEGATIVE (NEGATIVE); KETONES,URINE 20 mg/dL (NEGATIVE); LEUKOCYTE ESTERASE,URINE NEGATIVE (NEGATIVE); NITRITE,URINE NEGATIVE (NEGATIVE); PROTEIN,URINE NEGATIVE (NEGATIVE); URINE SPECIFIC GRAVITY 1.023; UROBILINOGEN,URINE NEGATIVE mg/dL (<2.0)
[2017-07-28 16:47] LABS: ABSOLUTE EOSINOPHILS # (AUTO) 0.1 10^3/uL (0.0-0.6); ABSOLUTE LYMPHOCYTES (AUTO) 1.4 10^3/uL (0.5-4.7); ABSOLUTE MONOCYTES (AUTO) 0.6 10^3/uL (0.1-1.4); ABSOLUTE NEUT (AUTO) 13.3 10^3/uL (1.7-8.2); BASOPHILS % (AUTO) 0.2 % (0-2); EOSINOPHILS % (AUTO) 0.6 % (0-6); HEMATOCRIT 42.5 % (36.0-47.0); HEMOGLOBIN 14.7 g/dL (12.0-15.5); LYMPHOCYTES % (AUTO) 8.9 % (13-45); MEAN CORPUSCULAR HEMOGLOBIN 28.3 pg (27.0-33.4); MEAN CORPUSCULAR HGB CONC 34.6 g/dL (32.0-36.0); MEAN CORPUSCULAR VOLUME 82 fl (80-97); PLATELET COUNT 307 10^3/uL (150-450); RED BLOOD COUNT 5.19 10^6/uL (3.72-5.28); RED CELL DISTRIBUTION WIDTH 13.9 % (11.5-14.0); SEGMENTED NEUTROPHILS % (AUTO) 86.3 % (42-78); TOTAL CELLS COUNTED % (AUTO) 100 %; WHITE BLOOD COUNT 15.4 10^3/uL (4.0-10.5)
[2017-07-28 17:05] LABS: ALANINE AMINOTRANSFERASE 68 U/L (9-52); ALBUMIN 4.5 g/dL (3.5-5.0); ALKALINE PHOSPHATASE 99 U/L (38-126); ANION GAP 11 (5-19); ASPARTATE AMINO TRANSFERASE 136 U/L (14-36); BILIRUBIN,DIRECT 0.2 mg/dL (0.0-0.4); BILIRUBIN,TOTAL 1.5 mg/dL (0.2-1.3); BLOOD UREA NITROGEN 15 mg/dL (7-20); CALCIUM 10.2 mg/dL (8.4-10.2); CARBON DIOXIDE 25 mmol/L (22-30); CHLORIDE 102 mmol/L (98-107); GLUCOSE 136 mg/dL (75-110); LIPASE 118.5 U/L (23-300); POTASSIUM 3.6 mmol/L (3.6-5.0); SODIUM 138.3 mmol/L (137-145); TOTAL PROTEIN 7.5 g/dL (6.3-8.2)
--- NOTE | 2017-07-28 18:01 | RADIOLOGY REPORT (SQ) ---
EXAM DESCRIPTION: CT ABD/PELVIS NO ORAL OR IV COMPLETED DATE/TIME: 07/28/2017 5:51 pm REASON FOR STUDY: abd pain COMPARISON: None. TECHNIQUE: CT scan of the abdomen and pelvis performed without intravenous or oral contrast. Images reviewed with lung, soft tissue, and bone windows. Reconstructed coronal and sagittal MPR images revi ewed. All images stored on PACS. All CT scanners at this facility use dose modulation, iterative reconstruction, and/or weight based d osing when appropriate to reduce radiation dose to as low as reasonably achievable (ALARA). [facility]: Dose Right [facility]: CareDose [facility]: Dose Right [facility]: Teradose 4D [facility]: Smart AquaMobile RADIATION DOSE: CT Rad equipment meets quality standard of care and radiation dose reduction techniq ues were employed. CTDIvol: 13.1 mGy. DLP: 723 mGy-cm.mGy. LIMITATIONS: None. FINDINGS: LOWER CHEST: No significant findings. No nodules or infiltrates. NON-CONTRASTED LIVER, SPLEEN, ADRENALS: Evaluation limited by lack of IV contrast. No identified sign ificant masses. PANCREAS: No masses. No peripancreatic inflammatory changes. GALLBLADDER: No identified stones by CT criteria. No inflammatory changes to suggest cholecystitis. RIGHT KIDNEY AND URETER: No suspicious masses. Assessment limited by lack of IV contrast. No signif icant calcifications. No hydronephrosis or hydroureter. LEFT KIDNEY AND URETER: No suspicious masses. Assessment limited by lack of IV contrast. No signifi cant calcifications. No hydronephrosis or hydroureter. AORTA AND RETROPERITONEUM: No aneurysm. No retroperitoneal masses or adenopathy. BOWEL AND PERITONEAL CAVITY: No obvious masses or inflammatory changes. No free fluid. APPENDIX: Normal. PELVIS, BLADDER, AND ABDOMINAL WALL:No abnormal masses. No free fluid. Bladder normal. BONES: No significant findings. OTHER: No other significant finding. IMPRESSION: NO SIGNIFICANT OR ACUTE PROCESS IN THE ABDOMEN OR PELVIS. COMMENT: Quality ID # [id number]: Final reports with documentation of one or more dose reduction techniques (e.g., Automated exposure control, adjustment of the mA and/or kV according to patient size, use of iterative reconstruction technique) TECHNICAL DOCUMENTATION: JOB ID: [id number]- All Rights Reserved
--- NOTE | 2017-07-28 18:21 | ER Document Report ---
ED General - General Chief Complaint: Abdominal Pain Stated Complaint: ABDOMINAL PAIN Time Seen by Provider: 07/28/17 15:07 Mode of Arrival: Wheelchair Information source: Patient Notes: 27-year-old female presents with complaints of epigastric right upper quadrant abdominal pain. Patient denies any fevers or chills. P notes that the pain occured once before sharp, denies any symptoms now and feels pain free. TRAVEL OUTSIDE OF THE [place] IN LAST 30 DAYS: No - HPI Onset: Just prior to arrival Onset/Duration: Sudden Quality of pain: Sharp Severity: Mild Pain Level: 1 Associated symptoms: Other Exacerbated by: Denies Relieved by: Denies Similar symptoms previously: Yes Recently seen / treated by doctor: No - Related Data Allergies/Adverse Reactions: amoxicillin Allergy (Verified 07/28/17 14:22) rash Past Medical History - General Information source: Patient - Social History Smoking Status: Never Smoker Cigarette use (# per day): No Chew tobacco use (# tins/day): No Smoking Education Provided: No Frequency of alcohol use: Occasional Drug Abuse: None Family History: None Patient has suicidal ideation: No Patient has homicidal ideation: No - Past Medical History Cardiac Medical History: Reports: Hx Hypertension - WITH Denies: Hx Coronary Artery Disease, Hx Heart Attack Pulmonary Medical History: Denies: Hx Asthma, Hx Bronchitis, Hx COPD, Hx Pneumonia Neurological Medical History: Denies: Hx Seizures Renal/ Medical History: Denies: Hx Peritoneal Dialysis GI Medical History: Reports: Hx Gastroesophageal Reflux Disease, Hx Hiatal Hernia Musculoskeltal Medical History: Denies Hx Arthritis - Immunizations Immunizations up to date: Yes Hx Diphtheria, Pertussis, Tetanus Vaccination: Yes Review of Systems - Review of Systems Notes: REVIEW OF SYSTEMS: CONSTITUTIONAL : Denies fever, chills, or sweats. Denies recent illness. EENT: Denies eye, ear, throat, or mouth pain or symptoms. Denies nasal or sinus congestion or discharge. Denies throat, tongue, or mouth swelling or difficulty swallowing. CARDIOVASCULAR: Denies chest pain. Denies palpitations or racing or irregular heart beat. Denies ankle edema. RESPIRATORY: Denies cough, cold, or chest congestion. Denies shortness of breath, difficulty breathing, or wheezing. GASTROINTESTINAL: ruq pain GENITOURINARY: Denies difficulty urinating, painful urination, burning, frequency, blood in urine, or discharge. FEMALE GENITOURINARY: Denies vaginal bleeding, heavy or abnormal periods, irregular periods. Denies vaginal discharge or odor. MUSCULOSKELETAL: Denies back or neck pain or stiffness. Denies joint pain or swelling. SKIN: Denies rash, lesions or sores. HEMATOLOGIC : Denies easy bruising or bleeding. LYMPHATIC: Denies swollen, enlarged glands. NEUROLOGICAL: Denies confusion or altered mental status. Denies passing out or loss of consciousness. Denies dizziness or lightheadedness. Denies headache. Denies weakness or paralysis or loss of use of either side. Denies problems with gait or speech. Denies sensory loss, numbness, or tingling. Denies seizures. PSYCHIATRIC: Denies anxiety or stress. Denies depression, suicidal ideation, or homicidal ideation. ALL OTHER SYSTEMS REVIEWED AND NEGATIVE. PHYSICAL EXAMINATION: GENERAL: Well-appearing, well-nourished and in no acute distress. HEAD: Atraumatic, normocephalic. EYES: Pupils equal round and reactive to light, extraocular movements intact, conjunctiva are normal. ENT: Nares patent, oropharynx clear without exudates. Moist mucous membranes. NECK: Normal range of motion, supple without lymphadenopathy LUNGS: Breath sounds clear to auscultation bilaterally and equal. No wheezes rales or rhonchi. HEART: Regular rate and rhythm without murmurs ABDOMEN: Soft, nontender, nondistended abdomen. No guarding, no rebound. No masses appreciated. Female : deferred Musculoskeletal: Normal range of motion, no pitting or edema. No cyanosis. NEUROLOGICAL: Cranial nerves grossly intact. Normal speech, normal gait. Normal sensory, motor exams PSYCH: Normal mood, normal affect. SKIN: Warm, Dry, normal turgor, no rashes or lesions noted. Dictation was performed using [employer] voice recognition software Physical Exam - Vital signs Vitals: Temp Pulse Resp BP Pulse Ox 97.6 F 68 20 138/115 H 100 07/28/17 14:33 07/28/17 14:33 07/28/17 14:33 07/28/17 14:33 07/28/17 14:33 Course - Re-evaluation Re-evalutation: 07/28/17 22:33 Patient's examination is extremely benign she is pain-free wishes to be discharged at this time lab work notes no significant abnormalities of her mild white count elevation which could been secondary to the pain but patient states she has no pain at this time wishes to go home. I will have her follow-up with surgical list as needed. CT noted no acute abnormality examination has no tenderness at all After performing a Medical Screening Examination, I estimate there is LOW risk for ACUTE APPENDICITIS, BOWEL OBSTRUCTION, ACUTE CHOLECYSTITIS, PERFORATED DIVERTICULITIS, INCARCERATED HERNIA, PANCREATITIS, PELVIC INFLAMMATORY DISEASE, PERFORATED ULCER, ECTOPIC , or TUBO-OVARIAN ABSCESS, thus I consider the discharge disposition reasonable. Also, there is no evidence or peritonitis , sepsis, or toxicity. I have reevaluated this patient multiple times and no significant life threatening changes are noted. The patient and I have discussed the diagnosis and risks, and we agree with discharging home with close follow-up with the understanding that symptoms and presentations can change. We also discussed returning to the Emergency Department immediately if new or worsening symptoms occur. We have discussed the symptoms which are most concerning (e.g., bloody stool, fever, changing or worsening pain, vomiting) that necessitate immediate return. - Vital Signs Vital signs: Temp Pulse Resp BP Pulse Ox 98.2 F 70 16 135/81 H 100 07/28/17 18:47 07/28/17 18:47 07/28/17 18:47 07/28/17 18:47 07/28/17 18:47 - Laboratory Result Diagrams: 07/28/17 16:20 07/28/17 16:20 Laboratory results interpreted by me: 07/28/17 07/28/17 07/28/17 16:10 16:20 16:20 WBC 15.4 H Seg Neutrophils % 86.3 H Lymphocytes % 8.9 L Absolute Neutrophils 13.3 H Glucose 136 H Total Bilirubin 1.5 H AST 136 H ALT 68 H Urine Ketones 20 H - Diagnostic Test Radiology reviewed: Image reviewed, Reports reviewed Discharge - Discharge Clinical Impression: Abdominal pain Qualifiers: Abdominal location: right upper quadrant Qualified Code(s): R10.11 - Right upper quadrant pain Condition: Stable Disposition: HOME, SELF-CARE Instructions: Abdominal Pain ([facility]), Gallbladder Disease ([facility]) Referrals: JAIRO GREEN MD [ACTIVE STAFF] - Follow up in 3-5 days
[2017-07-28 18:50] VITALS: BP 135/81
== END 2017-07-28 18:50 | disposition home or self-care (01) ==
LOC: ER 14:18
DX: R10.11 Right upper quadrant pain (principal); R10.13 Epigastric pain
CPT/HCPCS: 99284; 96361; 96374; 36415; 83690; 85025; 81025; 80053; 81001; 74176; J1885; J7030

== ENCOUNTER 2017-08-15 07:25 | Day surgery (SDC) | payer MEDICAID ==
[2017-08-11 10:55] LABS: ABSOLUTE BASOPHILS # (AUTO) 0.1 10^3/uL (0.0-0.2); ABSOLUTE EOSINOPHILS # (AUTO) 0.3 10^3/uL (0.0-0.6); ABSOLUTE LYMPHOCYTES (AUTO) 2.6 10^3/uL (0.5-4.7); ABSOLUTE MONOCYTES (AUTO) 0.4 10^3/uL (0.1-1.4); ABSOLUTE NEUT (AUTO) 4.5 10^3/uL (1.7-8.2); BASOPHILS % (AUTO) 0.7 % (0-2); EOSINOPHILS % (AUTO) 4.4 % (0-6); HEMATOCRIT 40.2 % (36.0-47.0); LYMPHOCYTES % (AUTO) 32.7 % (13-45); MEAN CORPUSCULAR HEMOGLOBIN 28.5 pg (27.0-33.4); MEAN CORPUSCULAR HGB CONC 34.8 g/dL (32.0-36.0); MEAN CORPUSCULAR VOLUME 82 fl (80-97); PLATELET COUNT 304 10^3/uL (150-450); RED BLOOD COUNT 4.91 10^6/uL (3.72-5.28); RED CELL DISTRIBUTION WIDTH 13.7 % (11.5-14.0); SEGMENTED NEUTROPHILS % (AUTO) 57.2 % (42-78); TOTAL CELLS COUNTED % (AUTO) 100 %; WHITE BLOOD COUNT 7.9 10^3/uL (4.0-10.5)
[2017-08-11 11:15] LABS: ANION GAP 12 (5-19); BLOOD UREA NITROGEN 13 mg/dL (7-20); CALCIUM 9.9 mg/dL (8.4-10.2); CARBON DIOXIDE 26 mmol/L (22-30); CHLORIDE 103 mmol/L (98-107); GLUCOSE 79 mg/dL (75-110); SODIUM 140.7 mmol/L (137-145)
[~2017-08-15 07:25] MED LIST changes: +ACETAMINOPHEN 325 MG TABLET PO PRN; +BUPIVACAINE HCL 0.25 % INJ/PF (2.5 MG/1 ML) 30 ML VIAL ONE; +CIPROFLOXACIN 400 MG/D5W RTU 400 MG/200 ML RTUPB IV PRN; +LACTATED RINGERS 1000 ML IV PRN; +LIDOCAINE 0.5% INJ-PF (5 MG/ML) 50 ML SDV SUBCUT PRN; -PROPOFOL INJ 200 MG/20 ML VIAL IV ONE
[2017-08-15] MEDS ORDERED: METOCLOPRAMIDE HCL INJ/PF 10 MG/2 ML SDV ONE (08:49)
[2017-08-15] MEDS ORDERED: MIDAZOLAM 2 MG/2 ML INJ ONE ×2 (08:49→08:59)
[2017-08-15] MEDS ORDERED: FAMOTIDINE INJ/PF 20 MG/2 ML SDV IV ONE (08:50)
[2017-08-15] MEDS ORDERED: RINGERS SOLUTION,LACTATED 1,000 ML IV PRN (08:56)
[2017-08-15] MEDS ORDERED: FENTANYL CITRATE INJ/PF 100 MCG/2 ML AMPUL ONE ×2 (08:59→10:42)
[2017-08-15] MEDS ORDERED: ACETAMINOPHEN 100 ML IV ONE ×2 (09:00→11:40)
[2017-08-15] MEDS ORDERED: RINGERS SOLUTION,LACTATED 500 ML IV ONE (09:00)
[2017-08-15] MEDS ORDERED: PROPOFOL INJ 200 MG/20 ML VIAL IV ONE (09:00)
[2017-08-15] MEDS ORDERED: OXYCODONE-ACETAMINOPHEN 5-325 MG TABLET PO PRN ×2 (09:54)
[2017-08-15] MEDS ORDERED: PROMETHAZINE HCL INJ 25 MG/1 ML VIAL IV PRN ×2 (09:54)
[2017-08-15] MEDS ORDERED: FENTANYL CITRATE INJ/PF 100 MCG/2 ML AMPUL IV PRN ×3 (09:54)
[2017-08-15] MEDS ORDERED: MORPHINE SULFATE 10 MG/ML INJ IV PRN (09:54)
[2017-08-15] MEDS ORDERED: DIPHENHYDRAMINE HCL 50 MG/ML VIAL IV PRN (09:54)
[2017-08-15] MEDS ORDERED: MEPERIDINE HCL/PF INJ 25 MG/1 ML DISP.SYRIN IV PRN (09:54)
--- NOTE | 2017-08-15 10:37 | PDOC DISCHARGE SUMMARY ---
Discharge Summary (SDC) - Discharge Final Diagnosis: Symptomatic cholecystitis with cholelithiasis Date of Surgery: 08/15/17 Discharge Date: 08/15/17 Condition: Good Treatment or Instructions: [facility] [address] [place] [id number] Discharge Instructions: Laparoscopic Surgery 1. General Information: a. DO NOT DRIVE a car or operate dangerous machinery for 3-4 days or while taking narcotic pain pills. b. DO NOT consume alcohol, tranquilizers, sleeping medications or any non- prescribed medications for 24 hours unless approved by your doctor or as long as taking narcotic prescription medications. c. DO NOT make important decisions or sign any important papers for the first 24 hours after surgery. d. When discharged home the same day of surgery have a responsible person with you for the first night. 2. Activity Restrictions: 1-2 weeks. a. NO heavy lifting, straining abdominal muscles, bending over a lot, yard work, house work, or sports for 2 weeks. b. c. It is fine to go for walks, up and down steps, ride in a car. d. Elevate your head when sleeping/resting. 3. Treatment: a. You may shower 24 hours after surgery, no baths or swimming for 2 weeks. Remove band-aids or dressings before shower but leave paper strips (steri-strips ) on the skin to fall off on their own. If still on at postoperative visit they will be removed then. b. Drainage of fluid or blood is not unusual from an incision. If occurs, you can clean with peroxide and cotton ball daily and cover with dry gauze until the wound seals. c. If a lot of bleeding occurs, you can hold pressure with a gauze or cloth over the site for 10 minutes and it will usually stop. If bleeding continues you will need to call for possible evaluation in office or emergency room. 4. Medications: a. You may switch to plain Tylenol, Advil or Aleve as you transition from the narcotic. Many adults find good pain relief with Advil 600-800 mg three times a day with meals. This can cause indigestion, ulcers, and kidney problems with long-term use. b. You should resume all normal medications unless a change is specified by your doctors. c. 5. Diet: Begin with clear liquids and may progress to your normal diet if not nauseated. No high fat, high protein foods the day of surgery. Normal diet 6. The following may occur after laparoscopic surgery: a. Shoulder or upper back ache from retained gas that should resolve in 1-2 days b. Soreness and bruising at incision sites will resolve with time. c. Scrotal swelling (labia in women) and bruising is often seen after hernia surgery. d. Sore throat e. Fatigue may last days to weeks. f. Difficulty urinating may occur and may need to come into emergency room for urinary catheter placement. 7. Notify Physician If: a. Worsening or pain not improved with pain medication b. Persistent nausea and vomiting c. Fever above 101 d. Persistent bleeding or swelling at operative site e. Unable to urinate and uncomfortable bladder 6-8 hours after surgery 8..Follow Up Care: a. Schedule a follow up appointment with your doctor for 2 weeks. In the event of any postoperative problems or questions or you may call the office during business hours or the On-Call physician evenings and weekends at [facility]. [facility] I understand the instructions for my postoperative care as described above and a copy has been given to me. Patient/Significant Other Witness Date Prescriptions: Ketorolac Tromethamine [Toradol 10 mg Tablet] 10 mg PO Q8HP PRN #14 tablet PRN Reason: Referrals: JAIRO GREEN MD [ACTIVE STAFF] - 08/28/17 8:45 am Discharge Diet: As Tolerated Discharge Activity: Activity As Tolerated, No Lifting Over 10 Pounds Home Care Assistance: None Needed Report the Following to Your Physician Immediately: Shortness of Breath, Increase in Pain, Fever over 101 Degrees
--- NOTE | 2017-08-15 10:41 | Operative Report ---
Operative Report DATE OF SURGERY: 08/15/17 PREOPERATIVE DIAGNOSIS: Symptomatic cholelithiasis with cholecystitis POSTOPERATIVE DIAGNOSIS: Same OPERATION: Laparoscopic cholecystectomy SURGEON: JAIRO GREEN ANESTHESIA: GA TISSUE REMOVED OR ALTERED: 1 gallbladder with contents COMPLICATIONS: None ESTIMATED BLOOD LOSS: 25 cc INTRAOPERATIVE FINDINGS: See below PROCEDURE: After obtaining informed consent, the patient was taken to the operating room. General Anesthesia was induced; the arms were extended, and the abdomen was exposed, and prepped and draped in a sterile fashion. Instrumentation was set up for laparoscopic cholecystectomy. Surgical plan and surgical timeout were conducted. A vertical incision was made above the umbilicus, and a verres needle was inserted uneventfully into the peritoneal cavity. Pneumoperitoneum was established. The verres needle was removed and a 5 mm trocar was inserted and a 5 mm flexible laparoscope was inserted. Visualization of the peritoneal cavity confirmed safe uneventful entry. Under direct visualization 3 additional 5 mm ports were established, one in the subxiphoid position and second in the subcostal position. There were dense adhesions between the mid body and fundus of the gallbladder the gastroduodenal area and the proximal is worse colon. All adhesions were taken down under direct visualization combination of hook and blunt electrocautery dissection. Visualization of the hepatobiliary anatomy revealed no anatomic variations. A grasper was placed on the fundus of the gallbladder and the gallbladder is elevated over the right surface of the liver; a second grasper was used to grasp the infundibulum of the gallbladder. The neck of the gallbladder and junction with the cystic duct was dissected out. The Cystic artery was in its usual location medial and cephalad to the cystic duct. The cystic artery was surrounded with a right angle clamp, clipped twice proximally and divided with laparoscopic scissors. There was a posterior cystic artery branch which was similarly clipped twice proximally once distally and divided. We now opened the triangle of Calot by dividing the peritoneal reflection on both the medial and lateral sides of the cystic duct infundibular junction. The critical view was obtained. Photographs were taken; we now milked the cystic duct of any possible stones, clipped the cystic duct approximately 2 times, once distally and divided it with scissors. The gallbladder was now removed from the undersurface of the liver using hook cautery dissection. Graspers were repositioned and the gallbladder was removed uneventfully from the abdominal cavity through the super umbilical port site incision. The specimen was examined, then passed off to pathology for permanent analysis. We returned to the peritoneal cavity check for bleeding, there was some onerous from the junction between the form ligament and the liver a small grade 1 tear secondary to trocar traction. This was managed successfully with Surgicel, and electrocautery. Estimated blood loss approximately 25 cc. We level the patient now, irrigated, and examined this area carefully.. There was no evidence of bile leak, and there was none. We Confirmed satisfactory placement of clips on cystic duct and cystic artery were secured . At this point we felt the operation was complete. The subcutaneous tissue was then anesthetized with quarter percent Marcaine Sponge and needle counts are correct. All ports removed under direct visualization pneumoperitoneum evacuated, and 5 mm port wounds closed with 3-0 Vicryl suture, benzoin and Steri -Strips. The patient was extubated, and taken to the recovery room in stable condition.
[2017-08-15] MEDS: FENTANYL CITRATE INJ/PF 100 MCG/2 ML AMPUL ONE ×2 (10:50→11:05)
[2017-08-15] MEDS ORDERED: KETOROLAC TROMETHAMINE INJ/PF 30 MG/1 ML SDV ONE (11:45)
[2017-08-15] MEDS ORDERED: HYDROMORPHONE HCL INJ/PF 2 MG/ML AMPULE ONE (11:52)
[2017-08-15] MEDS ORDERED: ONDANSETRON 4 MG TAB.RAPDIS ONE (13:52)
[2017-08-15 14:13] VITALS: BP 139/77
== END 2017-08-15 13:55 | disposition home or self-care (01) ==
LOC: OROUT 07:25
PROVIDERS: ATTEND Surgery
PROC: 0FT44ZZ Resection of Gallbladder, Percutaneous Endoscopic Approach (ICD-10-PCS; principal; 2017-08-15 09:30)
DX: K81.1 Chronic cholecystitis (principal); Z88.0 Allergy status to penicillin
CPT/HCPCS: 47562; 36415; 85025; 81025; 80048; 88304 ×2; J2250; S0119; J3010; J1885; J2765; J1170; S0020; J2704; J0744; S0028; J0131; 790

== ENCOUNTER → 2017-08-16 | Emergency (ER) | payer MEDICAID ==
[~2017-08-16] MED LIST changes: -ACETAMINOPHEN 325 MG TABLET PO PRN; -BUPIVACAINE HCL 0.25 % INJ/PF (2.5 MG/1 ML) 30 ML VIAL ONE; +CEFEPIME 2 GM/D5W RTU 2 GM/50 ML RTUPB IV SCH; +CEFEPIME HCL 2 GM in NORMAL SALINE 100 ML IV SCH; +CIPROFLOXACIN 400 MG/D5W RTU 400 MG/200 ML RTUPB IV ONE; -CIPROFLOXACIN 400 MG/D5W RTU 400 MG/200 ML RTUPB IV PRN; +FENTANYL CITRATE INJ/PF 100 MCG/2 ML AMPUL IV ONE; +HYDROMORPHONE HCL INJ/PF 2 MG/ML AMPULE IV ONE; -LACTATED RINGERS 1000 ML IV PRN; -LIDOCAINE 0.5% INJ-PF (5 MG/ML) 50 ML SDV SUBCUT PRN; +NORMAL SALINE 1000 ML 1,000 ML IV PRN
--- NOTE | 2017-08-16 07:16 | ER Document Report ---
ED General <JANNETHLEANDRODARSHANA - Last Filed: 08/16/17 19:51> - General Mode of Arrival: Medic Information source: Patient, Relative TRAVEL OUTSIDE OF THE [place] IN LAST 30 DAYS: No <NIDA ESCOBEDO - Last Filed: 08/17/17 07:24> - General Chief Complaint: Abdominal Pain Stated Complaint: ABDOMINAL PAIN Time Seen by Provider: 08/16/17 07:12 - HPI Notes: 27-year-old female presents today via EMS with complaints of abdominal pain with sudden onset status post having a cholecystectomy yesterday done by Dr. Kevin Pena, surgeon [facility]. Patient was discharged home last night Toradol. Reports pain is 10 out of 10, throbbing sharp and shooting. Reports pain shoots to right shoulder as well as left shoulder and alternating. Denies any chest pain but reports pain is so severe that it is taking her breath away. Denies any fevers or chills. Denies any vomiting but reports nausea. Denies any diarrhea. Denies any headache, blurry vision, double vision, loss of vision , diarrhea, pelvic pain, vaginal pain. (NIDA ESCOBEDO) - Related Data Allergies/Adverse Reactions: amoxicillin Allergy (Verified 08/11/17 09:39) rash Past Medical History - General Information source: Patient, Parent, Relative - Social History Smoking Status: Unknown if Ever Smoked Family History: None - Past Medical History Cardiac Medical History: Denies: Hx Coronary Artery Disease, Hx Heart Attack, Hx Hypertension Pulmonary Medical History: Denies: Hx Asthma, Hx Bronchitis, Hx COPD, Hx Pneumonia Neurological Medical History: Denies: Hx Cerebrovascular Accident, Hx Seizures Renal/ Medical History: Denies: Hx Peritoneal Dialysis GI Medical History: Reports: Hx Gastroesophageal Reflux Disease, Hx Hiatal Hernia Musculoskeltal Medical History: Denies Hx Arthritis - Immunizations Immunizations up to date: Yes Hx Diphtheria, Pertussis, Tetanus Vaccination: Yes <NIDA ESCOBEDO - Last Filed: 08/17/17 07:24> Review of Systems - Review of Systems Constitutional: No symptoms reported EENT: No symptoms reported Cardiovascular: No symptoms reported Respiratory: No symptoms reported Gastrointestinal: See HPI Genitourinary: No symptoms reported Female Genitourinary: No symptoms reported Musculoskeletal: No symptoms reported Skin: No symptoms reported Hematologic/Lymphatic: No symptoms reported Neurological/Psychological: No symptoms reported <NIDA ESCOBEDO - Last Filed: 08/17/17 07:24> Physical Exam <DARSHANA CASE - Last Filed: 08/16/17 19:51> <NIDA ESCOBEDO - Last Filed: 08/17/17 07:24> - Vital signs Vitals: Temp Pulse Resp BP Pulse Ox 97.6 F 67 20 155/87 H 100 08/16/17 06:42 08/16/17 06:42 08/16/17 06:42 08/16/17 06:42 08/16/17 06:42 - Notes Notes: PHYSICAL EXAMINATION: GENERAL: Well-appearing, well-nourished and in no moderate distress. HEAD: Atraumatic, normocephalic. EYES: Pupils equal round and reactive to light, extraocular movements intact, conjunctiva are normal. ENT: Nares patent, oropharynx clear without exudates. Moist mucous membranes. NECK: Normal range of motion, supple without lymphadenopathy LUNGS: Breath sounds clear to auscultation bilaterally and equal. No wheezes rales or rhonchi. HEART: Regular rate and rhythm without murmurs ABDOMEN: generalized tenderness, RUQ pain with severe pain. No guarding, no rebound. No masses appreciated. Female : deferred Musculoskeletal: Normal range of motion, no pitting or edema. No cyanosis. NEUROLOGICAL: Cranial nerves grossly intact. Normal speech, normal gait. Normal sensory, motor exams PSYCH: Normal mood, normal affect. SKIN: Warm, Dry, normal turgor, no rashes or lesions noted. (NIDA ESCOBEDO) Course - Laboratory Result Diagrams: 08/16/17 08:10 08/16/17 08:10 <DARSHANA CASE - Last Filed: 08/16/17 19:51> - Laboratory Result Diagrams: 08/16/17 08:10 08/16/17 08:10 <NIDA ESCOBEDO - Last Filed: 08/17/17 07:24> - Re-evaluation Re-evalutation: 08/16/17 19:51 Patient will be transferred for a ERCP as [facility] does not have the capability. Patient's assessment has unchanged she continues to have abdominal pain. She has been medicated within the last hour with Dilaudid. She denies any nausea at this time. She is in stable condition to be transferred. (DARSHANA CASE) Rechecked the patient who is resting comfortably with hydromorphone. awaiting lab results. 1118-CT abdomen/pelvis with IV oral contrast could not rule out a cholecystectomy but really due to moderate amount of free fluid. Dr. Quintin Hess, surgeon on-call, aware, ordered a HIDA scan. Discussed with patient findings a CT scan and need for HIDA scan. All questions and concerns answered. Patient's pain is being managed with hydromorphone. 1500-she returned from high exam, woke with Dr. Hess, stated he will review HIDA scan is back to patient at bedside. This provider bedside with patient, states she is feeling like her pain is a little bit more under control. Awaiting HIDA results. 1600-HIDA scan shows bile leak in the gallbladder fossa. Dr. Hess advised that we do not have ERCP capacity at [facility] and pt will need to be transferred to another facility. Discussed this with patient these results with patient, stated that she would like to start it [facility]. 1615- [facility] contacted so they will get back to me. 1630-[facility] contacted, stated they can only take cardiac and stroke emergencies, 1700-[facility] that they do not have the capacity to do an ERCP due to remodeling at this time. 1700-Contacted [facility]. 1730-[facility] accepted patient, Dr. Jerome Carter, ED physician at [facility], for an ER to ER transfer. Patient is stable at bedside. Transfer process has been initiated for ERCP at [facility]. 08/16/17 19:08- disposition given to FRIDA Carreon (NIDA ESCOBEDO) - Vital Signs Vital signs: Temp Pulse Resp BP Pulse Ox 99.5 F 67 21 H 133/76 H 98 08/16/17 19:15 08/16/17 06:42 08/16/17 19:01 08/16/17 19:01 08/16/17 19:01 - Laboratory Laboratory results interpreted by pa: 08/16/17 08/16/17 08/16/17 08:10 08:10 08:25 WBC 16.1 H Seg Neutrophils % 89.1 H Lymphocytes % 5.5 L Absolute Neutrophils 14.4 H Glucose 119 H Total Bilirubin 3.4 H C-Reactive Protein 61.5 H Urine Blood SMALL H Ur Leukocyte Esterase SMALL H Discharge <DARSHANA CASE - Last Filed: 08/16/17 19:51> <NIDA ESCOBEDO - Last Filed: 08/17/17 07:24> - Discharge Clinical Impression: Bile leak Condition: Good Disposition: [place] Referrals: ROSE HOWE PA-C [Primary Care Provider] - Follow up as needed
[2017-08-16 08:33] LABS: ABSOLUTE LYMPHOCYTES (AUTO) 0.9 10^3/uL (0.5-4.7); ABSOLUTE MONOCYTES (AUTO) 0.8 10^3/uL (0.1-1.4); ABSOLUTE NEUT (AUTO) 14.4 10^3/uL (1.7-8.2); BASOPHILS % (AUTO) 0.3 % (0-2); EOSINOPHILS % (AUTO) 0.1 % (0-6); HEMATOCRIT 41.1 % (36.0-47.0); LYMPHOCYTES % (AUTO) 5.5 % (13-45); MEAN CORPUSCULAR HEMOGLOBIN 27.9 pg (27.0-33.4); MEAN CORPUSCULAR VOLUME 82 fl (80-97); PLATELET COUNT 319 10^3/uL (150-450); RED BLOOD COUNT 5.01 10^6/uL (3.72-5.28); RED CELL DISTRIBUTION WIDTH 13.9 % (11.5-14.0); SEGMENTED NEUTROPHILS % (AUTO) 89.1 % (42-78); TOTAL CELLS COUNTED % (AUTO) 100 %; WHITE BLOOD COUNT 16.1 10^3/uL (4.0-10.5)
[2017-08-16 08:37] LABS: INTERNATIONAL RATION (INR) 1.13; PROTHROMBIN TIME 15.3 SEC (11.4-15.4)
[2017-08-16 08:38] LABS: PARTIAL THROMBOPLASTIN TIME 33.9 SEC (23.5-35.8)
[2017-08-16 08:54] LABS: ALANINE AMINOTRANSFERASE 34 U/L (9-52); ALBUMIN 4.5 g/dL (3.5-5.0); ALKALINE PHOSPHATASE 69 U/L (38-126); ANION GAP 11 (5-19); ASPARTATE AMINO TRANSFERASE 30 U/L (14-36); BILIRUBIN,DIRECT 0.1 mg/dL (0.0-0.4); BILIRUBIN,TOTAL 3.4 mg/dL (0.2-1.3); BLOOD UREA NITROGEN 7 mg/dL (7-20); C-REACTIVE PROTEIN 61.5 mg/L (<10.0); CALCIUM 9.6 mg/dL (8.4-10.2); CARBON DIOXIDE 26 mmol/L (22-30); CHLORIDE 102 mmol/L (98-107); CREATINE KINASE 116 U/L (30-135); GLUCOSE 119 mg/dL (75-110); LIPASE 34.1 U/L (23-300); SODIUM 139.4 mmol/L (137-145); TOTAL PROTEIN 7.2 g/dL (6.3-8.2)
[2017-08-16 09:00] LABS: APPEARANCE,URINE CLEAR; BILIRUBIN,URINE NEGATIVE (NEGATIVE); COLOR,URINE YELLOW; GLUCOSE, URINE NEGATIVE (NEGATIVE); KETONES,URINE NEGATIVE (NEGATIVE); LEUKOCYTE ESTERASE,URINE SMALL (NEGATIVE); NITRITE,URINE NEGATIVE (NEGATIVE); PROTEIN,URINE NEGATIVE (NEGATIVE); URINE SPECIFIC GRAVITY 1.004; UROBILINOGEN,URINE NEGATIVE mg/dL (<2.0)
--- NOTE | 2017-08-16 11:02 | RADIOLOGY REPORT (SQ) ---
EXAM DESCRIPTION: CHEST PA/LAT COMPLETED DATE/TIME: 08/16/2017 10:38 am REASON FOR STUDY: sob COMPARISON: None. EXAM PARAMETERS: NUMBER OF VIEWS: two views TECHNIQUE: Digital Frontal and Lateral radiographic views of the chest acquired. RADIATION DOSE: NA LIMITATIONS: none FINDINGS: LUNGS AND PLEURA: No acute infiltrates. Blunting costophrenic angles consistent with pleu ral effusions. MEDIASTINUM AND HILAR STRUCTURES: No masses or contour abnormalities. HEART AND VASCULAR STRUCTURES: Heart normal size. No evidence for failure. BONES: No acute findings. HARDWARE: None in the chest. OTHER: Evidence of free air beneath right hemidiaphragm. Surgical clips right upper quadrant. IMPRESSION: Small bilateral pleural effusions. Pneumoperitoneum. COMMENT: The report was called to Dr. Ricks at [address] abdomen and pelvis has been performric d. TECHNICAL DOCUMENTATION: JOB ID: [id number] [id number] 2010 [employer]- All Rights Reserved
--- NOTE | 2017-08-16 11:24 | RADIOLOGY REPORT (SQ) ---
EXAM DESCRIPTION: CT ABD/PELVIS WITH IV ORAL COMPLETED DATE/TIME: 08/16/2017 10:49 am REASON FOR STUDY: abd pain s/p marcin x 1 day ago COMPARISON: CT abdomen and pelvis 07/28/2017. TECHNIQUE: CT scan of the abdomen and pelvis performed using helical scanning technique with dynamic intravenous contrast injection. Oral contrast was given. . Images reviewed with lung, soft tissue, and bone windows. Reconstructed coronal and sagittal MPR images reviewed. Delayed images for evaluat ion of the urinary system also acquired. All images stored on PACS. All CT scanners at this facility use dose modulation, iterative reconstruction, and/or weight based d osing when appropriate to reduce radiation dose to as low as reasonably achievable (ALARA). [facility]: Dose Right [facility]: CareDose [facility]: Dose Right [facility]: Teradose 4D [facility]: [employer] CONTRAST TYPE AND DOSE: contrast/concentration: Isovue 370.00 mg/ml; Total Contrast Delivered: 100.0 ml; Total Saline Delivered: 72.0 ml RENAL FUNCTION: Creatinine: 0.64 RADIATION DOSE: CT Rad equipment meets quality standard of care and radiation dose reduction techniq ues were employed. CTDIvol: 14.6 - 19.5 mGy. DLP: 1963 mGy-cm.. LIMITATIONS: None. FINDINGS: LOWER CHEST: Interval development of right pleural effusion. LIVER: No abnormality seen. SPLEEN: No abnormality seen. PANCREAS: No abnormality seen. GALLBLADDER: Post cholecystectomy change with surgical clips in gallbladder fossa. There is also tony dence of fluid and air in the gallbladder fossa and extending along the fissure for ligamentum teres. Free air is noted anterior to the liver beneath right hemidiaphragm. Changes of laparoscopic marcin cystectomy with associated along the right abdominal wall noted. Interval placement of surgical clip at level of umbilicus. ADRENAL GLANDS: No abnormality seen. RIGHT KIDNEY AND URETER: No abnormality seen. LEFT KIDNEY AND URETER: No abnormality seen. AORTA AND VESSELS: No abnormality seen. RETROPERITONEUM: No abnormality seen. BOWEL AND PERITONEAL CAVITY: No masses or inflammatory changes. No free fluid or peritoneal masses. APPENDIX: Normal. PELVIS: No abnormality of the urinary bladder. No abnormality of the uterus. ABDOMINAL WALL: Subcutaneous air along right abdominal wall consistent with post laparoscopic cholecy stectomy change. BONES: No significant or acute findings. OTHER: Interval development of pelvic and abdominal ascites. IMPRESSION: 1. Status post laparoscopic cholecystectomy with associated pneumoperitoneum. Interval development of fluid and air within the gallbladder fossa in region of cholecystectomy clips. Fluid and air tracking along ligamentum teres to the anterior abdomen with a moderate amount of ascites an d free air noted. Possibility of post cholecystectomy bile leak cannot be excluded. 2. Right pleural effusion. COMMENT: Findings were reported to Dr. Ricks 1118 hours 08/16/2017. TECHNICAL DOCUMENTATION: JOB ID: [id number] Quality ID # [id number]: Final reports with documentation of one or more dose reduction techniques (e.g., Au tomated exposure control, adjustment of the mA and/or kV according to patient size, use of iterative reconstruction technique) 2010 [employer]- All Rights Reserved
--- NOTE | 2017-08-16 15:25 | RADIOLOGY REPORT (SQ) ---
EXAM DESCRIPTION: NM HIDA SCAN COMPLETED DATE/TIME: 08/16/2017 3:15 pm REASON FOR STUDY: leakage from s/p marcin. want without EF COMPARISON: None. RADIONUCLIDE AND DOSE: DOSAGE RADIONUCLIDE: Jeannette 0.26 millicuries Tc99m Mebrofenin. DOSAGE MORPHINE: Not required. The route of agent administration: Intravenous TECHNIQUE: Serial imaging right upper quadrant up to 60 minutes following injection of radionuclide. Patient imaged AP and Right Lateral. LIMITATIONS: None. FINDINGS: LIVER: Normal visualization without areas of photopenia. INTRA-HEPATIC BILE DUCTS: Temporal visualization normal. No dilatation. COMMON BILE DUCT: Normal without dilatation or delayed visualization. GALLBLADDER: Accumulation of radionuclide in the gallbladder fossa. Patient is status post recent ch olecystectomy. Indicates leak. OTHER: No other significant finding. IMPRESSION: Bile leak in the gallbladder fossa. TECHNICAL DOCUMENTATION: JOB ID: [id number] [employer]- All Rights Reserved
--- NOTE | 2017-08-16 15:48 | PDOC CONSULTATION ---
Consultation Consult Date: 08/16/17 Consult reason:: abdominal pain postop History of Present Illness Admission Date/PCP: ROSE HOWE PA-C History of Present Illness: ISIDRO HASIKNS is a 27 year old female POD #1 after laparoscopic cholecystectomy uneventful. Patient returns to hospital today with c/o RUQ and diffuse abdominal pain. Past Medical History Cardiac Medical History: Denies: Coronary Artery Disease, Myocardial Infarction, Hypertension Pulmonary Medical History: Denies: Asthma, Bronchitis, Chronic Obstructive Pulmonary Disease (COPD), Pneumonia Neurological Medical History: Denies: Seizures GI Medical History: Reports: Gastroesophageal Reflux Disease, Hiatal Hernia Musculoskeltal Medical History: Denies: Arthritis Hematology: Denies: Anemia Past Surgical History Past Surgical History: Reports: Cholecystectomy - 08/15/17 Social History Smoking Status: Never Smoker Family History Family History: None, Reviewed & Not Pertinent Parental Family History Reviewed: Yes Children Family History Reviewed: Yes Sibling(s) Family History Reviewed.: Yes Medication/Allergy Home Medications: Ketorolac Tromethamine [Toradol 10 mg Tablet] 10 mg PO Q8HP PRN #14 tablet 08/15 Allergies/Adverse Reactions: amoxicillin Allergy (Verified 08/11/17 09:39) rash Physical Exam Vital Signs: Temp Pulse Resp BP Pulse Ox 97.6 F 67 20 155/87 H 100 08/16/17 06:42 08/16/17 06:42 08/16/17 06:42 08/16/17 06:42 08/16/17 06:42 Intake & Output 08/15/17 08/16/17 08/17/17 06:59 06:59 06:59 Weight 98.43 kg General appearance: PRESENT: mild distress Head exam: PRESENT: atraumatic Neck exam: PRESENT: full ROM Respiratory exam: PRESENT: chest wall tenderness Cardiovascular exam: PRESENT: RRR GI/Abdominal exam: PRESENT: guarding, hypoactive bowel sounds, tenderness - diffuse Results Laboratory Results: 08/16/17 08:10 08/16/17 08:10 08/16/17 08/16/17 08/16/17 08:10 08:10 08:25 WBC 16.1 H RBC 5.01 Hgb 14.0 Hct 41.1 MCV 82 MCH 27.9 MCHC 34.0 RDW 13.9 Plt Count 319 Seg Neutrophils % 89.1 H Lymphocytes % 5.5 L Monocytes % 5.0 Eosinophils % 0.1 Basophils % 0.3 Absolute Neutrophils 14.4 H Absolute Lymphocytes 0.9 Absolute Monocytes 0.8 Absolute Eosinophils 0.0 Absolute Basophils 0.0 Sodium 139.4 Potassium 4.0 Chloride 102 Carbon Dioxide 26 Anion Gap 11 BUN 7 Creatinine 0.61 Est GFR ( Amer) > 60 Est GFR (Non-Af Amer) > 60 Glucose 119 H Calcium 9.6 Total Bilirubin 3.4 H AST 30 ALT 34 Alkaline Phosphatase 69 C-Reactive Protein 61.5 H Total Protein 7.2 Albumin 4.5 Lipase 34.1 Urine Color YELLOW Urine Appearance CLEAR Urine pH 6.0 Ur Specific Satin 1.004 Urine Protein NEGATIVE Urine Glucose (UA) NEGATIVE Urine Ketones NEGATIVE Urine Blood SMALL H Urine Nitrite NEGATIVE Ur Leukocyte Esterase SMALL H Urine WBC (Auto) 5 Urine RBC (Auto) 1 08/16/17 08/16/17 08:10 08:10 Creatine Kinase 116 Troponin I < 0.012 Impressions: Abdomen/Pelvis CT 08/16/17 00:00 IMPRESSION: 1. Status post laparoscopic cholecystectomy with associated pneumoperitoneum. Interval development of fluid and air within the gallbladder fossa in region of cholecystectomy clips. Fluid and air tracking along ligamentum teres to the anterior abdomen with a moderate amount of ascites and free air noted. Possibility of post cholecystectomy bile leak cannot be excluded. 2. Right pleural effusion. Chest X-Ray 08/16/17 07:50 IMPRESSION: Small bilateral pleural effusions. Pneumoperitoneum. Hepatobiliary Scan Nuclear Medicine 08/16/17 11:46 IMPRESSION: Bile leak in the gallbladder fossa. Assessment & Plan - Diagnosis (2) Bile leak, postoperative Is this a current diagnosis for this admission?: Yes - Plan Summary Plan Summary: A/ Postoperative bile leak identified on HIDA scanand CT scan P/ patient to undergo urgent ERCP at outside facility with possible IR drain placement in the gallbladder fossa Cipro/Cefepime IV abx IVF NPO Patient informed of the above, her questions were answered and she understands.
[2017-08-16 19:12] VITALS: BP 133/76
--- NOTE | 2017-08-16 19:56 | ER Document Report ---
Doctor's Note Notes: 08/16/17 19:55 Pre-transport note: Patient admits to a moderate amount of pain, has recently been medicated. She does not appear to be in any distress. Except for slight tachypnea (respiratory rate 21/min) vital signs are normal. She is alert, oriented, and coherent. She is medically stable for transport.
== END | disposition short-term general hospital (02) ==
LOC: ER 06:30
DX: K91.89 Other postprocedural complications and disorders of digestive system (principal); J90 Pleural effusion, not elsewhere classified; G89.18 Other acute postprocedural pain; R10.11 Right upper quadrant pain; Z90.49 Acquired absence of other specified parts of digestive tract; Z88.0 Allergy status to penicillin; Z98.890 Other specified postprocedural states
CPT/HCPCS: 96376; 99285; 96361; 96375; 96365; 36415; 87086; 82550; 83690; 85025; 85610; 85730; 86140; 80053; 81001; 84484; 71046; 78226; 74177; A9537; J3010; J0692; J1170; J7030; J0744; Q9969

== ENCOUNTER → 2017-08-26 | Outpatient (CLI) | payer MEDICAID ==
[2017-08-26 13:44] LABS: ALANINE AMINOTRANSFERASE 31 U/L (9-52); ALBUMIN 3.6 g/dL (3.5-5.0); ALKALINE PHOSPHATASE 78 U/L (38-126); ASPARTATE AMINO TRANSFERASE 24 U/L (14-36); BILIRUBIN,DIRECT 0.3 mg/dL (0.0-0.4); BILIRUBIN,TOTAL 0.5 mg/dL (0.2-1.3); TOTAL PROTEIN 6.1 g/dL (6.3-8.2)
== END ==
LOC: OD 12:36
PROVIDERS: ATTEND Surgery
DX: K91.89 Other postprocedural complications and disorders of digestive system (principal); R10.9 Unspecified abdominal pain
CPT/HCPCS: 36415; 80076

== ENCOUNTER 2017-08-29 16:54 | Emergency (ER) | payer MEDICAID ==
--- NOTE | 2017-08-29 17:29 | ER Document Report ---
ED Medical Screen (RME) - General Chief Complaint: Abnormal Lab Results Stated Complaint: ABNORMAL LABS Time Seen by Provider: 08/29/17 17:28 Mode of Arrival: Ambulatory Information source: Patient Notes: This is a 27-year-old female sent to the ER by . The patient had a history of a cholecystectomy 3 weeks ago (Dr. Gruber) which was complicated by a biliary leak. Thus, the patient was transferred to [place] and underwent ERCP with stent placement. She did have a post ERCP pancreatitis and was ultimately discharged last Friday with antibiotics and pain medicine. She was seen by Dr. Lares today and underwent an outpatient. Dr. Lares reports that the ultrasound shows gallbladder fossa fluid collection (w/ no mention of biliary stent). He is concerned for persistent biliary leak. Note: I did discuss the case with Dr. Lares today. He has requested a HIDA scan for possible persistent biliary leak. Nuclear medicine has been paged and they will be coming back into the hospital to perform it. I have spoken to the radiologist who recommends a HIDA scan (without CCK). TRAVEL OUTSIDE OF THE [place] IN LAST 30 DAYS: No - Related Data Allergies/Adverse Reactions: amoxicillin Allergy (Verified 08/29/17 16:56) rash Past Medical History - Past Medical History Cardiac Medical History: Denies: Hx Coronary Artery Disease, Hx Heart Attack, Hx Hypertension Pulmonary Medical History: Denies: Hx Asthma, Hx Bronchitis, Hx COPD, Hx Pneumonia Neurological Medical History: Denies: Hx Cerebrovascular Accident, Hx Seizures Renal/ Medical History: Denies: Hx Peritoneal Dialysis GI Medical History: Reports: Hx Gastroesophageal Reflux Disease, Hx Hiatal Hernia Musculoskeltal Medical History: Denies Hx Arthritis Past Surgical History: Reports: Hx Cholecystectomy - 08/15/17 - Immunizations Immunizations up to date: Yes Hx Diphtheria, Pertussis, Tetanus Vaccination: Yes History of Influenza Vaccine for 03/2017 - 08/2017 Season: Yes Influenza Administration Date for 03/2017 - 08/2017 Season: 03/30/17 Physical Exam - Vital signs Vitals: Temp Pulse Resp BP Pulse Ox 98.6 F 110 H 18 160/90 H 97 08/29/17 17:01 08/29/17 17:01 08/29/17 17:01 08/29/17 17:01 08/29/17 17:01 Course - Vital Signs Vital signs: Temp Pulse Resp BP Pulse Ox 98.6 F 110 H 18 160/90 H 97 08/29/17 17:01 08/29/17 17:01 08/29/17 17:01 08/29/17 17:01 08/29/17 17:01
[2017-08-29 18:40] LABS: INTERNATIONAL RATION (INR) 1.04; PROTHROMBIN TIME 14.3 SEC (11.4-15.4)
[2017-08-29 18:42] LABS: ABSOLUTE BASOPHILS # (AUTO) 0.1 10^3/uL (0.0-0.2); ABSOLUTE EOSINOPHILS # (AUTO) 0.7 10^3/uL (0.0-0.6); ABSOLUTE LYMPHOCYTES (AUTO) 2.5 10^3/uL (0.5-4.7); ABSOLUTE MONOCYTES (AUTO) 0.8 10^3/uL (0.1-1.4); ABSOLUTE NEUT (AUTO) 8.3 10^3/uL (1.7-8.2); EOSINOPHILS % (AUTO) 5.5 % (0-6); HEMATOCRIT 36.3 % (36.0-47.0); HEMOGLOBIN 12.4 g/dL (12.0-15.5); LYMPHOCYTES % (AUTO) 20.1 % (13-45); MEAN CORPUSCULAR HEMOGLOBIN 27.7 pg (27.0-33.4); MEAN CORPUSCULAR HGB CONC 34.3 g/dL (32.0-36.0); MEAN CORPUSCULAR VOLUME 81 fl (80-97); MONOCYTES % (AUTO) 6.2 % (3-13); PLATELET COUNT 579 10^3/uL (150-450); RED BLOOD COUNT 4.49 10^6/uL (3.72-5.28); RED CELL DISTRIBUTION WIDTH 13.9 % (11.5-14.0); SEGMENTED NEUTROPHILS % (AUTO) 67.2 % (42-78); TOTAL CELLS COUNTED % (AUTO) 100 %; WHITE BLOOD COUNT 12.4 10^3/uL (4.0-10.5)
[2017-08-29 18:48] LABS: ALANINE AMINOTRANSFERASE 25 U/L (9-52); ALBUMIN 4.4 g/dL (3.5-5.0); ALKALINE PHOSPHATASE 81 U/L (38-126); ANION GAP 14 (5-19); ASPARTATE AMINO TRANSFERASE 25 U/L (14-36); BILIRUBIN,DIRECT 0.3 mg/dL (0.0-0.4); BILIRUBIN,TOTAL 0.5 mg/dL (0.2-1.3); BLOOD UREA NITROGEN 12 mg/dL (7-20); CALCIUM 9.5 mg/dL (8.4-10.2); CARBON DIOXIDE 26 mmol/L (22-30); CHLORIDE 103 mmol/L (98-107); GLUCOSE 107 mg/dL (75-110); LIPASE 475.1 U/L (23-300); SODIUM 142.7 mmol/L (137-145); TOTAL PROTEIN 7.8 g/dL (6.3-8.2)
--- NOTE | 2017-08-29 19:41 | ER Document Report ---
ED General - General Chief Complaint: Abnormal Lab Results Stated Complaint: ABNORMAL LABS Time Seen by Provider: 08/29/17 17:28 Mode of Arrival: Ambulatory Notes: Patient is a 27-year-old female with a past history of a cholecystectomy approximately 3 weeks ago complicated by a biliary leak, transferred to [facility] with ERCP and stent placement who presents with concerns of her GI physician about a possible biliary leak. Patient had a repeat ultrasound performed as an outpatient today which did show an ongoing fluid collection in the right upper quadrant. This prompted her GI doctor referred to the emergency room for a HIDA scan to evaluate for evidence of an ongoing bile leak. The patient states since being discharged from [place] 5 days ago she actually feels that she is improving significantly with decreasing abdominal pain, nausea and overall increased energy. She does note that she intermittently continues to have generalized upper abdominal discomfort as a dull, cramping, intermittent pain. She notes that nothing seems to improve or worsen her symptoms. She has not had any recorded fevers at home. TRAVEL OUTSIDE OF THE [place] IN LAST 30 DAYS: No - Related Data Allergies/Adverse Reactions: amoxicillin Allergy (Verified 08/29/17 16:56) rash Past Medical History - General Information source: Patient - Social History Smoking Status: Never Smoker Chew tobacco use (# tins/day): No Frequency of alcohol use: None Drug Abuse: None Lives with: Spouse/Significant other Family History: Reviewed & Not Pertinent Patient has suicidal ideation: No Patient has homicidal ideation: No - Past Medical History Cardiac Medical History: Denies: Hx Coronary Artery Disease, Hx Heart Attack, Hx Hypertension Pulmonary Medical History: Denies: Hx Asthma, Hx Bronchitis, Hx COPD, Hx Pneumonia Neurological Medical History: Denies: Hx Cerebrovascular Accident, Hx Seizures Renal/ Medical History: Denies: Hx Peritoneal Dialysis GI Medical History: Reports: Hx Gastroesophageal Reflux Disease, Hx Hiatal Hernia Musculoskeltal Medical History: Denies Hx Arthritis Past Surgical History: Reports: Hx Cholecystectomy - 08/15/17 - Immunizations Immunizations up to date: Yes Hx Diphtheria, Pertussis, Tetanus Vaccination: Yes Review of Systems - Review of Systems Notes: Constitutional: Negative for fever. HENT: Negative for sore throat. Eyes: Negative for visual changes. Cardiovascular: Negative for chest pain. Respiratory: Negative for shortness of breath. Gastrointestinal: Positive for intermittent abdominal pain and nausea Genitourinary: Negative for dysuria. Musculoskeletal: Negative for back pain. Skin: Negative for rash. Neurological: Negative for headaches, weakness or numbness. 10 point ROS negative except as marked above and in HPI. Physical Exam - Vital signs Vitals: Temp Pulse Resp BP Pulse Ox 98.6 F 110 H 18 160/90 H 97 08/29/17 17:01 18 17:01 18 17:01 08/29/17 17:01 08/29/17 17:01 Interpretation: Tachycardic Notes: PHYSICAL EXAMINATION: GENERAL: Well-appearing, well-nourished and in no acute distress. HEAD: Atraumatic, normocephalic. EYES: Pupils equal round and reactive to light, extraocular movements intact, sclera anicteric, conjunctiva are normal. ENT: nares patent, oropharynx clear without exudates. Moist mucous membranes. NECK: Normal range of motion, supple without lymphadenopathy LUNGS: Breath sounds clear to auscultation bilaterally and equal. No wheezes rales or rhonchi. HEART: Regular rate and rhythm without murmurs ABDOMEN: Soft, nontender, normoactive bowel sounds. No guarding, no rebound. No masses appreciated. EXTREMITIES: Normal range of motion, no pitting or edema. No cyanosis. NEUROLOGICAL: No focal neurological deficits. Moves all extremities spontaneously and on command. PSYCH: Normal mood, normal affect. SKIN: Warm, Dry, normal turgor, no rashes or lesions noted. Course - Re-evaluation Re-evalutation: 08/29/17 19:40 Patient presents with outpatient GI physician concern of a persistent biliary leak after cholecystectomy followed by ERCP and stent placement for biliary leak. Patient was discharged from [place] 6 days ago and has actually been doing better over the course of time without any worsening of her symptoms, no abdominal pain, fever or vomiting. Her labs are overall unremarkable without any evidence of transaminitis, elevated bilirubin, or elevated alk phos. A HIDA scan is being completed to further evaluate. 08/30/17 01:17 HIDA scan has finally been read and is normal without any evidence of a biliary leak. The patient continues with normal vitals, no abdominal tenderness, no vomiting and labs unremarkable. I have reviewed her results with her, provided her a copy of the HIDA scan results. At this time will discharge with return precautions and follow-up recommendations. Verbal discharge instructions given a the bedside and opportunity for questions given. Medication warnings reviewed. Patient is in agreement with this plan and has verbalized understanding of return precautions and the need for primary care follow-up in the next 24-72 hours. - Vital Signs Vital signs: Temp Pulse Resp BP Pulse Ox 98.5 F 110 H 15 135/82 H 99 08/30/17 01:00 08/29/17 17:01 08/30/17 01:00 08/30/17 01:00 08/30/17 01:00 - Laboratory Result Diagrams: 08/29/17 18:15 08/29/17 18:15 Laboratory results interpreted by me: 08/29/17 08/29/17 18:15 18:15 WBC 12.4 H Plt Count 579 H Absolute Neutrophils 8.3 H Absolute Eosinophils 0.7 H Lipase 475.1 H - Diagnostic Test Radiology reviewed: Reports reviewed Discharge - Discharge Clinical Impression: Postoperative complication Qualifiers: Surgical complication system/body Area: digestive system Surgical complication type: seroma Procedure type: non-digestive system Qualified Code(s): K91.873 - Postprocedural seroma of a digestive system organ or structure following other procedure Condition: Stable Disposition: HOME, SELF-CARE Additional Instructions: Your HIDA scan does not show any evidence of a biliary leak. Please follow-up with your outpatient doctors as scheduled. Return if you develop increasing abdominal pain, persistent vomiting, pass out, develop a fever, or have any other symptoms that are worrisome to you.
--- NOTE | 2017-08-30 00:27 | RADIOLOGY REPORT (SQ) ---
CRITICAL ACCESS HOSPITAL HEPATOBILIARY SCAN Clinical history: 27-year-old female with right upper quadrant abdominal pain. Comparison: Prior HIDA scan dated 16 August 2017. And prior abdominal ultrasound dated to August [address] dated 16 August 2017. Technique/Dose: 5 mCi of Choletec were administered with imaging as per hospital protocol. Findings: The liver demonstrates prompt uptake. The gallbladder is not visualized. No leak demonstrated. There is biliary to bowel transit. Impression: 1. In the interval from previous nuclear medicine scan, the gallbladder has been removed 2. No evidence of biliary leak.
[2017-08-30 01:40] VITALS: BP 135/82
== END 2017-08-30 01:44 | disposition home or self-care (01) ==
LOC: ER 16:54
DX: K91.873 Postprocedural seroma of a digestive system organ or structure following other procedure (principal); R11.0 Nausea; Z90.49 Acquired absence of other specified parts of digestive tract; Z88.0 Allergy status to penicillin
CPT/HCPCS: 99284; 36415; 83690; 85025; 85610; 80053; 78226; A9537; Q9969

== ENCOUNTER → 2017-08-29 | Outpatient (CLI) | payer MEDICAID ==
--- NOTE | 2017-08-29 13:24 | RADIOLOGY REPORT (SQ) ---
EXAM DESCRIPTION: U/S ABDOMEN LIMITED W/O DOP COMPLETED DATE/TIME: 08/29/2017 12:35 pm REASON FOR STUDY: R10.9 UNSPECIFIED ABDOMINAL PAIN K91.89 OTH POSTPROCEDURAL COMPLICATIONS AN R10.9 UNSPECIFIED ABDOMINAL PAIN K91.89 OTH POSTPROCEDURAL COMPLICATIONS AND DISORDERS OF DGS Z98.890 OT HER SPECIFIED POSTPROCEDURAL STATES COMPARISON: Abdominal CT scan and hepatobiliary scan dated 08/16/2017 TECHNIQUE: Dynamic and static grayscale images acquired of the abdomen and recorded on PACS. Additio nal selected color Doppler and spectral images recorded. LIMITATIONS: Study is limited somewhat due to overlying bowel gas FINDINGS: PANCREAS: No masses. Visualized pancreatic duct normal caliber. Pancreatic tail could no t be visualized due to overlying bowel gas. LIVER: No masses. Echotexture normal. LIVER VASCULATURE: Normal directional flow of the main portal vein. GALLBLADDER: The patient is status post cholecystectomy. Fluid collection is identified in the gallb ladder fossa presumably related to a bile leak which was identified on the recent hepatobiliary scan. INTRAHEPATIC DUCTS AND COMMON DUCT: CBD and intrahepatic ducts normal caliber. No filling defects. INFERIOR VENA CAVA: Normal flow. AORTA: No aneurysm. RIGHT KIDNEY: Normal size. Normal echogenicity. No solid or suspicious masses. No hydronephrosis. No calcifications. PERITONEAL AND RIGHT PLEURAL SPACE: No ascites or effusions. OTHER: No other significant findings. IMPRESSION: Fluid collection is identified in the gallbladder fossa presumably related to a bile ki k which was identified on the recent PET biliary scan. Status post cholecystectomy. Other findings as noted above TECHNICAL DOCUMENTATION: JOB ID: [id number] [employer]- All Rights Reserved Reading location - IP/workstation name: [email or web address]
== END ==
LOC: RAD 11:28
PROVIDERS: ATTEND Surgery
DX: K91.89 Other postprocedural complications and disorders of digestive system (principal); R10.9 Unspecified abdominal pain; Z98.890 Other specified postprocedural states
CPT/HCPCS: 76705

== ENCOUNTER → 2018-04-27 | Outpatient (CLI) | payer MEDICAID | LOC: OD 16:06 | PROVIDERS: ATTEND Nurse Practitioner Family | DX: N91.2 Amenorrhea, unspecified (principal) | CPT/HCPCS: 36415; 84702 ==

== ENCOUNTER 2018-05-11 15:06 | Emergency (ER) | payer MEDICAID ==
--- NOTE | 2018-05-11 15:59 | ER Document Report ---
ED GI/ - General Chief Complaint: Vag Bleeding, +preg <12wks Stated Complaint: VAGINAL BLEEDING Time Seen by Provider: 05/11/18 15:53 Mode of Arrival: Ambulatory Information source: Patient, [facility] Records Notes: 28-year-old female patient reports LMP 03/26/2018 with positive test. She states she has had off and on bleeding off and on cramping since the , that she frequently noticed some blood after she has a bowel movement from the straining. Today she got up to go urinate and saw blood in the toilet. Cramping is not been any different. She does take vitamins, there is been no care at this point. She is blood type O+ based on prior lab work done at this facility. The patient is also aware that her blood type is O+. TRAVEL OUTSIDE OF THE [place] IN LAST 30 DAYS: No - Related Data Allergies/Adverse Reactions: amoxicillin Allergy (Verified 08/29/17 16:56) rash Past Medical History - General Information source: Patient, [facility] Records - Social History Smoking Status: Never Smoker Cigarette use (# per day): No Chew tobacco use (# tins/day): No Smoking Education Provided: No Frequency of alcohol use: None Drug Abuse: None Lives with: Family Family History: Reviewed & Not Pertinent GI Medical History: Reports: Hx Gastroesophageal Reflux Disease, Hx Hiatal Hernia Past Surgical History: Reports: Hx Cholecystectomy - 08/15/17 - Immunizations Immunizations up to date: Yes Hx Diphtheria, Pertussis, Tetanus Vaccination: Yes Review of Systems - Review of Systems Constitutional: No symptoms reported EENT: No symptoms reported Cardiovascular: No symptoms reported Respiratory: No symptoms reported Gastrointestinal: No symptoms reported Genitourinary: No symptoms reported Female Genitourinary: See HPI, Last menstrual period - 03/26/2018 Musculoskeletal: No symptoms reported Skin: No symptoms reported Hematologic/Lymphatic: No symptoms reported Neurological/Psychological: No symptoms reported Physical Exam - Vital signs Vitals: Temp Pulse Resp BP Pulse Ox 98.5 F 81 17 134/64 H 99 05/11/18 15:10 05/11/18 15:10 05/11/18 15:10 05/11/18 15:10 05/11/18 15:10 Interpretation: Normal - General General appearance: Appears well, Alert In distress: None - HEENT Head: Normocephalic, Atraumatic Eyes: Normal Pupils: PERRL - Respiratory Respiratory status: No respiratory distress - Cardiovascular Rhythm: Regular - Abdominal Inspection: Normal - Back Back: Normal - Extremities General upper extremity: Normal inspection General lower extremity: Normal inspection - Neurological Neuro grossly intact: Yes - Psychological Associated symptoms: Normal affect, Normal mood - Skin Skin Temperature: Warm Skin Moisture: Dry Skin Color: Normal Course - Vital Signs Vital signs: Temp Pulse Resp BP Pulse Ox 98.5 F 81 17 134/64 H 99 05/11/18 15:10 05/11/18 15:10 05/11/18 15:10 05/11/18 15:10 05/11/18 15:10 - Laboratory Result Diagrams: 05/11/18 16:00 05/11/18 16:00 Laboratory results interpreted by me: 05/11/18 05/11/18 05/11/18 15:30 16:00 16:00 RDW 14.3 H Beta HCG, Quant 6792.00 H Urine Blood LARGE H Ur Leukocyte Esterase SMALL H - Diagnostic Test Radiology reviewed: Reports reviewed - Ultrasound shows an irregularly-shaped gestational sac identifying a questionable pole with no cardiac activity seen. HCG level is appropriate for endometrial findings. Recommendation for follow-up hCG and/or ultrasound to verify living gestation and to exclude ectopic . Discharge - Discharge Clinical Impression: Bleeding in early Condition: Stable Disposition: HOME, SELF-CARE Additional Instructions: Bleeding During Early : You have been evaluated for passing blood while . While we take this symptom very seriously, most women with your degree of bleeding will go on to have a perfectly normal baby. A more serious cause of bleeding is tubal . An ultrasound can show whether the is in the uterus or in the tube. Sometimes in early , no fetus is seen. In this case, careful follow-up, including repeat blood tests and repeat ultrasound, is necessary. You should rest in bed until the symptoms have resolved. Do not douche or have sex for at least a week, or until OK'd by the doctor. Don't use tampons. Call the doctor or return for re-examination if there is an increase in bleeding or cramping, extreme weakness, fainting, new abdominal pain, fever, or passage of tissue. On ultrasound her measured 6 weeks 2 days but had an irregular shaped gestational sac and uncertain about a pole. No cardiac activity was seen. Your hormone level was 6,792 which is a little low for a 6-week . The radiologist reading the ultrasound recommends a repeat hCG and/or ultrasound to verify if this is a living gestation. You should follow-up with [facility] in 2 days for recheck-- call tomorrow to schedule an appointment. RETURN TO THE EMERGENCY ROOM IF ANY NEW OR WORSENING SYMPTOMS. Referrals: PADMINI WHITE FNP-C [Primary Care Provider] - Follow up as needed [facility] [Provider Group] - 05/13/18
[2018-05-11 16:14] LABS: ABSOLUTE BASOPHILS # (AUTO) 0.1 10^3/uL (0.0-0.2); ABSOLUTE EOSINOPHILS # (AUTO) 0.3 10^3/uL (0.0-0.6); ABSOLUTE LYMPHOCYTES (AUTO) 2.7 10^3/uL (0.5-4.7); ABSOLUTE MONOCYTES (AUTO) 0.5 10^3/uL (0.1-1.4); ABSOLUTE NEUT (AUTO) 3.5 10^3/uL (1.7-8.2); BASOPHILS % (AUTO) 0.9 % (0-2); EOSINOPHILS % (AUTO) 4.6 % (0-6); HEMATOCRIT 37.1 % (36.0-47.0); HEMOGLOBIN 13.2 g/dL (12.0-15.5); LYMPHOCYTES % (AUTO) 38.3 % (13-45); MEAN CORPUSCULAR HEMOGLOBIN 29.7 pg (27.0-33.4); MEAN CORPUSCULAR HGB CONC 35.6 g/dL (32.0-36.0); MEAN CORPUSCULAR VOLUME 83 fl (80-97); MONOCYTES % (AUTO) 6.6 % (3-13); PLATELET COUNT 258 10^3/uL (150-450); RED BLOOD COUNT 4.44 10^6/uL (3.72-5.28); RED CELL DISTRIBUTION WIDTH 14.3 % (11.5-14.0); SEGMENTED NEUTROPHILS % (AUTO) 49.6 % (42-78); TOTAL CELLS COUNTED % (AUTO) 100 %
[2018-05-11 16:20] LABS: AMORPHOUS SEDIMENT,URINE TRACE /HPF; APPEARANCE,URINE CLOUDY; BILIRUBIN,URINE NEGATIVE (NEGATIVE); COLOR,URINE YELLOW; GLUCOSE, URINE NEGATIVE (NEGATIVE); KETONES,URINE NEGATIVE (NEGATIVE); LEUKOCYTE ESTERASE,URINE SMALL (NEGATIVE); NITRITE,URINE NEGATIVE (NEGATIVE); PROTEIN,URINE NEGATIVE (NEGATIVE); URINE SPECIFIC GRAVITY 1.015; UROBILINOGEN,URINE NEGATIVE mg/dL (<2.0)
[2018-05-11 16:32] LABS: ALANINE AMINOTRANSFERASE 11 U/L (9-52); ALKALINE PHOSPHATASE 53 U/L (38-126); ANION GAP 11 (5-19); ASPARTATE AMINO TRANSFERASE 16 U/L (14-36); BILIRUBIN,DIRECT 0.2 mg/dL (0.0-0.4); BLOOD UREA NITROGEN 10 mg/dL (7-20); CARBON DIOXIDE 25 mmol/L (22-30); CHLORIDE 107 mmol/L (98-107); GLUCOSE 96 mg/dL (75-110); POTASSIUM 3.8 mmol/L (3.6-5.0); SODIUM 142.6 mmol/L (137-145); TOTAL PROTEIN 6.9 g/dL (6.3-8.2)
--- NOTE | 2018-05-11 17:49 | RADIOLOGY REPORT (SQ) ---
EXAM DESCRIPTION: U/S OB TRANSVAGINAL W/O DOP COMPLETED DATE/TIME: 05/11/2018 5:01 pm REASON FOR STUDY: 6 weeks, cramping and bleeding COMPARISON: None. TECHNIQUE: Transvaginal static and realtime grayscale images acquired of the pelvis. Additional sanjuana cted spectral and color Doppler images recorded. All images stored on PACs. CLINICAL AGE: 712/31/2020 [id number] LIMITATIONS: None. FINDINGS: UTERUS: No masses. No anomalies. GESTATIONAL SAC: Irregular-shaped YOLK SAC: Visualized POLE: Questionable pole is identified without cardiac activity being identified. RIGHT ADNEXA: Normal ovary with normal vascular flow. No adnexal free fluid. No adnexal masses. LEFT ADNEXA: Left ovary was not visualized. No adnexal free fluid. No adnexal masses. FREE FLUID: None. OTHER: No other significant finding. IMPRESSION: An irregular shaped gestational sac is identified containing a questionable pole. No cardiac activity is identified. BHCG LEVEL APPROPRIATE FOR ENDOMETRIAL FINDINGS. CONSIDER F/U BHCG AND/OR ULTRASOUND FOR VERIFICATION of a living gestation AND TO EXCLUDE ECTOPIC PRE GNANCY. Trimester of : First - 0 to 13 weeks. TECHNICAL DOCUMENTATION: JOB ID: [id number] [employer]- All Rights Reserved Reading location - IP/workstation name: [email or web address]
[2018-05-11 19:22] VITALS: BP 133/73
== END 2018-05-11 19:21 | disposition home or self-care (01) ==
LOC: ER 15:06
DX: O20.9 Hemorrhage in early pregnancy, unspecified (principal); Z3A.01 Less than 8 weeks gestation of pregnancy; Z88.0 Allergy status to penicillin; Z90.49 Acquired absence of other specified parts of digestive tract
CPT/HCPCS: 36415; 76817; 80053; 81001; 84702; 85025; 99284

== ENCOUNTER → 2018-05-13 | Outpatient (CLI) | payer MEDICAID | LOC: OD 09:35 | PROVIDERS: ATTEND Nurse Practitioner Family | DX: N91.2 Amenorrhea, unspecified (principal) | CPT/HCPCS: 36415; 84702 ==

== ENCOUNTER → 2018-05-22 | Outpatient (CLI) | payer MEDICAID | LOC: OD 13:20 | PROVIDERS: ATTEND Obstetrics & Gynecology | DX: O20.0 Threatened abortion (principal) | CPT/HCPCS: 36415; 84702 ==

== ENCOUNTER 2018-05-26 10:35 | Day surgery (SDC) | payer MEDICAID ==
[~2018-05-26 10:35] MED LIST changes: -CEFEPIME 2 GM/D5W RTU 2 GM/50 ML RTUPB IV SCH; -CEFEPIME HCL 2 GM in NORMAL SALINE 100 ML IV SCH; -CIPROFLOXACIN 400 MG/D5W RTU 400 MG/200 ML RTUPB IV ONE; -FENTANYL CITRATE INJ/PF 100 MCG/2 ML AMPUL IV ONE; -HYDROMORPHONE HCL INJ/PF 2 MG/ML AMPULE IV ONE; +LIDOCAINE 1%/EPINEPHRINE INJ 20 ML VIAL ONE; +METHYLERGONOVINE MALEATE INJ/PF 0.2 MG/1 ML AMPULE ONE; -NORMAL SALINE 1000 ML 1,000 ML IV PRN
[2018-05-26 11:29] LABS: HEMOGLOBIN 13.9 g/dL (12.0-15.5); MEAN CORPUSCULAR HEMOGLOBIN 29.4 pg (27.0-33.4); MEAN CORPUSCULAR HGB CONC 35.7 g/dL (32.0-36.0); MEAN CORPUSCULAR VOLUME 82 fl (80-97); PLATELET COUNT 257 10^3/uL (150-450); RED BLOOD COUNT 4.74 10^6/uL (3.72-5.28); RED CELL DISTRIBUTION WIDTH 14.3 % (11.5-14.0); WHITE BLOOD COUNT 7.6 10^3/uL (4.0-10.5)
[2018-05-26 11:41] LABS: APPEARANCE,URINE CLEAR; BILIRUBIN,URINE NEGATIVE (NEGATIVE); COLOR,URINE YELLOW; GLUCOSE, URINE NEGATIVE (NEGATIVE); KETONES,URINE NEGATIVE (NEGATIVE); LEUKOCYTE ESTERASE,URINE NEGATIVE (NEGATIVE); NITRITE,URINE NEGATIVE (NEGATIVE); PROTEIN,URINE NEGATIVE (NEGATIVE); URINE SPECIFIC GRAVITY 1.017; UROBILINOGEN,URINE NEGATIVE mg/dL (<2.0)
[2018-05-26] MEDS ORDERED: DOXYCYCLINE HYCLATE 100 MG in DEXTROSE 5%-WATER 250 ML IV PRN (11:45)
[2018-05-26] MEDS ORDERED: MIDAZOLAM 2 MG/2 ML INJ ONE ×2 (12:12→12:21)
[2018-05-26] MEDS ORDERED: METOCLOPRAMIDE HCL INJ/PF 10 MG/2 ML SDV ONE (12:12)
[2018-05-26] MEDS ORDERED: FAMOTIDINE INJ/PF 20 MG/2 ML SDV IV ONE (12:13)
[2018-05-26] MEDS ORDERED: HYDROMORPHONE HCL INJ/PF 2 MG/ML AMPULE ONE (12:21)
[2018-05-26] MEDS ORDERED: PROPOFOL INJ 200 MG/20 ML VIAL IV ONE (12:21)
[2018-05-26] MEDS ORDERED: ONDANSETRON HCL INJ/PF 4 MG/2 ML SDV ONE (12:21)
[2018-05-26] MEDS ORDERED: MEPERIDINE HCL/PF INJ 25 MG/1 ML DISP.SYRIN IV PRN (12:46)
[2018-05-26] MEDS ORDERED: DIPHENHYDRAMINE HCL 50 MG/ML VIAL IV PRN (12:46)
[2018-05-26] MEDS ORDERED: FENTANYL CITRATE INJ/PF 100 MCG/2 ML AMPUL IV PRN ×3 (12:46)
[2018-05-26] MEDS ORDERED: OXYCODONE-ACETAMINOPHEN 5-325 MG TABLET PO PRN ×4 (12:46→13:42)
[2018-05-26] MEDS ORDERED: PROMETHAZINE HCL INJ 25 MG/1 ML VIAL IV PRN ×2 (12:46)
[2018-05-26 13:01] LABS: CHLAM PCR NOT DETECTED (NOT DETECT); GON PCR NOT DETECTED (NOT DETECT)
[2018-05-26] MEDS ORDERED: ONDANSETRON HCL INJ/PF 4 MG/2 ML SDV IV PRN (13:40)
[2018-05-26] MEDS ORDERED: IBUPROFEN 800 MG TABLET PO PRN (13:41)
[2018-05-26] MEDS ORDERED: RINGERS SOLUTION,LACTATED 1,000 ML IV PRN (13:50)
[2018-05-26 16:17] VITALS: BP 118/68
--- NOTE | 2018-05-26 22:56 | Operative Report ---
Operative Report DATE OF SURGERY: 05/26/18 PREOPERATIVE DIAGNOSIS: MAB, Abnormal IUP POSTOPERATIVE DIAGNOSIS: ARMIN OPERATION: EUA, Paracervical Block, Suction D&C SURGEON: JACK SHAW ANESTHESIA: LMAC TISSUE REMOVED OR ALTERED: POC COMPLICATIONS: None ESTIMATED BLOOD LOSS: 15ml INTRAOPERATIVE FINDINGS: 8 weeks AV uterus, os open approximately 1 cm, moderate products of conception obtained. PROCEDURE: Anesthesia: [James Melvin MD, Xiao Alvares CRNA EBL: [15ml] IVF: [200ml] UOP: [void prior to OR] Indications: [28yo at approximately 11wks by LMP with BHCG 8,000 at beginning of April then on 05/19 [id number] and then a couple of days later 22,000. Today BHCG 40,000. NO IUP on any US in office including the one yesterday. Reviewed diagnosis of blighted ovum, abnormal IUP, partial molar and treatment options and recommendations. She desires to proceed with Suction D&C. The risks, benefits, alternatives were reviewed.] Procedure: The patient was taken to the Operating Room where general anesthesia was obtained without difficulty. She was prepped and draped in the normal sterile fashion in the dorsal lithotomy position. Exam under anesthesia was performed and noted above. A speculum was placed in the vagina. The anterior cervix was grasped with a single-tooth tenaculum and the uterus sounded to [8] after paracervical block was performed with 8 mL of 1% lidocaine with epinephrine. The cervix was noted to be approximately 1cm dilated at the beg inning of the procedure. Sequential dilators were then used to dilate the cervix to accommodate the the 8 mm suction curet curved. The 8 mm curved suction curet was gently advanced in the usual fashion and good return of tissue. The suction device was then activated and the curet rotated to clear the uterus of the products of conception. A sharp curettage was then performed. The suction device was then gently reintroduced and activated and the curet rotated to clear the uterus of conception which was loosened with recent sharp curettage. The sharp curettage was then performed again until a gritty texture was noted and the cavity was felt to be empty of further tissue. At this time there was minimal bleeding noted from the cervix. All instruments were removed from the patient's cervix and vagina. Silver nitrate was applied to the tenaculum site for hemostasis. Sponge lap needle and instrument counts are correct 2. Doxycycline 100 mg IV was given perioperatively. The patient tolerated the procedure well and was taken to the recovery area awake and in stable condition. The patient was discharged home with pain medications.
== END 2018-05-26 14:50 | disposition home or self-care (01) ==
LOC: OROUT 10:35
PROVIDERS: ATTEND Student in an Organized Health Care Education/Training Program
DX: O02.89 Other abnormal products of conception (principal); I10 Essential (primary) hypertension; Z88.1 Allergy status to other antibiotic agents; Z01.818 Encounter for other preprocedural examination; O36.80X0 Pregnancy with inconclusive fetal viability, not applicable or unspecified; Z3A.08 8 weeks gestation of pregnancy
CPT/HCPCS: 86900; 86901; 36415; 84702; 84703; 85027; 81001; 87491; 87591; 88305 ×2; 59812; J2250; J3490 ×2; J2765; J1170; J2405; J7060; J2704; S0028; 1965; J2210

== ENCOUNTER → 2018-07-18 | Outpatient (CLI) | payer MEDICAID ==
--- NOTE | 2018-07-18 14:45 | RADIOLOGY REPORT (SQ) ---
EXAM DESCRIPTION: ACUTE ABDOMEN SERIES COMPLETED DATE/TIME: 07/18/2018 2:31 pm REASON FOR STUDY: ABDOMINAL PAIN R10.9 UNSPECIFIED ABDOMINAL PAIN COMPARISON: None. NUMBER OF VIEWS: One view. TECHNIQUE: Supine radiographic image of the abdomen acquired. LIMITATIONS: None. FINDINGS: BOWEL GAS PATTERN: Non-obstructive bowel gas pattern. No dilated loops. CALCIFICATIONS: No suspicious calcifications. SOFT TISSUES: No gross mass or suggestion of organomegaly. HARDWARE: None in the abdomen. BONES: No acute fracture. No worrisome bone lesions. OTHER: No other significant finding. IMPRESSION: NO RADIOGRAPHIC EVIDENCE FOR ACUTE ABDOMINAL DISEASE. TECHNICAL DOCUMENTATION: JOB ID: [id number] [id number] 2010 [employer]- All Rights Reserved Reading location - IP/workstation name: [email or web address]
== END ==
LOC: RAD 14:15
PROVIDERS: ATTEND Nurse Practitioner Family
DX: R10.9 Unspecified abdominal pain (principal)
CPT/HCPCS: 74022

== ENCOUNTER → 2018-07-18 | Outpatient (CLI) | payer MEDICAID | LOC: LAB 17:00 | PROVIDERS: ATTEND Nurse Practitioner Family | DX: R10.9 Unspecified abdominal pain (principal); R19.7 Diarrhea, unspecified | CPT/HCPCS: 87045; 87177; 87205 ==

== ENCOUNTER 2019-04-20 21:02 | Emergency (ER) | payer MEDICAID ==
[2019-04-20] MEDS ORDERED: LABETALOL HCL 200 MG TABLET PO ONE (21:34)
[2019-04-20 22:01] LABS: ABSOLUTE EOSINOPHILS # (AUTO) 0.4 10^3/uL (0.0-0.6); ABSOLUTE MONOCYTES (AUTO) 0.5 10^3/uL (0.1-1.4); ABSOLUTE NEUT (AUTO) 6.1 10^3/uL (1.7-8.2); BASOPHILS % (AUTO) 0.5 % (0-2); EOSINOPHILS % (AUTO) 4.1 % (0-6); HEMATOCRIT 39.2 % (36.0-47.0); HEMOGLOBIN 13.4 g/dL (12.0-15.5); MEAN CORPUSCULAR HEMOGLOBIN 27.4 pg (27.0-33.4); MEAN CORPUSCULAR HGB CONC 34.2 g/dL (32.0-36.0); MEAN CORPUSCULAR VOLUME 80 fl (80-97); MONOCYTES % (AUTO) 5.5 % (3-13); PLATELET COUNT 344 10^3/uL (150-450); RED BLOOD COUNT 4.88 10^6/uL (3.72-5.28); RED CELL DISTRIBUTION WIDTH 14.7 % (11.5-14.0); SEGMENTED NEUTROPHILS % (AUTO) 67.9 % (42-78); TOTAL CELLS COUNTED % (AUTO) 100 %; WHITE BLOOD COUNT 9.1 10^3/uL (4.0-10.5)
[2019-04-20 22:15] LABS: ALBUMIN 4.1 g/dL (3.5-5.0); ALKALINE PHOSPHATASE 95 U/L (38-126); ANION GAP 11 (5-19); ASPARTATE AMINO TRANSFERASE 25 U/L (14-36); BILIRUBIN,TOTAL 1.1 mg/dL (0.2-1.3); BLOOD UREA NITROGEN 12 mg/dL (7-20); CALCIUM 9.3 mg/dL (8.4-10.2); CARBON DIOXIDE 21 mmol/L (22-30); CHLORIDE 106 mmol/L (98-107); GLUCOSE 86 mg/dL (75-110); TOTAL PROTEIN 7.4 g/dL (6.3-8.2); URIC ACID 5.9 mg/dL (2.5-6.2)
[2019-04-20 22:36] LABS: APPEARANCE,URINE CLEAR; BILIRUBIN,URINE NEGATIVE (NEGATIVE); COLOR,URINE STRAW; GLUCOSE, URINE NEGATIVE (NEGATIVE); KETONES,URINE NEGATIVE (NEGATIVE); LEUKOCYTE ESTERASE,URINE NEGATIVE (NEGATIVE); NITRITE,URINE NEGATIVE (NEGATIVE); PROTEIN,URINE NEGATIVE (NEGATIVE); URINE SPECIFIC GRAVITY 1.009; UROBILINOGEN,URINE NEGATIVE mg/dL (<2.0)
[2019-04-20 22:45] LABS: UR PRO/CREAT RATIO RESULT 0.2 mg/mg (0.0-0.2); URINE CREATININE 53.7 mg/dL (16-327); URINE PROTEIN 11.1 mg/dL (<12)
[2019-04-20 23:12] VITALS: BP 144/86
--- NOTE | 2019-04-20 23:52 | EKG REPORT ---
SEVERITY:- NORMAL ECG - SINUS RHYTHM : Confirmed by: Florina Perry MD 20-Apr-2019 23:52:09
--- NOTE | 2019-04-21 03:47 | ER Document Report ---
Entered by BRANDEE HAYES SCRIBE 04/20/192139 Acting as scribe for:MILDRED BRAGG DO ED Blood Pressure Problem - General Chief Complaint: High Blood Pressure Stated Complaint: BLOOD PRESSURE ISSUE/HEADACHE Time Seen by Provider: 04/20/19 21:31 Primary Care Provider: PADMINI WHITE FNP-C [Primary Care Provider] - Follow up in 3-5 days Mode of Arrival: Ambulatory Information source: Patient Notes: Patient is a 29-year-old female who presents to the emergency department today with complaints of a headache, blurry vision, and associated high blood pressure. Patient gave 8 days ago vaginally at 37 weeks 4 days. Patient states this is her second child she has had high blood pressure during both pregnancies. Patient states during both pregnancies she was put on labetalol 100 mg and this dosage did not change. Patient does mention that she took her morning dose today but has not taken her night time dose yet. Patient states that she does not usually get headaches. Patient adds that she has not been getting much sleep recently as she has a 3-year-old and now a at home. Mom states she did not have any complications at but her has been in and out of the hospital for blood sugar problems and jaundice. TRAVEL OUTSIDE OF THE [place] IN LAST 30 DAYS: No - Related Data Allergies/Adverse Reactions: amoxicillin Allergy (Verified 08/13/18 16:16) rash Home Medications: Labetalol 100 mg BID Past Medical History - General Information source: Patient - Social History Smoking Status: Never Smoker Cigarette use (# per day): No Chew tobacco use (# tins/day): No Frequency of alcohol use: None Drug Abuse: None Lives with: Family Family History: Reviewed & Not Pertinent Patient has suicidal ideation: No Patient has homicidal ideation: No GI Medical History: Reports: Hx Gastroesophageal Reflux Disease, Hx Hiatal Hernia Past Surgical History: Reports: Hx Cholecystectomy - 08/15/17 - Immunizations Immunizations up to date: Yes Hx Diphtheria, Pertussis, Tetanus Vaccination: Yes Review of Systems - Review of Systems Constitutional: See HPI, Other - Gave 8 days ago EENT: No symptoms reported Cardiovascular: See HPI, Other - High blood pressure Respiratory: No symptoms reported Gastrointestinal: No symptoms reported Genitourinary: No symptoms reported Female Genitourinary: No symptoms reported Musculoskeletal: No symptoms reported Skin: No symptoms reported Hematologic/Lymphatic: No symptoms reported Neurological/Psychological: See HPI, Headaches -: Yes All other systems reviewed and negative Physical Exam - Vital signs Vitals: Temp Resp BP Pulse Ox 98.2 F 22 H 174/108 H 98 04/20/19 21:20 04/20/19 21:20 04/20/19 21:20 04/20/19 21:20 Interpretation: Hypertensive - General General appearance: Appears well, Alert Notes: Appears uncomfortable. - HEENT Head: Normocephalic, Atraumatic Eyes: Normal Pupils: PERRL - Respiratory Respiratory status: No respiratory distress Chest status: Nontender Breath sounds: Normal Chest palpation: Normal - Cardiovascular Rhythm: Regular Heart sounds: Normal auscultation Murmur: No - Abdominal Inspection: Normal Distension: No distension Bowel sounds: Normal Tenderness: Nontender Organomegaly: No organomegaly - Back Back: Normal, Nontender - Extremities General upper extremity: Normal inspection, Nontender, Normal color, Normal ROM, Normal temperature. No: Edema General lower extremity: Normal inspection, Nontender, Normal color, Normal ROM, Normal temperature, Normal weight bearing. No: Edema, Delphine's sign - Neurological Neuro grossly intact: Yes Cognition: Normal Orientation: AAOx4 Burdett Coma Scale Eye Opening: Spontaneous Lexis Coma Scale Verbal: Oriented Lexis Coma Scale Motor: Obeys Commands Lexis Coma Scale Total: 15 Speech: Normal Cranial nerves: Normal Cerebellar coordination: Normal Motor strength normal: LUE, RUE, LLE, RLE Additional motor exam normals: Equal orthopedics pediatric physician, Dorsiflexion. No: Pronator drift, Weakness, Hemiplegia Sensory: Normal - Psychological Associated symptoms: Normal affect, Normal mood - Skin Skin Temperature: Warm Skin Moisture: Dry Skin Color: Normal Course - Re-evaluation Re-evalutation: 04/20/19 21:[address] Lynch. Would do CBC, CMP, urinalysis, uric acid and urine to creatinine ratio with cath urine. Discussed with patient who is agreeable to this plan. Will also give dose of labetalol 100 mg, which is the patient's home medication that she has not taken yet tonight. 04/20/19 23:15 No acute findings on blood work or urine. No protein. Blood pressure is downtrending with labetalol. Patient's symptoms are nearly completely resolved. No evidence for preeclampsia. No evidence for head imaging at this time. Recommend patient take labetalol on more regular schedule if possible, decrease salt intake and try to get more sleep, although this will be difficult with a . She is to follow-up with her [facility] return for any worsening or eduarda rning symptoms. Neurovascularly intact with no signs of intracranial catastrophe. Understands and agrees with plan. Stable for discharge. Grateful for care. - Vital Signs Vital signs: Temp Pulse Resp BP Pulse Ox 98.2 F 20 144/86 H 95 04/20/19 21:20 04/20/19 23:01 04/20/19 23:01 04/20/19 23:01 - Laboratory Result Diagrams: 04/20/19 21:48 04/20/19 21:48 Laboratory results interpreted by me: 04/20/19 04/20/19 04/20/19 21:48 21:48 22:03 RDW 14.7 H Carbon Dioxide 21 L Urine Blood MODERATE H Discharge - Discharge Clinical Impression: induced hypertension, Condition: Stable Disposition: HOME, SELF-CARE Instructions: High Blood Pressure, Requiring Treatment ([facility]) Additional Instructions: Follow-up with your [facility] within the next week or 2. Please make sure you are taking your blood pressure medication as scheduled. Please follow-up with your doctor. Return if you have any worsening concerns or symptoms. Try to eat a low-salt diet and get more sleep. Referrals: PADMINI WHITE, FRIDA-C [Primary Care Provider] - Follow up in 3-5 days I personally performed the services described in the documentation, reviewed and edited the documentation which was dictated to the scribe in my presence, and it accurately records my words and actions.
== END 2019-04-20 23:30 | disposition home or self-care (01) ==
LOC: ER 21:02
DX: O13.5 Gestational [pregnancy-induced] hypertension without significant proteinuria, complicating the puerperium (principal); Z88.0 Allergy status to penicillin; Z90.49 Acquired absence of other specified parts of digestive tract
CPT/HCPCS: 93005; 99284; 36415; 83615; 84156; 84550; 82570; 85025; 80053; 81001; 93010; J3490

== ENCOUNTER → 2019-04-25 | Outpatient (CLI) | payer MEDICAID | LOC: LAB 14:54 | PROVIDERS: ATTEND Nurse Practitioner Family | DX: R30.0 Dysuria (principal) | CPT/HCPCS: 87086; 87088; 87186 ==